=== PATIENT | female | born 1950 | race Two or more races ===

== ENCOUNTER 2020-08-23 12:52 | Emergency (ER) | payer MEDICARE, MEDICAID, SELFPAY ==
[2020-08-23 13:49] VITALS: BP 189/79; PULSE 67; RESP 16; TEMP 36.8; O2SAT 97; BMI 43.0
--- NOTE | 2020-08-23 13:58 | XR_ITS ---
EXAMINATION: XR CHEST CLINICAL INFORMATION: Chest tightness COMPARISON: Previous chest x-ray December 2017 TECHNIQUE: Frontal view of the chest was obtained. FINDINGS: The cardiac and mediastinal contours are normal. The lungs are clear. There is no pleural effusion or pneumothorax. There is curvature of the midthoracic spine to the right. XR/XR chest 1V IMPRESSION: No evidence for acute disease in the chest.
[2020-08-23 14:00] VITALS: RESP 18; O2SAT 98
--- NOTE | 2020-08-23 14:15 | ED.GENADULT ---
HPI - General Adult General Chief complaint: Upper Respiratory Symptoms Stated complaint: covid symptoms Time Seen by Provider: 08/23/20 13:58 Source: patient Mode of arrival: ambulatory Limitations: no limitations History of Present Illness HPI narrative: 69 y/o female presenting to the ER with chills, dry cough with associated chest tightness and body aches for the last 3 days. She states she was recently with her daughter who just found out she had COVID-19. Patient denies OSB or difficulty breathing. She has been eating and drinking normally. Has not taken her temp at home. Related Data Allergies Allergy/AdvReac Type Severity Reaction Status Date / Time morphine [MORPHINE] Allergy Severe CHEST Verified 08/23/20 13:51 PAIN, TROUBLE BREATHING, bruises Penicillins Allergy Intermediate RASH Verified 08/23/20 13:51 tramadol [TRAMADOL] Allergy Unknown CHEST PAIN Verified 08/23/20 13:51 Penicillin Allergy Unknown Hives Uncoded 08/23/20 13:51 From Percocet AdvReac Intermediate NAUSEA & Uncoded 08/23/20 13:51 VOMITING Percocet AdvReac Unknown vomiting Uncoded 08/23/20 13:51 Review of Systems Review of Systems: Constitutional: No Fever, + Chills ENT/Mouth: + sore throat, No Rhinorrhea, No Swallowing Difficulty Eyes: No Eye Pain, No Swelling, No Redness Cardiovascular: + Chest Pain ( tight when coughing only), No SOB, No Orthopnea, No Edema Respiratory: + Cough, No Sputum, No Wheezing, No dyspnea Gastrointestinal: No Nausea, No Vomiting, No Diarrhea, No abdominal Paiin Genitourinary: No Dysuria, No Urinary Frequency, No Hematuria Musculoskeletal: No joint pain, + Myalgias Skin: No Skin Lesions, No rash Neuro: +Weakness, No Numbness, No Dizziness, + Headache Heme/Lymph: No Lymphadenopathy PMFSH Past Medical History Medical History (Updated 08/23/20 @ 14:59 by RADHA Johnston) Hypertension Social History Social History Advance Directives: No Advance Directives Information Provided: No Physical Exam Vital Signs: Vital Signs: Last Vital Signs Temp 98.3 F 08/23/20 13:49 Pulse 67 08/23/20 13:49 Resp 18 08/23/20 14:00 BP 189/79 H 08/23/20 13:49 Pulse Ox 98 08/23/20 14:00 Body Mass Index 43.0 Appearance: Alert. Oriented X3. No acute distress. Eyes: Pupils equal, round and reactive to light. ENT: Pharynx normal. Neck: Normal inspection. Neck supple. CVS: Normal heart rate and rhythm. Pulses normal. Respiratory: No respiratory distress. Breath sounds normal. Skin: Skin warm and dry. Normal skin color. Extremities: No lower extremity edema. Neuro: Oriented X 3. Non-focal Course Course Course Narrative: 69 y/o female presenting with COVID-19 symptoms after known exposure. Non-toxic appearing without resp distress and no increased WOB. Lungs are clear. CXR and Resp panel pending. Reevaluation(s) Reevaluation #1: Went to go tell the patient about her negative CXR and it appears she has eloped from the ER. Will call with results. Discharge Plan Discharge Clinical Impression: Viral infection Patient Disposition: Elopement Interventions: ED Discharge Assessment Last Done: 08/23/20 14:45 Discharge Date/Time: 08/23/20 14:45
[2020-08-23 15:15] LABS: Influenza A PCR NEGATIVE (Negative); Influenza B PCR NEGATIVE (Negative); Resp Syncy Virus RNA Qual PCR NEGATIVE (Negative); SARS COV2 PCR INHOUSE NEGATIVE (Negative)
== END 2020-08-23 14:45 | disposition left against medical advice (07) ==
PROVIDERS: Physician Assistant; Emergency Provider Emergency Medicine; PCP Internal Medicine
DX: B34.9 Viral infection, unspecified (principal); Z20.828 Contact with and (suspected) exposure to other viral communicable diseases; I10 Essential (primary) hypertension
CPT/HCPCS: 0241U; 71045; 99283; 99284

== ENCOUNTER 2020-08-25 10:58 | Emergency (ER) | payer MEDICARE, MEDICAID, SELFPAY ==
[2020-08-25 11:11] VITALS: BP 173/65; PULSE 70; RESP 20; TEMP 37.2; O2SAT 97; BMI 43.0
--- NOTE | 2020-08-25 11:55 | ED_ITS ---
HPI - Asthma General Chief Complaint: Asthma Stated Complaint: covid symptoms Time Seen by Provider: 08/25/20 11:26 History of Present Illness HPI Narrative: Patient is a 69-year-old female presents today with coughing upper respiratory symptoms that is been ongoing for 3 days. Patient was tested for coronavirus 2 days ago. Presented today with having still upper respiratory symptoms. Positive fever 2 days ago that has subsided. No travel. No vomiting. No leg swelling. No chest pain. Patient is from home. Coughing nonproductive in nature. Positive generalized malaise positive diffuse body aches. No change in smell or taste. Related Data Allergies Allergy/AdvReac Type Severity Reaction Status Date / Time morphine [MORPHINE] Allergy Severe CHEST Verified 08/23/20 13:51 PAIN, TROUBLE BREATHING, bruises Penicillins Allergy Intermediate RASH Verified 08/23/20 13:51 tramadol [TRAMADOL] Allergy Unknown CHEST PAIN Verified 08/23/20 13:51 Penicillin Allergy Unknown Hives Uncoded 08/23/20 13:51 From Percocet AdvReac Intermediate NAUSEA & Uncoded 08/23/20 13:51 VOMITING Percocet AdvReac Unknown vomiting Uncoded 08/23/20 13:51 Review of Systems Review of Systems: Constitutional: No Weight loss, positive Fever, No Chills, No Night Sweats, No Fatigue, positive Malaise ENT/Mouth: No Hearing loss, No Ear Pain, No Nasal Congestion, No Sinus Pain, No Hoarseness, No sore throat, No Rhinorrhea, No Swallowing Difficulty Eyes: No Eye Pain, No Swelling, No Redness, No Foreign Body, No Discharge, No Vision Changes Cardiovascular: No Chest Pain, No SOB, No Dyspnea on Exertion, No Orthopnea, No Edema, No Palpitations Respiratory: Positive Cough, No Sputum, No Wheezing, No Smoke Exposure, No Dyspnea Gastrointestinal: No Nausea, No Vomiting, No Diarrhea, No Constipation, No abdominal Pain, No Hematochezia, No Melena Genitourinary: no irregular bleeding, No Dysuria, No Urinary Frequency, No Hematuria, No Urinary Incontinence, No Urgency, No Flank Pain, No Urinary Flow Changes, No Hesitancy Musculoskeletal: No joint pain, positive Myalgias, No Joint Swelling Skin: No Skin Lesions, No rash Neuro: No Weakness, No Numbness, No Paresthesias, No Loss of Consciousness, No Dizziness, No Headache Psych: No Anxiety/Panic, No Depression, No SI/HI/AH/VH, No Social Issues, Heme/Lymph: No Bruising, No Bleeding,No Lymphadenopathy Endocrine: No Polyuria, No Polydipsia, No Temperature Intolerance [facility] Past Medical History Attestation statement: The following information was validated with the patient. Medical History Hypertension Social History Social History Smoking Status: Never smoker Use of substances other than those prescribed or required for medical reasons: No Advance Directives: No Advance Directives Information Provided: Yes Physical Exam Vital Signs: Vital Signs: Last Vital Signs Temp 99.0 F 08/25/20 11:11 Pulse 70 08/25/20 11:11 Resp 20 08/25/20 11:11 BP 173/65 H 08/25/20 11:11 Pulse Ox 97 08/25/20 11:11 Body Mass Index 43.0 Appearance: Alert. Oriented X3. No acute distress. Eyes: Pupils equal, round and reactive to light. ENT: Pharynx normal. Neck: Normal inspection. Neck supple. No lymph nodes noted. No crepitus CVS: Normal heart rate and rhythm. Pulses normal. Normal S1 and S2 Respiratory: No respiratory distress. Breath sounds normal. No Wheezing. No rales Abdomen: Soft and nontender. No rigidity. No distention. good BS x4 Skin: Skin warm and dry. Normal skin color. Normal skin turgor. Extremities: No lower extremity edema. Neurovascular intact to all extremities. No Lacerations. No Rash Neuro: Oriented X 3. No motor deficit. No sensory deficit. Moving all extermities. No slurred speech MDM - Asthma MDM Narrative Medical decision making narrative: Patient's coronavirus test 2 days ago was negative. Cannot exclude the possibility of coronavirus. Patient's lung is 97% on room air. Well-appearing. No distress. Will discharge patient home. Please follow-up strict home quarantine. Please stay home until off fever has resolved for at least 24-48 hours. Discharge Plan Discharge Clinical Impression: COVID-19, Upper respiratory infection Patient Disposition: Home, Self-Care Instructions: COVID-19 (Coronavirus Disease 2019) (ED), Upper Respiratory Infection (ED) Additional Instructions: Your coronavirus test done 2 days ago was negative. There is still a risk for coronavirus. Please stay home into all symptom has resolved. No fever for at least 24-48 hours. Close follow-up with your doctor. Worsening condition return to the emergency department immediately. Referrals: Physician,Unknown [Primary Care Provider] - 2 days Print Language: Citizen Of [place]
[2020-08-25 12:10] VITALS: BP 173/65; PULSE 70; RESP 20; TEMP 37.2; O2SAT 97
== END 2020-08-25 12:20 | disposition home or self-care (01) ==
PROVIDERS: Emergency Provider Emergency Medicine Emergency Medical Services
DX: U07.1 COVID-19 (principal); R05 Cough
CPT/HCPCS: 99283; 99284; 99285

== ENCOUNTER 2020-08-31 14:10 | Emergency (ER) | payer MEDICARE, MEDICAID, SELFPAY ==
[2020-08-31 14:33] VITALS: BP 185/75; PULSE 68; RESP 16; TEMP 36.4; O2SAT 99; BMI 48.8
[2020-08-31 15:02] VITALS: BP 185/75; PULSE 68; PULSE 80; RESP 16; TEMP 36.4; O2SAT 99
--- NOTE | 2020-08-31 15:27 | ED.GENADULT ---
HPI - General Adult General Chief complaint: General Medical Stated complaint: covid symptoms Time Seen by Provider: 08/31/20 14:33 History of Present Illness HPI narrative: Patient is a 69-year-old female with a history of asthma. Presents today with coughing upper respiratory symptoms that is been ongoing for 3-4 days. She has never been admitted for asthma. Never been intubated. Patient complaining of increasing coughing upper respiratory symptom no fever no chills. Patient claims when she walks she gets more wheezy. Feels very tired. Patient is from home. No change in smell or taste. Patient had a coronavirus test done 3 days ago was negative. Continued to have symptoms hence presents to the emergency department. Patient also ran out of her albuterol at home. Related Data Previous Rx's Medication Instructions Recorded prednisone 40 mg PO DAILY 5 Days #10 tab 08/31/20 Allergies Allergy/AdvReac Type Severity Reaction Status Date / Time morphine [MORPHINE] Allergy Severe CHEST Verified 08/23/20 13:51 PAIN, TROUBLE BREATHING, bruises Penicillins Allergy Intermediate RASH Verified 08/23/20 13:51 tramadol [TRAMADOL] Allergy Unknown CHEST PAIN Verified 08/23/20 13:51 Penicillin Allergy Unknown Hives Uncoded 08/23/20 13:51 From Percocet AdvReac Intermediate NAUSEA & Uncoded 08/23/20 13:51 VOMITING Percocet AdvReac Unknown vomiting Uncoded 08/23/20 13:51 Review of Systems Review of Systems: Constitutional: No Weight loss, No Fever, No Chills, No Night Sweats, No Fatigue, No Malaise ENT/Mouth: No Hearing loss, No Ear Pain, No Nasal Congestion, No Sinus Pain, No Hoarseness, No sore throat, No Rhinorrhea, No Swallowing Difficulty Eyes: No Eye Pain, No Swelling, No Redness, No Foreign Body, No Discharge, No Vision Changes Cardiovascular: No Chest Pain, positive SOB, No Dyspnea on Exertion, No Orthopnea, No Edema, No Palpitations Respiratory: Positive Cough, No Sputum, No Wheezing, No Smoke Exposure, No Dyspnea Gastrointestinal: No Nausea, No Vomiting, No Diarrhea, No Constipation, No abdominal Pain, No Hematochezia, No Melena Genitourinary: no irregular bleeding, No Dysuria, No Urinary Frequency, No Hematuria, No Urinary Incontinence, No Urgency, No Flank Pain, No Urinary Flow Changes, No Hesitancy Musculoskeletal: No joint pain, No Myalgias, No Joint Swelling Skin: No Skin Lesions, No rash Neuro: No Weakness, No Numbness, No Paresthesias, No Loss of Consciousness, No Dizziness, No Headache Psych: No Anxiety/Panic, No Depression, No SI/HI/AH/VH, No Social Issues, Heme/Lymph: No Bruising, No Bleeding,No Lymphadenopathy Endocrine: No Polyuria, No Polydipsia, No Temperature Intolerance [facility] Past Medical History Attestation statement: The following information was validated with the patient. Medical History Asthma Hypertension Social History Social History Alcohol intake: current Alcohol intake frequency: holidays/special occasions only Smoking Status: Never smoker Use of substances other than those prescribed or required for medical reasons: No Advance Directives: No Advance Directives Information Provided: Yes Physical Exam Vital Signs: Vital Signs: Last Vital Signs Temp 97.6 F 08/31/20 15:02 Pulse 68 08/31/20 15:02 Resp 16 08/31/20 15:02 BP 185/75 H 08/31/20 15:02 Pulse Ox 99 08/31/20 15:02 Body Mass Index 48.8 Appearance: Alert. Oriented X3. No acute distress. Eyes: Pupils equal, round and reactive to light. ENT: Pharynx normal. Neck: Normal inspection. Neck supple. No lymph nodes noted. No crepitus CVS: Normal heart rate and rhythm. Pulses normal. Normal S1 and S2 Respiratory: No respiratory distress. Breath sounds normal. Positive Wheezing bilaterally. No rales Abdomen: Soft and nontender. No rigidity. No distention. good BS x4 Skin: Skin warm and dry. Normal skin color. Normal skin turgor. Extremities: No lower extremity edema. Neurovascular intact to all extremities. No Lacerations. No Rash Neuro: Oriented X 3. No motor deficit. No sensory deficit. Moving all extermities. No slurred speech Medical Decision Making MDM Narrative Medical decision making narrative: Patient well-appearing O2 sat 99% on room air no distress. Ambulated well in the emergency department. Will start patient on steroid. Will give patient a new albuterol inhaler. Patient to be discharged home. Close follow-up on an outpatient basis. Home quarantine until symptoms resolve no fever for 24-48 hours. Risk of Coronavirus still exists. Discharge Plan Discharge Clinical Impression: COVID-19, Asthma Patient Disposition: Home, Self-Care Instructions: Asthma (ED), COVID-19 (Coronavirus Disease 2019) (ED) Additional Instructions: Please follow strict home quarantine into all symptom has improved. No fever for at least 24-48 hours. Risk of Coronavirus still exists. Prescriptions: New prednisone 20 mg tablet 40 mg PO DAILY 5 Days Qty: 10 RF: 0 Referrals: [facility] [Physician] - 2 days Print Language: Citizen Of [place]
[2020-08-31] MEDS: predniSONE 20 MG TABLET 40 MG PO (15:51)
[2020-08-31] MEDS: Albuterol Sulfate 90 MCG 8 GM INHALER 2 PUFF INHALE (15:51)
== END 2020-08-31 15:55 | disposition home or self-care (01) ==
PROVIDERS: Emergency Provider Emergency Medicine Emergency Medical Services
DX: U07.1 COVID-19 (principal); J45.909 Unspecified asthma, uncomplicated
CPT/HCPCS: 99283; 99285

== ENCOUNTER 2021-01-30 13:00 | Emergency (ER) | payer MEDICARE, MEDICAID, SELFPAY ==
--- NOTE | 2021-01-30 | ECG_ITS ---
Test Reason : DIZZINESS Blood Pressure : / mmHG Vent. Rate : 072 BPM Atrial Rate : 072 BPM P-R Int : 144 ms QRS Dur : 084 ms QT Int : 404 ms P-R-T Axes : 019 -11 047 degrees QTc Int : 442 ms Normal sinus rhythm Inferior infarct , age undetermined Abnormal ECG When compared with ECG of 10-JAN-2018 18:34, T wave inversion no longer evident in Inferior leads Referred By: Generic ED Physician Electronically Signed By:Olivier Anderson
--- NOTE | ~2021-01-30 | CT_ITS ---
EXAMINATION: CT ANGIOGRAM HEAD CT ANGIOGRAM NECK CLINICAL INFORMATION: Right lower extremity weakness, numbness. Unsteady gait. COMPARISON: CT head from 06/03/2018. TECHNIQUE: Initial noncontrast metal furniture polisher imaging of the head and neck was performed. Noncontrast head CT was also performed. Test bolus sequences followed by intravenous administration 70 mL of Omnipaque 350. Helical imaging was performed in the axial plane from the aortic arch to the skull vertex. Delayed postcontrast imaging of the head was also performed. The data was processed at the angio technologist's workstation for generation of MIP sequences. Angled MIPs and volume rendered reformatted images were also generated at an offline 3D workstation. Stenoses are assessed in accordance with NASCET criteria unless otherwise indicated. This CT examination was performed using dose optimization techniques as appropriate, variously including the following: *Automated exposure control. *Adjustment of mA and/or kV according to patient size (this includes techniques or standardized protocols for targeted exams where dose is matched to indication/reason for exam; i.e. extremities or head). *Use of iterative reconstruction technique. DLP: 2133 mGy-cm FINDINGS: CT Head: There is no evidence of acute intracranial hemorrhage or edematous territorial infarction. There is no abnormal attenuation within the brain parenchyma. Gómez-white matter differentiation is preserved. No abnormal mass effect. The left lateral ventricle is mildly bigger than the right with the appearance of congenital variation. The septum pellucidum disposition mildly to the right of midline in this setting. Otherwise, the ventricles are normal in size and configuration. No evidence for obstructive hydrocephalus. No extra-axial fluid collections. No pathologic intra-axial enhancement or regional oligemia. No acute soft tissue or osseous abnormalities. Mild mucosal thickening of the paranasal sinuses. The mastoid air cells and middle ear cavities remain well aerated.. CT Neck: The thyroid gland and remaining cervical soft tissues are within normal limits. Straightening of the normal cervical lordosis. Minimal degenerative anterolisthesis of C4 on C5. Moderate degenerative disc disease at C5-C6. Mild degenerative disc disease at C3-C4, C4-C5, and C6-C7. Disc-osteophyte complex formation from C3-C7. Facet and uncovertebral joint arthropathy leads osseous encroachment on the neural foramina from C3-C6. The C2-C3 facets are fused. CT Upper Chest: The visualized lung apices and upper mediastinum are within normal limits. Neck CTA: Aortic Arch: Normal contour and caliber with mild calcific atherosclerotic disease. Classic 3 vessel branching pattern of the aortic arch. Great Vessel Origins: No significant stenosis of the branch origins. Right Common Carotid Artery: Normal opacification without focal stenosis or occlusion. Cervical Right Internal Carotid Artery: Normal opacification without focal stenosis or occlusion. Undulating appearance of the ICA gutierrez suggestive of underlying fibromuscular dysplasia. Left Common Carotid Artery: Normal opacification without focal stenosis or occlusion. Cervical Left Internal Carotid Artery: Mild lipid rich atherosclerotic disease of the carotid bulb and proximal internal carotid artery without flow-limiting stenosis. Undulating appearance of the ICA wall suggestive of underlying fibromuscular dysplasia. Cervical Right Vertebral Artery: Co-dominant. Normal opacification without focal stenosis or occlusion. Cervical Left Vertebral Artery: Co-dominant. Normal opacification without focal stenosis or occlusion. Brain CTA: Intracranial Internal Carotid Arteries: Mild calcific atherosclerotic disease of the intracranial internal carotid arteries without occlusion or flow-limiting stenosis. Normal contrast opacification of the petrous, cavernous, paraophthalmic, and supraclinoid segments of the internal carotid arteries without focal stenosis. Right Anterior Cerebral Artery: Normal A1 segment. Normal opacification of the distal segments of the COLT. Left Anterior Cerebral Artery: Normal A1 segment. Normal opacification of the distal segments of the COLT. Anterior Communicating Artery: Normal. Right Middle Cerebral Artery: Normal opacification of the M1 segment of the MCA without focal stenosis or occlusion. Normal arborization of the distal segments. Left Middle Cerebral Artery: Normal opacification of the M1 segment of the MCA without focal stenosis or occlusion. Normal arborization of the distal segments. Right Vertebral Artery: Normal opacification of the V4 segment. Normal opacification of the proximal segments of the posterior inferior cerebellar artery. Left Vertebral Artery: Normal opacification of the V4 segment. Normal opacification of the proximal segments of the posterior inferior cerebellar artery. Basilar Artery: Normal opacification without focal stenosis or occlusion. Normal appearance of the proximal superior cerebellar arteries. Right Posterior Cerebral Artery: Normal P1 segment. Normal opacification of the distal segments of the DIRECTOR OF INSTRUCTION. Left Posterior Cerebral Artery: Normal P1 segment. Normal opacification of the distal segments of the DIRECTOR OF INSTRUCTION. Normal opacification of the superior sagittal, straight, transverse, and sigmoid sinuses. CT/CT angio head neck IMPRESSION: 1. No evidence of acute intracranial hemorrhage or edematous territorial infarction. 2. CTA of the head and neck without proximal occlusion or flow-limiting stenosis. 3. Undulating appearance of the gutierrez of the cervical ICAs suggestive of underlying fibromuscular dysplasia. 4. 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
[2021-01-30 13:06] VITALS: BP 135/72; PULSE 72; RESP 18; TEMP 37.1; O2SAT 100; BMI 44.1
[2021-01-30 13:40] LABS: Basophils Absolute Auto 0.1 X10*3/uL (0.0-0.2); Basophils Percent Auto 0.8 % (0-2); Eosinophils Absolute Auto 0.5 X10*3/uL (0.0-0.4); Eosinophils Percent Auto 6.3 % (0-4); Hematocrit 41.7 % (37-47); Imm Gran Abs Auto 0.02 X10*3/uL (0.00-0.03); Imm Gran Pct Auto 0.3 % (0.0-0.4); Lymphocytes Absolute Auto 1.8 X10*3/uL (1.2-4.9); Lymphocytes Percent Auto 22.2 % (20-40); MANUAL DIFF FLAG NO; Mean Corpuscular HGB Conc 31.2 g/dl (31.0-35.0); Mean Corpuscular Hemoglobin 27.1 pg (27.0-33.0); Mean Corpuscular Volume 87.1 fL (80-98); Mean Platelet Volume 10.8 fL (9.4-12.3); Monocytes Absolute Auto 0.9 X10*3/uL (0.1-1.2); Monocytes Percent Auto 10.9 % (2-11); Neutrophils Absolute Auto 4.8 X10*3/uL (2.0-8.3); Neutrophils Percent Auto 59.5 % (45-73); Platelet Count 232 X10*3/uL (160-400); Red Blood Count 4.79 X10*6/uL (4.20-5.50); Red Cell Distribution Width 13.8 % (11.0-16.0)
[2021-01-30 14:17] LABS: Alanine Aminotransferase 27 U/L (0-31); Albumin Level 4.2 g/dL (3.5-5.0); Alkaline Phosphatase 76 U/L (39-117); Anion Gap 15 (12-20); Aspartate Amino Transferase 26 U/L (5-31); Bilirubin Total 0.4 mg/dL (0.0-1.0); Blood Urea Nitrogen 18 mg/dL (9-16); Calcium 9.5 mg/dL (8.4-10.2); Carbon Dioxide 25 mmol/L (22-29); Chloride 104 mmol/L (96-108); Creatinine Clr Calc Pharmacy 67.2; Estimated Glomerular Filt Rate > 60; Glucose Random 94 mg/dL (60-115); Sodium 140 mmol/L (135-145); Total Protein 7.8 g/dL (6.5-8.0)
[2021-01-30 14:23] LABS: Troponin-I High Sensitivity 3.7 ng/L (<3.5-17.0)
--- NOTE | 2021-01-30 16:31 | PC.NURSE ---
covered button maker to bedside. Pt states she has been feeling unbalanced since Friday but denies dizziness. She states at times she has pressure in her head and also occasional leg numbness from mid thighs to toes. She states this makes her feel like she is unable to walk. She reports she was at [facility] last week for evaluation of flank pain, was treated and released with no significant finding per pt. Pt denies diabetes. Pt on monitor and awaits ED provider.
--- NOTE | 2021-01-30 16:41 | ED_ITS ---
HPI - Dizziness General Chief Complaint: Dizziness <RADHA Johnston Last Filed: 01/30/21 21:40> Stated Complaint: dizziness <RADHA Johnston Last Filed: 01/30/21 21:40> Time Seen by Provider: 01/30/21 16:39 <RADHA Johnston Last Filed: 01/30/21 21:40> Source: patient <RADHA Johnston Last Filed: 01/30/21 21:40> Mode of arrival: ambulatory <RADHA Johnston Last Filed: 01/30/21 21:40> Limitations: language barrier <RADHA Johnston Last Filed: 01/30/21 21:40> History of Present Illness HPI Narrative: 70 y/o female with history of asthma, TIA, COVID-19 Aug 2020 who presents to the ER with reports of unsteady gait and dizzy episodes for the last 2-3 days. She states she feels off balanced when she tries to walk. She feels randomly dizzy at rest and when walking. Has not noticed any worsening of symptoms with position changes. She denies sensation of the room spinning. She feels like her legs are heavy and intermittently numb on the front. The right leg is worse than the left. She denies any focal weakness, difficulty speaking or facial droop. She denies chest pain, SOB, N/V/D or abdominal pain. <RADHA Johnston - Last Filed: 01/30/21 21:40> MD elicited complaint: dizziness and difficulty walking <RADHA Johnston Last Filed: 01/30/21 21:40> Onset (ago): day(s) (3) <RADHA Johnston Last Filed: 01/30/21 21:40> Timing: sudden onset, intermittent and episodic <RADHA Johnston Last Filed: 01/30/21 21:40> Severity: moderate <RADHA Johnston Last Filed: 01/30/21 21:40> Description: off-balance and difficulty walking <RADHA Johnston Last Filed: 01/30/21 21:40> History of similar symptoms: Yes (not as severe, several years ago) <RADHA Johnston Last Filed: 01/30/21 21:40> Exacerbating factors: nothing <RADHA Johnston Last Filed: 01/30/21 21:40> Relieving factors: nothing <RADHA Johnston Last Filed: 01/30/21 21:40> Associated symptoms: denies other symptoms <RADHA Johnston Last Filed: 01/30/21 21:40> Associated neuro symptoms: limb numbness and limb weakness <RADHA Johnston Last Filed: 01/30/21 21:40> Related Data Home Medications: Previous Rx's Medication Instructions Recorded prednisone 40 mg PO DAILY 5 Days #10 tab 08/31/20 <RADHA Johnston Last Filed: 01/30/21 21:40> Allergies/Adverse Reactions: Allergies Allergy/AdvReac Type Severity Reaction Status Date / Time morphine [MORPHINE] Allergy Severe CHEST Verified 01/30/21 13:06 PAIN, TROUBLE BREATHING, bruises Penicillins Allergy Intermediate RASH Verified 01/30/21 13:06 tramadol [TRAMADOL] Allergy Unknown CHEST PAIN Verified 01/30/21 13:06 Penicillin Allergy Unknown Hives Uncoded 08/23/20 13:51 From Percocet AdvReac Intermediate NAUSEA & Uncoded 08/23/20 13:51 VOMITING Percocet AdvReac Unknown vomiting Uncoded 08/23/20 13:51 <RADHA Johnston Last Filed: 01/30/21 21:40> Review of Systems Review of Systems: Constitutional: No Fever, No Chills ENT/Mouth: No sore throat, No Rhinorrhea, No Swallowing Difficulty Eyes: No Eye Pain, No Swelling, No Redness Cardiovascular: No Chest Pain, No SOB, No Orthopnea, No Edema Respiratory: No Cough, No Sputum, No Wheezing, No dyspnea Gastrointestinal: No Nausea, No Vomiting, No Diarrhea, No abdominal Pain Genitourinary: No Dysuria, No Urinary Frequency, No Hematuria Musculoskeletal: No joint pain, + Myalgias Skin: No Skin Lesions, No rash Neuro: No Weakness, + Numbness, + Dizziness, No Headache Psych: No Anxiety/Panic, No Depression Heme/Lymph: No Bruising, No Lymphadenopathy Endocrine: No Polyuria, No Polydipsia <RADHA Johnston - Last Filed: 01/30/21 21:40> [facility], [facility] Past Medical History Attestation statement: The following information was validated with the patient. <RADHA Johnston - Last Filed: 01/30/21 21:40> Medical History: Medical History Asthma Hypertension <RADHA Johnston - Last Filed: 01/30/21 21:40> Social History Social History: Social History Alcohol intake: never Patient Tobacco Use Status: Never used Tobacco Smoked in Last 30 Days: No Use of substances other than those prescribed or required for medical reasons: No Advance Directives: No Advance Directives Information Provided: Yes <RADHA Johnston - Last Filed: 01/30/21 21:40> Physical Exam Vital Signs: Vital Signs: Last Vital Signs Temp 97.9 F 01/31/21 02:28 Pulse 71 01/31/21 02:28 Resp 16 01/31/21 02:28 BP 144/76 H 01/31/21 02:28 Pulse Ox 98 01/31/21 02:28 Body Mass Index 44.1 Appearance: Alert. Oriented X3. No acute distress. Eyes: Pupils equal, round and reactive to light. ENT: Pharynx normal. Neck: Normal inspection. Neck supple. CVS: Normal heart rate and rhythm. Pulses normal. Respiratory: No respiratory distress. Breath sounds normal. Abdomen: Soft and nontender. +BS x4 Skin: Skin warm and dry. Normal skin color. Normal skin turgor. No rashes. Extremities: No lower extremity edema. Neuro: Oriented X 3, Right lower extremity weakness, unable to lift leg off of the bed. normal dorsiflexion and plantar flexion of the right foot. normal left leg strength. sensory deficits to anterior lower legs. normal UE strength and sensation, equal and bilateral hand grasp. No pronator drift. Speaks in complete sentences. <RADHA Johnston - Last Filed: 01/30/21 21:40> Vital Signs: Last Vital Signs Temp 97.9 F 01/31/21 02:28 Pulse 71 01/31/21 02:28 Resp 16 01/31/21 02:28 BP 144/76 H 01/31/21 02:28 Pulse Ox 98 01/31/21 02:28 Body Mass Index 44.1 <RADHA Zimmerman - Last Filed: 01/31/21 03:46> NIH Stroke Scale Level of Consciousness: Alert <RADHA Johnston - Last Filed: 01/30/21 21:40> Level of Consciousness Questions: Answers both questions correctly <RADHA Johnston - Last Filed: 01/30/21 21:40> Level of Consciousness Commands: Performs both tasks correctly <RADHA Johnston - Last Filed: 01/30/21 21:40> Best Gaze: Normal <RADHA Johnston - Last Filed: 01/30/21 21:40> Visual: No visual loss <RADHA Johnston - Last Filed: 01/30/21 21:40> Facial Palsy: Normal <RADHA Johnston - Last Filed: 01/30/21 21:40> Motor Arm (Right): No drift <RADHA Johnston - Last Filed: 01/30/21 21:40> Motor Arm (Left): No drift <RADHA Johnston - Last Filed: 01/30/21 21:40> Motor Leg (Right): Some effort against gravity <RADHA Johnston - Last Filed: 01/30/21 21:40> Motor Leg (Left): No drift <RADHA Johnston - Last Filed: 01/30/21 21:40> Limb Ataxia: Present in one limb <RADHA Johnston - Last Filed: 01/30/21 21:40> Sensory: Mild to moderate sensory loss <RADHA Johnston - Last Filed: 01/30/21 21:40> Best Language: No aphasia <RADHA Johnston - Last Filed: 01/30/21 21:40> Dysarthia: Normal <RADHA Johnston - Last Filed: 01/30/21 21:40> Extinction and Inattention: No abnormality <RADHA Johnston - Last Filed: 01/30/21 21:40> Score: 4 <RADHA Johnston - Last Filed: 01/30/21 21:40> Course Course Course Narrative: 70 y/o female with history of TIA about 5 years ago presenting with 48 hours of difficutly ambulating and LE heaviness and numbness. Her right leg is notably weak on exam. Lab workup is unremarkable. CTA head/neck ordered to look for LVO. She is out of TPA window. Anticipate admission for ongoing dizziness and weakness. <RADHA Johnston - Last Filed: 01/30/21 21:40> Patient Head & neck CTA came back negative. I re-evaluated patient and negative for any neuro deficit. Patient was able to walk on her own without any dizziness. Patient feels better. Patient is safe for discharge. <RADHA Zimmerman - Last Filed: 01/31/21 03:46> Reevaluation(s) Reevaluation #1: CTA still pending. Significant delay due to no IV access. Signed out to Kyrie ISABEL <RADHA Johnston - Last Filed: 01/30/21 21:40> MDM - Dizziness Lab Data Attestation: I reviewed the patient's lab results. <RADHA Johnston - Last Filed: 01/30/21 21:40> Result diagrams: : 01/30/21 13:33 01/30/21 13:33 <RADHA Johnston - Last Filed: 01/30/21 21:40> Labs: Lab Results 01/30/21 01/30/21 01/30/21 Range/Units 13:33 13:33 13:33 WBC 8.0 (4.8-10.8) X10*3/uL RBC 4.79 (4.20-5.50) X10*6/uL Hgb 13.0 (12.0-16.0) g/dl Hct 41.7 (37-47) % MCV 87.1 (80-98) fL MCH 27.1 (27.0-33.0) pg MCHC 31.2 (31.0-35.0) g/dl RDW 13.8 (11.0-16.0) % Plt Count 232 (160-400) X10*3/uL MPV 10.8 (9.4-12.3) fL Immature Gran % (Auto) 0.3 (0.0-0.4) % Neut % (Auto) 59.5 (45-73) % Lymph % (Auto) 22.2 (20-40) % Sioux % (Auto) 10.9 (2-11) % Eos % (Auto) 6.3 H (0-4) % Baso % (Auto) 0.8 (0-2) % Lymph # (Auto) 1.8 (1.2-4.9) X10*3/uL Sioux # (Auto) 0.9 (0.1-1.2) X10*3/uL Eos # (Auto) 0.5 H (0.0-0.4) X10*3/uL Baso # (Auto) 0.1 (0.0-0.2) X10*3/uL Abs Immat Gran (auto) 0.02 (0.00-0.03) X10*3/uL Absolute Neuts (auto) 4.8 (2.0-8.3) X10*3/uL Absolute Nucleated RBC 0.000 (0.0-0.012) X10*3/uL Nucleated RBC % (auto) 0.0 (0.0-0.2) /100WBC PT 12.0 (10.8-13.0) SEC INR 1.0 (0.9-1.1) Sodium 140 (135-145) mmol/L Potassium 4.0 (3.3-5.1) mmol/L Chloride 104 (96-108) mmol/L Carbon Dioxide 25 (22-29) mmol/L Anion Gap 15 (12-20) BUN 18 H (9-16) mg/dL Creatinine 0.84 (0.5-1.4) mg/dL Estim Creat Clear Calc 67.2 Estimated GFR > 60 Random Glucose 94 (60-115) mg/dL Calcium 9.5 (8.4-10.2) mg/dL Total Bilirubin 0.4 (0.0-1.0) mg/dL AST 26 (5-31) U/L ALT 27 (0-31) U/L Alkaline Phosphatase 76 (39-117) U/L Troponin I High Sens (<3.5-17.0) ng/L Total Protein 7.8 (6.5-8.0) g/dL Albumin 4.2 (3.5-5.0) g/dL Urine Color Urine Appearance Urine pH (5.0-8.0) Ur Specific Jackson (1.005-1.025) Urine Protein (NEG-TRACE) MG/DL Urine Glucose (UA) (NEG) MG/DL Urine Ketones (NEG) MG/DL Urine Blood (NEG) Urine Nitrite (NEG) Ur Leukocyte Esterase (NEG) Urine RBC (0) /HPF Urine WBC (0-4) /HPF Ur Squamous Epith Cells /LPF Urine Bacteria /LPF 01/30/21 01/30/21 Range/Units 13:33 20:33 WBC (4.8-10.8) X10*3/uL RBC (4.20-5.50) X10*6/uL Hgb (12.0-16.0) g/dl Hct (37-47) % MCV (80-98) fL MCH (27.0-33.0) pg MCHC (31.0-35.0) g/dl RDW (11.0-16.0) % Plt Count (160-400) X10*3/uL MPV (9.4-12.3) fL Immature Gran % (Auto) (0.0-0.4) % Neut % (Auto) (45-73) % Lymph % (Auto) (20-40) % Sioux % (Auto) (2-11) % Eos % (Auto) (0-4) % Baso % (Auto) (0-2) % Lymph # (Auto) (1.2-4.9) X10*3/uL Sioux # (Auto) (0.1-1.2) X10*3/uL Eos # (Auto) (0.0-0.4) X10*3/uL Baso # (Auto) (0.0-0.2) X10*3/uL Abs Immat Gran (auto) (0.00-0.03) X10*3/uL Absolute Neuts (auto) (2.0-8.3) X10*3/uL Absolute Nucleated RBC (0.0-0.012) X10*3/uL Nucleated RBC % (auto) (0.0-0.2) /100WBC PT (10.8-13.0) SEC INR (0.9-1.1) Sodium (135-145) mmol/L Potassium (3.3-5.1) mmol/L Chloride (96-108) mmol/L Carbon Dioxide (22-29) mmol/L Anion Gap (12-20) BUN (9-16) mg/dL Creatinine (0.5-1.4) mg/dL Estim Creat Clear Calc Estimated GFR Random Glucose (60-115) mg/dL Calcium (8.4-10.2) mg/dL Total Bilirubin (0.0-1.0) mg/dL AST (5-31) U/L ALT (0-31) U/L Alkaline Phosphatase (39-117) U/L Troponin I High Sens 3.7 (<3.5-17.0) ng/L Total Protein (6.5-8.0) g/dL Albumin (3.5-5.0) g/dL Urine Color YELLOW Urine Appearance CLEAR Urine pH 6.5 (5.0-8.0) Ur Specific Jackson <= 1.005 (1.005-1.025) Urine Protein NEG (NEG-TRACE) MG/DL Urine Glucose (UA) NEG (NEG) MG/DL Urine Ketones NEG (NEG) MG/DL Urine Blood NEG (NEG) Urine Nitrite NEG (NEG) Ur Leukocyte Esterase 1+ H (NEG) Urine RBC 0 (0) /HPF Urine WBC 0-2 (0-4) /HPF Ur Squamous Epith Cells 1+ /LPF Urine Bacteria TRACE /LPF <RADHA Johnston - Last Filed: 01/30/21 21:40> Lab Results 01/30/21 01/30/21 01/30/21 Range/Units 13:33 13:33 13:33 WBC 8.0 (4.8-10.8) X10*3/uL RBC 4.79 (4.20-5.50) X10*6/uL Hgb 13.0 (12.0-16.0) g/dl Hct 41.7 (37-47) % MCV 87.1 (80-98) fL MCH 27.1 (27.0-33.0) pg MCHC 31.2 (31.0-35.0) g/dl RDW 13.8 (11.0-16.0) % Plt Count 232 (160-400) X10*3/uL MPV 10.8 (9.4-12.3) fL Immature Gran % (Auto) 0.3 (0.0-0.4) % Neut % (Auto) 59.5 (45-73) % Lymph % (Auto) 22.2 (20-40) % Sioux % (Auto) 10.9 (2-11) % Eos % (Auto) 6.3 H (0-4) % Baso % (Auto) 0.8 (0-2) % Lymph # (Auto) 1.8 (1.2-4.9) X10*3/uL Sioux # (Auto) 0.9 (0.1-1.2) X10*3/uL Eos # (Auto) 0.5 H (0.0-0.4) X10*3/uL Baso # (Auto) 0.1 (0.0-0.2) X10*3/uL Abs Immat Gran (auto) 0.02 (0.00-0.03) X10*3/uL Absolute Neuts (auto) 4.8 (2.0-8.3) X10*3/uL Absolute Nucleated RBC 0.000 (0.0-0.012) X10*3/uL Nucleated RBC % (auto) 0.0 (0.0-0.2) /100WBC PT 12.0 (10.8-13.0) SEC INR 1.0 (0.9-1.1) Sodium 140 (135-145) mmol/L Potassium 4.0 (3.3-5.1) mmol/L Chloride 104 (96-108) mmol/L Carbon Dioxide 25 (22-29) mmol/L Anion Gap 15 (12-20) BUN 18 H (9-16) mg/dL Creatinine 0.84 (0.5-1.4) mg/dL Estim Creat Clear Calc 67.2 Estimated GFR > 60 Random Glucose 94 (60-115) mg/dL Calcium 9.5 (8.4-10.2) mg/dL Total Bilirubin 0.4 (0.0-1.0) mg/dL AST 26 (5-31) U/L ALT 27 (0-31) U/L Alkaline Phosphatase 76 (39-117) U/L Troponin I High Sens (<3.5-17.0) ng/L Total Protein 7.8 (6.5-8.0) g/dL Albumin 4.2 (3.5-5.0) g/dL Urine Color Urine Appearance Urine pH (5.0-8.0) Ur Specific Jackson (1.005-1.025) Urine Protein (NEG-TRACE) MG/DL Urine Glucose (UA) (NEG) MG/DL Urine Ketones (NEG) MG/DL Urine Blood (NEG) Urine Nitrite (NEG) Ur Leukocyte Esterase (NEG) Urine RBC (0) /HPF Urine WBC (0-4) /HPF Ur Squamous Epith Cells /LPF Urine Bacteria /LPF 01/30/21 01/30/21 Range/Units 13:33 20:33 WBC (4.8-10.8) X10*3/uL RBC (4.20-5.50) X10*6/uL Hgb (12.0-16.0) g/dl Hct (37-47) % MCV (80-98) fL MCH (27.0-33.0) pg MCHC (31.0-35.0) g/dl RDW (11.0-16.0) % Plt Count (160-400) X10*3/uL MPV (9.4-12.3) fL Immature Gran % (Auto) (0.0-0.4) % Neut % (Auto) (45-73) % Lymph % (Auto) (20-40) % Sioux % (Auto) (2-11) % Eos % (Auto) (0-4) % Baso % (Auto) (0-2) % Lymph # (Auto) (1.2-4.9) X10*3/uL [place] # (Auto) (0.1-1.2) X10*3/uL Eos # (Auto) (0.0-0.4) X10*3/uL Baso # (Auto) (0.0-0.2) X10*3/uL Abs Immat Gran (auto) (0.00-0.03) X10*3/uL Absolute Neuts (auto) (2.0-8.3) X10*3/uL Absolute Nucleated RBC (0.0-0.012) X10*3/uL Nucleated RBC % (auto) (0.0-0.2) /100WBC PT (10.8-13.0) SEC INR (0.9-1.1) Sodium (135-145) mmol/L Potassium (3.3-5.1) mmol/L Chloride (96-108) mmol/L Carbon Dioxide (22-29) mmol/L Anion Gap (12-20) BUN (9-16) mg/dL Creatinine (0.5-1.4) mg/dL Estim Creat Clear Calc Estimated GFR Random Glucose (60-115) mg/dL Calcium (8.4-10.2) mg/dL Total Bilirubin (0.0-1.0) mg/dL AST (5-31) U/L ALT (0-31) U/L Alkaline Phosphatase (39-117) U/L Troponin I High Sens 3.7 (<3.5-17.0) ng/L Total Protein (6.5-8.0) g/dL Albumin (3.5-5.0) g/dL Urine Color YELLOW Urine Appearance CLEAR Urine pH 6.5 (5.0-8.0) Ur Specific Jackson <= 1.005 (1.005-1.025) Urine Protein NEG (NEG-TRACE) MG/DL Urine Glucose (UA) NEG (NEG) MG/DL Urine Ketones NEG (NEG) MG/DL Urine Blood NEG (NEG) Urine Nitrite NEG (NEG) Ur Leukocyte Esterase 1+ H (NEG) Urine RBC 0 (0) /HPF Urine WBC 0-2 (0-4) /HPF Ur Squamous Epith Cells 1+ /LPF Urine Bacteria TRACE /LPF <RADHA Zimmerman - Last Filed: 01/31/21 03:46> ECG Data Attestation: I personally reviewed and interpreted this ECG as follows: <RADHA Johnston - Last Filed: 01/30/21 21:40> ECG interpretation date: 01/30/21 <RADHA Johnston - Last Filed: 01/30/21 21:40> ECG interpretation time: 18:38 <RADHA Johnston - Last Filed: 01/30/21 21:40> Interpretation: normal sinus rhythm, HR 72 bpm, normal OH interval, normal QTc, no ST segment elevations. <RADHA Johnston Last Filed: 01/30/21 21:40> Discharge Plan Discharge Clinical Impression: Dizziness <RADHA Johnston Last Filed: 01/30/21 21:40> Patient Disposition: Home, Self-Care <RADHA Johnston Last Filed: 01/30/21 21:40> Instructions: Dizziness (ED) <RADHA Johnston Last Filed: 01/30/21 21:40> Additional Instructions: Regrese al servicio de urgencias por dificultad para hablar, p?rdida de la visi?n, par?lisis de las extremidades, dec?bito facial, incapacidad para caminar, debilidad, empeoramiento de los mareos, dolor en el pecho, dificultad para respirar, desmayo, par?lisis de las extremidades o cualquier otro s?ntoma preocupante. <RADHA Johnston - Last Filed: 01/30/21 21:40> Prescriptions: No Action prednisone 20 mg tablet 40 mg PO DAILY 5 Days Qty: 10 RF: 0 <RADHA Johnston Last Filed: 01/30/21 21:40> Referrals: Carmelina Kennedy DO [Primary Care Provider] - 2 days (Dizziness. CT negative for bleed or stroke. Blood work normal. UA negative for UTI. Electrolytes normal. Troponin negative) <RADHA Johnston - Last Filed: 01/30/21 21:40> Interventions: ED Discharge Assessment Last Done: 01/31/21 02:26 <RADHA Johnston Last Filed: 01/30/21 21:40> Discharge Date/Time: 01/31/21 02:28 <RADHA Johnston Last Filed: 01/30/21 21:40> Print Language: Libyan <RADHA Johnston Last Filed: 01/30/21 21:40>
[2021-01-30] MEDS: iohexoL 350 MG/ML 100 ML INFUS..BTL IV (20:11)
[2021-01-30 20:30] VITALS: BP 174/77; PULSE 67; RESP 18; O2SAT 97
[2021-01-30 20:33] VITALS: BP 164/64; BP 170/78; PULSE 68; PULSE 75
[2021-01-30 20:36] VITALS: BP 152/82; PULSE 77
[2021-01-30 20:43] LABS: Glucose Urine UA NEG (NEG); Leukocyte Esterase Urine 1+ (NEG); Nitrite Urine NEG (NEG); PH 6.5 (5.0-8.0); Specific Gravity - Urine <= 1.005 (1.005-1.025); UACC Culture Trigger YES; Urine Blood NEG (NEG); Urine Ketones NEG (NEG); Urine Protein NEG (NEG-TRACE)
[2021-01-30 20:44] LABS: Appearance Urine CLEAR; Color Urine YELLOW
[2021-01-30 20:57] LABS: Bacteria Urine TRACE /LPF; RBC Urine 0 /HPF (0); Squamous Epithelial Cell Urine 1+ /LPF; WBC Urine 0-2 /HPF (0-4)
[2021-01-31 02:28] VITALS: BP 144/76; PULSE 71; RESP 16; TEMP 36.6; O2SAT 98
== END 2021-01-31 02:28 | disposition home or self-care (01) ==
PROVIDERS: Emergency Provider Emergency Medicine Emergency Medical Services; PCP Internal Medicine
DX: R42 Dizziness and giddiness (principal); R60.0 Localized edema; R29.704 NIHSS score 4; Z86.73 Personal history of transient ischemic attack (TIA), and cerebral infarction without residual deficits; Z86.16 Personal history of COVID-19; Z79.899 Other long term (current) drug therapy
CPT/HCPCS: 36415; 70496; 70498; 80053; 81001; 81003; 84484; 85025; 85610; 87086; 93005; 99285; Q9967

== ENCOUNTER 2021-10-31 11:55 | Emergency (ER) | payer MEDICARE, MEDICAID, SELFPAY ==
--- NOTE | ~2021-10-31 | XR_ITS ---
EXAMINATION: XR CHEST CLINICAL INFORMATION: Cough with sputum. COMPARISON: None TECHNIQUE: 2 views of the chest were obtained. FINDINGS: The lungs are well-expanded and clear of acute process. Heart size and pulmonary vascularity is normal. There is minimal bilateral apical pleural thickening. Heart size and pulmonary vascularity is normal. There is minimal dextroscoliosis dorsolumbar spine. XR/XR chest 2V IMPRESSION: No acute cardiopulmonary process seen.
[2021-10-31 13:15] VITALS: BP 176/62; PULSE 65; RESP 16; TEMP 37; O2SAT 99; BMI 43.2
[2021-10-31 13:37] LABS: Strep A Nucleic Acid Negative (Negative)
[2021-10-31 13:43] LABS: COVID-19 Test Negative (Negative)
[2021-10-31 15:16] LABS: IDNOW Serial# 08D9AD1C; Influenza A Negative (Negative); Influenza B2 Negative (Negative)
[2021-10-31] MEDS: guaiFENesin 100 MG/5 ML LIQUID 10 ML PO (15:40)
[2021-10-31] MEDS: predniSONE 20 MG TABLET 40 MG PO (15:40)
--- NOTE | 2021-10-31 15:43 | ED.URI ---
HPI - URI/Sore Throat General Chief Complaint: Upper Respiratory Symptoms Stated Complaint: fever/throat pain/cold Time Seen by Provider: 10/31/21 14:44 Source: patient Mode of arrival: ambulatory Limitations: language barrier (Urdu-speaking) History of Present Illness HPI Narrative: 71-year-old female with a past medical history of hypertension, asthma and COVID presenting to the ED with complaints of URI symptoms for the past few days worse today which include chills, body aches, generalized fatigue and malaise, nasal congestion/rhinorrhea, sore throat and productive cough with green-colored sputum with wheezing present. Reports that she is vaccinated to COVID. Ports that she is not vaccinated to the flu. She denies any recent travel or sick contacts that she is aware of. She reports that she has been using her albuterol inhaler at home and her daughters nebulizer machine because she does not have her own nebulizer machine. Otherwise she denies any measured fevers, dizziness, headaches, neck pain/stiffness, trouble swallowing or breathing, loss of taste or smell, ear pain, chest pain or shortness of breath, dyspnea on exertion, orthopnea, palpitations, nausea/vomiting/diarrhea constipation, lower extremity edema or calf tenderness or any rashes or any other symptoms complaints or concerns at this time. MD elicited complaint: cough, sore throat, rhinorrhea and nasal congestion Onset (ago): day(s) Consistency: constant and progressively worsening Severity: mild Description of mucous: clear, watery, yellow and green Able to tolerate fluids by mouth: Yes Exacerbating factors: swallowing Relieving factors: nothing Associated symptoms: chills, myalgias, rhinorrhea, nasal congestion, sore throat, cough and other (Wheezing) Treatments prior to arrival: other (See above) Related Data Previous Rx's Medication Instructions Recorded prednisone 20 mg tablet 40 mg PO DAILY 5 Days #10 tab 08/31/20 albuterol sulfate 0.63 mg/3 mL 0.63 mg (3 mL) INHALATION QID PRN 10/31/21 solution for nebulization #75 ml albuterol sulfate 90 mcg/actuation 1 inh INHALATION QID PRN #8.5 g 10/31/21 aerosol inhaler azithromycin 250 mg tablet See Rx Instructions .ROUTE 10/31/21 .COMPLEX #6 tab nebulizers (AeroEclipse II #1 ea 10/31/21 Nebulizer) prednisone 20 mg tablet 40 mg PO DAILY 5 Days #10 tab 10/31/21 Allergies Allergy/AdvReac Type Severity Reaction Status Date / Time morphine [MORPHINE] Allergy Severe CHEST Verified 01/30/21 13:06 PAIN, TROUBLE BREATHING, bruises Penicillins Allergy Intermediate RASH Verified 01/30/21 13:06 tramadol [TRAMADOL] Allergy Unknown CHEST PAIN Verified 01/30/21 13:06 Penicillin Allergy Unknown Hives Uncoded 08/23/20 13:51 From Percocet AdvReac Intermediate NAUSEA & Uncoded 08/23/20 13:51 VOMITING Percocet AdvReac Unknown vomiting Uncoded 08/23/20 13:51 Review of Systems Review of Systems: Constitutional : denies med noncompliance, no history of PE or DVT, denies recent travel, No Fever, + Chills ENT/Mouth : No Hoarseness, + sore throat, + Rhinorrhea, + Nasal congestion, No Sinus Pressure, No Ear Pain, No stridor, Eyes: No Redness, No Discharge, No Vision Changes Cardiovascular : No Chest Pain, No SOB, No Dyspnea on Exertion, No Edema, no pleurisy, Respiratory : + Cough, + wheezing, + Sputum, no stridor, no hemoptysis, Gastrointestinal : No Nausea, No Vomiting, No Diarrhea, No abdominal Pain Genitourinary : No Dysuria, No Hematuria Musculoskeletal : No joint pain/swelling, No Myalgias Extremities: no extremity swelling /pain Skin : No rash, no itching, no swelling Neuro : No Weakness, No Numbness, No Headache, No Dizziness, No Paresthesias Psych : No anxiety, depression Heme/Lymph: No Bruising, No Bleeding Endocrine : No Polyuria, No Polydipsia Yes all other systems are reviewed and are negative FOR[facility]LY [facility] Past Medical History Attestation statement: The following information was validated with the patient. Medical History Asthma Hypertension Social History Social History Alcohol intake: never Patient Tobacco Use Status: Never used Tobacco Advance Directives: No Advance Directives Information Provided: No Physical Exam Vital Signs: Vital Signs: Last Vital Signs Temp 98.6 F 10/31/21 13:15 Pulse 65 10/31/21 13:15 Resp 16 10/31/21 13:15 BP 176/62 H 10/31/21 13:15 Pulse Ox 99 10/31/21 13:15 BMI result Body Mass Index 43.2 vital signs have been reviewed as normal and appeared to be correct. Blood pressure normal. Heart rate normal. Respiration rate normal. Temperature normal. Oxygen saturation normal. Appearance: Alert. Oriented X3. No acute distress. Head: Normal external exam. Normocephalic. Atraumatic. Eyes: PERRLA. EOMI. Conjunctiva and sclera normal. Eyelids normal. ENT: EAC normal. TM's Normal. No exudate noted. Pharynx normal. Uvula midline. Moist mucous membranes. No lesions/ulcerations or masses noted on the tongue. Normal voice. No trismus noted. No drooling noted. No muffled voice noted. Neck: Normal inspection. Neck supple. FROM. No adenopathy. Thyroid Normal. No tracheal deviation noted. No crepitus is noted. No meningeal signs. No neck mass noted. No signs of trauma noted. CVS: Normal heart rate and rhythm. Heart sound normal. Pulses normal throughout. No murmurs/rales/gallops. Respiratory: No respiratory distress. Painless inspiration. Breath sounds normal. No wheezes/rales/rhonchi noted. Chest nontender. No crepitus is noted. No signs of trauma noted. No accessory muscle usage noted or decreased air movement noted. No signs of trauma. Abdomen: Soft and nontender. Bowel sounds normal in all 4 quadrants. No distention noted. No organomegaly noted. No visible injury noted. Back: Full range of motion noted. Nontender. No signs of trauma. Patient neuro intact bilaterally and distally on all 4 extremities. Patient's reflexes intact bilaterally and distally on all 4 extremities. No rashes/lesion/induration/fluctuance or signs of infection noted. Skin: Skin warm and dry. Normal skin color. Normal skin turgor. No rashes/lesions/lacerations noted. Extremities: No lower extremity edema. No calf tenderness is noted. Extremities exhibit normal range of motion and nontender. Neuro: Oriented X 3. No motor deficit. No sensory deficit. Reflexes normal. Normal steady gait. No focal neuro deficits noted. CN's II-XII intact bilaterally? Vascular: + radial pulses/+ 2 distal pedal pulses/+2 dorsalis pedis b/l. Normal cap refill. No cyanosis noted to upper extremity nails and lower extremity toes nails. Course Course Course Narrative: 71-year-old female with a past medical history of hypertension, asthma and COVID presenting to the ED with complaints of URI symptoms for the past few days worse today which include chills, body aches, generalized fatigue and malaise, nasal congestion/rhinorrhea, sore throat and productive cough with green-colored sputum with wheezing present. Reports that she is vaccinated to COVID. Ports that she is not vaccinated to the flu. She denies any recent travel or sick contacts that she is aware of. She reports that she has been using her albuterol inhaler at home and her daughters nebulizer machine because she does not have her own nebulizer machine. Otherwise she denies any measured fevers, dizziness, headaches, neck pain/stiffness, trouble swallowing or breathing, loss of taste or smell, ear pain, chest pain or shortness of breath, dyspnea on exertion, orthopnea, palpitations, nausea/vomiting/diarrhea constipation, lower extremity edema or calf tenderness or any rashes or any other symptoms complaints or concerns at this time. Patient negative for COVID/flu and strep. Chest x-ray negative. Therefore at this time will DC home with symptomatic treatment and steroids and instructions return if any new or worsening symptoms to follow up with primary care provider. Patient understands agrees with this plan. MDM - URI/Sore Throat Medical Records Attestation: I reviewed the patient's medical records. Lab Data Attestation: I reviewed the patient's lab results. Labs: Lab Results 10/31/21 10/31/21 10/31/21 Range/Units 13:20 13:20 14:50 COVID-19 (DAVID) Negative (Negative) COVID-19 Clin Com See Note Influenza Type A (SERGIO) Negative (Negative) Influenza Type B (SERGIO) Negative (Negative) Influenza A & B Note See Note S. pyogenes GrpA SERGIO Negative (Negative) Imaging Data Chest x-ray: Attestation: I personally reviewed and interpreted this imaging study as follows: Radiologist's impression: FINDINGS: The lungs are well-expanded and clear of acute process. Heart size and pulmonary vascularity is normal. There is minimal bilateral apical pleural thickening. Heart size and pulmonary vascularity is normal. There is minimal dextroscoliosis dorsolumbar spine. XR/XR chest 2V IMPRESSION: No acute cardiopulmonary process seen. Discharge Plan Discharge Clinical Impression: Asthma, Bronchitis Patient Disposition: Home, Self-Care Instructions: Asthma (DC), Acute Bronchitis (ED) Prescriptions: New (DME) AeroEclipse II Nebulizer Misc See Rx Instructions .ROUTE .MEDSUPPLY Qty: 1 0RF Rx Instructions: As directed albuterol sulfate 0.63 mg/3 mL solution for nebulization 0.63 mg inhalation QID PRN (Reason: shortness of breath or wheezing) Qty: 75 0RF albuterol sulfate 90 mcg/actuation HFA aerosol inhaler 1 inh inhalation QID PRN (Reason: shortness of breath or wheezing) Qty: 8.5 0RF azithromycin 250 mg tablet See Rx Instructions .ROUTE .COMPLEX Qty: 6 0RF Rx Instructions: take 500 mg today (day 1), then 250 mg for 4 days (days 2-5) prednisone 20 mg tablet 40 mg PO DAILY 5 Days Qty: 10 0RF No Action prednisone 20 mg tablet 40 mg PO DAILY 5 Days Qty: 10 0RF Referrals: Kalie Caballero MD [Primary Care Provider] - 2 days Print Language: Urdu
== END 2021-10-31 16:30 | disposition home or self-care (01) ==
PROVIDERS: Physician Assistant Medical; Emergency Provider Emergency Medicine; PCP Internal Medicine
DX: J40 Bronchitis, not specified as acute or chronic (principal); J45.909 Unspecified asthma, uncomplicated; Z20.822 Contact with and (suspected) exposure to COVID-19; J02.9 Acute pharyngitis, unspecified; M79.10 Myalgia, unspecified site; R68.83 Chills (without fever); I10 Essential (primary) hypertension
CPT/HCPCS: 71046; 87502; 87635; 87651; 99283

== ENCOUNTER 2021-12-24 04:38 | Emergency (ER) | payer MEDICARE, MEDICAID, SELFPAY ==
--- NOTE | 2021-12-24 | ECG_ITS ---
Test Reason : CP Blood Pressure : / mmHG Vent. Rate : 080 BPM Atrial Rate : 080 BPM P-R Int : 182 ms QRS Dur : 094 ms QT Int : 402 ms P-R-T Axes : 054 -12 035 degrees QTc Int : 463 ms Normal sinus rhythm Possible Inferior infarct (cited on or before 30-JAN-2021) Abnormal ECG When compared with ECG of 30-JAN-2021 13:13, No significant change was found Referred By: Generic ED Physician Electronically Signed By:TRUPTI VITAL
--- NOTE | ~2021-12-24 | CT_ITS ---
EXAMINATION: CTA CHEST. CT ABDOMEN PELVIS WITH CONTRAST. CLINICAL INFORMATION: Chest pain COMPARISON: None TECHNIQUE: 5 mm thin axial and reformatted 8 mm thick oblique coronal and 3 mm thick sagittal and coronal images of chest were obtained following rapid IV 85 mL of Omnipaque 350. Subsequently 5 mm thin axial and reformatted 3 mm thin sagittal and coronal images of abdomen and pelvis were obtained without contrast. DLP [id number] FINDINGS: Chest: There is good opacification of pulmonary artery and its branches without any intraluminal filling defect. The thoracic aorta is of normal caliber without aneurysm or dissection. The heart size is normal. No pericardial effusion seen. The thyroid lobes are symmetrical and normal. No abnormal mediastinal lymph nodes seen. The lungs are well-expanded with mild haziness in both lung bases likely compressive atelectasis. Rest lungs are clear. There is no pleural effusion or thickening. There is no abnormal axillary lymph nodes or mass. The chest wall is unremarkable. There is no osseous bony abnormality involving the thoracic cage. Abdomen and pelvis: The liver is normal size, shape and density. No focal lesion or intrahepatic ductal dilatation seen. Gallbladder is contracted and not visualized Visualized spleen, pancreas and bilateral adrenal glands unremarkable. Both kidneys are normal size, shape and position. There are multiple nonobstructive radiopaque renal calculi. There is an extrarenal right kidney pelvis and a prominent ureter secondary to tortuosity. There are several phleboliths along the course of the ureter but no radiopaque obstructive calculi. The left kidney pelvis appears normal. There is a 1.4 cm cyst lower pole left kidney. The abdominal aorta is of normal caliber. No abnormal size retroperitoneal lymph nodes or mass seen. There is scattered stool, diverticuli and gas seen throughout the colon without diverticulitis. The appendix and the small bowel loops are normal caliber. There is small hiatal hernia. The stomach is otherwise unremarkable. The abdominal wall appears unremarkable except for a small umbilical hernia containing fat. Imaging to the pelvis reveals unremarkable urinary bladder. Bone windows reveal no lytic or sclerotic process. CT/CT angio chest PE protocol IMPRESSION: No evidence of PE. No evidence of aortic dissection. Minimal dependent atelectasis in lung bases. Nonobstructive bilateral radiopaque renal calculi. Mild prominent right kidney pelvis and ureter but no obstructive radiopaque stones seen. 1.4 cm cyst left kidney. Scattered colonic diverticulosis without diverticulitis. Mild constipation. Small hiatal hernia.
[2021-12-24 04:40] VITALS: BP 151/57; PULSE 83; RESP 14; TEMP 36.5; O2SAT 96; BMI 43.4
[2021-12-24 04:48] VITALS: O2SAT 97
--- NOTE | 2021-12-24 04:51 | PC.NURSE ---
pt arrived alert and oriented from home. moaning with CP. pt stated that CP started about 3hr ago. pt stated that she took her BP meds because her BP was elevated per pt systolic 147. pt received a total of 324mg asp on route. per medic EKG was normal pt started on continuos cardiac monitoring. ekg completed by anesthesiology technologist
[2021-12-24 05:21] LABS: Basophils Percent Auto 0.4 % (0-2); Eosinophils Absolute Auto 0.4 X10*3/uL (0.0-0.4); Eosinophils Percent Auto 4.5 % (0-4); Hematocrit 41.3 % (37.0-47.0); Hemoglobin 12.9 g/dl (12.0-16.0); Imm Gran Abs Auto 0.02 X10*3/uL (0.00-0.03); Imm Gran Pct Auto 0.2 % (0.0-0.4); Lymphocytes Absolute Auto 1.9 X10*3/uL (1.2-4.9); Lymphocytes Percent Auto 21.2 % (20-40); MANUAL DIFF FLAG NO; Mean Corpuscular HGB Conc 31.2 g/dl (31.0-35.0); Mean Corpuscular Hemoglobin 26.5 pg (27.0-33.0); Mean Platelet Volume 10.8 fL (9.4-12.3); Monocytes Absolute Auto 0.7 X10*3/uL (0.1-1.2); Monocytes Percent Auto 7.4 % (2-11); Neutrophils Absolute Auto 5.9 x10*3/uL (2.0-8.3); Neutrophils Percent Auto 66.3 % (45-73); Platelet Count 267 X10*3/uL (160-400); Red Blood Count 4.86 X10*6/uL (4.20-5.50); White Blood Count 8.9 X10*3/uL (4.8-10.8)
[2021-12-24 05:40] LABS: Troponin-I High Sensitivity < 3.5 ng/L (<3.5-17.0)
--- NOTE | 2021-12-24 05:46 | ED_ITS ---
HPI - Chest Pain General Chief Complaint: Chest Pain <Sheeba Lerma MD - Last Filed: 12/24/21 06:27> Stated Complaint: chest pain <Sheeba Lerma MD - Last Filed: 12/24/21 06:27> Time Seen by Provider: 12/24/21 05:43 <Sheeba Lerma MD - Last Filed: 12/24/21 06:27> History of Present Illness HPI narrative: Patient is 71-year-old female with a history of previous ID, previous history of blood clots. Patient claims she is not on any blood thinners. Presents today with having chest pain that is mid chest. Woke her up. Patient claims she had the pain for last 2-3 hours. No fever no chills no diaphoresis. The pain is mid chest. Does not radiate. Associated with nausea patient claims this pain is extreme. No radiation to the arm. No history of dissection. Patient is from home. No travel history no leg swelling. Unsure why she had a blood clot last time patient denies any changes in medication. It previously had history of asthma and also COVID in the past she had all her vaccinations for COVID. Patient has history of hypertension positive ID approximately 9 years ago. No history of smoking no history of high cholesterol no diabetes no family history coronary artery disease. Patient denies any recent travel. No leg swelling. Not on hormone replacement. <Sheeba Lerma MD - Last Filed: 12/24/21 06:27> Related Data Home Medications: Previous Rx's Medication Instructions Recorded prednisone 20 mg tablet 40 mg PO DAILY 5 Days #10 tab 08/31/20 albuterol sulfate 0.63 mg/3 mL 0.63 mg (3 mL) INHALATION QID PRN 10/31/21 solution for nebulization #75 ml albuterol sulfate 90 mcg/actuation 1 inh INHALATION QID PRN #8.5 g 10/31/21 aerosol inhaler azithromycin 250 mg tablet See Rx Instructions .ROUTE 10/31/21 .COMPLEX #6 tab nebulizers (AeroEclipse II #1 ea 10/31/21 Nebulizer) prednisone 20 mg tablet 40 mg PO DAILY 5 Days #10 tab 10/31/21 ondansetron 4 mg disintegrating 4 mg PO Q8H PRN #20 tab 04/25/22 tablet <Sheeba Lerma MD - Last Filed: 12/24/21 06:27> Allergies/Adverse Reactions: Allergies Allergy/AdvReac Type Severity Reaction Status Date / Time morphine [MORPHINE] Allergy Severe CHEST Verified 12/24/21 04:51 PAIN, TROUBLE BREATHING, bruises Penicillins Allergy Intermediate RASH Verified 12/24/21 04:51 tramadol [TRAMADOL] Allergy Unknown CHEST PAIN Verified 12/24/21 04:51 Penicillin Allergy Unknown Hives Uncoded 12/24/21 04:51 From Percocet AdvReac Intermediate NAUSEA & Uncoded 12/24/21 04:51 VOMITING Percocet AdvReac Unknown vomiting Uncoded 12/24/21 04:51 <Sheeba Lerma MD - Last Filed: 12/24/21 06:27> Review of Systems Review of Systems: Positive chest pain Positive nausea Positive vomiting Positive generalized malaise <Sheeba Lerma MD - Last Filed: 12/24/21 06:27> Yes all other systems are reviewed and are negative <Sheeba Lerma MD - Last Filed: 12/24/21 06:27> [facility] Past Medical History Attestation statement: The following information was validated with the patient. <Sheeba Lerma MD - Last Filed: 12/24/21 06:27> Medical History: Medical History Asthma Hypertension <Sheeba Lerma MD - Last Filed: 12/24/21 06:27> Social History Social History: Social History Alcohol intake: never Patient Tobacco Use Status: Never used Tobacco Use of substances other than those prescribed or required for medical reasons: No Advance Directives: No <Sheeba Lerma MD - Last Filed: 12/24/21 06:27> Physical Exam Vital Signs: Vital Signs: Last Vital Signs Temp 97.5 F 12/24/21 07:07 Pulse 75 12/24/21 07:07 Resp 13 12/24/21 07:07 BP 162/62 H 12/24/21 07:07 Pulse Ox 95 12/24/21 07:07 BMI result Body Mass Index 43.4 Appearance: Alert. Oriented X3. No acute distress. Eyes: Pupils equal, round and reactive to light. ENT: Pharynx normal. Neck: Normal inspection. Neck supple. No lymph nodes noted. No crepitus CVS: Normal heart rate and rhythm. Pulses normal. Normal S1 and S2 Respiratory: No respiratory distress. Breath sounds normal. No Wheezing. No rales Abdomen: Soft and nontender. No rigidity. No distention. good BS x4 Skin: Skin warm and dry. Normal skin color. Normal skin turgor. Extremities: No lower extremity edema. Neurovascular intact to all extremities. No Lacerations. No Rash Neuro: Oriented X 3. No motor deficit. No sensory deficit. Moving all extermities. No slurred speech <Sheeba Lerma MD - Last Filed: 12/24/21 06:27> Vital Signs: Last Vital Signs Temp 97.5 F 12/24/21 07:07 Pulse 75 12/24/21 07:07 Resp 13 12/24/21 07:07 BP 162/62 H 12/24/21 07:07 Pulse Ox 95 12/24/21 07:07 BMI result Body Mass Index 43.4 <Liv Greer DO - Last Filed: 12/24/21 09:06> Course Course Course Narrative: sign out at 7am EKG unchanged, CT scans pending. repeat trop at [address] scans negative for acute pathology trop flat x 3 <Liv Greer DO - Last Filed: 12/24/21 09:06> MDM - Chest Pain MDM Narrative Medical decision making narrative: Fair appearing not acute distress patient's EKG is unchanged from previous showed a sinus pattern heart rate was 80 MN QRS QTC within normal limits there is no acute ST segment elevation there is Q-wave in the inferior leads which are old. Will check cardiac enzymes. Patient already took an aspirin prior to arrival. CTA of the chest ordered for possible PE as patient has previous hist ory of PE as not having chest pain. [place] that the DDimer might not be adequate to rule out the risk of PE. Troponin ordered. <Sheeba Lerma MD - Last Filed: 12/24/21 06:27> Lab Data Result diagrams: : 12/24/21 05:17 12/24/21 05:44 <Sheeba Lerma MD - Last Filed: 12/24/21 06:27> Labs: Lab Results 12/24/21 12/24/21 12/24/21 Range/Units 05:17 05:17 05:44 WBC 8.9 (4.8-10.8) X10*3/uL RBC 4.86 (4.20-5.50) X10*6/uL Hgb 12.9 (12.0-16.0) g/dl Hct 41.3 (37.0-47.0) % MCV 85.0 (80.0-98.0) fL MCH 26.5 L (27.0-33.0) pg MCHC 31.2 (31.0-35.0) g/dl RDW 14.0 (11.0-16.0) % Plt Count 267 (160-400) X10*3/uL MPV 10.8 (9.4-12.3) fL Immature Gran % (Auto) 0.2 (0.0-0.4) % Neut % (Auto) 66.3 (45-73) % Lymph % (Auto) 21.2 (20-40) % [place] % (Auto) 7.4 (2-11) % Eos % (Auto) 4.5 H (0-4) % Baso % (Auto) 0.4 (0-2) % Lymph # (Auto) 1.9 (1.2-4.9) X10*3/uL [place] # (Auto) 0.7 (0.1-1.2) X10*3/uL Eos # (Auto) 0.4 (0.0-0.4) X10*3/uL Baso # (Auto) 0.0 (0.0-0.2) X10*3/uL Abs Immat Gran (auto) 0.02 (0.00-0.03) X10*3/uL Absolute Neuts (auto) 5.9 (2.0-8.3) x10*3/uL Absolute Nucleated RBC 0.000 (0.0-0.012) X10*3/uL Nucleated RBC % (auto) 0.0 (0.0-0.2) /100WBC Sodium 138 (135-145) mmol/L Potassium 4.0 (3.3-5.1) mmol/L Chloride 104 (96-108) mmol/L Carbon Dioxide 22 (22-29) mmol/L Anion Gap 16 (12-20) BUN 24 H (9-16) mg/dL Creatinine 0.89 (0.5-1.4) mg/dL Estim Creat Clear Calc 61.9 Estimated GFR > 60 Random Glucose 152 H (60-115) mg/dL Calcium 9.8 (8.4-10.2) mg/dL Total Bilirubin 0.5 (0.0-1.0) mg/dL AST 32 H (5-31) U/L ALT 24 (0-31) U/L Alkaline Phosphatase 72 (39-117) U/L Troponin I High Sens < 3.5 (<3.5-17.0) ng/L Total Protein 8.4 H (6.5-8.0) g/dL Albumin 4.3 (3.5-5.0) g/dL Lipase 25 (8-78) U/L COVID-19 (DAVID) (Negative) COVID-19 Clin Com Influenza Type A (SERGIO) (Negative) Influenza Type B (SERGIO) (Negative) Influenza A & B Note 12/24/21 12/24/21 12/24/21 Range/Units 06:12 06:12 06:42 WBC (4.8-10.8) X10*3/uL RBC (4.20-5.50) X10*6/uL Hgb (12.0-16.0) g/dl Hct (37.0-47.0) % MCV (80.0-98.0) fL MCH (27.0-33.0) pg MCHC (31.0-35.0) g/dl RDW (11.0-16.0) % Plt Count (160-400) X10*3/uL MPV (9.4-12.3) fL Immature Gran % (Auto) (0.0-0.4) % Neut % (Auto) (45-73) % Lymph % (Auto) (20-40) % [place] % (Auto) (2-11) % Eos % (Auto) (0-4) % Baso % (Auto) (0-2) % Lymph # (Auto) (1.2-4.9) X10*3/uL [place] # (Auto) (0.1-1.2) X10*3/uL Eos # (Auto) (0.0-0.4) X10*3/uL Baso # (Auto) (0.0-0.2) X10*3/uL Abs Immat Gran (auto) (0.00-0.03) X10*3/uL Absolute Neuts (auto) (2.0-8.3) x10*3/uL Absolute Nucleated RBC (0.0-0.012) X10*3/uL Nucleated RBC % (auto) (0.0-0.2) /100WBC Sodium (135-145) mmol/L Potassium (3.3-5.1) mmol/L Chloride (96-108) mmol/L Carbon Dioxide (22-29) mmol/L Anion Gap (12-20) BUN (9-16) mg/dL Creatinine (0.5-1.4) mg/dL Estim Creat Clear Calc Estimated GFR Random Glucose (60-115) mg/dL Calcium (8.4-10.2) mg/dL Total Bilirubin (0.0-1.0) mg/dL AST (5-31) U/L ALT (0-31) U/L Alkaline Phosphatase (39-117) U/L Troponin I High Sens 3.9 (<3.5-17.0) ng/L Total Protein (6.5-8.0) g/dL Albumin (3.5-5.0) g/dL Lipase (8-78) U/L COVID-19 (DAVID) Negative (Negative) COVID-19 Clin Com See Note Influenza Type A (SERGIO) Negative (Negative) Influenza Type B (SERGIO) Negative (Negative) Influenza A & B Note See Note 12/24/21 Range/Units 08:28 WBC (4.8-10.8) X10*3/uL RBC (4.20-5.50) X10*6/uL Hgb (12.0-16.0) g/dl Hct (37.0-47.0) % MCV (80.0-98.0) fL MCH (27.0-33.0) pg MCHC (31.0-35.0) g/dl RDW (11.0-16.0) % Plt Count (160-400) X10*3/uL MPV (9.4-12.3) fL Immature Gran % (Auto) (0.0-0.4) % Neut % (Auto) (45-73) % Lymph % (Auto) (20-40) % [place] % (Auto) (2-11) % Eos % (Auto) (0-4) % Baso % (Auto) (0-2) % Lymph # (Auto) (1.2-4.9) X10*3/uL [place] # (Auto) (0.1-1.2) X10*3/uL Eos # (Auto) (0.0-0.4) X10*3/uL Baso # (Auto) (0.0-0.2) X10*3/uL Abs Immat Gran (auto) (0.00-0.03) X10*3/uL Absolute Neuts (auto) (2.0-8.3) x10*3/uL Absolute Nucleated RBC (0.0-0.012) X10*3/uL Nucleated RBC % (auto) (0.0-0.2) /100WBC Sodium (135-145) mmol/L Potassium (3.3-5.1) mmol/L Chloride (96-108) mmol/L Carbon Dioxide (22-29) mmol/L Anion Gap (12-20) BUN (9-16) mg/dL Creatinine (0.5-1.4) mg/dL Estim Creat Clear Calc Estimated GFR Random Glucose (60-115) mg/dL Calcium (8.4-10.2) mg/dL Total Bilirubin (0.0-1.0) mg/dL AST (5-31) U/L ALT (0-31) U/L Alkaline Phosphatase (39-117) U/L Troponin I High Sens 5.9 D (<3.5-17.0) ng/L Total Protein (6.5-8.0) g/dL Albumin (3.5-5.0) g/dL Lipase (8-78) U/L COVID-19 (DAVID) (Negative) COVID-19 Clin Com Influenza Type A (SERGIO) (Negative) Influenza Type B (SERGIO) (Negative) Influenza A & B Note <Sheeba Lerma MD - Last Filed: 12/24/21 06:27> Lab Results 12/24/21 12/24/21 12/24/21 Range/Units 05:17 05:17 05:44 WBC 8.9 (4.8-10.8) X10*3/uL RBC 4.86 (4.20-5.50) X10*6/uL Hgb 12.9 (12.0-16.0) g/dl Hct 41.3 (37.0-47.0) % MCV 85.0 (80.0-98.0) fL MCH 26.5 L (27.0-33.0) pg MCHC 31.2 (31.0-35.0) g/dl RDW 14.0 (11.0-16.0) % Plt Count 267 (160-400) X10*3/uL MPV 10.8 (9.4-12.3) fL Immature Gran % (Auto) 0.2 (0.0-0.4) % Neut % (Auto) 66.3 (45-73) % Lymph % (Auto) 21.2 (20-40) % [place] % (Auto) 7.4 (2-11) % Eos % (Auto) 4.5 H (0-4) % Baso % (Auto) 0.4 (0-2) % Lymph # (Auto) 1.9 (1.2-4.9) X10*3/uL [place] # (Auto) 0.7 (0.1-1.2) X10*3/uL Eos # (Auto) 0.4 (0.0-0.4) X10*3/uL Baso # (Auto) 0.0 (0.0-0.2) X10*3/uL Abs Immat Gran (auto) 0.02 (0.00-0.03) X10*3/uL Absolute Neuts (auto) 5.9 (2.0-8.3) x10*3/uL Absolute Nucleated RBC 0.000 (0.0-0.012) X10*3/uL Nucleated RBC % (auto) 0.0 (0.0-0.2) /100WBC Sodium 138 (135-145) mmol/L Potassium 4.0 (3.3-5.1) mmol/L Chloride 104 (96-108) mmol/L Carbon Dioxide 22 (22-29) mmol/L Anion Gap 16 (12-20) BUN 24 H (9-16) mg/dL Creatinine 0.89 (0.5-1.4) mg/dL Estim Creat Clear Calc 61.9 Estimated GFR > 60 Random Glucose 152 H (60-115) mg/dL Calcium 9.8 (8.4-10.2) mg/dL Total Bilirubin 0.5 (0.0-1.0) mg/dL AST 32 H (5-31) U/L ALT 24 (0-31) U/L Alkaline Phosphatase 72 (39-117) U/L Troponin I High Sens < 3.5 (<3.5-17.0) ng/L Total Protein 8.4 H (6.5-8.0) g/dL Albumin 4.3 (3.5-5.0) g/dL Lipase 25 (8-78) U/L COVID-19 (DAVID) (Negative) COVID-19 Clin Com Influenza Type A (SERGIO) (Negative) Influenza Type B (SERGIO) (Negative) Influenza A & B Note 12/24/21 12/24/21 12/24/21 Range/Units 06:12 06:12 06:42 WBC (4.8-10.8) X10*3/uL RBC (4.20-5.50) X10*6/uL Hgb (12.0-16.0) g/dl Hct (37.0-47.0) % MCV (80.0-98.0) fL MCH (27.0-33.0) pg MCHC (31.0-35.0) g/dl RDW (11.0-16.0) % Plt Count (160-400) X10*3/uL MPV (9.4-12.3) fL Immature Gran % (Auto) (0.0-0.4) % Neut % (Auto) (45-73) % Lymph % (Auto) (20-40) % [place] % (Auto) (2-11) % Eos % (Auto) (0-4) % Baso % (Auto) (0-2) % Lymph # (Auto) (1.2-4.9) X10*3/uL [place] # (Auto) (0.1-1.2) X10*3/uL Eos # (Auto) (0.0-0.4) X10*3/uL Baso # (Auto) (0.0-0.2) X10*3/uL Abs Immat Gran (auto) (0.00-0.03) X10*3/uL Absolute Neuts (auto) (2.0-8.3) x10*3/uL Absolute Nucleated RBC (0.0-0.012) X10*3/uL Nucleated RBC % (auto) (0.0-0.2) /100WBC Sodium (135-145) mmol/L Potassium (3.3-5.1) mmol/L Chloride (96-108) mmol/L Carbon Dioxide (22-29) mmol/L Anion Gap (12-20) BUN (9-16) mg/dL Creatinine (0.5-1.4) mg/dL Estim Creat Clear Calc Estimated GFR Random Glucose (60-115) mg/dL Calcium (8.4-10.2) mg/dL Total Bilirubin (0.0-1.0) mg/dL AST (5-31) U/L ALT (0-31) U/L Alkaline Phosphatase (39-117) U/L Troponin I High Sens 3.9 (<3.5-17.0) ng/L Total Protein (6.5-8.0) g/dL Albumin (3.5-5.0) g/dL Lipase (8-78) U/L COVID-19 (DAVID) Negative (Negative) COVID-19 Clin Com See Note Influenza Type A (SERGIO) Negative (Negative) Influenza Type B (SERGIO) Negative (Negative) Influenza A & B Note See Note 12/24/21 Range/Units 08:28 WBC (4.8-10.8) X10*3/uL RBC (4.20-5.50) X10*6/uL Hgb (12.0-16.0) g/dl Hct (37.0-47.0) % MCV (80.0-98.0) fL MCH (27.0-33.0) pg MCHC (31.0-35.0) g/dl RDW (11.0-16.0) % Plt Count (160-400) X10*3/uL MPV (9.4-12.3) fL Immature Gran % (Auto) (0.0-0.4) % Neut % (Auto) (45-73) % Lymph % (Auto) (20-40) % [place] % (Auto) (2-11) % Eos % (Auto) (0-4) % Baso % (Auto) (0-2) % Lymph # (Auto) (1.2-4.9) X10*3/uL [place] # (Auto) (0.1-1.2) X10*3/uL Eos # (Auto) (0.0-0.4) X10*3/uL Baso # (Auto) (0.0-0.2) X10*3/uL Abs Immat Gran (auto) (0.00-0.03) X10*3/uL Absolute Neuts (auto) (2.0-8.3) x10*3/uL Absolute Nucleated RBC (0.0-0.012) X10*3/uL Nucleated RBC % (auto) (0.0-0.2) /100WBC Sodium (135-145) mmol/L Potassium (3.3-5.1) mmol/L Chloride (96-108) mmol/L Carbon Dioxide (22-29) mmol/L Anion Gap (12-20) BUN (9-16) mg/dL Creatinine (0.5-1.4) mg/dL Estim Creat Clear Calc Estimated GFR Random Glucose (60-115) mg/dL Calcium (8.4-10.2) mg/dL Total Bilirubin (0.0-1.0) mg/dL AST (5-31) U/L ALT (0-31) U/L Alkaline Phosphatase (39-117) U/L Troponin I High Sens 5.9 D (<3.5-17.0) ng/L Total Protein (6.5-8.0) g/dL Albumin (3.5-5.0) g/dL Lipase (8-78) U/L COVID-19 (DAVID) (Negative) COVID-19 Clin Com Influenza Type A (SERGIO) (Negative) Influenza Type B (SERGIO) (Negative) Influenza A & B Note <Liv Greer, DO - Last Filed: 12/24/21 09:06> Discharge Plan Discharge Clinical Impression: Chest pain Qualifiers: Chest pain type: precordial pain Qualified Code(s): R07.2 - Precordial pain Abdominal pain Qualifiers: Abdominal location: epigastric Qualified Code(s): R10.13 - Epigastric pain <Sheeba Lerma MD - Last Filed: 12/24/21 06:27> Patient Disposition: Home, Self-Care <Sheeba Lerma MD - Last Filed: 12/24/21 06:27> Instructions: Chest Pain (ED), Abdominal Pain (ED) <Sheeba Lerma MD - Last Filed: 12/24/21 06:27> Additional Instructions: return to ED for any worsening symptoms or concerns <Sheeba Lerma MD - Last Filed: 12/24/21 06:27> Prescriptions: New ondansetron 4 mg tablet,disintegrating 4 mg PO Q8H PRN (Reason: nausea and vomiting) Qty: 20 0RF No Action prednisone 20 mg tablet 40 mg PO DAILY 5 Days Qty: 10 0RF (DME) AeroEclipse II Nebulizer Misc See Rx Instructions .ROUTE .MEDSUPPLY Qty: 1 0RF Rx Instructions: As directed albuterol sulfate 0.63 mg/3 mL solution for nebulization 0.63 mg inhalation QID PRN (Reason: shortness of breath or wheezing) Qty: 75 0RF albuterol sulfate 90 mcg/actuation HFA aerosol inhaler 1 inh inhalation QID PRN (Reason: shortness of breath or wheezing) Qty: 8.5 0RF azithromycin 250 mg tablet See Rx Instructions .ROUTE .COMPLEX Qty: 6 0RF Rx Instructions: take 500 mg today (day 1), then 250 mg for 4 days (days 2-5) prednisone 20 mg tablet 40 mg PO DAILY 5 Days Qty: 10 0RF <Sheeba Lerma MD - Last Filed: 12/24/21 06:27> Referrals: Kalie Caballero MD [Primary Care Provider] - 2 days <Sheeba Lerma MD - Last Filed: 12/24/21 06:27> Print Language: B[place]an <Sheeba Lerma MD - Last Filed: 12/24/21 06:27>
[2021-12-24 06:18] LABS: Alanine Aminotransferase 24 U/L (0-31); Albumin Level 4.3 g/dL (3.5-5.0); Alkaline Phosphatase 72 U/L (39-117); Anion Gap 16 (12-20); Aspartate Amino Transferase 32 U/L (5-31); Bilirubin Total 0.5 mg/dL (0.0-1.0); Blood Urea Nitrogen 24 mg/dL (9-16); Calcium 9.8 mg/dL (8.4-10.2); Carbon Dioxide 22 mmol/L (22-29); Chloride 104 mmol/L (96-108); Creatinine Clr Calc Pharmacy 61.9; Estimated Glomerular Filt Rate > 60; Glucose Random 152 mg/dL (60-115); Lipase 25 U/L (8-78); Sodium 138 mmol/L (135-145); Total Protein 8.4 g/dL (6.5-8.0)
[2021-12-24] MEDS: ondansetron HCL 4 MG/2 ML VIAL IVPUSH (06:24)
[2021-12-24 06:26] VITALS: BP 156/60; PULSE 88; RESP 14; O2SAT 100
[2021-12-24] MEDS: Magnesium Hydrox/Alum Hydrox 30 ML ORAL.SUSP PO (06:30)
[2021-12-24 06:31] LABS: COVID-19 Test Negative (Negative); IDNOW Serial# 16C4AD1C; Influenza A Negative (Negative); Influenza B2 Negative (Negative)
[2021-12-24] MEDS: Ketorolac Tromethamine 30 MG/ML VIAL IVPUSH (06:31)
[2021-12-24 07:07] VITALS: BP 162/62; PULSE 75; RESP 13; TEMP 36.4; O2SAT 95
[2021-12-24] MEDS: iohexoL 350 MG/ML 100 ML INFUS..BTL 85 ML IV (07:17)
[2021-12-24 07:18] LABS: Troponin-I High Sensitivity 3.9 ng/L (<3.5-17.0)
[2021-12-24 08:56] LABS: Troponin-I High Sensitivity 5.9 ng/L (<3.5-17.0)
== END 2021-12-24 09:32 | disposition home or self-care (01) ==
PROVIDERS: Emergency Medicine Emergency Medical Services; Emergency Provider Emergency Medicine; PCP Internal Medicine
DX: R07.2 Precordial pain (principal); R10.13 Epigastric pain; Z20.822 Contact with and (suspected) exposure to COVID-19; Z79.899 Other long term (current) drug therapy
CPT/HCPCS: 36415; 71275; 74177; 80053; 83690; 84484; 85025; 87502; 87635; 93005; 96374; 96375; 99284; 99285; J1885; J2405; Q9967

== ENCOUNTER 2022-01-08 22:22 | Emergency (ER) | payer MEDICARE, MEDICAID, SELFPAY ==
--- NOTE | 2022-01-08 | ECG_ITS ---
Test Reason : CP/PRESSURE Blood Pressure : / mmHG Vent. Rate : 063 BPM Atrial Rate : 063 BPM P-R Int : 160 ms QRS Dur : 078 ms QT Int : 426 ms P-R-T Axes : 004 -12 021 degrees QTc Int : 435 ms Normal sinus rhythm Cannot rule out Anterior infarct , age undetermined Abnormal ECG When compared with ECG of 24-DEC-2021 04:46, No significant change was found Referred By: Generic ED Physician Electronically Signed By:CARITO VICENTE MD
--- NOTE | ~2022-01-08 | XR_ITS ---
EXAMINATION: XR CHEST CLINICAL INFORMATION: Cough. Congestion. COMPARISON: 10/31/2021 TECHNIQUE: Frontal view of the chest was obtained. FINDINGS: The lungs are well expanded. There is no focal consolidation, edema, or effusion. No pneumothorax. The cardiomediastinal silhouette is within normal limits. No acute osseous abnormality. XR/XR chest 1V IMPRESSION: Clear lungs.
[2022-01-08 22:26] VITALS: BP 104/65; PULSE 64; RESP 18; TEMP 36.4; O2SAT 96; BMI 43.0
[2022-01-08 22:43] LABS: MANUAL DIFF FLAG NO
[2022-01-08 22:52] LABS: Basophils Percent Auto 0.5 % (0-2); Eosinophils Absolute Auto 0.5 X10*3/uL (0.0-0.4); Eosinophils Percent Auto 6.3 % (0-4); Hematocrit 36.4 % (37.0-47.0); Hemoglobin 11.5 g/dl (12.0-16.0); Imm Gran Abs Auto 0.01 X10*3/uL (0.00-0.03); Imm Gran Pct Auto 0.1 % (0.0-0.4); Lymphocytes Absolute Auto 1.9 X10*3/uL (1.2-4.9); Lymphocytes Percent Auto 22.2 % (20-40); Mean Corpuscular HGB Conc 31.6 g/dl (31.0-35.0); Mean Corpuscular Hemoglobin 26.7 pg (27.0-33.0); Mean Corpuscular Volume 84.7 fL (80.0-98.0); Mean Platelet Volume 10.5 fL (9.4-12.3); Monocytes Absolute Auto 0.9 X10*3/uL (0.1-1.2); Monocytes Percent Auto 10.5 % (2-11); Neutrophils Absolute Auto 5.1 x10*3/uL (2.0-8.3); Neutrophils Percent Auto 60.4 % (45-73); Platelet Count 270 X10*3/uL (160-400); Red Cell Distribution Width 14.1 % (11.0-16.0); White Blood Count 8.4 X10*3/uL (4.8-10.8)
[2022-01-08 23:08] LABS: Alanine Aminotransferase 20 U/L (0-31); Albumin Level 3.9 g/dL (3.5-5.0); Alkaline Phosphatase 66 U/L (39-117); Anion Gap 12 (12-20); Aspartate Amino Transferase 22 U/L (5-31); Bilirubin Total 0.2 mg/dL (0.0-1.0); Blood Urea Nitrogen 28 mg/dL (9-16); Calcium 9.5 mg/dL (8.4-10.2); Carbon Dioxide 26 mmol/L (22-29); Chloride 104 mmol/L (96-108); Creatinine Clr Calc Pharmacy 62.9; Estimated Glomerular Filt Rate > 60; Glucose Random 107 mg/dL (60-115); Potassium 4.3 mmol/L (3.3-5.1); Sodium 138 mmol/L (135-145); Total Protein 7.4 g/dL (6.5-8.0)
[2022-01-08 23:14] LABS: Troponin-I High Sensitivity 8.1 ng/L (<3.5-17.0)
[2022-01-08 23:15] LABS: IDNOW Serial# 55D5AD1C; Influenza A Negative (Negative); Influenza B2 Negative (Negative)
[2022-01-08 23:16] LABS: COVID-19 Test Negative (Negative)
--- NOTE | 2022-01-09 | ED.URI ---
HPI - URI/Sore Throat General Chief Complaint: Dyspnea Stated Complaint: congested,sob Time Seen by Provider: 01/08/22 23:59 Source: patient Mode of arrival: ambulatory Limitations: no limitations History of Present Illness HPI Narrative: Patient history of asthma uses inhaler at home comes here for cough nasal congestion since yesterday, had subjective low-grade fever feel chest tight specially when take a deep breath and cough also has hoarseness of voice. Patient's granddaughter also sick with same Related Data Previous Rx's Medication Instructions Recorded prednisone 20 mg tablet 40 mg PO DAILY 5 Days #10 tab 08/31/20 albuterol sulfate 0.63 mg/3 mL 0.63 mg (3 mL) INHALATION QID PRN 10/31/21 solution for nebulization #75 ml albuterol sulfate 90 mcg/actuation 1 inh INHALATION QID PRN #8.5 g 10/31/21 aerosol inhaler azithromycin 250 mg tablet See Rx Instructions .ROUTE 10/31/21 .COMPLEX #6 tab nebulizers (AeroEclipse II #1 ea 10/31/21 Nebulizer) prednisone 20 mg tablet 40 mg PO DAILY 5 Days #10 tab 10/31/21 ondansetron 4 mg disintegrating 4 mg PO Q8H PRN #20 tab 12/24/21 tablet albuterol sulfate 2.5 mg (3 mL) INHALATION Q4-6H PRN 01/09/22 #90 ml albuterol sulfate 90 mcg/actuation 2 puff INHALATION Q4-6H PRN #8.5 g 01/09/22 aerosol inhaler (ProAir HFA) cefpodoxime 200 mg tablet 200 mg PO BID #20 tab 01/09/22 codeine 10 mg-guaifenesin 100 mg/5 10 ml PO Q6H PRN #237 ml 01/09/22 mL oral liquid prednisone 20 mg tablet 40 mg PO DAILY #10 tab 01/09/22 Allergies Allergy/AdvReac Type Severity Reaction Status Date / Time morphine [MORPHINE] Allergy Severe CHEST Verified 12/24/21 04:51 PAIN, TROUBLE BREATHING, bruises Penicillins Allergy Intermediate RASH Verified 12/24/21 04:51 tramadol [TRAMADOL] Allergy Unknown CHEST PAIN Verified 12/24/21 04:51 Penicillin Allergy Unknown Hives Uncoded 12/24/21 04:51 From Percocet AdvReac Intermediate NAUSEA & Uncoded 12/24/21 04:51 VOMITING Percocet AdvReac Unknown vomiting Uncoded 12/24/21 04:51 Review of Systems Review of Systems: Yes all other systems are reviewed and are negative [facility] Past Medical History Medical History Asthma Hypertension Social History Social History Alcohol intake: never Patient Tobacco Use Status: Never used Tobacco Advance Directives: No Physical Exam Vital Signs: Vital Signs: Last Vital Signs Temp 98.0 F 01/09/22 00:16 Pulse 59 01/09/22 00:16 Resp 16 01/09/22 00:16 BP 140/58 H 01/09/22 00:16 Pulse Ox 97 01/09/22 00:16 BMI result Body Mass Index 43.0 Appearance: Alert. Oriented X3. No acute distress. ENT: Pharynx normal. Oral Mucosa moist Neck: Normal inspection. Neck supple. CVS: Normal heart rate and rhythm. Pulses normal. Respiratory: No respiratory distress. Equal air entry bilateral, prolonged expiration no wheezing or rhonchi no rales Abdomen: Soft and nontender. Bowel sounds are present, Skin: Skin warm and dry. Normal skin color. Normal skin turgor. Extremities: No lower extremity edema. No calf tenderness Neuro: Oriented X 3. MDM - URI/Sore Throat MDM Narrative Medical decision making narrative: Patient has acute bronchitis discharge patient on antibiotic prednisone cough syndrome chest x-ray negative COVID influenza also negative Lab Data Attestation: I reviewed the patient's lab results. Result diagrams: 01/08/22 22:36 01/08/22 22:36 Labs: Lab Results 01/08/22 01/08/22 01/08/22 Range/Units 22:36 22:36 22:36 WBC 8.4 (4.8-10.8) X10*3/uL RBC 4.30 (4.20-5.50) X10*6/uL Hgb 11.5 L (12.0-16.0) g/dl Hct 36.4 L (37.0-47.0) % MCV 84.7 (80.0-98.0) fL MCH 26.7 L (27.0-33.0) pg MCHC 31.6 (31.0-35.0) g/dl RDW 14.1 (11.0-16.0) % Plt Count 270 (160-400) X10*3/uL MPV 10.5 (9.4-12.3) fL Immature Gran % (Auto) 0.1 (0.0-0.4) % Neut % (Auto) 60.4 (45-73) % Lymph % (Auto) 22.2 (20-40) % [place] % (Auto) 10.5 (2-11) % Eos % (Auto) 6.3 H (0-4) % Baso % (Auto) 0.5 (0-2) % Lymph # (Auto) 1.9 (1.2-4.9) X10*3/uL [place]ether # (Auto) 0.9 (0.1-1.2) X10*3/uL Eos # (Auto) 0.5 H (0.0-0.4) X10*3/uL Baso # (Auto) 0.0 (0.0-0.2) X10*3/uL Abs Immat Gran (auto) 0.01 (0.00-0.03) X10*3/uL Absolute Neuts (auto) 5.1 (2.0-8.3) x10*3/uL Absolute Nucleated RBC 0.000 (0.0-0.012) X10*3/uL Nucleated RBC % (auto) 0.0 (0.0-0.2) /100WBC Sodium 138 (135-145) mmol/L Potassium 4.3 (3.3-5.1) mmol/L Chloride 104 (96-108) mmol/L Carbon Dioxide 26 (22-29) mmol/L Anion Gap 12 (12-20) BUN 28 H (9-16) mg/dL Creatinine 0.87 (0.5-1.4) mg/dL Estim Creat Clear Calc 62.9 Estimated GFR > 60 Random Glucose 107 (60-115) mg/dL Calcium 9.5 (8.4-10.2) mg/dL Total Bilirubin 0.2 (0.0-1.0) mg/dL AST 22 (5-31) U/L ALT 20 (0-31) U/L Alkaline Phosphatase 66 (39-117) U/L Troponin I High Sens 8.1 (<3.5-17.0) ng/L Total Protein 7.4 (6.5-8.0) g/dL Albumin 3.9 (3.5-5.0) g/dL COVID-19 (DAVID) (Negative) COVID-19 Clin Com Influenza Type A (SERGIO) (Negative) Influenza Type B (SERGIO) (Negative) Influenza A & B Note 01/08/22 01/08/22 Range/Units 22:36 22:36 WBC (4.8-10.8) X10*3/uL RBC (4.20-5.50) X10*6/uL Hgb (12.0-16.0) g/dl Hct (37.0-47.0) % MCV (80.0-98.0) fL MCH (27.0-33.0) pg MCHC (31.0-35.0) g/dl RDW (11.0-16.0) % Plt Count (160-400) X10*3/uL MPV (9.4-12.3) fL Immature Gran % (Auto) (0.0-0.4) % Neut % (Auto) (45-73) % Lymph % (Auto) (20-40) % [place] % (Auto) (2-11) % Eos % (Auto) (0-4) % Baso % (Auto) (0-2) % Lymph # (Auto) (1.2-4.9) X10*3/uL [place] # (Auto) (0.1-1.2) X10*3/uL Eos # (Auto) (0.0-0.4) X10*3/uL Baso # (Auto) (0.0-0.2) X10*3/uL Abs Immat Gran (auto) (0.00-0.03) X10*3/uL Absolute Neuts (auto) (2.0-8.3) x10*3/uL Absolute Nucleated RBC (0.0-0.012) X10*3/uL Nucleated RBC % (auto) (0.0-0.2) /100WBC Sodium (135-145) mmol/L Potassium (3.3-5.1) mmol/L Chloride (96-108) mmol/L Carbon Dioxide (22-29) mmol/L Anion Gap (12-20) BUN (9-16) mg/dL Creatinine (0.5-1.4) mg/dL Estim Creat Clear Calc Estimated GFR Random Glucose (60-115) mg/dL Calcium (8.4-10.2) mg/dL Total Bilirubin (0.0-1.0) mg/dL AST (5-31) U/L ALT (0-31) U/L Alkaline Phosphatase (39-117) U/L Troponin I High Sens (<3.5-17.0) ng/L Total Protein (6.5-8.0) g/dL Albumin (3.5-5.0) g/dL COVID-19 (DAVID) Negative (Negative) COVID-19 Clin Com See Note Influenza Type A (SERGIO) Negative (Negative) Influenza Type B (SERGIO) Negative (Negative) Influenza A & B Note See Note Discharge Plan Discharge Clinical Impression: Acute bronchitis Patient Disposition: Home, Self-Care Instructions: Acute Bronchitis (ED) Additional Instructions: Take medicine as prescribed Cough syrup as Advil Follow with PCP if not better Prescriptions: New codeine-guaifenesin 10-100 mg/5 mL liquid 10 ml PO Q6H PRN (Reason: cough) Qty: 237 0RF albuterol sulfate [ProAir HFA] 90 mcg/actuation HFA aerosol inhaler 2 puff inhalation Q4-6H PRN (Reason: shortness of breath or wheezing) Qty: 8.5 0RF albuterol sulfate 2.5 mg /3 mL (0.083 %) solution for nebulization 2.5 mg inhalation Q4-6H PRN (Reason: shortness of breath or wheezing) Qty: 90 0RF cefpodoxime 200 mg tablet 200 mg PO BID Qty: 20 0RF Rx Instructions: must administer with a meal/food prednisone 20 mg tablet 40 mg PO DAILY Qty: 10 0RF No Action prednisone 20 mg tablet 40 mg PO DAILY 5 Days Qty: 10 0RF (DME) AeroEclipse II Nebulizer [facility] See Rx Instructions .ROUTE .MEDSUPPLY Qty: 1 0RF Rx Instructions: As directed albuterol sulfate 0.63 mg/3 mL solution for nebulization 0.63 mg inhalation QID PRN (Reason: shortness of breath or wheezing) Qty: 75 0RF albuterol sulfate 90 mcg/actuation HFA aerosol inhaler 1 inh inhalation QID PRN (Reason: shortness of breath or wheezing) Qty: 8.5 0RF azithromycin 250 mg tablet See Rx Instructions .ROUTE .COMPLEX Qty: 6 0RF Rx Instructions: take 500 mg today (day 1), then 250 mg for 4 days (days 2-5) prednisone 20 mg tablet 40 mg PO DAILY 5 Days Qty: 10 0RF ondansetron 4 mg tablet,disintegrating 4 mg PO Q8H PRN (Reason: nausea and vomiting) Qty: 20 0RF Interventions: ED Discharge Assessment Last Done: 01/09/22 00:45 Discharge Date/Time: 01/09/22 00:46
[2022-01-09 00:16] VITALS: BP 140/58; PULSE 59; RESP 16; TEMP 36.7; O2SAT 97
[2022-01-09] MEDS: guaiFEN/Codeine SF 200/20/10ML 10 ML LIQUID 5 ML PO (00:30)
[2022-01-09] MEDS: dexAMETHasone 2 MG TABLET 10 MG PO (00:30)
[2022-01-09] MEDS: Albuterol Sulfate 90 MCG 8 GM INHALER 2 PUFF INHALE (00:30)
== END 2022-01-09 00:46 | disposition home or self-care (01) ==
PROVIDERS: Emergency Provider Internal Medicine; PCP Internal Medicine
DX: J20.9 Acute bronchitis, unspecified (principal); R06.02 Shortness of breath; R07.89 Other chest pain; Z79.899 Other long term (current) drug therapy; Z20.822 Contact with and (suspected) exposure to COVID-19
CPT/HCPCS: 71045; 80053; 84484; 85025; 87502; 87635; 93005; 99283; 99284; J8540

== ENCOUNTER → 2022-03-26 12:22 | Outpatient (BNVA) | payer MEDICARE, MEDICAID, SELFPAY | PROVIDERS: PCP Internal Medicine; Referring Provider Internal Medicine; Visit Provider Nurse Practitioner | DX: Z01.818 Encounter for other preprocedural examination (principal); D12.6 Benign neoplasm of colon, unspecified; E66.01 Morbid (severe) obesity due to excess calories; G47.33 Obstructive sleep apnea (adult) (pediatric); Z68.41 Body mass index [BMI] 40.0-44.9, adult | CPT/HCPCS: 99202 ==

== ENCOUNTER 2022-04-29 10:29 | Day surgery (SDC) | payer MEDICARE, MEDICAID, SELFPAY ==
[2022-04-24 14:15] VITALS: BMI 43.0
[2022-04-29] MEDS: Lactated Ringers 1,000 ML 50 ML IVCONT (10:47)
[2022-04-29 11:02] VITALS: BP 151/69; PULSE 66; RESP 18; TEMP 36.5; O2SAT 97
--- NOTE | 2022-04-29 11:20 | MHC.SHP ---
Pre-Procedural Eval Section A Date of Service: 04/29/22 Section B Chief Complaint: benign neoplasm of colon Details of Present Illness: hx of colon polyps Relevant Family History (Specify if Yes): No Relevant Social History: None Present Medications: see Short Stay Collaborative assessment Medical History: Significant History (Asthma History of pulmonary embolism Obstructive sleep apnea Morbid obesity Hypertension High cholesterol Varicose veins Nephrolithiasis Osteoarthritis of the shoulder Depression/anxiety) History of Previous Operations: Relevant previous surgery/procedure and date(s) (Colonoscopy - 2010=TA Breast biopsy Hysterectomy) Allergies: Allergies Allergy/AdvReac Type Severity Reaction Status Date / Time morphine [MORPHINE] Allergy Severe CHEST Verified 04/29/22 10:39 PAIN, TROUBLE BREATHING, bruises Penicillins Allergy Intermediate RASH Verified 04/29/22 10:39 tramadol [TRAMADOL] Allergy Unknown CHEST PAIN Verified 04/29/22 10:39 Percocet AdvReac Intermediate vomiting Uncoded 04/29/22 10:39 Review of Systems Sugical H&P ROS: Negative: Constitution, Cardiovascular, Respiratory, Neurological, Psychiatric, Hem-Onc, Allergic/Immunologic, Gastrointestinal, Genitourinary, Musculoskeletal, Integumentary, Endocrine and Eyes/Ears/Nose/Throat Exam Surgical H&P Exam: Normal: HEENT, Normal: Heart, Normal: Lungs, Normal: Extremities, Normal: Abdomen, Normal: Skin and Normal: Neurological Plan Diagnosis/Plan: Unchanged I have reviewed the history and physical and performed a pertinent physical examination on my patient. No changes have occurred unless specified.
--- NOTE | 2022-04-29 11:29 | P.CONAN_ITS ---
[facility] Active Problems Active Problems: All Active Problems (Updated 03/26/22 @ 14:40 by LUCRECIA Patrick) Tubular adenoma of colon (Acute) Preop examination (Acute) Osteoarthritis of shoulder (Acute) Varicose veins of both lower extremities (Acute) Depression with anxiety (Acute) Morbid obesity (Acute) DMITRI (obstructive sleep apnea) (Acute) Hypertension (Acute) Asthma (Acute) COVID-19 (Acute) Dizziness (Acute) Past Medical History Medical History Asthma High cholesterol History of pulmonary embolism Hypertension Nephrolithiasis Family History Family history of problems with anesthesia: No Surgical History Surgical History H/O breast biopsy H/O colonoscopy History of hysterectomy Social History Social History Alcohol intake: never Patient Tobacco Use Status: Never used Tobacco Are you DNR?: No Advance Directives: No Advance Directives Information Provided: Yes Nutrition Risks: No Nutritional Risk Meds Allergies Allergy/AdvReac Type Severity Reaction Status Date / Time morphine [MORPHINE] Allergy Severe CHEST Verified 04/29/22 10:39 PAIN, TROUBLE BREATHING, bruises Penicillins Allergy Intermediate RASH Verified 04/29/22 10:39 tramadol [TRAMADOL] Allergy Unknown CHEST PAIN Verified 04/29/22 10:39 Percocet AdvReac Intermediate vomiting Uncoded 04/29/22 10:39 Active Medications: Current Medications Lactated Ringer's (Lr) 1,000 mls @ 50 mls/hr IVCONT .Q20H ERIN Last Admin: 04/29/22 10:47 Dose: 50 mls/hr Home Medications Medication Instructions Recorded Confirmed Last Taken Type fluticasone propionate 110 1 puff PO BID 03/26/22 Unknown History mcg/actuation HFA aerosol inhaler (Flovent HFA) hydrochlorothiazide 25 mg tablet 25 mg PO DAILY 03/26/22 Unknown History lisinopril 2.5 mg tablet 2.5 mg PO DAILY 03/26/22 04/29/22 History montelukast 10 mg tablet 10 mg PO DAILY 03/26/22 Unknown History quetiapine 25 mg tablet 25 mg PO BEDTIME 03/26/22 Unknown History Exam Exam Date and Time: April 29, 2022 1129 Height,Weight and Vital Signs: Height 5 ft Weight 99.79 kg Last Vital Signs Temp 97.7 F 04/29/22 11:02 Pulse 66 04/29/22 11:02 Resp 18 04/29/22 11:02 BP 151/69 H 04/29/22 11:02 Pulse Ox 97 04/29/22 11:02 O2 Del Method 04/29/22 11:02 Airway Mallampati Class: II TM Dist: >3cm Neck ROM: Full Assessment and Plan Assessment Anesthesia Assessment: Anesthesia Plan Discussed and Chart Reviewed Final Anesthetic Review Family History of Problems with Anesthesia: No NPO: No ASA Class: III Final Preanesthetic Review: No Changes in Pt Med Stat, Meds/Allgs Chart Reviewed, Consent Obtained/Reviewed and Anes Risks/Benef Reviewed Patient Risk: Intermediate Procedure Risk: Low Anesthetic Plan Anesthetic Plan: MAC: Disposition: Standard PACU
--- NOTE | 2022-04-29 12:28 | W.PM.OPN ---
Operative Note Operative Note Date of Service: 04/29/22 Narrative: Operative Information Procedure Description: Colonoscopy Indication: colon screening, hx of polyps Anesthesia: MAC COLONOSCOPY Instrument: Olympus variable stiffness pediatric scope 190L Colonoscopy Monitoring: Vital signs and clinical assessment, continuous EKG monitoring, Pulse oximetry, Carbon Dioxide monitoring and blood pressure monitoring were done throughout the procedure. Colon withdrawal time was 6 minutes. Procedure: The patient was placed in the left lateral decubitis position and pre-procedure medications were administered. After a digital rectal examination of the ano-rectum, the video colonoscope was inserted into the rectum and advanced through the colon to the cecum/TI. The colonoscope was slowly withdrawn in a retrograde panoramic fashion and the colon mucosa was carefully examined including a retroflexed view of the rectum. Findings and interventions are described below. Procedure Difficulty: easy Findings: Terminal Ileum-normal Cecum:normal Ascending Colon: scattered diverticula, 12 mm sessile polyp removed with cold snare and x 1 clip applied for hemostasis Transverse Colon -normal Descending Colon:normal Sigmoid Colon: severe diverticulosis Rectum: Retroflexion with small internal hemorrhoids, grade I Anorectum - normal Colon preparation: [place] Bowel Preparation Scale Right colon; 2 Transverse colon: 3 Left colon; 3 (0 = Unprepared colon segment with mucosa not seen due to solid stool that cannot be cleared. 1 = Portion of mucosa of the colon segment seen, but other areas of the colon segment not well seen due to staining, residual stool and/or opaque liquid. 2 = Minor amount of residual staining, small fragments of stool and/or opaque liquid, but mucosa of colon segment seen well. 3 = Entire mucosa of colon segment seen well with no residual staining, small fragments of stool or opaque liquid) Impression and Post Procedure Diagnosis: polyps internal hemorrhoids diverticular disease Plan: High fiber diet leaflet Avoid straining at stool, epsom salts and sitz bath, anusol supps or cream Repeat Colonoscopy in 4-5 years or earlier if clinically indicated Above findings were reviewed with the patient and relevant handouts were provided if indicated.
[2022-04-29 12:41] VITALS: BP 105/56; PULSE 62; RESP 16; TEMP 36.4; O2SAT 95
[2022-04-29 12:56] VITALS: BP 127/59; PULSE 52; RESP 16; TEMP 36.6; O2SAT 95
== END 2022-04-29 14:31 | disposition home or self-care (01) ==
PROVIDERS: PCP Internal Medicine; Visit Provider Internal Medicine Gastroenterology
PROC: 0DJD8ZZ Inspection of Lower Intestinal Tract, Via Natural or Artificial Opening Endoscopic (ICD-10-PCS; CPT 45378; principal; 2022-04-29 12:30)
DX: Z12.11 Encounter for screening for malignant neoplasm of colon (principal); Z86.010 Personal history of colon polyps; D12.2 Benign neoplasm of ascending colon; K57.30 Diverticulosis of large intestine without perforation or abscess without bleeding; K64.0 First degree hemorrhoids; J45.909 Unspecified asthma, uncomplicated; I10 Essential (primary) hypertension; E78.00 Pure hypercholesterolemia, unspecified; N20.0 Calculus of kidney; G47.33 Obstructive sleep apnea (adult) (pediatric); F41.8 Other specified anxiety disorders; E66.01 Morbid (severe) obesity due to excess calories; Z86.711 Personal history of pulmonary embolism; Z79.899 Other long term (current) drug therapy; Z88.0 Allergy status to penicillin; Z88.8 Allergy status to other drugs, medicaments and biological substances; Z68.41 Body mass index [BMI] 40.0-44.9, adult
CPT/HCPCS: 45385; 88305

== ENCOUNTER → 2022-05-14 15:17 | Outpatient (BNVA) | payer MEDICARE, MEDICAID, SELFPAY | PROVIDERS: PCP Internal Medicine; Visit Provider Nurse Practitioner | DX: K59.04 Chronic idiopathic constipation (principal); Z86.010 Personal history of colon polyps | CPT/HCPCS: 99212 ==

== ENCOUNTER 2022-09-11 09:55 | Emergency (ER) | payer MEDICARE, MEDICAID, SELFPAY ==
--- NOTE | ~2022-09-11 | US_ITS ---
EXAMINATION: US VENOUS ULTRASOUND WITH DOPPLER LOWER EXTREMITY, LEFT CLINICAL INFORMATION: Left lower extremity pain COMPARISON: None TECHNIQUE: Ultrasound of the deep veins is performed from the hip to the calf with compression sonography and color and pulse Doppler assessment. Spectral analysis with color-flow imaging is performed. FINDINGS: There is normal venous compression and respiratory variation and augmented flow. The visualized common femoral vein, superficial femoral vein, profunda femoral vein, popliteal vein, and the trifurcation region shows no evidence of deep venous thrombosis. There is no significant popliteal fossa cyst. Contralateral right femoral vein appears normal. If the patient's symptoms persist, followup ultrasound in 5 days 7 days might be of value to exclude proximal propagation from a non-visualized calf vein. US/US venous duplex LE LT IMPRESSION: No DVT demonstrated in the left lower extremity.
[2022-09-11 10:06] VITALS: BP 107/71; PULSE 66; RESP 18; TEMP 36.9; O2SAT 97; BMI 39.0
--- NOTE | 2022-09-11 10:25 | ED_ITS ---
HPI - General Adult General Chief complaint: General Medical Stated complaint: L leg pain x2 days, veins swollen Time Seen by Provider: 09/11/22 10:25 Source: patient and pointer helper Mode of arrival: ambulatory Limitations: language barrier History of Present Illness HPI narrative: Patient is a 71 year old assigned female at with a history of varicose veins presenting to the emergency department today with left lower leg pain. Patient states that over the last few days her varicose veins in her left lower leg are bothering her more than usual. Patient denies any dizziness, lightheadedness, abdominal pain, nausea, vomiting, fever, chills, blurry vision, double vision, loss of vision, chest pain, difficulty breathing, shortness of breath, back pain, night sweats, pain with urination, increased urinary f requency, increased urinary urgency, blood in her urine or stool, syncope or a near syncopal episode, recent trauma or falls, bowel incontinence, bladder incontinence, bowel retention, bladder retention, or any other complaints at this time. Onset (ago): day(s) Location: left and lower extremity Radiation: non-radiation Severity: mild Severity scale (1-10): 2 Quality: dull Pain Consistency: constant Relieving factors: none Exacerbating factors: none Associated symptoms: denies other symptoms Treatments prior to arrival: none Related Data Home Medications Medication Instructions Recorded Confirmed fluticasone propionate 110 1 puff PO BID 03/26/22 mcg/actuation HFA aerosol inhaler (Flovent HFA) hydrochlorothiazide 25 mg tablet 25 mg PO DAILY 03/26/22 lisinopril 2.5 mg tablet 2.5 mg PO DAILY 03/26/22 montelukast 10 mg tablet 10 mg PO DAILY 03/26/22 quetiapine 25 mg tablet 25 mg PO BEDTIME 03/26/22 atorvastatin 20 mg tablet 20 mg PO DAILY 05/14/22 betamethasone valerate 0.1 % appl topical Q OTHER DAY 05/14/22 topical cream Previous Rx's Medication Instructions Recorded albuterol sulfate 90 mcg/actuation 1 inh inhalation QID PRN shortness 10/31/21 aerosol inhaler of breath or wheezing #8.5 grams nebulizers (AeroEclipse II #1 ea 10/31/21 Nebulizer) albuterol sulfate 2.5 mg/3 mL 2.5 mg (3 mL) inhalation Q4-6H PRN 01/09/22 (0.083 %) solution for nebulization shortness of breath or wheezing #90 mL albuterol sulfate 90 mcg/actuation 2 puff inhalation Q4-6H PRN 01/09/22 aerosol inhaler (ProAir HFA) shortness of breath or wheezing #8.5 grams linaclotide 72 mcg capsule 72 mcg PO QAM #30 caps 05/14/22 (Linzess) Allergies Allergy/AdvReac Type Severity Reaction Status Date / Time morphine [MORPHINE] Allergy Severe CHEST Verified 09/11/22 10:13 PAIN, TROUBLE BREATHING, bruises Penicillins Allergy Intermediate RASH Verified 09/11/22 10:13 tramadol [TRAMADOL] Allergy Unknown CHEST PAIN Verified 09/11/22 10:13 Percocet AdvReac Intermediate vomiting Uncoded 04/29/22 10:39 Review of Systems Constitutional: Constitutional: Reports no additional constitutional complaints, Denies chills, Denies fever(s) and Denies night sweats Eyes: Eyes: Reports no additional eye complaints, Denies blurry vision, Denies change in vision, Denies diplopia, Denies eye discharge, Denies loss of vision and Denies eye pain ENT: Denies dizziness Cardiovascular: Cardiovascular: Reports no additional cardiovascular complaints, Denies chest pain, Denies lightheadedness, Denies Loss of Consciousness and Denies dyspnea Respiratory: Respiratory: Reports no additional respiratory complaints and Denies dyspnea Gastrointestinal: Gastrointestinal: Reports no additional gastrointestinal complaints, Denies abdominal pain, Denies melena, Denies hematochezia, Denies change in bowel habits and Denies change in stool character Genitourinary: Genitourinary: Denies hematuria, Denies urinary frequency, Denies dysuria, Denies urinary incontinence, Denies urinary hesitancy and Denies urinary urgency Musculoskeletal: Musculoskeletal: Reports no additional musculoskeletal complaints, Denies numbness and Denies tingling Comments: left lower leg pain Neurologic: Denies dizziness, Denies loss of vision, Denies numbness and Denies tingling Psychiatric: Psychiatric: Reports no additional psychiatric complaints Endocrine: Endocrine: Reports no additional endocrine complaints Hematologic/Lymphatic: Hematologic/Lymphatic: Reports no additional hematologic/lymphatic complaints Allergic/Immunologic: Allergic/Immunologic: Reports no additional allergic/immunologic complaints PMFSH Past Medical History Attestation statement: The following information was validated with the patient. Source: old records reviewed and nursing notes reviewed Medical History Asthma High cholesterol History of pulmonary embolism Hypertension Nephrolithiasis Surgical History H/O breast biopsy H/O colonoscopy History of hysterectomy Social History Social History Alcohol intake: never Patient Tobacco Use Status: Never used Tobacco Smoked in Last 30 Days: No Use of substances other than those prescribed or required for medical reasons: No Advance Directives: No Physical Exam ED Vital Signs: Vital Signs - 24 hr 09/11/22 10:06 09/11/22 11:47 Temperature 98.5 F 98.1 F Pulse Rate 66 62 Respiratory Rate 18 12 Blood Pressure 107/71 147/68 H Pulse Oximetry 97 98 Oxygen Delivery Method Room Air Room Air BMI result Body Mass Index 39.0 Const General: cooperative, no acute distress, alert and awake Nutritional Appearance: well nourished Orientation/consciousness: patient oriented x3 Limitations: no limitations HENSD Head: Yes normal to inspection and Yes atraumatic Ears: hearing grossly normal bilaterally and external ears normal General nose exam: Normal external nose present, no nasal discharge noted and no epistaxis Face and sinus: Yes normal facial exam, No abrasion and No laceration Mouth: Normal oral and palatal mucosa present, no drooling and no muffled voice Eyes General: appearance normal, both eyes and all related structures Periorbital: periorbital findings normal Eyelids: Yes eyelids normal Conjunctivae: conjunctivae normal Pupils: Equal, round and reactive pupils present EOM: EOMs intact bilaterally Neck Neck: Yes normal visual inspection, Yes full ROM and Yes no lymphadenopathy Chest Chest palpation & inspection: normal inspection of the chest Resp Effort & Inspection: normal respiratory effort and able to speak in complete sentences Auscultation: clear to auscultation bilaterally Cardio Rate: regular rate Rhythm: regular rhythm GI Inspection: Yes normal to inspection Palpation (GI): Soft to palpation, not firm, nontender and no guarding Neuro General: patient oriented x3 and moves all extremities Cranial nerves: Yes Equal, round and reactive pupils present Cognition (Neuro): normal cognition Motor exam (neuro): 5/5 motor strength present throughout Sensory Exam: Normal double simultaneous stimulation for sensation Coordination: [id number] test normal Extrem Other: varicose veins present to the bilateral lower extremities General: Yes full ROM and Yes capillary refill normal Psych Appearance: grossly normal Mental Status: mental status grossly normal Affect: normal affect Attitude: cooperative Thought process: Normal thought process present Thought content: Normal thought content present Insight: Good insight present (Psych) Medical Decision Making Medical Decision Making [facility] Narrative: Patient is a 71 year old assigned female at with a history of varicose veins presenting to the emergency department today with left lower leg pain. Patient's physical exam showed bilateral lower leg varicose veins. Patient's blood work was unremarkable. Patient's left lower leg US showed no acute process. I explained my physical exam findings as well as all test results to the patient. I answered all questions asked by the patient. I stressed the importance of the patient taking her medication as prescribed. I stressed the importance of the patient following up with her primary care provider. I stressed the importance of the patient returning to the emergency department immediately if her symptoms were to worsen or if she were to develop any dizziness, shortness of breath, difficulty breathing, chest pain, blurry vision, loss of vision, nausea, vomiting, abdominal pain, fever, chills, back pain, or any other complaints. Patient verbalized agreement and understanding with this treatment plan and discharge. Differential Diagnosis Differential Diagnoses: The differential diagnosis associated with the presentation includes varicose veins, left lower leg pain Lab Data [facility] Lab Attestation statement: I reviewed the patient's lab results. 09/11/22 11:21 09/11/22 11:21 Labs: Lab Results 09/11/22 09/11/22 09/11/22 Range/Units 11:21 11:21 11:21 WBC 8.2 (4.8-10.8) X10*3/uL RBC 4.62 (4.20-5.50) X10*6/uL Hgb 12.3 (12.0-16.0) g/dl Hct 39.7 (37.0-47.0) % MCV 85.9 (80.0-98.0) fL MCH 26.6 L (27.0-33.0) pg MCHC 31.0 (31.0-35.0) g/dl RDW 15.3 (11.0-16.0) % Plt Count 312 (160-400) X10*3/uL MPV 10.3 (9.4-12.3) fL Immature Gran % (Auto) 0.4 (0.0-0.4) % Neut % (Auto) 72.5 (45-73) % Lymph % (Auto) 15.0 L (20-40) % Wood % (Auto) 9.8 (2-11) % Eos % (Auto) 1.8 (0-4) % Baso % (Auto) 0.5 (0-2) % Lymph # (Auto) 1.2 (1.2-4.9) X10*3/uL Wood # (Auto) 0.8 (0.1-1.2) X10*3/uL Eos # (Auto) 0.2 (0.0-0.4) X10*3/uL Baso # (Auto) 0.0 (0.0-0.2) X10*3/uL Abs Immat Gran (auto) 0.03 (0.00-0.03) X10*3/uL Absolute Neuts (auto) 6.0 (2.0-8.3) x10*3/uL Absolute Nucleated RBC 0.000 (0.0-0.012) X10*3/uL Nucleated RBC % (auto) 0.0 (0.0-0.2) /100WBC PT 11.6 (10.0-13.1) SEC INR 1.0 (0.9-1.1) APTT 30.0 (26.0-36.4) SEC Sodium 139 (135-145) mmol/L Potassium 4.6 (3.3-5.1) mmol/L Chloride 102 (96-108) mmol/L Carbon Dioxide 28 (22-29) mmol/L Anion Gap 14 (12-20) BUN 16 (9-16) mg/dL Creatinine 0.81 (0.5-1.4) mg/dL Estim Creat Clear Calc 63.9 Estimated GFR > 60 Random Glucose 95 (60-115) mg/dL Calcium 9.7 (8.4-10.2) mg/dL Magnesium 2.2 (1.6-2.6) mg/dL Total Bilirubin 0.5 (0.0-1.0) mg/dL AST 16 (5-31) U/L ALT 12 (0-31) U/L Alkaline Phosphatase 82 (39-117) U/L Total Protein 7.8 (6.5-8.0) g/dL Albumin 3.9 (3.5-5.0) g/dL Radiology Impression Discussion of test interpretation with radiology: I have reviewed the radiologist's reading. Radiologist Impression: My interpretation is in agreement with the radiologist's impression of this imaging study. EXAMINATION:? US VENOUS ULTRASOUND WITH DOPPLER LOWER EXTREMITY, LEFT CLINICAL INFORMATION:? Left lower extremity pain COMPARISON:? None TECHNIQUE: Ultrasound of the deep veins is performed from the hip to the calf with compression sonography and color and pulse Doppler assessment. Spectral analysis with color-flow imaging is performed. FINDINGS: There is normal venous compression and respiratory variation and augmented flow. The visualized common femoral vein, superficial femoral vein, profunda femoral vein, popliteal vein, and the trifurcation region shows no evidence of deep venous thrombosis. ? There is no significant popliteal fossa cyst. Contralateral right femoral vein appears normal. If the patient's symptoms persist, followup ultrasound in 5 days 7 days might be of value to exclude proximal propagation from a non-visualized calf vein. US/US venous duplex LE LT IMPRESSION: No DVT demonstrated in the left lower extremity. Dictated By: Michael Neumann MD Signed By: Electronically signed by Michael Neumann MD 09/11/22 [id number] Discharge Plan Discharge Clinical Impression: Acute leg pain Patient Disposition: Home, Self-Care Instructions: Leg Pain (ED) Additional Instructions: Follow up with your primary care provider. Return to the emergency department immediately if your symptoms worsen or if you develop any dizziness, shortness of breath, difficulty breathing, chest pain, blurry vision, loss of vision, nausea, vomiting, abdominal pain, fever, chills, back pain, or any other complaints. Taylor un seguimiento con watkins proveedor de atenci?n primaria. Regrese a la tammi de emergencias de inmediato si marian s?ntomas empeoran o si presenta mareos, dificultad para respirar, dolor de pecho, visi?n borrosa, p?rdida de la visi?n, n?useas, v?mitos, dolor abdominal, fiebre, escalofr?os, dolor de espalda o cualquier otras quejas. Prescriptions: No Action (DME) AeroEclipse II Nebulizer Misc See Rx Instructions .ROUTE .MEDSUPPLY Qty: 1 0RF Rx Instructions: As directed albuterol sulfate 90 mcg/actuation HFA aerosol inhaler 1 inh inhalation QID PRN (Reason: shortness of breath or wheezing) Qty: 8.5 0RF albuterol sulfate [ProAir HFA] 90 mcg/actuation HFA aerosol inhaler 2 puff inhalation Q4-6H PRN (Reason: shortness of breath or wheezing) Qty: 8.5 0RF albuterol sulfate 2.5 mg /3 mL (0.083 %) solution for nebulization 2.5 mg inhalation Q4-6H PRN (Reason: shortness of breath or wheezing) Qty: 90 0RF fluticasone propionate [Flovent HFA] 110 mcg/actuation HFA aerosol inhaler 1 puff PO BID lisinopril 2.5 mg tablet 2.5 mg PO DAILY montelukast 10 mg tablet 10 mg PO DAILY quetiapine 25 mg tablet 25 mg PO BEDTIME hydrochlorothiazide 25 mg tablet 25 mg PO DAILY atorvastatin 20 mg tablet 20 mg PO DAILY betamethasone valerate 0.1 % cream topical Q OTHER DAY Linzess 72 mcg capsule 72 mcg PO QAM Qty: 30 3RF Referrals: Kalie Caballero MD [Primary Care Provider] - Interventions: ED Discharge Assessment Last Done: 09/11/22 12:58 Discharge Date/Time: 09/11/22 13:00 Print Language: Panamanian
[2022-09-11 11:29] LABS: MANUAL DIFF FLAG NO
[2022-09-11 11:35] LABS: Prothrombin Time 11.6 SEC (10.0-13.1)
[2022-09-11 11:36] LABS: Basophils Percent Auto 0.5 % (0-2); Eosinophils Absolute Auto 0.2 X10*3/uL (0.0-0.4); Eosinophils Percent Auto 1.8 % (0-4); Hematocrit 39.7 % (37.0-47.0); Hemoglobin 12.3 g/dl (12.0-16.0); Imm Gran Abs Auto 0.03 X10*3/uL (0.00-0.03); Imm Gran Pct Auto 0.4 % (0.0-0.4); Lymphocytes Absolute Auto 1.2 X10*3/uL (1.2-4.9); Mean Corpuscular Hemoglobin 26.6 pg (27.0-33.0); Mean Corpuscular Volume 85.9 fL (80.0-98.0); Mean Platelet Volume 10.3 fL (9.4-12.3); Monocytes Absolute Auto 0.8 X10*3/uL (0.1-1.2); Monocytes Percent Auto 9.8 % (2-11); Neutrophils Percent Auto 72.5 % (45-73); Platelet Count 312 X10*3/uL (160-400); Red Blood Count 4.62 X10*6/uL (4.20-5.50); Red Cell Distribution Width 15.3 % (11.0-16.0); White Blood Count 8.2 X10*3/uL (4.8-10.8)
[2022-09-11 11:44] LABS: Alanine Aminotransferase 12 U/L (0-31); Albumin Level 3.9 g/dL (3.5-5.0); Alkaline Phosphatase 82 U/L (39-117); Anion Gap 14 (12-20); Aspartate Amino Transferase 16 U/L (5-31); Bilirubin Total 0.5 mg/dL (0.0-1.0); Blood Urea Nitrogen 16 mg/dL (9-16); Calcium 9.7 mg/dL (8.4-10.2); Carbon Dioxide 28 mmol/L (22-29); Chloride 102 mmol/L (96-108); Creatinine Clr Calc Pharmacy 63.9; Estimated Glomerular Filt Rate > 60; Glucose Random 95 mg/dL (60-115); Magnesium 2.2 mg/dL (1.6-2.6); Potassium 4.6 mmol/L (3.3-5.1); Sodium 139 mmol/L (135-145); Total Protein 7.8 g/dL (6.5-8.0)
[2022-09-11 11:47] VITALS: BP 147/68; PULSE 62; RESP 12; TEMP 36.7; O2SAT 98
== END 2022-09-11 13:00 | disposition home or self-care (01) ==
PROVIDERS: Physician Assistant Medical; Emergency Provider Student in an Organized Health Care Education/Training Program; PCP Internal Medicine
DX: M79.605 Pain in left leg (principal); R60.0 Localized edema; Z79.899 Other long term (current) drug therapy
CPT/HCPCS: 36415; 80053; 83735; 85025; 85610; 85730; 93971; 99284

== ENCOUNTER → 2022-10-04 13:18 | Outpatient (BNVA) | payer MEDICARE, MEDICAID, SELFPAY | PROVIDERS: PCP Internal Medicine; Visit Provider Nurse Practitioner | DX: K59.04 Chronic idiopathic constipation (principal); Z79.899 Other long term (current) drug therapy; Z86.010 Personal history of colon polyps | CPT/HCPCS: 99212 ==

== ENCOUNTER 2022-12-26 08:40 | Emergency (ER) | payer MEDICARE, MEDICAID, SELFPAY ==
--- NOTE | ~2022-12-26 | XR_ITS ---
EXAMINATION: XR CHEST CLINICAL INFORMATION: Shortness of breath COMPARISON: January 08, 2022 TECHNIQUE: AP portable view of the chest was obtained. FINDINGS: There is no evidence of significant acute parenchymal disease. There is mild atelectasis seen involving the medial aspect of the left lower lobe. No pneumothorax or effusion. Heart normal size. No evidence of pulmonary edema. XR/XR chest 1V IMPRESSION: No significant acute parenchymal disease.
[2022-12-26 08:56] VITALS: BP 147/92; PULSE 75; RESP 16; TEMP 37.2; O2SAT 97; BMI 35.2
--- NOTE | 2022-12-26 09:05 | ED.URI ---
HPI - URI/Sore Throat General Chief Complaint: Ear Problems Stated Complaint: sore throat/ ear pain Time Seen by Provider: 12/26/22 09:04 Source: patient and old records reviewed Mode of arrival: ambulatory History of Present Illness HPI Narrative: 72-year-old female with a past medical history of asthma, HLD, PE no longer on anticoagulation, HTN, presenting to ED with daughter complaining productive cough, SOB, sore throat, and right ear pain x 3 days. Reports subjective fever yesterday. Reports pain with swallowing. Denies difficulty/inability to swallow, chest pain, abdominal pain, recent travel, sick contacts, pedal edema MD elicited complaint: fever, cough, sore throat and rhinorrhea Related Data Home Medications Medication Instructions Recorded Confirmed fluticasone propionate 110 1 puff PO BID 03/26/22 mcg/actuation HFA aerosol inhaler (Flovent HFA) hydrochlorothiazide 25 mg tablet 25 mg PO DAILY 03/26/22 lisinopril 2.5 mg tablet 2.5 mg PO DAILY 03/26/22 montelukast 10 mg tablet 10 mg PO DAILY 03/26/22 quetiapine 25 mg tablet 25 mg PO BEDTIME 03/26/22 atorvastatin 20 mg tablet 20 mg PO DAILY 05/14/22 betamethasone valerate 0.1 % appl topical Q OTHER DAY 05/14/22 topical cream Previous Rx's Medication Instructions Recorded nebulizers (AeroEclipse II #1 ea 10/31/21 Nebulizer) albuterol sulfate 2.5 mg/3 mL 2.5 mg (3 mL) inhalation Q4-6H PRN 01/09/22 (0.083 %) solution for nebulization shortness of breath or wheezing #90 mL albuterol sulfate 90 mcg/actuation 2 puff inhalation Q4-6H PRN 01/09/22 aerosol inhaler (ProAir HFA) shortness of breath or wheezing #8.5 grams linaclotide 72 mcg capsule 72 mcg PO QAM #30 caps 10/04/22 (Linzess) Allergies Allergy/AdvReac Type Severity Reaction Status Date / Time morphine [MORPHINE] Allergy Severe CHEST Verified 10/04/22 13:30 PAIN, TROUBLE BREATHING, bruises Penicillins Allergy Intermediate RASH Verified 10/04/22 13:30 tramadol [TRAMADOL] Allergy Unknown CHEST PAIN Verified 10/04/22 13:30 Percocet AdvReac Intermediate vomiting Uncoded 04/29/22 10:39 Review of Systems Review of Systems: Constitutional: +subj Fever, No Chills ENT/Mouth: No Ear Pain, + Nasal Congestion, No Sinus Pain, No Hoarseness, + sore throat, No Rhinorrhea, No Swallowing Difficulty Cardiovascular: No Chest Pain, + SOB Respiratory: + Cough, No Sputum, No Wheezing Gastrointestinal: No Nausea, No Vomiting, No Diarrhea, No Constipation, No Abdominal pain Genitourinary: No Dysuria, No Urinary Frequency Musculoskeletal: No joint pain, No Myalgias, No Joint Swelling Skin: No Skin Lesions, No rash Neuro: No Weakness, No Numbness, No Paresthesias Yes all other systems are reviewed and are negative Constitutional: Constitutional: Reports as per [facility] Past Medical History Attestation statement: The following information was validated with the patient. Medical History Asthma High cholesterol History of pulmonary embolism Hypertension Nephrolithiasis Surgical History H/O breast biopsy H/O colonoscopy History of hysterectomy Social History Social History Alcohol intake: never Patient Tobacco Use Status: Never used Tobacco Advance Directives: No Physical Exam Vital Signs: Vital Signs: Last Vital Signs Temp 98.9 F 12/26/22 08:56 Pulse 75 12/26/22 08:56 Resp 16 12/26/22 08:56 BP 147/92 H 12/26/22 08:56 Pulse Ox 97 12/26/22 08:56 O2 Del Method Room Air 12/26/22 08:56 BMI result Body Mass Index 35.2 Const: General: cooperative, healthy appearing and no acute distress Orientation/consciousness: patient oriented x3 Limitations: no limitations HEENT: Head: Yes normal to inspection and Yes atraumatic Ears: hearing grossly normal bilaterally, external ears normal and TM abnormal dull bilateral; not with effusion and not erythematous General nose exam: Normal external nose present Face and sinus: Yes normal facial exam Throat: Yes uvula midline, No peritonsillar mass, Yes posterior oropharynx abnormal (+ erythematous with petechiae) and No uvula laterally displaced Eyes: General: appearance normal, both eyes and all related structures EOM: EOMs intact bilaterally Neck: Other: + submandibular lymphadenopathy bilaterally Neck: Yes normal visual inspection and Yes no meningeal signs Resp: Effort & Inspection: normal respiratory effort and no respiratory distress Auscultation: clear to auscultation bilaterally, no crackles, no rales, no rhonchi and no wheezes Cardio: Rate: regular rate Heart sounds: S1 normal heart sound present and S2 normal heart sound present Skin: Rashes: no rashes Wounds: no wounds Neuro: General: patient oriented x3, tone normal and no meningeal signs Gait exam (Neuro): Normal gait present Extrem: General: Yes normal to inspection Course Course Course Narrative: XR chest 1V IMPRESSION: No significant acute parenchymal disease. -rapid strep, COVID and influenza negative Results discussed with patient including worrisome signs and symptoms and strict return precautions, and when to return to the emergency department. They verbalized understanding and feel safe for discharge at this time. Medical Decision Making Medical Decision Making MDM Narrative: 72-year-old female with a past medical history of asthma, HLD, PE no longer on anticoagulation, HTN, presenting to ED with daughter complaining productive cough, SOB, sore throat, and right ear pain x 3 days. On exam vital signs stable, NAD, nontoxic appearing, lungs CTA, bilateral TMs cloudy without erythema, posterior oropharynx with erythema/red petechiae, uvula midline, no evidence of [employer]. Talking in complete sentences, no respiratory distress. Concern for strep pharyngitis vs viral syndrome. Rule out pneumonia. Lower suspicion for ACS/PE or CHF or asthma exacerbation Plan: COVID/flu, rapid strep, CXR Please refer to course for remaining clinical decision making, interpretation of labs/imaging results, and discussions with consultants and/or family members. Differential Diagnosis Differential Diagnoses: The differential diagnosis associated with the presentation includes As above Admission/Observation Consideration of admission/observation: Escalation of care including admission/observation considered Lab Data MDM Lab Attestation statement: I reviewed the patient's lab results. Labs: Lab Results 12/26/22 12/26/22 12/26/22 Range/Units 09:25 09:25 09:25 COVID-19 (DAVID) Negative (Negative) COVID-19 Clin Com See Note Influenza Type A (SERGIO) Negative (Negative) Influenza Type B (SERGIO) Negative (Negative) Influenza A & B Note See Note S. pyogenes GrpA SERGIO Negative (Negative) Radiology Impression Discussion of test interpretation with radiology: I have reviewed the radiologist's reading. External Record Review External record reviewed: Inpatient record, Office record, Outpatient record, Prior outpatient labs, Prior outpatient radiology, Primary care record and Outside ED record Discharge Plan Discharge Clinical Impression: Acute pharyngitis Prescriptions: No Action (DME) AeroEclipse II Nebulizer Misc See Rx Instructions .ROUTE .MEDSUPPLY Qty: 1 0RF Rx Instructions: As directed albuterol sulfate [ProAir HFA] 90 mcg/actuation HFA aerosol inhaler 2 puff inhalation Q4-6H PRN (Reason: shortness of breath or wheezing) Qty: 8.5 0RF albuterol sulfate 2.5 mg /3 mL (0.083 %) solution for nebulization 2.5 mg inhalation Q4-6H PRN (Reason: shortness of breath or wheezing) Qty: 90 0RF fluticasone propionate [Flovent HFA] 110 mcg/actuation HFA aerosol inhaler 1 puff PO BID lisinopril 2.5 mg tablet 2.5 mg PO DAILY montelukast 10 mg tablet 10 mg PO DAILY quetiapine 25 mg tablet 25 mg PO BEDTIME hydrochlorothiazide 25 mg tablet 25 mg PO DAILY atorvastatin 20 mg tablet 20 mg PO DAILY betamethasone valerate 0.1 % cream topical Q OTHER DAY Linzess 72 mcg capsule 72 mcg PO QAM Qty: 30 6RF
[2022-12-26 09:45] LABS: IDNOW Serial# 08D9AD1C; Strep A Nucleic Acid Negative (Negative)
[2022-12-26 09:49] LABS: COVID-19 Test Negative (Negative); IDNOW Serial# BCCEAD1C
[2022-12-26 10:01] LABS: IDNOW Serial# 08D9AD1C; Influenza A Negative (Negative); Influenza B2 Negative (Negative)
== END 2022-12-26 11:11 | disposition home or self-care (01) ==
PROVIDERS: Physician Assistant; Emergency Provider Emergency Medicine; PCP Internal Medicine
DX: J02.9 Acute pharyngitis, unspecified (principal); Z20.822 Contact with and (suspected) exposure to COVID-19; I10 Essential (primary) hypertension; E78.5 Hyperlipidemia, unspecified; Z79.02 Long term (current) use of antithrombotics/antiplatelets; Z79.899 Other long term (current) drug therapy
CPT/HCPCS: 71045; 87502; 87635; 87651; 99282; 99283

== ENCOUNTER 2023-04-17 07:52 | Outpatient (AMB) | payer MEDICARE, MEDICAID, SELFPAY ==
[2023-04-17 07:54] VITALS: BP 136/92; PULSE 64; O2SAT 95; BMI 35.6
--- NOTE | 2023-04-17 07:54 | MHC.OFFVIS ---
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 Daughter states she had dizziness and she saw another neurologist a couple years ago and they suggested physical therapy but it didn't help. she also has poor balance and has had a couple falls. 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 Accompanied by: Daughter Allergies morphine [MORPHINE] Allergy (Severe, Verified 04/17/23 08:08) CHEST PAIN, TROUBLE BREATHING, bruises Penicillins Allergy (Intermediate, Verified 04/17/23 08:08) RASH codeine Allergy (Unknown, Verified 04/17/23 08:08) Unknown tramadol [TRAMADOL] Allergy (Unknown, Verified 04/17/23 08:08) CHEST PAIN Percocet Adverse Reaction (Intermediate, Uncoded 04/17/23 08:08) vomiting Medication List - Last Reconciled 04/17/23 by MORIAH Branch albuterol sulfate 2.5 mg (3 mL) inhalation Q4-6H PRN albuterol sulfate 90 mcg/actuation (ProAir HFA) 2 puffs inhalation Q4-6H PRN albuterol sulfate 90 mcg/actuation 2 puffs inhalation Q4-6H PRN atorvastatin 40 mg PO DAILY betamethasone valerate 0.1% appl topical Q OTHER DAY fluticasone propionate 110 mcg/actuation (Flovent HFA) 1 puff PO BID hydrochlorothiazide 25 mg PO DAILY linaclotide (Linzess) 72 mcg PO QAM lisinopril 2.5 mg PO DAILY nebulizers (AeroEclipse II Nebulizer) As directed quetiapine 25 mg PO BEDTIME HPI HPI Comments History of Present Illness Details 72-yr-old female presents for neurological evaluation of dizziness and balance issues. Pt is accompanied by her dtrJannet. Pt was previously by us at [facility]- for balance issues and ? movement d/o. PT ordered at that time was not helful. Pt has had dizziness and off-balance x's the last 3-4 years, which has worsened in the last 6 months or so. 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 however did show an ulcer on the arch of the aorta without dissection or aneurysm . She describes the dizziness as feeling like she is in the air and shifting side to side (like not right in space). This is worse when she is standing and walking, but can occur when sitting as well. She has more trouble when walking in a store. She can also have room spinning dizziness, but this is worse when laying down. She endorses brief orthostatic lightheadedness. She has had a few falls. She uses a cane- she sometimes feels that she needs a walker. Often needs to furniture walk or grab onto something when walking. She reports that she has headaches/migraines since she had a concussion w/ LOC as a child. The migraine is bilateral temporal pressure a/w photo/phonophobia. This occurs about 2 x's per week. She has a h/o DMITRI- not currently using CPAP. She has seen cardiology- they did not feel the dizziness was cardiogenic. Patient endorses: blurry vision, dry eye, eye pain, neck tightness w/o shooting pain, pins and needles in her feet especially when first getting up in the am, tremor, some memory issues and confusion. And patient denies: diplopia, LE numbness Previous work-up: 01/30/2021, at [facility] [place], CT/CT angio head neck IMPRESSION: 1. No evidence of acute intracranial hemorrhage or edematous territorial infarction. 2. CTA of the head and neck without proximal occlusion or flow-limiting stenosis. 3. Undulating appearance of the gutierrez of the cervical ICAs suggestive of underlying fibromuscular dysplasia. 4. 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 [facility] Medical History (Updated 04/17/23 @ 12:46 by MORIAH Branch) Anemia Asthma High cholesterol History of pulmonary embolism Hypertension Nephrolithiasis Surgical History H/O breast biopsy H/O colonoscopy History of hysterectomy Family History (Updated 04/17/23 @ 08:15 by Manisha Butler CMA) Mother Varicose vein of leg Depression Hypertension Asthma Heart disease Father Cerebrovascular accident (CVA) Kidney stones Sister Varicose vein of leg Depression Brother Depression Varicose vein of leg Daughter Varicose vein of leg Maternal Grandfather Colon cancer Social History (Updated 04/17/23 @ 08:15 by Manisha Butler [facility]) Alcohol intake: never Patient Tobacco Use Status: Never used Tobacco Review of Systems Const All systems reviewed & are unremarkable except as noted in HPI and below Physical Exam Vital Signs: Last Vital Signs Pulse 64 04/17/23 07:54 BP 136/92 H 04/17/23 07:54 Pulse Ox 95 04/17/23 07:54 Oxygen Delivery Method Room Air 04/17/23 07:54 BMI result Body Mass Index 35.6 Const General: cooperative and no acute distress Orientation/consciousness: patient oriented x3 HEENT Head: Yes normocephalic Resp Effort & Inspection: normal respiratory effort and able to speak in complete sentences Back/Spine/Pelvis Other: Bilateral posterior cervical tightness. Cervical ROM: limited Left Spurling: elicited non-radiating base of neck discomfort. Right Spurling: elicited non-radiating base of neck discomfort. Neuro Other: No tremor noted today General: patient oriented x3, CN's II-XI intact bilaterally and deep tendon reflexes 2+ bilaterally Gait exam (Neuro): Assistive device used (cane) Motor exam (neuro): 5/5 motor strength present throughout Psych Appearance: well kempt Mental Status: mental status grossly normal Speech and movement: Normal speech and movement present Affect: normal affect Attitude: cooperative Thought process: Normal thought process present Thought content: Normal thought content present Assessment & Plan Assessment & Plan (1) Dizziness: Code(s): R42 - Dizziness and giddiness (2) Paresthesias: Code(s): R20.2 - Paresthesia of skin (3) Migraine without aura: Code(s): G43.009 - Migraine without aura, not intractable, without status migrainosus (4) Gait difficulty: Code(s): R26.9 - Unspecified abnormalities of gait and mobility Plan Will request notes and reports from [facility] and cardiology- [facility] cardiology [facility] campus. Will check labs to recheck ESR and for common etiologies dizziness, paresthesias, cognitive issues. Pt advised to have PT vestibular eval & tx. Future considerations- trial of migraine tx- may help dizziness as well, orthostatic BPs/tilt-table test f/u in 3 months or sooner prn. Orders: Orders Vitamin B12 and Folate Today D64.9 - Anemia, unspecified, I10 - Essential (primary) hypertension, R20.2 - Paresthesia of skin, R42 - Dizziness and giddiness Comprehensive Met. Panel Today D64.9 - Anemia, unspecified, I10 - Essential (primary) hypertension, R20.2 - Paresthesia of skin, R42 - Dizziness and giddiness CRP High Sensitivity Today D64.9 - Anemia, unspecified, I10 - Essential (primary) hypertension, R20.2 - Paresthesia of skin, R42 - Dizziness and giddiness Homocysteine Today D64.9 - Anemia, unspecified, I10 - Essential (primary) hypertension, R20.2 - Paresthesia of skin, R42 - Dizziness and giddiness Methylmalonic Acid Today D64.9 - Anemia, unspecified, I10 - Essential (primary) hypertension, R20.2 - Paresthesia of skin, R42 - Dizziness and giddiness Complete Blood Count Auto Diff Today D64.9 - Anemia, unspecified, I10 - Essential (primary) hypertension, R20.2 - Paresthesia of skin, R42 - Dizziness and giddiness Erythrocyte Sedimentation Rate Today D64.9 - Anemia, unspecified, I10 - Essential (primary) hypertension, R20.2 - Paresthesia of skin, R42 - Dizziness and giddiness PT Evaluation and Treatment Today R42 - Dizziness and giddiness Coding Level of Care Code Est Pt Level 4 (69808) Diagnoses Dizziness R42 Paresthesias R20.2 Migraine without aura G43.009 Gait difficulty R26.9
== END 2023-04-17 09:11 | disposition home or self-care (01) ==
PROVIDERS: Visit Provider Nurse Practitioner Family
DX: R42 Dizziness and giddiness (principal); R20.2 Paresthesia of skin; G43.009 Migraine without aura, not intractable, without status migrainosus; R26.9 Unspecified abnormalities of gait and mobility
CPT/HCPCS: 99214

== ENCOUNTER → 2023-04-17 07:52 | Outpatient (BNVA) | payer MEDICARE, MEDICAID, SELFPAY | PROVIDERS: Visit Provider Nurse Practitioner Family | DX: R42 Dizziness and giddiness (principal); R20.2 Paresthesia of skin; R26.9 Unspecified abnormalities of gait and mobility; G43.009 Migraine without aura, not intractable, without status migrainosus | CPT/HCPCS: 99212 ==

== ENCOUNTER 2023-05-10 09:13 | Emergency (ER) | payer OTHER, SELFPAY ==
--- NOTE | ~2023-05-10 | XR_ITS ---
EXAMINATION: XR CHEST CLINICAL INFORMATION: Reason for Exam cough COMPARISON: Chest radiograph 12/26/2022 TECHNIQUE: 2 views of the chest FINDINGS: Lines and tubes: None. Patchy left basilar opacity. No pleural effusion. No pneumothorax. Normal cardiomediastinal silhouette. XR/XR chest 2V IMPRESSION: Patchy left basilar opacity which may reflect infection or aspiration and in the appropriate clinical setting otherwise atelectasis could also appear similar. Recommend follow-up radiographs to ensure resolution.
--- NOTE | 2023-05-10 09:15 | ECG_ITS ---
Test Reason : CP Blood Pressure : / mmHG Vent. Rate : 078 BPM Atrial Rate : 078 BPM P-R Int : 158 ms QRS Dur : 090 ms QT Int : 392 ms P-R-T Axes : 047 -10 023 degrees QTc Int : 446 ms Normal sinus rhythm Normal ECG When compared with ECG of 08-JAN-2022 22:23, No significant change was found Referred By: Generic ED Physician Electronically Signed By:GENEVA MARMOLEJO
[2023-05-10 09:21] VITALS: BP 140/51; PULSE 79; RESP 19; TEMP 38; O2SAT 96; BMI 34.8
[2023-05-10 11:13] LABS: IDNOW Serial# 08D9AD1C; Influenza A Negative (Negative); Influenza B2 Negative (Negative)
[2023-05-10 11:15] LABS: COVID-19 Test Negative (Negative); IDNOW Serial# BCCEAD1C
[2023-05-10 12:35] LABS: MANUAL DIFF FLAG NO
[2023-05-10 12:37] LABS: Basophils Absolute Auto 0.1 X10*3/uL (0.0-0.2); Basophils Percent Auto 0.5 % (0-2); Eosinophils Absolute Auto 0.5 X10*3/uL (0.0-0.4); Eosinophils Percent Auto 4.8 % (0-4); Hematocrit 38.3 % (37.0-47.0); Hemoglobin 11.7 g/dl (12.0-16.0); Imm Gran Abs Auto 0.03 X10*3/uL (0.00-0.03); Imm Gran Pct Auto 0.3 % (0.0-0.4); Lymphocytes Absolute Auto 1.5 X10*3/uL (1.2-4.9); Lymphocytes Percent Auto 15.7 % (20-40); Mean Corpuscular HGB Conc 30.5 g/dl (31.0-35.0); Mean Corpuscular Hemoglobin 25.6 pg (27.0-33.0); Mean Corpuscular Volume 83.8 fL (80.0-98.0); Mean Platelet Volume 9.7 fL (9.4-12.3); Monocytes Absolute Auto 0.8 X10*3/uL (0.1-1.2); Neutrophils Absolute Auto 6.7 x10*3/uL (2.0-8.3); Neutrophils Percent Auto 70.7 % (45-73); Platelet Count 364 X10*3/uL (160-400); Red Blood Count 4.57 X10*6/uL (4.20-5.50); Red Cell Distribution Width 14.4 % (11.0-16.0); White Blood Count 9.5 X10*3/uL (4.8-10.8)
--- NOTE | 2023-05-10 12:45 | ED_ITS ---
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 No shortness of breath. No recent travel, sick contact. Patient reports she has slight edema bilateral lower extremities with no pain. She denies that this is a new thing. Related Data Home Medications Medication Instructions Recorded Confirmed fluticasone propionate 110 1 puff PO BID 03/26/22 04/17/23 mcg/actuation HFA aerosol inhaler (Flovent HFA) hydrochlorothiazide 25 mg tablet 25 mg PO DAILY 03/26/22 04/17/23 lisinopril 2.5 mg tablet 2.5 mg PO DAILY 03/26/22 04/17/23 quetiapine 25 mg tablet 25 mg PO BEDTIME 03/26/22 04/17/23 betamethasone valerate 0.1 % appl topical Q OTHER DAY 05/14/22 04/17/23 topical cream atorvastatin 40 mg tablet 40 mg PO DAILY 04/17/23 04/17/23 Previous Rx's Medication Instructions Recorded nebulizers (AeroEclipse II #1 ea 10/31/21 Nebulizer) albuterol sulfate 2.5 mg/3 mL 2.5 mg (3 mL) inhalation Q4-6H PRN 01/09/22 (0.083 %) solution for nebulization shortness of breath or wheezing #90 mL albuterol sulfate 90 mcg/actuation 2 puff inhalation Q4-6H PRN 01/09/22 aerosol inhaler (ProAir HFA) shortness of breath or wheezing #8.5 grams linaclotide 72 mcg capsule 72 mcg PO QAM #30 caps 10/04/22 (Linzess) albuterol sulfate 90 mcg/actuation 2 puff inhalation Q4-6H PRN 12/26/22 aerosol inhaler shortness of breath or wheezing #6.7 grams albuterol sulfate 90 mcg/actuation 2 puff inhalation Q6H PRN 05/10/23 aerosol inhaler shortness of breath or wheezing #8.5 grams azithromycin 250 mg tablet See Rx Instructions PO .COMPLEX #6 05/10/23 tabs benzonatate 200 mg capsule 200 mg PO TID PRN cough #30 caps 05/10/23 cefpodoxime 200 mg tablet 200 mg PO BID #14 tabs 05/10/23 Allergies Allergy/AdvReac Type Severity Reaction Status Date / Time morphine [MORPHINE] Allergy Severe CHEST Verified 05/10/23 09:20 PAIN, TROUBLE BREATHING, bruises Penicillins Allergy Intermediate RASH Verified 05/10/23 09:20 codeine Allergy Unknown Unknown Verified 05/10/23 09:20 tramadol [TRAMADOL] Allergy Unknown CHEST PAIN Verified 05/10/23 09:20 Percocet AdvReac Intermediate vomiting Uncoded 05/10/23 09:20 Review of Systems 2 Review of Systems: Yes all other systems are reviewed and are negative Constitutional: Constitutional: Reports no additional constitutional complaints, Reports body ache(s), Denies chills, Reports fever(s), Denies headache(s) and Denies weakness Eyes: Eyes: Reports no additional eye complaints and Denies change in vision ENT: Reports system reviewed and no additional complaints, except as documented, Denies dizziness, Denies headache(s), Denies nasal congestion, Denies nasal discharge and Denies neck pain Cardiovascular: Cardiovascular: Reports no additional cardiovascular complaints, Reports chest pain, Denies leg edema and Denies dyspnea Respiratory: Respiratory: Reports no additional respiratory complaints, Reports cough and Denies dyspnea Gastrointestinal: Gastrointestinal: Reports no additional gastrointestinal complaints, Denies abdominal pain, Denies diarrhea, Denies nausea and Denies vomiting Genitourinary: Genitourinary: Reports no additional female genitourinary complaints and Denies urinary incontinence Musculoskeletal: Musculoskeletal: Reports no additional musculoskeletal complaints, Denies back pain, Denies arthralgias, Denies joint swelling, Denies neck pain, Denies numbness and Denies tingling Integumentary/Breasts: Skin/Breast: Reports system reviewed and no additional complaints, except as docu and Denies rash Neurologic: Reports system reviewed and no additional complaints, except as documented, Denies Abnormal speech present, Denies dizziness, Denies headache(s), Denies numbness, Denies tingling and Denies weakness PMFSH Past Medical History Attestation statement: The following information was validated with the patient. Source: old records reviewed and nursing notes reviewed Medical History Anemia History of pulmonary embolism Nephrolithiasis High cholesterol Asthma Hypertension Surgical History H/O breast biopsy History of hysterectomy H/O colonoscopy Family History Family History Mother Varicose vein of leg Depression Hypertension Asthma Heart disease Father Cerebrovascular accident (CVA) Kidney stones Sister Varicose vein of leg Depression Brother Depression Varicose vein of leg Daughter Varicose vein of leg Maternal Grandfather Colon cancer Social History Social History Alcohol intake: never Patient Tobacco Use Status: Never used Tobacco Advance Directives: No Advance Directives Information Provided: Yes Physical Exam 2 Vital Signs: Vital Signs: Last Vital Signs Temp 100.4 F 05/10/23 09:21 Pulse 79 05/10/23 09:21 Resp 19 05/10/23 09:21 BP 140/51 H 05/10/23 09:21 Pulse Ox 96 05/10/23 09:21 O2 Del Method Room Air 05/10/23 09:21 BMI result Body Mass Index 34.8 Const: General: cooperative, healthy appearing, comfortable and no acute distress Orientation/consciousness: patient oriented x3 Limitations: no limitations HEENT: Head: Yes normal to inspection Ears: hearing grossly normal bilaterally and TM's normal bilaterally General nose exam: Normal external nose present Face and sinus: Yes normal facial exam Mouth: Normal oral and palatal mucosa present Throat: Yes posterior oropharynx normal, Yes tonsils normal and Yes uvula midline Eyes: General: appearance normal, both eyes and all related structures P upils: Equal, round and reactive pupils present Neck: Neck: Yes normal visual inspection, Yes full ROM and Yes no lymphadenopathy Chest: Chest palpation & inspection: normal inspection of the chest Resp: Effort & Inspection: normal respiratory effort Auscultation: clear to auscultation bilaterally Cardio: Rate: regular rate Rhythm: regular rhythm Peripheral pulses: P eripheral pulses 2+ throughout GI: Inspection: Yes normal to inspection Palpation (GI): Soft to palpation and nontender Auscultation: normal bowel sounds Back/Spine/Pelvis: Thoracic/Lumbar Spine: thoracic and lumbar spine normal to inspection Skin: General skin exam: no rashes or lesions noted Neuro: General: patient oriented x3, no focal motor deficits and normal sensation to monofilament Cranial nerves: Yes Equal, round and reactive pupils present Cognition (Neuro): normal cognition Speech: No Abnormal speech present Gait exam (Neuro): Normal gait present Motor exam (neuro): 5/5 motor strength present throughout Extrem: Other: I do not appreciate any lower extremity swelling General: Yes normal to inspection and Yes no calf tenderness Course Course Course Narrative: chest x-ray is consistent with left lower lobe pneumonia. Patient will be treated with course of antibiotics. Reviewed worrisome signs and symptoms of when to return to the emergency room. Comfortable plan for discharge home. Medical Decision Making Medical Decision Making [facility] Narrative: 72-year-old female with a past medical history of asthma, HLD, PE no longer on anticoagulation, HTN here with complaints of cough, chest congestion, body aches, Subjective fevers, chest discomfort with coughing for the last 5 days. No shortness of breath. No recent travel, sick contact. Patient reports she has slight edema bilateral lower extremities with no pain. She denies that this is a new thing. vitals are stable. Lungs are clear. I do not appreciate any leg swelling on exam or calf pain. Patient will have labs, chest x-ray, EKG, viral testing Differential Diagnosis Differential Diagnoses: The differential diagnosis associated with the presentation includes viral syndrome, pneumonia, chest wall strain influenza ACS-low concern with atypical pain, negative troponin/ekg low concern for PE- NO HYPOXIA, NO TACHYPNEA, NO CLINICAL FINDINGS CONCERNING FOR DVT Admission/Observation Consideration of admission/observation: Escalation of care including admission/observation considered curb 65 is 1 for age patient is not hypoxic and had ambulatory oxygen saturation greater than 96%. Lab Data [facility] Lab Attestation statement: I reviewed the patient's lab results. Reviewed labs which are unremarkable 05/10/23 12:31 05/10/23 12:31 Labs: Lab Results 05/10/23 05/10/23 Range/Units 10:26 12:31 WBC 9.5 (4.8-10.8) X10*3/uL RBC 4.57 (4.20-5.50) X10*6/uL Hgb 11.7 L (12.0-16.0) g/dl Hct 38.3 (37.0-47.0) % MCV 83.8 (80.0-98.0) fL MCH 25.6 L (27.0-33.0) pg MCHC 30.5 L (31.0-35.0) g/dl RDW 14.4 (11.0-16.0) % Plt Count 364 (160-400) X10*3/uL MPV 9.7 (9.4-12.3) fL Immature Gran % (Auto) 0.3 (0.0-0.4) % Neut % (Auto) 70.7 (45-73) % Lymph % (Auto) 15.7 L (20-40) % Davidson % (Auto) 8.0 (2-11) % Eos % (Auto) 4.8 H (0-4) % Baso % (Auto) 0.5 (0-2) % Lymph # (Auto) 1.5 (1.2-4.9) X10*3/uL Davidson # (Auto) 0.8 (0.1-1.2) X10*3/uL Eos # (Auto) 0.5 H (0.0-0.4) X10*3/uL Baso # (Auto) 0.1 (0.0-0.2) X10*3/uL Abs Immat Gran (auto) 0.03 (0.00-0.03) X10*3/uL Absolute Neuts (auto) 6.7 (2.0-8.3) x10*3/uL Absolute Nucleated RBC 0.000 (0.0-0.012) X10*3/uL Nucleated RBC % (auto) 0.0 (0.0-0.2) /100WBC Sodium 139 (135-145) mmol/L Potassium 3.7 (3.3-5.1) mmol/L Chloride 101 (96-108) mmol/L Carbon Dioxide 26 (22-29) mmol/L Anion Gap 16 (12-20) BUN 19 H (9-16) mg/dL Creatinine 0.86 (0.5-1.4) mg/dL Estim Creat Clear Calc 57.9 Estimated GFR > 60 Random Glucose 95 (60-115) mg/dL Calcium 10.5 H D (8.4-10.2) mg/dL Total Bilirubin 0.5 (0.0-1.0) mg/dL Direct Bilirubin 0.2 (0.0-0.5) mg/dL AST 18 (5-31) U/L ALT 14 (0-31) U/L Alkaline Phosphatase 81 (39-117) U/L Troponin I High Sens < 2.7 (<3.5-17.0) ng/L B-Natriuretic Peptide 31 (<100) pg/mL Total Protein 8.7 H (6.5-8.0) g/dL Albumin 4.1 (3.5-5.0) g/dL COVID-19 (DAVID) Negative (Negative) COVID-19 Clin Com See Note Influenza Type A (SERGIO) Negative (Negative) Influenza Type B (SERGIO) Negative (Negative) Influenza A & B Note See Note Independent Interpretation I performed an independent interpretation of an: EKG and Plain X-Ray Interpretation: I independently reviewed the EKG which shows normal sinus rhythm with a rate of 78, normal CO, normal QRS, normal QT I independently reviewed the x-ray and agree with rad report Radiology Impression Discussion of test interpretation with radiology: I have reviewed the radiologist's reading. Radiologist Impression: [place] [id number] XRay Report Signed Patient: Laura Mullen MR#: [id number] : 1950 Acct:[id number] Age/Sex: 72 / F ADM Date: 05/10/23 Loc: .ED Attending Dr: Ordering Physician: Deborah Goldberg NP Date of Service: 05/10/23 Procedure(s): XR chest 2V Accession Number(s): [id number] cc: Physician,Unknown ; Deborah Goldberg NP~ EXAMINATION: XR CHEST CLINICAL INFORMATION: Reason for Exam cough COMPARISON: Chest radiograph 12/26/2022 TECHNIQUE: 2 views of the chest FINDINGS: Lines and tubes: None. Patchy left basilar opacity. No pleural effusion. No pneumothorax. Normal cardiomediastinal silhouette. XR/XR chest 2V IMPRESSION: Patchy left basilar opacity which may reflect infection or aspiration and in the appropriate clinical setting otherwise atelectasis could also appear similar. Recommend follow-up radiographs to ensure resolution Discharge Plan Discharge Clinical Impression: CAP (community acquired pneumonia) Patient Disposition: Home, Self-Care Instructions: Community Acquired Pneumonia (ED) Additional Instructions: YOUR TESTING FOR COVID IS NEGATIVE. YOU DO HAVE PNEUMONIA. TAKE YOUR ANTIBIOTICS PRESCRIBED. USE THE INHALER NEEDED. RETURN FOR WORSENING SYMPTOMS DALY PRUEBA DE COVID ES NEGATIVA. USTED TIENE NEUMON?A. TOME FARHANA ANTIBI?TICOS SEG?N SE LE RECETARON. UTILICE EL INHALADOR SEG?N ES NECESARIO. REGRESAR SI LOS S?NTOMAS EMPEORAN Prescriptions: New cefpodoxime 200 mg tablet 200 mg PO BID Qty: 14 0RF Rx Instructions: must administer with a meal/food azithromycin 250 mg tablet See Rx Instructions .ROUTE .COMPLEX Qty: 6 0RF Rx Instructions: For 250 mg dose pack: take 500 mg today (day 1), then 250 mg for 4 days (days 2-5) albuterol sulfate 90 mcg/actuation HFA aerosol inhaler 2 puff inhalation Q6H PRN (Reason: shortness of breath or wheezing) Qty: 8.5 0RF benzonatate 200 mg capsule 200 mg PO TID PRN (Reason: cough) Qty: 30 0RF No Action (DME) AeroEclipse II Nebulizer Misc See Rx Instructions .ROUTE .MEDSUPPLY Qty: 1 0RF Rx Instructions: As directed albuterol sulfate [ProAir HFA] 90 mcg/actuation HFA aerosol inhaler 2 puff inhalation Q4-6H PRN (Reason: shortness of breath or wheezing) Qty: 8.5 0RF albuterol sulfate 2.5 mg /3 mL (0.083 %) solution for nebulization 2.5 mg inhalation Q4-6H PRN (Reason: shortness of breath or wheezing) Qty: 90 0RF albuterol sulfate 90 mcg/actuation HFA aerosol inhaler 2 puff inhalation Q4-6H PRN (Reason: shortness of breath or wheezing) Qty: 6.7 0RF fluticasone propionate [Flovent HFA] 110 mcg/actuation HFA aerosol inhaler 1 puff PO BID lisinopril 2.5 mg tablet 2.5 mg PO DAILY quetiapine 25 mg tablet 25 mg PO BEDTIME hydrochlorothiazide 25 mg tablet 25 mg PO DAILY betamethasone valerate 0.1 % cream topical Q OTHER DAY Linzess 72 mcg capsule 72 mcg PO QAM Qty: 30 6RF atorvastatin 40 mg tablet 40 mg PO DAILY Referrals: Physician,Unknown J [Primary Care Provider] - Print Language: Guyanese
[2023-05-10 12:52] LABS: Alanine Aminotransferase 14 U/L (0-31); Albumin Level 4.1 g/dL (3.5-5.0); Alkaline Phosphatase 81 U/L (39-117); Anion Gap 16 (12-20); Aspartate Amino Transferase 18 U/L (5-31); Bilirubin Direct 0.2 mg/dL (0.0-0.5); Bilirubin Total 0.5 mg/dL (0.0-1.0); Blood Urea Nitrogen 19 mg/dL (9-16); Calcium 10.5 mg/dL (8.4-10.2); Carbon Dioxide 26 mmol/L (22-29); Chloride 101 mmol/L (96-108); Creatinine Clr Calc Pharmacy 57.9; Estimated Glomerular Filt Rate > 60; Glucose Random 95 mg/dL (60-115); Potassium 3.7 mmol/L (3.3-5.1); Sodium 139 mmol/L (135-145); Total Protein 8.7 g/dL (6.5-8.0)
[2023-05-10 12:58] LABS: B Type Natriuretic Peptide 31 pg/mL (<100)
[2023-05-10 13:00] LABS: Troponin-I High Sensitivity < 2.7 ng/L (<3.5-17.0)
--- NOTE | 2023-05-10 14:01 | PC.NURSE ---
labs drawn with exception of Blue tube. pt is a difficult stick. this nurse attempted venipuncture x3, commercial tire service technician attempted x1 without success.
--- NOTE | 2023-05-10 14:10 | PC.NURSE ---
pt ambulated through ED, SpO2 ranging from 94%-96% on RA. HR 78-84 bpm
== END 2023-05-10 15:07 | disposition home or self-care (01) ==
PROVIDERS: Nurse Practitioner Family; Emergency Provider Emergency Medicine
DX: J18.9 Pneumonia, unspecified organism (principal); R60.0 Localized edema; Z20.822 Contact with and (suspected) exposure to COVID-19; I10 Essential (primary) hypertension; E78.5 Hyperlipidemia, unspecified; Z86.711 Personal history of pulmonary embolism; Z79.899 Other long term (current) drug therapy
CPT/HCPCS: 36415; 71046; 80048; 80076; 83880; 84484; 85025; 87502; 87635; 93005; 99283

== ENCOUNTER 2023-07-30 10:24 | Outpatient (AMB) | payer MEDICARE, MEDICAID, SELFPAY ==
[2023-07-30 10:27] VITALS: BP 138/70; PULSE 68; O2SAT 98; BMI 36.6
--- NOTE | 2023-07-30 10:27 | A.OFFVIS_ITS ---
Intake Vital Signs 07/30/23 10:27 Height 5 ft Weight 187 lb 8 oz BMI 36.6 BP 138/70 Blood Pressure Location Rt brachial Position Sitting Pulse 68 Pulse Source Pulse Oximeter Pulse Oximetry (%) 98 Oxygen Delivery Method Room Air Intake Visit Reasons: 3m f/up Dizziness - Confirmed Intake Note: Pt presents to the office today for a 3 month follow up for dizziness. Allergies morphine [MORPHINE] Allergy (Severe, Verified 07/30/23 10:32) CHEST PAIN, TROUBLE BREATHING, bruises Penicillins Allergy (Intermediate, Verified 07/30/23 10:32) RASH codeine Allergy (Unknown, Verified 07/30/23 10:32) Unknown tramadol [TRAMADOL] Allergy (Unknown, Verified 07/30/23 10:32) CHEST PAIN Percocet Adverse Reaction (Intermediate, Uncoded 07/30/23 10:32) vomiting Medication List - Last Reconciled 07/30/23 by MORAIH Branch albuterol sulfate 2.5 mg (3 mL) inhalation Q4-6H PRN albuterol sulfate 90 mcg/actuation (ProAir HFA) 2 puffs inhalation Q4-6H PRN albuterol sulfate 90 mcg/actuation 2 puffs inhalation Q4-6H PRN albuterol sulfate 90 mcg/actuation 2 puffs inhalation Q6H PRN atorvastatin 40 mg PO DAILY betamethasone valerate 0.1% appl topical Q OTHER DAY fluticasone propionate 110 mcg/actuation (Flovent HFA) 1 puff PO BID hydrochlorothiazide 25 mg PO DAILY linaclotide (Linzess) 72 mcg PO QAM lisinopril 2.5 mg PO DAILY nebulizers (AeroEclipse II Nebulizer) As directed pantoprazole 40 mg PO DAILY quetiapine 25 mg PO BEDTIME HPI HPI Comments History of Present Illness Details 72-yr-old female presents for f/u visit, accompanied by her dtr Lab work revealed 05/24 Labs- CBC- WNL, CMP- WNL, ESR 124 H , homocysteine 16.2 H, CRP 72.69 H, B-12 555 NL, Folate- 14.7 F/u labs- 07/24: ESR 78 H, CRP 5.3 H, ALIZA neg, RF 11- NL She has not had any recent headaches. She also reports the dizziness is much better with doing balancing exercises. She denies any vision changes or diplopia Denies jaw pain or difficulty chewing. She does have left shoulder pain- has had recent left shoulder cortisone inject ion. She is f/b cardiology. 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 Plan to monitor serially. She can have significant lower abdominal pain prior to needing to have a BM- this pain resolves. She endorses constipation. Denies straining or rectal bleeding. She uses coconut oil prn constipation which helps. [facility] Medical History Anemia History of pulmonary embolism Nephrolithiasis High cholesterol Asthma Hypertension Surgical History H/O breast biopsy History of hysterectomy H/O colonoscopy Family History Mother Varicose vein of leg Depression Hypertension Asthma Heart disease Father Cerebrovascular accident (CVA) Kidney stones Sister Varicose vein of leg Depression Brother Depression Varicose vein of leg Daughter Varicose vein of leg Maternal Grandfather Colon cancer Social History Household Members: Family Household Members Other:: sister Housing: House Alcohol intake: never Patient Tobacco Use Status: Never used Tobacco Review of Systems Const All systems reviewed & are unremarkable except as noted in HPI and below Physical Exam Vital Signs: Last Vital Signs Pulse 68 07/30/23 10:27 BP 138/70 07/30/23 10:27 Pulse Ox 98 07/30/23 10:27 Oxygen Delivery Method Room Air 07/30/23 10:27 BMI result Body Mass Index 36.6 Const General: cooperative and no acute distress Orientation/consciousness: patient oriented x3 HEENT Head: Yes normocephalic Resp Effort & Inspection: normal respiratory effort and able to speak in complete sentences Cardio Other: No carotid bruits Rate: regular rate Rhythm: regular rhythm Heart sounds: S1 normal heart sound present and S2 normal heart sound present Neuro General: patient oriented x3, gait normal and CN's II-XI intact bilaterally Cognition (Neuro): normal cognition Motor exam (neuro): 5/5 motor strength present throughout Psych Appearance: grossly normal Mental Status: mental status grossly normal Speech and movement: Normal speech and movement present Affect: normal affect Attitude: cooperative Thought process: Normal thought process present Thought content: Normal thought content present Insight: Good insight present (Psych) Judgement: Good judgement present (Psych) Assessment & Plan Assessment & Plan (1) Migraine without aura: Code(s): G43.009 - Migraine without aura, not intractable, without status migrainosus (2) Elevated erythrocyte sedimentation rate: Code(s): R70.0 - Elevated erythrocyte sedimentation rate (3) HLD (hyperlipidemia): Code(s): E78.5 - Hyperlipidemia, unspecified (4) Benign paroxysmal vertigo, unspecified ear: Code(s): H81.10 - Benign paroxysmal vertigo, unspecified ear Plan Will check f/u labs- ? if ESR and CRP have decreased d/t recent cortisone inj Will reach out to cardiology r/t elevated CRP/ESR- ? if this elevation is Cardiogenic. Consider temporal artery bx- to assess for systemic vasculitis. f/u upon review of above and in 3 months in clinic or sooner prn Orders: Orders Vitamin B12 and Folate 07/30/23 E78.5 - Hyperlipidemia, unspecified, I10 - Essential (primary) hypertension, R70.0 - Elevated erythrocyte sedimentation rate Hemoglobin A1c 07/30/23 E78.5 - Hyperlipidemia, unspecified, R20.2 - Paresthesia of skin, R70.0 - Elevated erythrocyte sedimentation rate CRP High Sensitivity Today E78.5 - Hyperlipidemia, unspecified, I10 - Essential (primary) hypertension, R70.0 - Elevated erythrocyte sedimentation rate Erythrocyte Sedimentation Rate Today E78.5 - Hyperlipidemia, unspecified, I10 - Essential (primary) hypertension, R70.0 - Elevated erythrocyte sedimentation rate Comprehensive Met. Panel 07/30/23 E78.5 - Hyperlipidemia, unspecified, I10 - Essential (primary) hypertension, R70.0 - Elevated erythrocyte sedimentation rate Complete Blood Count Auto Diff 07/30/23 E78.5 - Hyperlipidemia, unspecified, I10 - Essential (primary) hypertension, R70.0 - Elevated erythrocyte sedimentation rate Lipid Panel with Reflex 07/30/23 E78.5 - Hyperlipidemia, unspecified, I10 - Essential (primary) hypertension, R70.0 - Elevated erythrocyte sedimentation rate TSH reflex Free T4 07/30/23 E78.5 - Hyperlipidemia, unspecified, R20.2 - Paresthesia of skin, R70.0 - Elevated erythrocyte sedimentation rate Coding Level of Care Code Est Pt Level 4 (13830) Diagnoses Migraine without aura G43.009 Elevated erythrocyte sedimentation rate R70.0 HLD (hyperlipidemia) E78.5 Benign paroxysmal vertigo, unspecified ear H81.10
== END 2023-07-30 11:31 | disposition home or self-care (01) ==
PROVIDERS: PCP Internal Medicine; Visit Provider Nurse Practitioner Family
DX: G43.009 Migraine without aura, not intractable, without status migrainosus (principal); R70.0 Elevated erythrocyte sedimentation rate; E78.5 Hyperlipidemia, unspecified; H81.10 Benign paroxysmal vertigo, unspecified ear
CPT/HCPCS: 99214

== ENCOUNTER → 2023-07-30 10:24 | Outpatient (BNVA) | payer OTHER, SELFPAY | PROVIDERS: PCP Internal Medicine; Visit Provider Nurse Practitioner Family | DX: G43.009 Migraine without aura, not intractable, without status migrainosus (principal); R70.0 Elevated erythrocyte sedimentation rate; E78.5 Hyperlipidemia, unspecified; H81.10 Benign paroxysmal vertigo, unspecified ear | CPT/HCPCS: 99212 ==

== ENCOUNTER 2023-09-25 13:44 | Outpatient (AMB) | payer OTHER, SELFPAY ==
--- NOTE | 2023-09-25 13:45 | MHC.OFFVIS ---
Intake Vital Signs 09/25/23 13:58 Height 5 ft Weight 188 lb BMI 36.7 BP 146/65 H Blood Pressure Location Rt brachial Position Sitting Pulse 74 Intake Visit Reasons: temporal artery biopsy,? vasculitis process Intake Note: This patient was referred by MORIAH Branch, for an assessment for temporal artery biopsy, question vasculitis process. Pt c/o; reports no headaches, reports no dizziness. Content Curator Required: Yes Content Curator Language: Vp [employer] Name: Tres Information Interpreted: non-clinical & clinical Accompanied by: Daughter Allergies morphine [MORPHINE] Allergy (Severe, Verified 09/25/23 14:00) CHEST PAIN, TROUBLE BREATHING, bruises Penicillins Allergy (Intermediate, Verified 09/25/23 14:00) RASH codeine Allergy (Unknown, Verified 09/25/23 14:00) Unknown tramadol [TRAMADOL] Allergy (Unknown, Verified 09/25/23 14:00) CHEST PAIN Percocet Adverse Reaction (Intermediate, Uncoded 09/25/23 14:00) vomiting Medication List - Last Reconciled 09/25/23 by Stas Long MD albuterol sulfate 2.5 mg (3 mL) inhalation Q4-6H PRN albuterol sulfate 90 mcg/actuation (ProAir HFA) 2 puffs inhalation Q4-6H PRN albuterol sulfate 90 mcg/actuation 2 puffs inhalation Q4-6H PRN albuterol sulfate 90 mcg/actuation 2 puffs inhalation Q6H PRN atorvastatin 40 mg PO DAILY betamethasone valerate 0.1% appl topical Q OTHER DAY fluticasone propionate 110 mcg/actuation (Flovent HFA) 1 puff PO BID hydrochlorothiazide 25 mg PO DAILY linaclotide (Linzess) 72 mcg PO QAM lisinopril 2.5 mg PO DAILY nebulizers (AeroEclipse II Nebulizer) As directed pantoprazole 40 mg PO DAILY quetiapine 25 mg PO BEDTIME HPI temporal artery biopsy,? vasculitis process HPI Details 72-year-old female referred for temporal artery biopsy. She says that she had headaches about 4 months ago and at that time she was referred for temporal artery biopsy but however she had canceled her visit because she was sick. She she says that she no longer has headaches. She feels well overall. [facility] Medical History (Updated 09/25/23 @ 14:07 by Stas Long MD) Headache Anemia History of pulmonary embolism Nephrolithiasis High cholesterol Asthma Hypertension Surgical History H/O breast biopsy History of hysterectomy H/O colonoscopy Family History Mother Varicose vein of leg Depression Hypertension Asthma Heart disease Father Cerebrovascular accident (CVA) Kidney stones Sister Varicose vein of leg Depression Brother Depression Varicose vein of leg Daughter Varicose vein of leg Maternal Grandfather Colon cancer Social History Household Members: Family Household Members Other:: sister Housing: House Alcohol intake: never Patient Tobacco Use Status: Never used Tobacco Review of Systems Const Denies chills and Denies fever(s) Card Denies chest pain, Denies dyspnea and Denies dyspnea on exertion Resp Denies cough, Denies dyspnea and Denies dyspnea on exertion GI Denies hematochezia and Denies change in bowel habits Denies hematuria Musc Denies back pain and Denies limited range of motion Neuro Details: Difficulty with balance Denies focal weakness and Denies convulsions Psych Denies depression and Denies mood swings Physical Exam Vital Signs: Last Vital Signs Pulse 74 09/25/23 13:58 BP 146/65 H 09/25/23 13:58 BMI result Body Mass Index 36.7 Const Other: Walks with a cane General: comfortable and no acute distress Resp Effort & Inspection: normal respiratory effort Cardio Rate: regular rate GI Palpation (GI): Soft to palpation Assessment & Plan Assessment & Plan (1) Headache: Code(s): R51.9 - Headache, unspecified Plan: She used to have headaches but this has resolved. I explained to her the technique of temporal artery biopsy for diagnostic purposes for her headaches. She does state that this has resolved. She does not want to proceed with biopsy for now the absence of her symptoms I told her therefore that she should follow-up with her neurologist. She can come back if she decides to proceed with the biopsy. Coding Level of Care Code New Pt Level 3 (09575) Diagnoses Headache R51.9
[2023-09-25 13:58] VITALS: BP 146/65; PULSE 74; BMI 36.7
== END 2023-09-25 14:05 | disposition home or self-care (01) ==
PROVIDERS: PCP Internal Medicine; Referring Provider Nurse Practitioner Family; Visit Provider Surgery
DX: R51.9 Headache, unspecified (principal)
CPT/HCPCS: 99203

== ENCOUNTER → 2023-09-25 13:44 | Outpatient (BNVA) | payer OTHER, SELFPAY | PROVIDERS: PCP Internal Medicine; Referring Provider Nurse Practitioner Family; Visit Provider Surgery | DX: R51.9 Headache, unspecified (principal) | CPT/HCPCS: 99202 ==

== ENCOUNTER 2023-10-22 14:52 | Outpatient (AMB) | payer OTHER, SELFPAY ==
--- NOTE | 2023-10-22 15:03 | MHC.OFFVIS ---
Intake Vital Signs 10/22/23 15:09 10/22/23 16:06 10/22/23 16:07 Height 5 ft Weight 191 lb 12.835 oz BMI 37.5 BP 118/64 162/76 H 166/68 H Blood Pressure Location Rt brachial Lt brachial Rt brachial Position Sitting Sitting Sitting Pulse 65 Pulse Source Pulse Oximeter Pulse Oximetry (%) 98 Oxygen Delivery Method Room Air Intake Visit Reasons: elevated ESR, CRP Intake Note: New patient presents today for consult, internally referred by neuro Pt has elevated inflammation markers and artherosclerosis C/o pain in knees, shoulders and back. Farm Operator Required: Yes Farm Operator Name: Bryce [id number] Accompanied by: Daughter Allergies morphine [MORPHINE] Allergy (Severe, Verified 10/22/23 15:13) CHEST PAIN, TROUBLE BREATHING, bruises Penicillins Allergy (Intermediate, Verified 10/22/23 15:13) RASH codeine Allergy (Unknown, Verified 10/22/23 15:13) Unknown tramadol [TRAMADOL] Allergy (Unknown, Verified 10/22/23 15:13) CHEST PAIN Percocet Adverse Reaction (Intermediate, Uncoded 10/22/23 15:13) vomiting Medication List - Last Reconciled 10/22/23 by Raheem Man MD albuterol sulfate 2.5 mg (3 mL) inhalation Q4-6H PRN albuterol sulfate 90 mcg/actuation (ProAir HFA) 2 puffs inhalation Q4-6H PRN albuterol sulfate 90 mcg/actuation 2 puffs inhalation Q4-6H PRN albuterol sulfate 90 mcg/actuation 2 puffs inhalation Q6H PRN atorvastatin 40 mg PO DAILY betamethasone valerate 0.1% appl topical Q OTHER DAY fluticasone propionate 110 mcg/actuation (Flovent HFA) 1 puff PO BID hydrochlorothiazide 25 mg PO DAILY linaclotide (Linzess) 72 mcg PO QAM lisinopril 2.5 mg PO DAILY nebulizers (AeroEclipse II Nebulizer) As directed pantoprazole 40 mg PO DAILY quetiapine 25 mg PO BEDTIME HPI HPI Comments History of Present Illness Details This is a 73-year-old female who is referred by Neurology for evaluation of elevated inflammatory markers. Patient and her daughter are both poor historians. Back in November of 2022 patient presented to the ER with abdominal pain. 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 Inflammatory markers were significantly elevated. She was then referred to neurologist. Of note patient has a history of PE back in 2011 and was on anticoagulation for 6 years which was discontinued due to splenic hemorrhage. Patient's daughter also mentions he has history of hypercoagulable state, history of PE and taking warfarin regularly. Patient's brother has history of thick blood She also mentions that she has history of headaches, intermittent blurry vision, she could not specify the nature of the headaches and whether 1 or 2 eyes are involved. She denies any jaw or tongue claudication. Patient received steroid injections for her knees and shoulders by Dr. Cormier, most recent injection was 10/01/2023. She states that whenever she received those injections she feels much better overall. She states that she lost about 25 lb over the last year due to decreased appetite. She denies any fevers. She states that she has had a rash on her cheeks for about a year and she was told this was allergies and she uses a steroid cream. She can not tell whether the rash is photosensitive. Patient has history of 4 pregnancies, 3 children and 1 . She denies history suggestive of Raynaud's. She denies any swollen joints. Patient was referred for temporal artery biopsy by neurologist. She was evaluated by surgeon and patient did not want to proceed with biopsy as she was feeling well at the time [facility] Medical History Headache Anemia History of pulmonary embolism Nephrolithiasis High cholesterol Asthma Hypertension Surgical History H/O breast biopsy History of hysterectomy H/O colonoscopy Family History Mother Varicose vein of leg Depression Hypertension Asthma Heart disease Father Cerebrovascular accident (CVA) Kidney stones Sister Varicose vein of leg Depression Brother Depression Varicose vein of leg Daughter Varicose vein of leg Maternal Grandfather Colon cancer Social History Household Members: Family Household Members Other:: sister Housing: House Alcohol intake: never Patient Tobacco Use Status: Never used Tobacco Female Reproductive History Menstrual Total pregnancies: 4 Ab induced: 1 Review of Systems Const Reports fatigue, Denies fever(s), Reports headache(s), Reports weakness and Reports weight loss Eyes Reports blurry vision ENT Reports dizziness and Reports headache(s) Card Reports chest pain and Reports dyspnea Resp Reports dyspnea GI Reports dyspepsia and Reports heartburn Reports nocturia Musc Reports back pain, Reports arthralgias, Reports joint swelling, Reports muscle weakness and Reports stiffness Skin/Breast Denies photosensitivity and Reports rash Neuro Reports dizziness, Reports headache(s) and Reports weakness Psych Reports anxiety and Reports depression Endo Reports fatigue Physical Exam Vital Signs: Last Vital Signs Pulse 65 10/22/23 15:09 BP 118/64 10/22/23 15:09 Pulse Ox 98 10/22/23 15:09 Oxygen Delivery Method Room Air 10/22/23 15:09 BMI result Body Mass Index 37.5 Const General: cooperative, healthy appearing and comfortable Nutritional Appearance: obese morbidly obese Orientation/consciousness: patient oriented x3 Limitations: no limitations HEENT Other: Bilateral tender temporal areas Bilateral palpable and equal superficial temporal artery pulsation No jaw pain with opening and closing Head: Yes normocephalic and Yes atraumatic Mouth: moist mucous membranes Resp Effort & Inspection: normal respiratory effort and able to speak in complete sentences Auscultation: clear to auscultation bilaterally Cardio Rate: regular rate Rhythm: regular rhythm Skin Other: Varicose veins both legs Erythematous patch on both cheeks, more prominent on the left General skin exam: no rashes or lesions noted Neuro General: patient oriented x3 Extrem Other: Mild osteoarthritic changes of both hands with no active synovitis Results Reviewed Results Reviewed: Labs 04/2023? CBC unremarkable? CMP unremarkable hsCRP (72.69) (0-3) ESR 124 Methylmalonic acid normal Homocystine 16.2 (0-15) Labs 07/2023? ESR 78 hsCRP 5.3 RF negative ALIZA negative ORDER #:? CT/CT angio head neck 01/2021 IMPRESSION: 1. No evidence of acute intracranial hemorrhage or edematous territorial infarction. 2. CTA of the head and neck without proximal occlusion or flow-limiting stenosis. 3. Undulating appearance of the gutierrez of the cervical ICAs suggestive of underlying fibromuscular dysplasia. 4. 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 Assessment & Plan Assessment & Plan (1) Elevated C-reactive protein (CRP): Code(s): R79.82 - Elevated C-reactive protein (CRP) Plan: This is a 73-year-old female who is referred by Neurology for evaluation of significantly elevated inflammatory markers in the setting of multiple complaints including abdominal pain, chest pain, headaches, blurry vision. Unfortunately patient is not a good historian. Patient's symptoms generally improve with intra-articular steroid injection with improvement of inflammatory markers. She has history of PE and was on Coumadin for 6 years and it was stopped due to splenic hemorrhage. Her daughter and brother also have history of blood clots and taking blood thinners. She was found to have a penetrating aortic arch atheromatous ulcer on chest imaging. She was referred to surgery for temporal artery biopsy but she was feeling well at the time and surgery was deferred. Will order comprehensive serology to screen for underlying autoimmune rheumatic disease. The main concern here is large vessel vasculitis. A PET scan will be considered but I would wait at least 3 months after steroid injection I asked patient daughter to reach out to her technical healthcare consultant Dr. Otto, and ask whether she has a known genetic hypercoagulable state Plan I spent 66_ minutes reviewing patient's chart, reviewing her chart at [place], evaluating patient, ordering diagnostic workup, counseling patient & daughter and documenting in the chart Orders: Orders Anti Extractable Nuclear Ag Today M32.9 - Systemic lupus erythematosus, unspecified Complement C3 Today M32.9 - Systemic lupus erythematosus, unspecified Erythrocyte Sedimentation Rate Today M32.9 - Systemic lupus erythematosus, unspecified Protein Creatinine Ratio, Ur Today M32.9 - Systemic lupus erythematosus, unspecified Comprehensive Met. Panel Today M32.9 - Systemic lupus erythematosus, unspecified Hepatitis A,B,C Profile Today Z11.59 - Encounter for screening for other viral diseases T Spot TB Today Z11.7 - Encounter for testing for latent tuberculosis infection Cyclic Citrullinated Peptide Today M25.50 - Pain in unspecified joint Anti DNA DS Antibody Today M32.9 - Systemic lupus erythematosus, unspecified ALIZA Reflex Titer and Pattern Today M32.9 - Systemic lupus erythematosus, unspecified Complement C4 Today M32.9 - Systemic lupus erythematosus, unspecified C Reactive Protein Today M32.9 - Systemic lupus erythematosus, unspecified DNA Double Stranded-Crithidia Today M32.9 - Systemic lupus erythematosus, unspecified Sjogren's Antibodies Today M32.9 - Systemic lupus erythematosus, unspecified UA w Microscopic Today M32.9 - Systemic lupus erythematosus, unspecified Complete Blood Count Auto Diff Today M32.9 - Systemic lupus erythematosus, unspecified Immunofixation Pnl, Serum Today M32.9 - Systemic lupus erythematosus, unspecified Protein Electrophoresis, Serum Today M32.9 - Systemic lupus erythematosus, unspecified ANCA Vasculitides Today I77.6 - Arteritis, unspecified Beta-2 Glycoprotein Antibody Today Z86.711 - Personal history of pulmonary embolism Cardiolipin Antibodies Today Z86.711 - Personal history of pulmonary embolism Lupus Anticoagulant Panel Today Z86.711 - Personal history of pulmonary embolism Angiotensin Converting Enzyme Today D86.9 - Sarcoidosis, unspecified Lysozyme, Serum Today D86.9 - Sarcoidosis, unspecified Immunoglobulin G Subclasses Today D89.84 - IgG4-related disease, I77.6 - Arteritis, unspecified Coding Level of Care Code New Pt Level 5 (01357) Diagnoses Elevated C-reactive protein (CRP) R79.82
[2023-10-22 15:09] VITALS: BP 118/64; PULSE 65; O2SAT 98; BMI 37.5
[2023-10-22 16:06] VITALS: BP 162/76
[2023-10-22 16:07] VITALS: BP 166/68
== END 2023-10-22 15:57 | disposition home or self-care (01) ==
PROVIDERS: PCP Internal Medicine; Visit Provider Student in an Organized Health Care Education/Training Program
DX: R79.82 Elevated C-reactive protein (CRP) (principal)
CPT/HCPCS: 99205

== ENCOUNTER → 2023-10-22 14:52 | Outpatient (BNVA) | payer OTHER, SELFPAY | PROVIDERS: PCP Internal Medicine; Visit Provider Student in an Organized Health Care Education/Training Program | DX: R79.82 Elevated C-reactive protein (CRP) (principal) | CPT/HCPCS: 99202 ==

== ENCOUNTER 2023-11-12 10:53 | Outpatient (AMB) | payer OTHER, SELFPAY ==
--- NOTE | 2023-11-12 11:05 | A.OFFVIS_ITS ---
Intake Vital Signs 11/12/23 11:06 Height 5 ft Weight 192 lb BMI 37.5 BP 130/72 Blood Pressure Location Rt brachial Position Left Lateral Pulse 66 Pulse Source Pulse Oximeter Pulse Oximetry (%) 98 Oxygen Delivery Method Room Air Intake Visit Reasons: 3 mo f/u - Dizziness-Conf Intake Note: Patient 3 month follow up. Im doing much better Allergies morphine [MORPHINE] Allergy (Severe, Verified 12/04/23 12:44) CHEST PAIN, TROUBLE BREATHING, bruises Penicillins Allergy (Intermediate, Verified 12/04/23 12:44) RASH codeine Allergy (Unknown, Verified 12/04/23 12:44) Unknown tramadol [TRAMADOL] Allergy (Unknown, Verified 12/04/23 12:44) CHEST PAIN Percocet Adverse Reaction (Intermediate, Uncoded 12/04/23 12:44) vomiting Medication List - Last Reconciled 11/12/23 by MORIAH Branch albuterol sulfate 2.5 mg (3 mL) inhalation Q4-6H PRN albuterol sulfate 90 mcg/actuation (ProAir HFA) 2 puffs inhalation Q4-6H PRN albuterol sulfate 90 mcg/actuation 2 puffs inhalation Q4-6H PRN albuterol sulfate 90 mcg/actuation 2 puffs inhalation Q6H PRN atorvastatin 40 mg PO DAILY betamethasone valerate 0.1% appl topical Q OTHER DAY fluticasone propionate 110 mcg/actuation (Flovent HFA) 1 puff PO BID hydrochlorothiazide 25 mg PO DAILY linaclotide (Linzess) 72 mcg PO QAM lisinopril 2.5 mg PO DAILY nebulizers (AeroEclipse II Nebulizer) As directed pantoprazole 40 mg PO DAILY quetiapine 25 mg PO BEDTIME HPI HPI Comments History of Present Illness Details 73-yr-old female presents for f/u visit. Normal strength patient is accompanied by her daughter. Pt denies any significant interval medical changes. Pt reports she is doing much better. She has not had any recent headaches. She also reports the dizziness is much better with doing balancing exercises. She denies any vision changes or diplopia Denies jaw pain or difficulty chewing. She does continue to have joint pain. Upon review of labs, ESR remained elevated at 78 H. 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 We also referred the patient for rheumatology consult, which she has since had, however she did not have the recommended follow-up blood work yet. Daughter who is with patient today, was unaware that trackmobile operator had asked for patient to discuss family history more thoroughly. Pt reports her father at 73 yo and her paternal uncle does in his 60s- from stroke (unknown etiology) [facility] Medical History Headache Anemia History of pulmonary embolism Nephrolithiasis High cholesterol Asthma Hypertension Surgical History H/O breast biopsy History of hysterectomy H/O colonoscopy Family History Mother Varicose vein of leg Depression Hypertension Asthma Heart disease Father Cerebrovascular accident (CVA) Kidney stones Sister Varicose vein of leg Depression Brother Depression Varicose vein of leg Daughter Varicose vein of leg Maternal Grandfather Colon cancer Social History Household Members: Family Household Members Other:: sister Housing: House Alcohol intake: never Patient Tobacco Use Status: Never used Tobacco Physical Exam Vital Signs: Last Vital Signs Pulse 66 11/12/23 11:06 BP 130/72 11/12/23 11:06 Pulse Ox 98 11/12/23 11:06 Oxygen Delivery Method Room Air 11/12/23 11:06 BMI result Body Mass Index 37.5 Const General: cooperative and no acute distress Orientation/consciousness: patient oriented x3 Resp Effort & Inspection: normal respiratory effort and able to speak in complete sentences Neuro General: patient oriented x3 Cranial nerves: Yes CN's II-XII intact bilaterally Cognition (Neuro): normal cognition Psych Appearance: grossly normal Mental Status: mental status grossly normal Speech and movement: Normal speech and movement present Affect: normal affect Attitude: cooperative Assessment & Plan Assessment & Plan (1) Migraine without aura: Code(s): G43.009 - Migraine without aura, not intractable, without status migrainosus (2) Headache: Code(s): R51.9 - Headache, unspecified (3) Gait difficulty: Code(s): R26.9 - Unspecified abnormalities of gait and mobility Plan Monitor headaches, dizziness, and gait clinically for now- pt reports she is doing better. F/u w/ rheumatology as scheduled. Advised to complete blood work as ordered. f/u in 4-6 months or sooner prn. Coding Level of Care Code Est Pt Level 3 (43612) Diagnoses Migraine without aura G43.009 Headache R51.9 Gait difficulty R26.9
[2023-11-12 11:06] VITALS: BP 130/72; PULSE 66; O2SAT 98; BMI 37.5
== END 2023-11-12 11:35 | disposition home or self-care (01) ==
PROVIDERS: PCP Internal Medicine; Visit Provider Nurse Practitioner Family
DX: G43.009 Migraine without aura, not intractable, without status migrainosus (principal); R51.9 Headache, unspecified; R26.9 Unspecified abnormalities of gait and mobility
CPT/HCPCS: 99213

== ENCOUNTER → 2023-11-12 10:53 | Outpatient (BNVA) | payer OTHER, SELFPAY | PROVIDERS: PCP Internal Medicine; Visit Provider Nurse Practitioner Family | DX: R42 Dizziness and giddiness (principal); R41.0 Disorientation, unspecified; G43.009 Migraine without aura, not intractable, without status migrainosus; R26.9 Unspecified abnormalities of gait and mobility; Z79.899 Other long term (current) drug therapy | CPT/HCPCS: 99212 ==

== ENCOUNTER 2023-11-12 13:45 | Outpatient (REF) | payer OTHER, SELFPAY | END 2023-11-12 13:46 | disposition home or self-care (01) | LOC: HO.HKASLDS 13:45 | PROVIDERS: Visit Provider Student in an Organized Health Care Education/Training Program | DX: Z13.89 Encounter for screening for other disorder (principal) ==

== ENCOUNTER 2023-11-13 14:19 | Outpatient (REF) | payer OTHER, SELFPAY ==
[2023-11-13 14:52] LABS: MANUAL DIFF FLAG NO
[2023-11-13 15:07] LABS: Basophils Percent Auto 0.3 % (0-2); Eosinophils Absolute Auto 0.2 X10*3/uL (0.0-0.4); Hematocrit 37.7 % (37.0-47.0); Hemoglobin 11.7 g/dl (12.0-16.0); Imm Gran Abs Auto 0.04 X10*3/uL (0.00-0.03); Imm Gran Pct Auto 0.5 % (0.0-0.4); Lymphocytes Absolute Auto 1.5 X10*3/uL (1.2-4.9); Lymphocytes Percent Auto 17.5 % (20-40); Mean Corpuscular Volume 83.8 fL (80.0-98.0); Mean Platelet Volume 10.3 fL (9.4-12.3); Monocytes Absolute Auto 0.8 X10*3/uL (0.1-1.2); Monocytes Percent Auto 8.6 % (2-11); Neutrophils Absolute Auto 6.3 x10*3/uL (2.0-8.3); Neutrophils Percent Auto 71.1 % (45-73); Platelet Count 321 X10*3/uL (160-400); Red Cell Distribution Width 14.5 % (11.0-16.0); White Blood Count 8.8 X10*3/uL (4.8-10.8)
[2023-11-13 15:39] LABS: Appearance Urine Clear; Color Urine Yellow; Glucose Urine UA Negative (Negative); Leukocyte Esterase Urine Small (1+) (Negative); Nitrite Urine Negative (Negative); UMIC TRIGGER UA YES; Urine Blood Negative (Negative); Urine Ketones Trace mg/dL (Negative); Urine Protein Negative (Neg-Trace)
[2023-11-13 15:52] LABS: Bacteria Urine None Seen (None Seen); Hyaline Casts Urine 0-2 /LPF (0-2); RBC Urine 0-2 /HPF (0-2); WBC Urine 0-5 /HPF (0-5)
[2023-11-13 15:52] LABS: Erythrocyte Sedimentation Rate 64 MM/HR (0-20)
[2023-11-13 16:08] LABS: Creatinine Urine 138.73 mg/dL; Protein/Creatinine Ratio, Ur 0.06 (<0.2); Total Protein Urine Random 8 mg/dL (<12)
[2023-11-14 04:21] LABS: HBc Num1 0.13 S/CO (0.00-0.79); HBsAGNum1 0.46 S/CO (0.00-0.99); Hepatitis B Core Antibody Nonreactive (Nonreactive); Hepatitis B Surface Antigen Negative (Negative); ~HepC Num1 0.18 S/CO (0.00-0.79); ~Hepatitis A Antibody IgM Reactive (Nonreactive); ~Hepatitis B Surface Antibody NONREACTIVE (Nonreactive); ~Hepatitis C Antibody Nonreactive (Nonreactive)
[2023-11-14 14:08] LABS: Anti DNA DS Antibody <1 IU/mL; Antibody to SS-A Antigen <1.0 NEG AI (<1.0 NEG); Antibody to SS-B Antigen <1.0 NEG AI (<1.0 NEG); Myeloperoxidase Antibody <1.0 AI; Proteinase 3 PR3 Antibodies <1.0 AI; SM/Ribonucleoprotein Ab <1.0 NEG AI (<1.0 NEG); Smith Protein <1.0 NEG AI (<1.0 NEG)
[2023-11-14 20:34] LABS: Cardiolipin IgG Ab <2.0 GPL-U/mL; Cardiolipin IgM Ab 3.6 MPL-U/mL
[2023-11-15 21:49] LABS: TS Negative Control Passed; TS Panel A 0; TS Panel B 0; TS Positive Control Passed; TSpotTB Negative (Negative)
[2023-11-17 14:38] LABS: Immunoglobulin G Subclass 1 914 mg/dL (382-929); Immunoglobulin G Subclass 2 466 mg/dL (241-700); Immunoglobulin G Subclass 3 70 mg/dL (22-178); Immunoglobulin G Subclass 4 77.2 mg/dL (4-86); Immunoglobulin G Total 1484 mg/dL (600-1540)
[2023-11-17 15:39] LABS: Cyclic Citrullinated Peptide 36 UNITS
[2023-11-17 22:03] LABS: Complement C3 182 mg/dL (83-193)
[2023-11-18 13:47] LABS: Anti Nuclear Antibody Screen NEGATIVE (NEGATIVE)
[2023-11-18 15:24] LABS: Lysozyme, Serum 10.4 mcg/mL (5.0-11.0)
[2023-11-19 12:38] LABS: IgA 240 mg/dL (70-320); IgG 1556 mg/dL (600-1540); IgM 131 mg/dL (50-300)
[2023-11-19 19:48] LABS: Prot Elec - Albumin 3.8 g/dL (3.8-4.8); Prot Elec - Alpha1 0.3 g/dL (0.2-0.3); Prot Elec - Alpha2 1.1 g/dL (0.5-0.9); Prot Elec - Beta 1 0.5 g/dL (0.4-0.6); Prot Elec - Beta 2 0.4 g/dL (0.2-0.5); Prot Elec - Gamma 1.4 g/dL (0.8-1.7); Prot Elec - Total Protein 7.5 g/dL (6.1-8.1)
[2023-11-20 12:43] LABS: Angiotensin Converting Enzyme 38.7 U/L (9-67)
[2023-11-21 04:58] LABS: DNAds, Crithidia Antibody Negative (Negative)
[2023-11-23 05:48] LABS: Beta-2 Glycoprotein IgA <2.0 U/mL (<20.0); Beta-2 Glycoprotein IgG <2.0 U/mL (<20.0); Beta-2 Glycoprotein IgM 6.6 U/mL (<20.0)
== END 2023-11-13 14:20 | disposition home or self-care (01) ==
LOC: HO.LAB 14:19
PROVIDERS: Absent Provider Student in an Organized Health Care Education/Training Program; PCP Internal Medicine; Visit Provider Nurse Practitioner Family
DX: M32.9 Systemic lupus erythematosus, unspecified (principal); I77.6 Arteritis, unspecified; D86.9 Sarcoidosis, unspecified; D89.84 IgG4-related disease; M25.50 Pain in unspecified joint; Z86.711 Personal history of pulmonary embolism; Z11.59 Encounter for screening for other viral diseases; Z11.7 Encounter for testing for latent tuberculosis infection
CPT/HCPCS: 36415; 81001; 82164; 82570; 82784; 84156; 84165; 85025; 85549; 85597; 85598; 85613; 85652; 85730; 86021; 86038; 86146; 86147; 86160; 86200; 86225; 86235; 86255; 86334; 86481; 86704; 86706; 86709; 86803; 87340

== ENCOUNTER 2023-11-15 09:12 | Outpatient (REF) | payer OTHER, SELFPAY ==
[2023-11-15 10:57] LABS: Alanine Aminotransferase 15 U/L (0-31); Albumin Level 4.1 g/dL (3.5-5.0); Alkaline Phosphatase 75 U/L (39-117); Anion Gap 13 (12-20); Aspartate Amino Transferase 18 U/L (5-31); Bilirubin Total 0.4 mg/dL (0.0-1.0); Blood Urea Nitrogen 20 mg/dL (9-16); Calcium 9.9 mg/dL (8.4-10.2); Carbon Dioxide 27 mmol/L (22-29); Chloride 106 mmol/L (96-108); Estimated Glomerular Filt Rate 54; Glucose Random 87 mg/dL (60-115); Potassium 4.2 mmol/L (3.3-5.1); Sodium 142 mmol/L (135-145); Total Protein 8.3 g/dL (6.5-8.0)
[2023-11-20 12:19] LABS: PTT (LAC) Screen 30 sec (<=40)
== END 2023-11-15 09:13 | disposition home or self-care (01) ==
LOC: HO.LAB 09:12
PROVIDERS: PCP Internal Medicine; Visit Provider Student in an Organized Health Care Education/Training Program
DX: M32.9 Systemic lupus erythematosus, unspecified (principal); Z86.711 Personal history of pulmonary embolism
CPT/HCPCS: 36415; 80053; 85597; 85598; 85613; 85730; 86140

== ENCOUNTER → 2023-11-20 12:23 | Outpatient (BNVA) | payer OTHER, SELFPAY | PROVIDERS: PCP Internal Medicine; Visit Provider Student in an Organized Health Care Education/Training Program ==

== ENCOUNTER 2023-12-04 12:32 | Outpatient (AMB) | payer OTHER, SELFPAY ==
--- NOTE | 2023-12-04 12:31 | MHC.OFFVIS ---
Intake Vital Signs 12/04/23 12:35 Height 5 ft Weight 193 lb 9.054 oz BMI 37.8 BP 126/68 Blood Pressure Location Rt brachial Position Sitting Pulse 71 Pulse Source Pulse Oximeter Pulse Oximetry (%) 96 Oxygen Delivery Method Room Air Intake Visit Reasons: Vasculitis/CM Intake Note: Patient last seen 10/22/23 presents today for follow up and test results. C/o pain chest muscles, shoulders, low back that radiates up. Office Professional Required: Yes Office Professional Name: Daughter- form signed Information Interpreted: non-clinical & clinical Accompanied by: Daughter Allergies morphine [MORPHINE] Allergy (Severe, Verified 12/04/23 12:44) CHEST PAIN, TROUBLE BREATHING, bruises Penicillins Allergy (Intermediate, Verified 12/04/23 12:44) RASH codeine Allergy (Unknown, Verified 12/04/23 12:44) Unknown tramadol [TRAMADOL] Allergy (Unknown, Verified 12/04/23 12:44) CHEST PAIN Percocet Adverse Reaction (Intermediate, Uncoded 12/04/23 12:44) vomiting Medication List - Last Reconciled 12/04/23 by Raheem Man MD albuterol sulfate 2.5 mg (3 mL) inhalation Q4-6H PRN albuterol sulfate 90 mcg/actuation (ProAir HFA) 2 puffs inhalation Q4-6H PRN albuterol sulfate 90 mcg/actuation 2 puffs inhalation Q4-6H PRN albuterol sulfate 90 mcg/actuation 2 puffs inhalation Q6H PRN atorvastatin 40 mg PO DAILY betamethasone valerate 0.1% appl topical Q OTHER DAY fluticasone propionate 110 mcg/actuation (Flovent HFA) 1 puff PO BID hydrochlorothiazide 25 mg PO DAILY linaclotide (Linzess) 72 mcg PO QAM lisinopril 2.5 mg PO DAILY nebulizers (AeroEclipse II Nebulizer) As directed pantoprazole 40 mg PO DAILY quetiapine 25 mg PO BEDTIME HPI HPI Comments History of Present Illness Details Patient returns for follow-up after completion of her diagnostic workup. She continues to feel about the same. Continues to have pain in her hands, elbows, shoulders, knees. Today she is complaining of reproducible chest pain as well as lower back pain radiating upwards. Initial history : This is a 73-year-old female who is referred by Neurology for evaluation of elevated inflammatory markers. Patient and her daughter are both poor historians. Back in November of 2022 patient presented to the ER with abdominal pain. 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 Inflammatory markers were significantly elevated. She was then referred to neurologist. Of note patient has a history of PE back in 2011 and was on anticoagulation for 6 years which was discontinued due to splenic hemorrhage. Patient's daughter also mentions he has history of hypercoagulable state, history of PE and taking warfarin regularly. Patient's brother has history of thick blood She also mentions that she has history of headaches, intermittent blurry vision, she could not specify the nature of the headaches and whether 1 or 2 eyes are involved. She denies any jaw or tongue claudication. Patient received steroid injections for her knees and shoulders by Dr. Cormier, most recent injection was 10/01/2023. She states that whenever she received those injections she feels much better overall. She states that she lost about 25 lb over the last year due to decreased appetite. She denies any fevers. She states that she has had a rash on her cheeks for about a year and she was told this was allergies and she uses a steroid cream. She can not tell whether the rash is photosensitive. Patient has history of 4 pregnancies, 3 children and 1 . She denies history suggestive of Raynaud's. She denies any swollen joints. Patient was referred for temporal artery biopsy by neurologist. She was evaluated by surgeon and patient did not want to proceed with biopsy as she was feeling well at the time [facility] Medical History Headache Anemia History of pulmonary embolism Nephrolithiasis High cholesterol Asthma Hypertension Surgical History H/O breast biopsy History of hysterectomy H/O colonoscopy Family History Mother Varicose vein of leg Depression Hypertension Asthma Heart disease Father Cerebrovascular accident (CVA) Kidney stones Sister Varicose vein of leg Depression Brother Depression Varicose vein of leg Daughter Varicose vein of leg Maternal Grandfather Colon cancer Social History Household Members: Family Household Members Other:: sister Housing: House Alcohol intake: never Patient Tobacco Use Status: Never used Tobacco Review of Systems Const Reports fatigue, Denies fever(s), Reports headache(s), Reports weakness and Reports weight loss Eyes Reports blurry vision ENT Reports dizziness and Reports headache(s) Card Reports chest pain and Reports dyspnea Resp Reports dyspnea GI Reports dyspepsia and Reports heartburn Reports nocturia Musc Reports back pain, Reports arthralgias, Reports joint swelling, Reports muscle weakness and Reports stiffness Skin/Breast Denies photosensitivity and Reports rash Neuro Reports dizziness, Reports headache(s) and Reports weakness Psych Reports anxiety and Reports depression Endo Reports fatigue Physical Exam Vital Signs: Last Vital Signs Pulse 71 12/04/23 12:35 BP 126/68 12/04/23 12:35 Pulse Ox 96 12/04/23 12:35 Oxygen Delivery Method Room Air 12/04/23 12:35 BMI result Body Mass Index 37.8 Const General: cooperative, healthy appearing and comfortable Nutritional Appearance: obese morbidly obese Orientation/consciousness: patient oriented x3 Limitations: no limitations HEENT Other: Non tender superficial temporal arteries bilaterally today Bilateral palpable and equal superficial temporal artery pulsation No jaw pain with opening and closing Head: Yes normocephalic and Yes atraumatic Mouth: moist mucous membranes Resp Effort & Inspection: normal respiratory effort and able to speak in complete sentences Auscultation: clear to auscultation bilaterally Cardio Rate: regular rate Rhythm: regular rhythm Skin Other: Varicose veins both legs Erythematous patch on both cheeks, more prominent on the left General skin exam: no rashes or lesions noted Neuro General: patient oriented x3 Extrem Other: Bilateral wrist tenderness and pain with flexion and extension Right hand diffuse 2nd through 5th MCP tenderness Fourth MCP swelling Second through 5th PIP tenderness. No DIP tenderness Left 3rd MCP swelling, 2nd through 5th MCP tenderness 2nd through 5th PIP tenderness No DIP tenderness Bilateral elbow pain with flexion and extension Bilateral shoulder pain with full abduction Bilateral lower thoracic paraspinal muscle tenderness Few fibromyalgia tender points Mild left knee warmth and pain with flexion and extension Bilateral 2nd through 5th MTP tenderness Results Reviewed Results Reviewed: Labs 04/2023? CBC unremarkable? CMP unremarkable hsCRP (72.69) (0-3) ESR 124 Methylmalonic acid normal Homocystine 16.2 (0-15) Labs 07/2023? ESR 78 hsCRP 5.3 RF negative ALIZA negative ORDER #:? CT/CT angio head neck 01/2021 IMPRESSION: 1. No evidence of acute intracranial hemorrhage or edematous territorial infarction. 2. CTA of the head and neck without proximal occlusion or flow-limiting stenosis. 3. Undulating appearance of the gutierrez of the cervical ICAs suggestive of underlying fibromuscular dysplasia. 4. 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 CTA chest 11/2022? Impression 1. No CT evidence of pulmonary embolism 2. 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 No evidence of dissection or aneurysm.?? Assessment & Plan Assessment & Plan (1) Elevated C-reactive protein (CRP): Code(s): R79.82 - Elevated C-reactive protein (CRP) Plan: This is a 73-year-old female who is referred by Neurology for evaluation of significantly elevated inflammatory markers in the setting of multiple complaints including abdominal pain, chest pain, headaches, blurry vision. CT scans showing multiple vascular abnormalities including a penetrating atheromatous ulcer in the arch of aorta as well ambulating appearance of the internal carotid arteries. Patient's symptoms generally improve with intra-articular steroid injection with improvement of inflammatory markers. She was referred for a temporal artery biopsy, however by the time patient was evaluated by surgeon she had received an intra-articular steroid injection with improvement of her symptoms and procedure was deferred. Currently patient does not have any cranial symptoms Given significantly elevated inflammatory markers, ongoing chest pain, abdominal pain, intermittent headaches, multiple vascular abnormalities on imaging, symptoms improving with intra-articular steroids. will order a can to evaluate for large vessel vasculitis. Advised patient not to get any steroid injections before the PET scan is completed She has history of PE and was on Coumadin for 6 years and it was stopped due to splenic hemorrhage. Her daughter and brother also have history of blood clots and taking blood thinners. Advised patient's daughter to discuss with family members and let me know if they have a specific diagnosis Follow-up in 6 weeks Plan I spent 26 minutes reviewing patient's chart, reviewing her chart at [facility], evaluating patient, ordering diagnostic workup, counseling patient & daughter and documenting in the chart Orders: Orders PET CT fusion skull to thigh Today I77.6 - Arteritis, unspecified Coding Level of Care Code Est Pt Level 4 (38206) Diagnoses Elevated C-reactive protein (CRP) R79.82
[2023-12-04 12:35] VITALS: BP 126/68; PULSE 71; O2SAT 96; BMI 37.8
== END 2023-12-04 13:36 | disposition home or self-care (01) ==
PROVIDERS: PCP Internal Medicine; Visit Provider Student in an Organized Health Care Education/Training Program
DX: R79.82 Elevated C-reactive protein (CRP) (principal)
CPT/HCPCS: 99214

== ENCOUNTER → 2023-12-04 12:32 | Outpatient (BNVA) | payer OTHER, SELFPAY | PROVIDERS: PCP Internal Medicine; Visit Provider Student in an Organized Health Care Education/Training Program | DX: R79.82 Elevated C-reactive protein (CRP) (principal) | CPT/HCPCS: 99212 ==

== ENCOUNTER 2023-12-11 14:49 | Emergency (ER) | payer OTHER, SELFPAY ==
--- NOTE | ~2023-12-11 | CT_ITS ---
EXAMINATION: CT ANGIOGRAM OF THE CHEST WITH AND WITHOUT CONTRAST (CT PULMONARY ANGIOGRAM FOR PE) CLINICAL INFORMATION: Reason for Exam chest pain, SOB, hx PE COMPARISON: CT angiogram chest 12/24/2021 TECHNIQUE: Prior to contrast administration, noncontrast localization images were obtained. Subsequently, multidetector volumetric imaging was performed from the thoracic inlet to below the diaphragms following the administration of 65 mL Omnipaque 350 intravenous contrast. No contrast reaction reported Sagittal, coronal, and MIP oblique sagittal reformatted images were obtained on the CT workstation, uploaded to PACS, and reviewed. This CT examination was performed using dose optimization techniques as appropriate, variously including the following: *Automated exposure control *Adjustment of mA and/or kV according to patient size (this includes techniques or standardized protocols for targeted exams where dose is matched to indication/reason for exam; i.e. extremities or head) *Use of iterative reconstruction technique Total exam dose-length product 171 mGy-cm FINDINGS: QUALITY OF STUDY/CONTRAST BOLUS: Satisfactory. There is marked motion artifact limiting the diagnostic quality. PULMONARY ARTERIES: No large central or large segmental pulmonary emboli. THORACIC AORTA: No aneurysm. LUNG: Nonspecific groundglass changes and some atelectasis is present at the lung bases. A calcified right lower lobe granuloma is seen. No suspicious lung masses to suggest malignancy. No consolidations. PLEURA: No pleural effusion or pneumothorax. MEDIASTINUM: There is moderate cardiac enlargement.. No pericardial effusion. No hilar or mediastinal lymphadenopathy. There is flattening of the intraventricular septum suggesting mild right heart strain. CORONARY ARTERY CALCIFICATION: None visualized on this study. CHEST WALL/AXILLA: No axillary or internal mammary lymphadenopathy. OSSEOUS STRUCTURES: No acute or suspicious osseous abnormality. UPPER ABDOMEN: Multiple small calculi are seen in the partially visualized left kidney. Bilateral nephrolithiasis has been seen in the past. No reflux of contrast into the hepatic veins to suggest elevated right heart pressures. CT/CT angio chest PE protocol IMPRESSION: 1. No evidence of pulmonary emboli. 2. Moderate cardiomegaly with flattening of the intraventricular septum suggesting mild right heart strain. 3. Incidentally noted left-sided nephrolithiasis. VTE: negative.
--- NOTE | ~2023-12-11 | XR_ITS ---
EXAMINATION: XR CHEST CLINICAL INFORMATION: Shortness of breath and chest pain. COMPARISON: Chest radiograph 05/10/2023. TECHNIQUE: 2 views of the chest were obtained. FINDINGS: Normal appearance of the cardiomediastinal silhouette. Increased interstitial markings without dense consolidation or pleural effusion. No pneumothorax. No acute osseous findings. XR/XR chest 2V IMPRESSION: Increased interstitial markings are indeterminate and could be associated with asthma, bronchitis, reactive airways disease or atypical infections.
--- NOTE | 2023-12-11 14:51 | ECG_ITS ---
Test Reason : chest pain Blood Pressure : / mmHG Vent. Rate : 062 BPM Atrial Rate : 062 BPM P-R Int : 162 ms QRS Dur : 080 ms QT Int : 438 ms P-R-T Axes : 033 -11 005 degrees QTc Int : 444 ms Normal sinus rhythm Normal ECG When compared with ECG of 10-MAY-2023 09:17, No significant change was found Referred By: Lita Duran Electronically Signed By:Olivier Anderson
[2023-12-11 15:30] VITALS: BP 138/48; PULSE 65; RESP 18; TEMP 36.6; O2SAT 99; BMI 37.9
--- NOTE | 2023-12-11 15:32 | ED_ITS ---
HPI - Chest Pain General Chief Complaint: Chest Pain Stated Complaint: Chest pain Time Seen by Provider: 12/11/23 17:14 Source: patient Mode of arrival: ambulatory Limitations: no limitations History of Present Illness HPI narrative: Patient with arthritis complaining of pain in the right side of the chest for last 2 weeks was seen here before for similar pain pain is more on the right costochondral junction which increases on movement of the right arm palpation no shortness of breath no left-sided chest patient feels pain is getting worse for last few hours no fever no chills no cough Related Data Home Medications ?Medication ?Instructions ?Recorded ?Confirmed fluticasone propionate 110 1 puff PO BID 03/26/22 11/12/23 mcg/actuation HFA aerosol inhaler (Flovent HFA) hydrochlorothiazide 25 mg tablet 25 mg PO DAILY 03/26/22 11/12/23 lisinopril 2.5 mg tablet 2.5 mg PO DAILY 03/26/22 11/12/23 quetiapine 25 mg tablet 25 mg PO BEDTIME 03/26/22 11/12/23 betamethasone valerate 0.1 % appl topical Q OTHER DAY 05/14/22 11/12/23 topical cream atorvastatin 40 mg tablet 40 mg PO DAILY 04/17/23 11/12/23 pantoprazole 40 mg tablet,delayed 40 mg PO DAILY 07/30/23 11/12/23 release Previous Rx's ?Medication ?Instructions ?Recorded nebulizers (AeroEclipse II #1 ea 10/31/21 Nebulizer) albuterol sulfate 2.5 mg/3 mL 2.5 mg (3 mL) inhalation Q4-6H PRN 01/09/22 (0.083 %) solution for nebulization shortness of breath or wheezing #90 mL albuterol sulfate 90 mcg/actuation 2 puff inhalation Q4-6H PRN 01/09/22 aerosol inhaler (ProAir HFA) shortness of breath or wheezing #8.5 grams albuterol sulfate 90 mcg/actuation 2 puff inhalation Q4-6H PRN 12/26/22 aerosol inhaler shortness of breath or wheezing #6.7 grams albuterol sulfate 90 mcg/actuation 2 puff inhalation Q6H PRN 05/10/23 aerosol inhaler shortness of breath or wheezing #8.5 grams linaclotide 72 mcg capsule 72 mcg PO QAM #30 caps 05/21/23 (Linzess) ibuprofen 600 mg tablet 600 mg PO Q6H PRN fever or pain 12/11/23 #30 tabs Allergies Allergy/AdvReac Type Severity Reaction Status Date / Time morphine [MORPHINE] Allergy Severe CHEST Verified 12/11/23 15:31 PAIN, TROUBLE BREATHING, bruises Penicillins Allergy Intermediate RASH Verified 12/11/23 15:31 codeine Allergy Unknown Unknown Verified 12/11/23 15:31 tramadol [TRAMADOL] Allergy Unknown CHEST PAIN Verified 12/11/23 15:31 Percocet AdvReac Intermediate vomiting Uncoded 12/11/23 15:31 Review of Systems 2 Review of Systems: Yes all other systems are reviewed and are negative PMFSH Past Medical History Medical History Headache Anemia History of pulmonary embolism Nephrolithiasis High cholesterol Asthma Hypertension Surgical History H/O breast biopsy History of hysterectomy H/O colonoscopy Family History Family History Mother Varicose vein of leg Depression Hypertension Asthma Heart disease Father Cerebrovascular accident (CVA) Kidney stones Sister Varicose vein of leg Depression Brother Depression Varicose vein of leg Daughter Varicose vein of leg Maternal Grandfather Colon cancer Social History Social History Household Members: Family Household Members Other:: sister Housing: House Alcohol intake: never Patient Tobacco Use Status: Never used Tobacco Smoked in Last 30 Days: No Use of substances other than those prescribed or required for medical reasons: No Advance Directives: No Advance Directives Information Provided: Yes Physical Exam 2 Vital Signs: Vital Signs: Last Vital Signs Temp 97.9 F 12/11/23 19:28 Pulse 54 12/11/23 19:28 Resp 18 12/11/23 19:28 BP 131/47 L 12/11/23 19:28 Pulse Ox 97 12/11/23 19:28 O2 Del Method Room Air 12/11/23 19:28 BMI result Body Mass Index 37.9 Appearance: Alert. Oriented X3. No acute distress. Eyes: PERRLA, No Nystagmus ENT: Pharynx normal. Oral Mucosa moist Neck: Normal inspection. Neck supple. CVS: Normal heart rate and rhythm. Pulses normal. Tender to touch right costochondral area Respiratory: No respiratory distress. Equal air entry bilateral, no wheezing/rales/rhonchi Abdomen: Soft and nontender. Bowel sounds are present, no mass palpable, no CVA tenderness Skin: Skin warm and dry. Normal skin color. Normal skin turgor. Extremities: No lower extremity edema. No calf tenderness Neuro: Oriented X 3. No motor deficit. No sensory deficit.No cerebellar signs , cranial nerves II-XII intact Course Course Course Narrative: This is a Rapid Medical Examination (RME) in triage, full HPI, ROS, assessment and plan per primary provider in the Main ED. 73 yo Beninese speaking female history of HTN, asthma, PE 2012 no longer on anticoagulation due to splenic hemorrhage who presenting to the ER for evaluation of central chest pain that radiates to her back. She also reports SOB and nausea. Pain today went to 10/10 and last 30 mins today so she came to the ER for further evaluation. Pain 5/10 in triage. Plan: EKG, labs, CTA chest Medications Administered Discontinued Medications Generic Name Dose Route Start Last Admin Trade Name Freq PRN Reason Stop Dose Admin Ibuprofen 600 mg 12/11/23 17:30 12/11/23 18:13 Ibuprofen 600 Mg Tablet PO 12/11/23 17:31 600 mg ONCE ONE Administration Iohexol 65 ml 12/11/23 18:11 12/11/23 18:11 Iohexol 350 Mg/Ml 100 Ml Infus..Btl IV 12/11/23 18:12 65 ml ONCE ONE Administration Medical Decision Making Medical Decision Making [facility] Narrative: Patient has atypical chest pain with history of arthritis clinically patient does have costal chondritis 2 sets of cardiac enzymes negative patient advised to follow with PCP will give a prescription of ibuprofen Differential Diagnosis Differential Diagnoses: The differential diagnosis associated with the presentation includes Costochondritis/chest pain/ACS/PE Lab Data [facility] Lab Attestation statement: I reviewed the patient's lab results. 12/11/23 15:54 12/11/23 15:54 Labs: Lab Results 12/11/23 12/11/23 Range/Units 15:54 17:41 WBC 8.0 (4.8-10.8) X10*3/uL RBC 4.35 (4.20-5.50) X10*6/uL Hgb 11.3 L (12.0-16.0) g/dl Hct 36.6 L (37.0-47.0) % MCV 84.1 (80.0-98.0) fL MCH 26.0 L (27.0-33.0) pg MCHC 30.9 L (31.0-35.0) g/dl RDW 14.6 (11.0-16.0) % Plt Count 260 (160-400) X10*3/uL MPV 10.8 (9.4-12.3) fL Immature Gran % (Auto) 0.4 (0.0-0.4) % Neut % (Auto) 65.9 (45-73) % Lymph % (Auto) 20.3 (20-40) % Wallace % (Auto) 9.6 (2-11) % Eos % (Auto) 3.2 (0-4) % Baso % (Auto) 0.6 (0-2) % Lymph # (Auto) 1.6 (1.2-4.9) X10*3/uL Wallace # (Auto) 0.8 (0.1-1.2) X10*3/uL Eos # (Auto) 0.3 (0.0-0.4) X10*3/uL Baso # (Auto) 0.1 (0.0-0.2) X10*3/uL Abs Immat Gran (auto) 0.03 (0.00-0.03) X10*3/uL Absolute Neuts (auto) 5.3 (2.0-8.3) x10*3/uL Absolute Nucleated RBC 0.000 (0.0-0.012) X10*3/uL Nucleated RBC % (auto) 0.0 (0.0-0.2) /100WBC PT 11.4 (11.1-13.3) SEC INR 0.9 (0.9-1.1) APTT 23.8 L (26.0-36.8) SEC Sodium 139 (135-145) mmol/L Potassium 4.3 (3.3-5.1) mmol/L Chloride 105 (96-108) mmol/L Carbon Dioxide 25 (22-29) mmol/L Anion Gap 13 (12-20) BUN 19 H (9-16) mg/dL Creatinine 1.21 (0.5-1.4) mg/dL Estim Creat Clear Calc 40.8 Estimated GFR 44 Random Glucose 94 (60-115) mg/dL Calcium 9.7 (8.4-10.2) mg/dL Magnesium 2.3 (1.6-2.6) mg/dL Total Bilirubin 0.3 (0.0-1.0) mg/dL Direct Bilirubin 0.1 (0.0-0.5) mg/dL AST 22 (5-31) U/L ALT 16 (0-31) U/L Alkaline Phosphatase 76 (39-117) U/L Troponin I High Sens 2.8 3.6 (<3.5-17.0) ng/L Total Protein 8.2 H (6.5-8.0) g/dL Albumin 3.9 (3.5-5.0) g/dL Independent Interpretation I performed an independent interpretation of an: EKG, Plain X-Ray and CT Scan Interpretation: Normal sinus rhythm heart rate 62 beats per minute normal intervals normal axis no acute ST T wave changes no acute ischemia Radiology Impression Discussion of test interpretation with radiology: I have reviewed the radiologist's reading. Discharge Plan Discharge Clinical Impression: Acute costochondritis, Atypical chest pain Patient Disposition: Home, Self-Care Instructions: Costochondritis (ED), Chest Wall Pain (ED) Additional Instructions: Ibuprofen for pain as prescribed Your pain in the chest is from the inflammation of the cartilage of the rib Follow with PCP Prescriptions: New ibuprofen 600 mg tablet 600 mg PO Q6H PRN (Reason: fever or pain) Qty: 30 0RF No Action Linzess 72 mcg capsule 72 mcg PO QAM Qty: 30 6RF (DME) AeroEclipse II Nebulizer Misc See Rx Instructions .ROUTE .MEDSUPPLY Qty: 1 0RF Rx Instructions: As directed albuterol sulfate [ProAir HFA] 90 mcg/actuation HFA aerosol inhaler 2 puff inhalation Q4-6H PRN (Reason: shortness of breath or wheezing) Qty: 8.5 0RF albuterol sulfate 2.5 mg /3 mL (0.083 %) solution for nebulization 2.5 mg inhalation Q4-6H PRN (Reason: shortness of breath or wheezing) Qty: 90 0RF albuterol sulfate 90 mcg/actuation HFA aerosol inhaler 2 puff inhalation Q4-6H PRN (Reason: shortness of breath or wheezing) Qty: 6.7 0RF albuterol sulfate 90 mcg/actuation HFA aerosol inhaler 2 puff inhalation Q6H PRN (Reason: shortness of breath or wheezing) Qty: 8.5 0RF fluticasone propionate [Flovent HFA] 110 mcg/actuation HFA aerosol inhaler 1 puff PO BID lisinopril 2.5 mg tablet 2.5 mg PO DAILY quetiapine 25 mg tablet 25 mg PO BEDTIME hydrochlorothiazide 25 mg tablet 25 mg PO DAILY betamethasone valerate 0.1 % cream topical Q OTHER DAY pantoprazole 40 mg tablet,delayed release (DR/EC) 40 mg PO DAILY atorvastatin 40 mg tablet 40 mg PO DAILY Print Language: Beninese
[2023-12-11 16:03] LABS: MANUAL DIFF FLAG NO
[2023-12-11 16:06] LABS: Basophils Absolute Auto 0.1 X10*3/uL (0.0-0.2); Basophils Percent Auto 0.6 % (0-2); Eosinophils Absolute Auto 0.3 X10*3/uL (0.0-0.4); Eosinophils Percent Auto 3.2 % (0-4); Hematocrit 36.6 % (37.0-47.0); Hemoglobin 11.3 g/dl (12.0-16.0); Imm Gran Abs Auto 0.03 X10*3/uL (0.00-0.03); Imm Gran Pct Auto 0.4 % (0.0-0.4); Lymphocytes Absolute Auto 1.6 X10*3/uL (1.2-4.9); Lymphocytes Percent Auto 20.3 % (20-40); Mean Corpuscular HGB Conc 30.9 g/dl (31.0-35.0); Mean Corpuscular Volume 84.1 fL (80.0-98.0); Mean Platelet Volume 10.8 fL (9.4-12.3); Monocytes Absolute Auto 0.8 X10*3/uL (0.1-1.2); Monocytes Percent Auto 9.6 % (2-11); Neutrophils Absolute Auto 5.3 x10*3/uL (2.0-8.3); Neutrophils Percent Auto 65.9 % (45-73); Platelet Count 260 X10*3/uL (160-400); Red Blood Count 4.35 X10*6/uL (4.20-5.50); Red Cell Distribution Width 14.6 % (11.0-16.0)
[2023-12-11 16:10] LABS: INTERNATIONAL NORM RATIO 0.9 (0.9-1.1); Prothrombin Time 11.4 SEC (11.1-13.3)
[2023-12-11 16:15] LABS: Partial Thromboplastin Time 23.8 SEC (26.0-36.8)
[2023-12-11 16:21] LABS: Alanine Aminotransferase 16 U/L (0-31); Albumin Level 3.9 g/dL (3.5-5.0); Alkaline Phosphatase 76 U/L (39-117); Anion Gap 13 (12-20); Aspartate Amino Transferase 22 U/L (5-31); Bilirubin Direct 0.1 mg/dL (0.0-0.5); Bilirubin Total 0.3 mg/dL (0.0-1.0); Blood Urea Nitrogen 19 mg/dL (9-16); Calcium 9.7 mg/dL (8.4-10.2); Carbon Dioxide 25 mmol/L (22-29); Chloride 105 mmol/L (96-108); Creatinine Clr Calc Pharmacy 40.8; Estimated Glomerular Filt Rate 44; Glucose Random 94 mg/dL (60-115); Magnesium 2.3 mg/dL (1.6-2.6); Potassium 4.3 mmol/L (3.3-5.1); Sodium 139 mmol/L (135-145); Total Protein 8.2 g/dL (6.5-8.0)
[2023-12-11 16:27] LABS: Troponin-I High Sensitivity 2.8 ng/L (<3.5-17.0)
[2023-12-11 17:20] VITALS: BP 167/58; PULSE 66; RESP 18; TEMP 36.6; O2SAT 100
--- OUTSIDE RECORDS SUMMARY | 2023-12-11 17:29 | XMS_ITS | Continuity of Care Document ---
Author Organization [facility] V[facility]ctor jensen Address [address] [place] [address]- Care Team Providers Care Pierogi Maker Name Role Phone Glory Vargas MD, Chandrika Ramirez Primary Care Physicia n Encounter [facility] [place] Date(s): 02/06/23 - 03/08/23 [facility] [address] [place] [id number]- Attending Physician: AdmJillian barbour Admitting Physician: AdmtrJillian Referring Physician: Admtr, Jillian Allergies, Adverse Reactions, Alerts Substance Reaction Severity Status morphine Active penicillins get black and blue hives Persistent Moderate Active Percocet 7.5/325 diarrhea vomiting nausea Persistent Moderate Active Medications Citracal Maximum + D oral tablet 1 tablet, By Mouth, 2 times a day, 0 Refills, Maintenance Start Date: 05/16/11 Status: Ordered warfarin 5 mg oral tablet 1 tablet = 5 mg, By Mouth, Daily, 0 Refills, Maintenance Start Date: 11/27/10 Status: Ordered Problem List Condition Confirmation Course Effective Dates Status H ealth Status Informant Hyperparathyroidism Confirmed Active Hyperparathyroidism Confirmed Active Nephrolithiasis Confirmed Active Patient Care team information Care Team Personnel Name: Glory Vargas MD, Chandrika Ramirez Position: Reference Physician Member Role: PCP Address: Address: [address] [place] [address] [place] [address]- Care Team Related Persons Name: LIZADANN Address: home [address] [place] [id number] Name: JOHANNE HONEYCUTT Name: ZAHRA LUCAS
--- OUTSIDE RECORDS SUMMARY | 2023-12-11 17:29 | XMS_ITS | Continuity of Care Document ---
Author Organization [facility] V[facility] jensen Address [address] [place] [id number]- Care Team Providers Care Touch Up Painter Name Role Phone Glory Vargas MD, Chandrika Ramirez Primary Care Physicia n Encounter [facility] [place] Date(s): 02/06/23 - 02/13/23 [facility] [address] [place] [id number] Attending Physician: Yordan MOHAMUD, [facility] Referring Physician: Vazquez Jimenez MD Allergies, Adverse Reactions, Alerts Substance Reaction Severity [...] Active Hyperparathyroidism Confirmed Active Nephrolithiasis Confirmed Active Vital Signs Most recent to oldest [Reference Range]: 1 Height 157.48 cm (02/06/23 10:36 AM) Oxygen Saturation [94-100 %] 100 % (02/06/23 10:36 AM) Pulse Rate [55-90 bpm] 61 bpm (02/06/23 10:36 AM) Blood Pressure [90-138/55-84 mm Hg] 148/ 66mm Hg *H* (02/06/23 10:36 AM) Respiratory Rate [16-30 br/min] 18 br/mi n (02/06/23 10:36 AM) Temperature [96.8-100.4 DegF] 98.0 DegF (02/06/23 10:36 AM) Mode of Delivery (Oxygen) Room air (02/06/23 10:36 AM) Blood pressure sites Arm, left (02/06/23 10:36 AM) Temperature Route Oral (02/06/23 10:36 AM) Cardiac surgery Outpatient Note * Yordan MOHAMUD, Mason: PERFORM Event Display: Cardiac Surgery Note Office Authored Date: Patient: ??DE JESUS, NAY ? Age:??72 Years?Sex:??Female?:??1950?? 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 ?? Review of Systems Constitutional:??No weight loss, fever, chills, weakness or fatigue. Allergy/Immune: Denies any??Eczema or hives Eyes:??No visual loss, blurred vision, double vision or yellow sclera ENT:??No hearing loss, sneezing, congestion, runny nose or sore throat. Respiratory:??No shortness of breath, cough or sputum production. Cardiovascular:??No chest pain, chest pressure or chest discomfort. No palpitations or pedal edema. Gastrointestinal:??No anorexia, nausea, vomiting or diarrhea. No abdominal pain or blood in stool. Genitourinary:??No burning micturition. No urinary frequency or incontinence. Neurologic:??No headache, dizziness, syncope, unilateral weakness, ataxia, numbness or tingling in the extremities. No change in bowel or bladder control. Musculoskeletal:??No muscle pain, back pain, joint pain or stiffness. Hematologic/Lymphatics:??No bleeding or bruising. No painful lymph nodes. Skin:??No rash or itching. Endocrine:??No reports of sweating. No cold or heat intolerance. No polyuria or polydipsia. Psychiatric:??No depression or anxiety. Physical Exam Vitals & Measurements T:??98.0?F?? HR:??61??(Peripheral)?? RR:??18?? BP:??148/66?? SpO2:??100%?? CONST:??Appears stated age, no acute distress, alert and oriented X 3, frail female. EYES:??Anicteric, nl conjunctivae, EOM intact ENT:??Nl oropharynx NECK:??No evidence of JVD or HJR. Carotid impulses and upstroke normal bilaterally, no carotid bruits?? CV:??Regular rhythm, no murmur; No aortic pulsation or aortic bruits. RESP:??Normal respiratory effort,??clear to auscultation, fine crackles at the bases, otherwise clear. GI:??Soft, non-tender and non-distended,bowels sounds normoactive, no abdominal bruits EXT: _ lower extremity edema, no cyanosis SKIN:??No rash, skin warm and dry.?? NEURO:?Alert and oriented x 3, CN 2-12 grossly intact?? Assessment/Plan The patient is a pleasant??72-year-old??female??who was found to have an asymptomatic aortic arch penetrating ulcer. 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 ??I advised the patient of the natural history of aortic??arch penetrating ulcers. ??I indicated to her??that??she should seek prompt medical attention should??she have any symptoms of back pain or chest pain as this may be indicative of instability in her??aorticpathology. We will see the patient in follow-up in??one??year???s time with a repeat contrast CT scan??of the chest.??She should continue BP control with Dr. Jimenez and resist excessive lifting or exertion that may acutely increase her BP. She and her daughter had all questions answered via yoker.? We appreciate the privilege??of participating??in this??patient's care, and??thank you for this referral. ? Mason Farr MD [facility]?? [address], [address] [place] [address] Office: [phone] Problem List/Past Medical History Ongoing Hyperparathyroidism Hyperparathyroidism Nephrolithiasis Procedure/Surgical History ???Parathyroidectomy or exploration of parathyroid(s); Medications Inpatient No active inpatient medications Home Citracal Maximum + D oral tablet, 1 tablet, By Mouth, 2 times a day warfarin 5 mg oral tablet, 5 mg= 1 tablet, By Mouth, Daily Allergies Percocet 7.5/325??(diarrhea, vomiting, nausea) penicillins??(get black and blue, hives) morphine Note * Fabi Solis: PERFORM, SIGN, VERIFY Event Display: Patient Education/Instruction Authored Date: [id number] [facility] Clinical Summary Name NAY DE JESUS Age 72 Years 1950 PCP Glory Vargas MD, Chandrika Ramirez PCP Visit Date 02/06/2023 09:58:00 Additional Instructions: Scheduled Appointments?? Future Appointments ?No Future Appointments Scheduled Follow-Up Instructions ?? Diagnosis Medications: Please continue your medications until treatment is completed or stopped by your provider. Discuss any questions related to medications with your provider. Medications to Continue with No Changes These medications were not printed or sent to your pharmacy Calcium And Vitamin D Combination (Citracal Maximum + D oral tablet) 1 tab(s) Oral twice a day. Next Dose: Warfarin (warfarin 5 mg oral tablet) 1 tab(s) Oral Daily. Next Dose: Allergy Info:?? Percocet 7.5/325; penicillins; morphine Medications Given This Visit Future Orders ?No future orders Vital Signs Height 157.48 cm Weight BMI Blood Pressure 148 mm Hg/66 mm Hg Temperature 98.0 DegF Pulse Rate 61 bpm Respiratory Rate 18 br/min 02 Sat Mode of Delivery 100 %/Room air You can now view a summary of your hospital visit from the comfort of your home through a free online portal called [employer]. [employer] is a website that allows you to securely view your medical information including discharge summary, medications and follow-up visits. ??You can alsosend a secure electronic message to your doctor???s office to request appointments, renew medications or just ask a question. You can enroll at [email or web address] or register during your next office visit. Disclaimer:?? The information provided is of a general nature and is intended to be used in conjunction with the recommendations and advice of your health care practitioner. ??Every effort has been made to ensure that the information provided is accurate and complete at the time it is provided to you however, as your needs change, or, as new ??information becomes available, different or additional instructions may be required. If you have questions, please consult with your primary care provider or pharmacist, as appropriate. ??This information is not intended to serve as substitution for assessment and evaluation by a qualified health care provider. If you do not have a primary care provider, you may find a [facility] provider by calling [facility] [employer] [facility] at [phone]. For information about the plan of care including goals and instructions for your diagnosis, please see the patient education orders section of this document. Patient Education Materials?? The content of this educational material or handout may have been modified, supplemented, or adapted from its original content and format to support your individualized medical care. Patient Care team information Care Team Personnel Name: Glory Vargas MD, Chandrika Ramirez Position: Reference Physician Member Role: PCP Address: Address: [address] [place] [address] [place] [address]- Care Team Related Persons Name: DANN DE JESUS Address: [address] [address] Name: JOHANNE HONEYCUTT Name: ZAHRA LUCAS
--- NOTE | 2023-12-11 17:57 | PC.NURSE ---
Pt brought to [facility] 3 for treatment assumed care of pt at this time. A&Ox3 skin pwd respirations even unlabored. Reports mi sternal chest pain radiating into right back intermittent x 2 weeks, worse at night. Reports associated dizziness and nausea. Pain resolved at this time time. Denies any other symptoms. residential monitor applied, NSR on monitor. IV access obtained repeat troponin drawn and sent for processing. Awaiting CTA, aware of plan of care.
[2023-12-11] MEDS: iohexoL 350 MG/ML 100 ML INFUS..BTL 65 ML IV (18:11)
[2023-12-11] MEDS: Ibuprofen 600 MG TABLET PO (18:13)
[2023-12-11 18:21] LABS: Troponin-I High Sensitivity 3.6 ng/L (<3.5-17.0)
[2023-12-11 19:28] VITALS: BP 131/47; PULSE 54; RESP 18; TEMP 36.6; O2SAT 97
[2023-12-11 20:31] VITALS: BP 131/47; PULSE 57; RESP 18; TEMP 36.6; O2SAT 99
== END 2023-12-11 20:32 | disposition home or self-care (01) ==
PROVIDERS: Physician Assistant; Emergency Provider Internal Medicine; PCP Internal Medicine
DX: R07.89 Other chest pain (principal); M94.0 Chondrocostal junction syndrome [Tietze]; Z79.899 Other long term (current) drug therapy
CPT/HCPCS: 36415; 71046; 71275; 80048; 80076; 83735; 84484; 85025; 85610; 85730; 93005; 99284; 99285; Q9967

== ENCOUNTER → 2023-12-11 14:51 | Outpatient (BNV) | payer OTHER, SELFPAY | PROVIDERS: Emergency Provider Internal Medicine; PCP Internal Medicine; Visit Provider Internal Medicine Cardiovascular Disease | DX: R07.9 Chest pain, unspecified (principal) | CPT/HCPCS: 93010 ==

== ENCOUNTER 2024-02-19 11:40 | Outpatient (AMB) | payer OTHER, SELFPAY ==
[2024-02-19 11:42] VITALS: BP 136/64; PULSE 80; O2SAT 98; BMI 38.3
--- NOTE | 2024-02-19 11:42 | MHC.OFFVIS ---
Vital Signs 02/19/24 11:42 Height 5 ft Weight 195 lb 15.855 oz BMI 38.3 BP 136/64 Blood Pressure Location Rt brachial Position Sitting Pulse 80 Pulse Source Pulse Oximeter Pulse Oximetry (%) 98 Oxygen Delivery Method Room Air Intake Visit Reasons: Vasculitis/cm Allergies morphine [MORPHINE] Allergy (Severe, Verified 02/19/24 11:46) CHEST PAIN, TROUBLE BREATHING, bruises Penicillins Allergy (Intermediate, Verified 02/19/24 11:46) RASH codeine Allergy (Unknown, Verified 02/19/24 11:46) Unknown tramadol [TRAMADOL] Allergy (Unknown, Verified 02/19/24 11:46) CHEST PAIN Percocet Adverse Reaction (Intermediate, Uncoded 02/19/24 11:46) vomiting Medication List - Last Reconciled 02/19/24 by Raheem Man MD albuterol sulfate 2.5 mg (3 mL) inhalation Q4-6H PRN albuterol sulfate 90 mcg/actuation (ProAir HFA) 2 puffs inhalation Q4-6H PRN albuterol sulfate 90 mcg/actuation 2 puffs inhalation Q4-6H PRN albuterol sulfate 90 mcg/actuation 2 puffs inhalation Q6H PRN atorvastatin 40 mg PO DAILY betamethasone valerate 0.1% appl topical Q OTHER DAY fluticasone propionate 110 mcg/actuation (Flovent HFA) 1 puff PO BID hydrochlorothiazide 25 mg PO DAILY ibuprofen 600 mg PO Q6H PRN linaclotide (Linzess) 72 mcg PO QAM lisinopril 2.5 mg PO DAILY nebulizers (AeroEclipse II Nebulizer) As directed pantoprazole 40 mg PO DAILY quetiapine 25 mg PO BEDTIME HPI Comments Details: Patient returns for follow-up after completion of her diagnostic workup. She finally completed her PET scan. She had not been getting any steroid injections for 3 months. Then received a steroid injection in the left shoulder a few days ago by Dr. Cormier which significant helped both her shoulders and her other joints. Initial history : This is a 73-year-old female who is referred by Neurology for evaluation of elevated inflammatory markers. Patient and her daughter are both poor historians. Back in November of 2022 patient presented to the ER with abdominal pain. 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 Inflammatory markers were significantly elevated. She was then referred to neurologist. Of note patient has a history of PE back in 2011 and was on anticoagulation for 6 years which was discontinued due to splenic hemorrhage. Patient's daughter also mentions he has history of hypercoagulable state, history of PE and taking warfarin regularly. Patient's brother has history of thick blood She also mentions that she has history of headaches, intermittent blurry vision, she could not specify the nature of the headaches and whether 1 or 2 eyes are involved. She denies any jaw or tongue claudication. Patient received steroid injections for her knees and shoulders by Dr. Cormier, most recent injection was 10/01/2023. She states that whenever she received those injections she feels much better overall. She states that she lost about 25 lb over the last year due to decreased appetite. She denies any fevers. She states that she has had a rash on her cheeks for about a year and she was told this was allergies and she uses a steroid cream. She can not tell whether the rash is photosensitive. Patient has history of 4 pregnancies, 3 children and 1 . She denies history suggestive of Raynaud's. She denies any swollen joints. Patient was referred for temporal artery biopsy by neurologist. She was evaluated by surgeon and patient did not want to proceed with biopsy as she was feeling well at the time [facility] Medical History (Updated 02/19/24 @ 12:17 by Raheem Man MD) Headache Anemia History of pulmonary embolism Nephrolithiasis High cholesterol Asthma Hypertension Surgical History H/O breast biopsy History of hysterectomy H/O colonoscopy Family History Mother Varicose vein of leg Depression Hypertension Asthma Heart disease Father Cerebrovascular accident (CVA) Kidney stones Sister Varicose vein of leg Depression Brother Depression Varicose vein of leg Daughter Varicose vein of leg Maternal Grandfather Colon cancer Social History Household Members: Family Household Members Other:: sister Housing: House Alcohol intake: never Patient Tobacco Use Status: Never used Tobacco Female Reproductive History Menstrual Total pregnancies: 4 Ab induced: 1 Review of Systems Const Reports fatigue, Denies fever(s), Reports headache(s), Reports weakness and Reports weight loss Eyes Reports blurry vision ENT Reports dizziness and Reports headache(s) Card Reports chest pain and Reports dyspnea Resp Reports dyspnea GI Reports dyspepsia and Reports heartburn Reports nocturia Musc Reports back pain, Reports arthralgias, Reports joint swelling, Reports muscle weakness and Reports stiffness Skin/Breast Denies photosensitivity and Reports rash Neuro Reports dizziness, Reports headache(s) and Reports weakness Psych Reports anxiety and Reports depression Endo Reports fatigue Physical Exam Vital Signs: BMI result Body Mass Index 38.3 Const General: cooperative, healthy appearing and comfortable Nutritional Appearance: obese morbidly obese Orientation/consciousness: patient oriented x3 Limitations: no limitations HEENT Other: Non tender superficial temporal arteries bilaterally today Bilateral palpable and equal superficial temporal artery pulsation No jaw pain with opening and closing Head: Yes normocephalic and Yes atraumatic Mouth: moist mucous membranes Resp Effort & Inspection: normal respiratory effort and able to speak in complete sentences Auscultation: clear to auscultation bilaterally Cardio Rate: regular rate Rhythm: regular rhythm Skin Other: Varicose veins both legs Erythematous patch on both cheeks, more prominent on the left General skin exam: no rashes or lesions noted Neuro General: patient oriented x3 Extrem Other: Significantly limited range of motion left shoulder Bilateral wrist tenderness and pain with flexion and extension Right hand diffuse 2nd through 5th MCP tenderness Fourth MCP swelling Second through 5th PIP tenderness. No DIP tenderness Left 3rd MCP swelling, 2nd through 5th MCP tenderness 2nd through 5th PIP tenderness No DIP tenderness Bilateral elbow pain with flexion and extension Bilateral shoulder pain with full abduction Bilateral lower thoracic paraspinal muscle tenderness Few fibromyalgia tender points Mild left knee warmth and pain with flexion and extension Bilateral 2nd through 5th MTP tenderness Results Reviewed Results Reviewed: Labs 04/2023? CBC unremarkable? CMP unremarkable hsCRP (72.69) (0-3) ESR 124 Methylmalonic acid normal Homocystine 16.2 (0-15) Labs 07/2023? ESR 78 hsCRP 5.3 RF negative ALIZA negative ORDER #:? CT/CT angio head neck 01/2021 IMPRESSION: 1. No evidence of acute intracranial hemorrhage or edematous territorial infarction. 2. CTA of the head and neck without proximal occlusion or flow-limiting stenosis. 3. Undulating appearance of the gutierrez of the cervical ICAs suggestive of underlying fibromuscular dysplasia. 4. 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 CTA chest 11/2022? Impression 1. No CT evidence of pulmonary embolism 2. 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 No evidence of dissection or aneurysm.?? PET scan 02/03/2024 Impression:? 1. 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 2. Nonspecific FDG activity in the shoulders and knees, greatest in the left knee.? Differential considerations include myalgia rheumatica and/or degenerative changes.? Correlation with laboratory values is recommended 3. Focal FDG activity in the inferior right hepatic lobe either representing an underlying liver lesion or volume averaging with underlying bowel.? Attention to this area can be made with follow-up imaging or alternatively this? can be assessed with contrast enhanced MRI of the abdomen Assessment & Plan Assessment & Plan (1) GCA (giant cell arteritis): Code(s): M31.6 - Other giant cell arteritis Category: Medical Plan: This is a 73-year-old female who is referred by Neurology for evaluation of significantly elevated inflammatory markers in the setting of multiple complaints including abdominal pain, chest pain, headaches, blurry vision.? CT scans showing multiple vascular abnormalities including a penetrating atheromatous ulcer in the arch of aorta as well undulating appearance of the internal carotid arteries. Patient's symptoms generally improve with intra-articular steroid injection with improvement of inflammatory markers, and improvement of multiple other joints.? She was referred for a temporal artery biopsy, however by the time patient was evaluated by surgeon she had received an intra-articular steroid injection with improvement of her symptoms and procedure was deferred.? Currently patient does not have any cranial symptoms Given significantly elevated inflammatory markers, ongoing chest pain, abdominal pain, intermittent headaches, multiple vascular abnormalities on imaging, symptoms improving with intra-articular steroids.? I had a suspicion of giant cell arteritis. 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 Steroids are usually to go to treatment for giant cell arteritis however given patient's age & multiple comorbidities including hypertension, dyslipidemia, obesity, atherosclerosis, risk of osteoporosis, steroids would be contraindicated especially given the fact that large doses are needed for long periods of time. Discussed risks and benefits of Actemra. There is no known history of diverticulitis. Patient agreed to proceed. Will start prior authorization for Actemra ?She has history of PE and was on Coumadin for 6 years and it was stopped due to splenic hemorrhage.? Her daughter and brother also have history of blood clots and taking blood thinners.? Advised patient's daughter to discuss with family members and let me know if they have a specific diagnosis Labs before next visit in 3 months (2) Positive anti-CCP test: Code(s): R76.8 - Other specified abnormal immunological findings in serum Category: Medical Plan: Borderline positive anti CCP antibody, patient has some features of inflammatory arthritis as well as fibromyalgia. Actemra would also be effective for rheumatoid arthritis (3) Abnormal liver diagnostic imaging: Code(s): R93.2 - Abnormal findings on diagnostic imaging of liver and biliary tract Category: Medical Plan: PET scan with some abnormality in the inferior right hepatic lobe of the liver versus bowel loop, MRI with contrast was suggested by radiologist. Will discuss further next visit Plan I spent 45 minutes reviewing patient's chart, evaluating patient, ordering diagnostic workup, counseling patient and documenting in the chart Orders: Orders C Reactive Protein 3 Months M31.6 - Other giant cell arteritis Complete Blood Count Auto Diff 3 Months M31.6 - Other giant cell arteritis Comprehensive Met. Panel 3 Months M31.6 - Other giant cell arteritis Erythrocyte Sedimentation Rate 3 Months M31.6 - Other giant cell arteritis Coding Level of Care Code Est Pt Level 5 (97418) Diagnoses GCA (giant cell arteritis) M31.6 Positive anti-CCP test R76.8 Abnormal liver diagnostic imaging R93.2
== END 2024-02-19 12:05 | disposition home or self-care (01) ==
PROVIDERS: PCP Internal Medicine; Visit Provider Student in an Organized Health Care Education/Training Program
DX: M31.6 Other giant cell arteritis (principal); R76.8 Other specified abnormal immunological findings in serum; R93.2 Abnormal findings on diagnostic imaging of liver and biliary tract
CPT/HCPCS: 99215

== ENCOUNTER → 2024-02-19 11:40 | Outpatient (BNVA) | payer OTHER, SELFPAY | PROVIDERS: PCP Internal Medicine; Visit Provider Student in an Organized Health Care Education/Training Program | DX: M31.6 Other giant cell arteritis (principal); R76.8 Other specified abnormal immunological findings in serum; R93.2 Abnormal findings on diagnostic imaging of liver and biliary tract | CPT/HCPCS: 99212 ==

== ENCOUNTER → 2024-03-15 09:56 | Outpatient (BNVA) | payer OTHER, SELFPAY | PROVIDERS: PCP Internal Medicine; Visit Provider Student in an Organized Health Care Education/Training Program ==

== ENCOUNTER 2024-03-17 14:32 | Outpatient (AMB) | payer OTHER, SELFPAY ==
--- NOTE | 2024-03-17 14:34 | MHC.OFFVIS ---
Vital Signs 03/17/24 14:35 Height 5 ft Weight 203 lb BMI 39.6 Pulse 70 Pulse Source Pulse Oximeter Pulse Oximetry (%) 96 Oxygen Delivery Method Room Air Intake Visit Reasons: 4 mo f/u-CONF Intake Note: Patient presents for 4 month follow up. Getting just very little balance issues as for her head she gets pressure but doesn't last long. Collet Gluer Required: Yes Collet Gluer Services: Collet Gluer Offered & Declined Collet Gluer Name: Katie Henry Allergies morphine [MORPHINE] Allergy (Severe, Verified 03/17/24 14:38) CHEST PAIN, TROUBLE BREATHING, bruises Penicillins Allergy (Intermediate, Verified 03/17/24 14:38) RASH codeine Allergy (Unknown, Verified 03/17/24 14:38) Unknown tramadol [TRAMADOL] Allergy (Unknown, Verified 03/17/24 14:38) CHEST PAIN Percocet Adverse Reaction (Intermediate, Uncoded 03/17/24 14:38) vomiting HPI Comments Details: 73--yr-old female presents for f/u visit. Pt accompanied by her dtr, who assists w/ Malay interpretation. Pt denies any significant interval medical changes. Since the last visit, pt did undergo PET scan of the large vessels was consistent with large vessel vasculitis. Pt notes that before the PET scan, when she was off all corticosteroids, she had increased pain, joint pain, and overall did not feel well.. She was able to restart her knee (per rheumatology note- shoulder inj) injections shortly after the PET scan- and since she has been feeling better. She has since had rheumatology f/u, and was advised to start immunosuppressive tx for giant cell arteritis and likely RA, opting for Toclizumab over steroids d/t risk/benefit profile. Pt states she started Tocllizumab 2 days ago. Pt reports she had mild cold like symptoms x's 2 days after taking the 1st dose. Also mild headache x's a few hours- which responded to Tylenol. Overall dizziness is better. No usual headaches. Gait is stable w/ cane. [facility] Medical History (Updated 02/19/24 @ 12:17 by Raheem Man MD) Headache Anemia History of pulmonary embolism Nephrolithiasis High cholesterol Asthma Hypertension Surgical History H/O breast biopsy History of hysterectomy H/O colonoscopy Family History Mother Varicose vein of leg Depression Hypertension Asthma Heart disease Father Cerebrovascular accident (CVA) Kidney stones Sister Varicose vein of leg Depression Brother Depression Varicose vein of leg Daughter Varicose vein of leg Maternal Grandfather Colon cancer Social History Household Members: Family Household Members Other:: sister Housing: House Alcohol intake: never Patient Tobacco Use Status: Never used Tobacco Review of Systems Const All systems reviewed & are unremarkable except as noted in HPI and below Physical Exam Vital Signs: Last Vital Signs Pulse 70 03/17/24 14:35 Pulse Ox 96 03/17/24 14:35 Oxygen Delivery Method Room Air 03/17/24 14:35 BMI result Body Mass Index 39.6 Const General: cooperative and no acute distress Orientation/consciousness: patient oriented x3 HEENT Head: Yes normocephalic Resp Effort & Inspection: normal respiratory effort and able to speak in complete sentences Neuro General: patient oriented x3, gait normal and CN's II-XI intact bilaterally Cognition (Neuro): normal cognition Motor exam (neuro): 5/5 motor strength present throughout Psych Appearance: grossly normal Mental Status: mental status grossly normal Speech and movement: Normal speech and movement present Affect: normal affect Attitude: cooperative Thought process: Normal thought process present Thought content: Normal thought content present Insight: Good insight present (Psych) Judgement: Good judgement present (Psych) Assessment & Plan Assessment & Plan (1) Headache: Code(s): R51.9 - Headache, unspecified Category: Medical (2) Gait difficulty: Code(s): R26.9 - Unspecified abnormalities of gait and mobility Category: Medical (3) Dizziness: Code(s): R42 - Dizziness and giddiness Category: Medical (4) GCA (giant cell arteritis): Code(s): M31.6 - Other giant cell arteritis Category: Medical Plan Monitor headaches, dizziness, and gait clinically for now- pt reports she is doing better. May use Tylenol prn headache. Pt advised to let us know if she continue sto have headaches following her Tocilizumab injections. In the meantime, may use Tylenol and rest prn. F/u w/ rheumatology as scheduled. ? f/u in 4-6 months or sooner prn. Coding Level of Care Code Est Pt Level 4 (58763) Diagnoses Headache R51.9 Gait difficulty R26.9 Dizziness R42 GCA (giant cell arteritis) M31.6
[2024-03-17 14:35] VITALS: PULSE 70; O2SAT 96; BMI 39.6
== END 2024-03-17 15:11 | disposition home or self-care (01) ==
PROVIDERS: PCP Internal Medicine; Visit Provider Nurse Practitioner Family
DX: R51.9 Headache, unspecified (principal); R26.9 Unspecified abnormalities of gait and mobility; R42 Dizziness and giddiness; M31.6 Other giant cell arteritis
CPT/HCPCS: 99214

== ENCOUNTER → 2024-03-17 14:32 | Outpatient (BNVA) | payer OTHER, SELFPAY | PROVIDERS: PCP Internal Medicine; Visit Provider Nurse Practitioner Family | DX: R51.9 Headache, unspecified (principal); R26.9 Unspecified abnormalities of gait and mobility; R42 Dizziness and giddiness; M31.6 Other giant cell arteritis | CPT/HCPCS: 99212 ==

== ENCOUNTER 2024-05-14 11:06 | Outpatient (REF) | payer OTHER, SELFPAY ==
[2024-05-14 11:26] LABS: MANUAL DIFF FLAG NO
[2024-05-14 11:43] LABS: Basophils Percent Auto 0.5 % (0-2); Eosinophils Absolute Auto 0.5 X10*3/uL (0.0-0.4); Eosinophils Percent Auto 5.5 % (0-4); Hematocrit 38.3 % (37.0-47.0); Hemoglobin 11.9 g/dl (12.0-16.0); Imm Gran Abs Auto 0.03 X10*3/uL (0.00-0.03); Imm Gran Pct Auto 0.3 % (0.0-0.4); Lymphocytes Absolute Auto 1.4 X10*3/uL (1.2-4.9); Lymphocytes Percent Auto 16.6 % (20-40); Mean Corpuscular HGB Conc 31.1 g/dl (31.0-35.0); Mean Corpuscular Hemoglobin 26.6 pg (27.0-33.0); Mean Corpuscular Volume 85.5 fL (80.0-98.0); Mean Platelet Volume 10.3 fL (9.4-12.3); Monocytes Absolute Auto 0.8 X10*3/uL (0.1-1.2); Monocytes Percent Auto 9.7 % (2-11); Neutrophils Absolute Auto 5.8 x10*3/uL (2.0-8.3); Neutrophils Percent Auto 67.4 % (45-73); Platelet Count 262 X10*3/uL (160-400); Red Blood Count 4.48 X10*6/uL (4.20-5.50); Red Cell Distribution Width 14.9 % (11.0-16.0); White Blood Count 8.6 X10*3/uL (4.8-10.8)
[2024-05-14 11:50] LABS: Estimated Average Glucose 117 mg/dL; Hemoglobin A1c % 5.7 % (<6.0)
[2024-05-14 12:23] LABS: Erythrocyte Sedimentation Rate 74 MM/HR (0-20)
[2024-05-14 12:31] LABS: Alanine Aminotransferase 17 U/L (0-31); Albumin Level 4.2 g/dL (3.5-5.0); Alkaline Phosphatase 79 U/L (39-117); Anion Gap 14 (12-20); Aspartate Amino Transferase 20 U/L (5-31); Bilirubin Total 0.3 mg/dL (0.0-1.0); Blood Urea Nitrogen 21 mg/dL (9-16); Calcium 10.2 mg/dL (8.4-10.2); Carbon Dioxide 26 mmol/L (22-29); Chloride 107 mmol/L (96-108); Cholesterol 236 mg/dL (<200); Estimated Glomerular Filt Rate > 60; Glucose Random 104 mg/dL (60-115); HDL Cholesterol 67 mg/dL (>40); LDL Cholesterol Calculated 147 mg/dL (<100); Sodium 143 mmol/L (135-145); Total Protein 8.2 g/dL (6.5-8.0); Triglycerides 114 mg/dL (<150)
[2024-05-14 12:50] LABS: Reflex LDLD? No
[2024-05-14 12:53] LABS: TSH reflex Free T4 2.07 uIU/mL (0.32-4.0)
[2024-05-14 12:54] LABS: Folate 14.5 ng/mL (> or = 4.0); Vitamin B12 454 pg/mL (200-900)
[2024-05-17 10:37] LABS: CRP High Sensitivity >20.0 mg/L
== END 2024-05-14 11:07 | disposition home or self-care (01) ==
LOC: HO.LAB 11:06
PROVIDERS: Nurse Practitioner Family; PCP Internal Medicine; Visit Provider Student in an Organized Health Care Education/Training Program
DX: I10 Essential (primary) hypertension (principal); E78.5 Hyperlipidemia, unspecified; R20.2 Paresthesia of skin; R70.0 Elevated erythrocyte sedimentation rate; Z13.1 Encounter for screening for diabetes mellitus
CPT/HCPCS: 36415; 80053; 80061; 82607; 82746; 83036; 84443; 85025; 85652; 86141

== ENCOUNTER 2024-05-25 10:42 | Outpatient (AMB) | payer OTHER, SELFPAY ==
--- NOTE | 2024-05-25 10:51 | A.OFFVIS_ITS ---
Vital Signs 05/25/24 10:57 Height 5 ft Weight 210 lb 1.608 oz BMI 41.0 BP 124/70 Blood Pressure Location Rt brachial Position Sitting Pulse 69 Pulse Source Pulse Oximeter Pulse Oximetry (%) 97 Oxygen Delivery Method Room Air Intake Visit Reasons: GCA Intake Note: Patient presents for GCA. Eastern Philosophy Professor Required: Yes Eastern Philosophy Professor Language: [employer] Worker Services: Eastern Philosophy Professor Offered & Declined Eastern Philosophy Professor Name: Thais Muñoz Information Interpreted: non-clinical & clinical Hospital Carrier: Hospital Carrier Present (Daughter) Accompanied by: Daughter Allergies morphine [MORPHINE] Allergy (Severe, Verified 05/25/24 10:57) CHEST PAIN, TROUBLE BREATHING, bruises Penicillins Allergy (Intermediate, Verified 05/25/24 10:57) RASH codeine Allergy (Unknown, Verified 05/25/24 10:57) Unknown tramadol [TRAMADOL] Allergy (Unknown, Verified 05/25/24 10:57) CHEST PAIN Percocet Adverse Reaction (Intermediate, Uncoded 03/17/24 14:38) vomiting Medication List - Last Reconciled 05/25/24 by Raheem Man MD Actemra ACTPen (tocilizumab) 162 mg (0.9 mL) subcut Q2W NS albuterol sulfate 2.5 mg (3 mL) inhalation Q4-6H PRN albuterol sulfate 90 mcg/actuation (ProAir HFA) 2 puffs inhalation Q4-6H PRN albuterol sulfate 90 mcg/actuation 2 puffs inhalation Q4-6H PRN albuterol sulfate 90 mcg/actuation 2 puffs inhalation Q6H PRN atorvastatin 40 mg PO DAILY betamethasone valerate 0.1% appl topical Q OTHER DAY fluticasone propionate 110 mcg/actuation (Flovent HFA) 1 puff PO BID hydrochlorothiazide 25 mg PO DAILY ibuprofen 600 mg PO Q6H PRN linaclotide (Linzess) 72 mcg PO QAM lisinopril 2.5 mg PO DAILY nebulizers (AeroEclipse II Nebulizer) As directed pantoprazole 40 mg PO DAILY quetiapine 25 mg PO BEDTIME HPI Comments Details: This is a 73-year-old female with GCA who presents for follow-up. Actemra was started after last visit 3 months ago. Patient received a couple of injections, then there was a mistake in delivery. Patient could not get her medication for about a month and a half. She finally received her shipment about a week ago and she did the injection. The patient states that she is feeling much better overall. Improved overall joint pain and stiffness. She denies any headaches. Has not had any intra-articular cortisone injections in about 6 months now. Initial history : This is a 73-year-old female who is referred by Neurology for evaluation of elevated inflammatory markers. Patient and her daughter are both poor historians. Back in November of 2022 patient presented to the ER with abdominal pain. 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 Inflammatory markers were significantly elevated. She was then referred to ne urologist. Of note patient has a history of PE back in 2011 and was on anticoagulation for 6 years which was discontinued due to splenic hemorrhage. Patient's daughter also mentions he has history of hypercoagulable state, history of PE and taking warfarin regularly. Patient's brother has history of thick blood She also mentions that she has history of headaches, intermittent blurry vision, she could not specify the nature of the headaches and whether 1 or 2 eyes are involved. She denies any jaw or tongue claudication. Patient received steroid injections for her knees and shoulders by Dr. Cormier, most recent injection was 10/01/2023. She states that whenever she received those injections she feels much better overall. She states that she lost about 25 lb over the last year due to decreased appetite. She denies any fevers. She states that she has had a rash on her cheeks for about a year and she was told this was allergies and she uses a steroid cream. She can not tell whether the rash is photosensitive. Patient has history of 4 pregnancies, 3 children and 1 . She denies history suggestive of Raynaud's. She denies any swollen joints. Patient was referred for temporal artery biopsy by neurologist. She was evaluated by surgeon and patient did not want to proceed with biopsy as she was feeling well at the time [facility] Medical History (Updated 05/25/24 @ 11:30 by Raheem Man MD) Headache Anemia History of pulmonary embolism Nephrolithiasis High cholesterol Asthma Hypertension Surgical History H/O breast biopsy History of hysterectomy H/O colonoscopy Family History (Updated 05/25/24 @ 11:21 by Raheem Man MD) Mother Varicose vein of leg Depression Hypertension Asthma Heart disease Father Cerebrovascular accident (CVA) Kidney stones Sister Varicose vein of leg Depression Brother Depression Varicose vein of leg Daughter Varicose vein of leg Lupus anticoagulant disorder Maternal Grandfather Colon cancer Social History Household Members: Family Household Members Other:: sister Housing: House Alcohol intake: never Patient Tobacco Use Status: Never used Tobacco Female Reproductive History Menstrual Total pregnancies: 4 Ab induced: 1 Review of Systems Const Denies fever(s), Denies headache(s) and Denies weight loss ENT Denies headache(s) Resp Reports no additional complaints Musc Denies myalgias, Denies arthralgias and Denies joint swelling Neuro Denies headache(s) Physical Exam Vital Signs: Last Vital Signs Pulse 69 05/25/24 10:57 BP 124/70 05/25/24 10:57 Pulse Ox 97 05/25/24 10:57 Oxygen Delivery Method Room Air 05/25/24 10:57 BMI result Body Mass Index 41.0 Const General: cooperative, healthy appearing and comfortable Nutritional Appearance: obese morbidly obese Orientation/consciousness: patient oriented x3 Limitations: no limitations HEENT Other: Non tender superficial temporal arteries bilaterally today Bilateral palpable and equal superficial temporal artery pulsation No jaw pain with opening and closing Head: Yes normocephalic and Yes atraumatic Mouth: moist mucous membranes Resp Effort & Inspection: normal respiratory effort and able to speak in complete sentences Auscultation: clear to auscultation bilaterally Cardio Rate: regular rate Rhythm: regular rhythm Skin Other: Varicose veins both legs Erythematous patch on both cheeks, more prominent on the left General skin exam: no rashes or lesions noted Neuro General: patient oriented x3 Extrem Other: Mildly limited range of motion left shoulder No active synovitis Results Reviewed Results Reviewed: Labs 04/2023? CBC unremarkable? CMP unremarkable hsCRP (72.69) (0-3) ESR 124 Methylmalonic acid normal Homocystine 16.2 (0-15) Labs 07/2023? ESR 78 hsCRP 5.3 RF negative ALIZA negative ORDER #:? CT/CT angio head neck 01/2021 IMPRESSION: 1. No evidence of acute intracranial hemorrhage or edematous territorial infarction. 2. CTA of the head and neck without proximal occlusion or flow-limiting stenosis. 3. Undulating appearance of the gutierrez of the cervical ICAs suggestive of underlying fibromuscular dysplasia. 4. 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 CTA chest 11/2022? Impression 1. No CT evidence of pulmonary embolism 2. 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 No evidence of dissection or aneurysm.?? PET scan 02/03/2024 Impression:? 1. 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 2. Nonspecific FDG activity in the shoulders and knees, greatest in the left knee.? Differential considerations include myalgia rheumatica and/or degenera tive changes.? Correlation with laboratory values is recommended 3. Focal FDG activity in the inferior right hepatic lobe either representing an underlying liver lesion or volume averaging with underlying bowel.? Attention to this area can be made with follow-up imaging or alternatively this? can be assessed with contrast enhanced MRI of the abdomen Assessment & Plan Assessment & Plan (1) GCA (giant cell arteritis): Comment: dx 01/2024 (positive PET scan) Actemra 01/2024 effective Code(s): M31.6 - Other giant cell arteritis Category: Medical Plan: This is a 73-year-old female with GCA who presents for follow-up. Actemra was started about 3 months ago. Patient is doing much better overall with improved headaches, joint pains, fatigue. Patient did not receive a few injections due to a delivery problem. Her inflammation markers are likely elevated due to inconsistent use of Actemra. Continue with Actemra 162 mg subcutaneously every other week Labs before next visit in 4 months (2) Positive anti-CCP test: Code(s): R76.8 - Other specified abnormal immunological findings in serum Category: Medical Plan: Borderline positive anti CCP antibody, patient has some features of inflammatory arthritis as well as fibromyalgia. There is no active synovitis on exam now after Actemra was started (3) Abnormal liver diagnostic imaging: Code(s): R93.2 - Abnormal findings on diagnostic imaging of liver and biliary tract Category: Medical Plan: PET scan with some abnormality in the inferior right hepatic lobe of the liver versus bowel loop, MRI with contrast was suggested by radiologist. MRI abdomen with contrast ordered Plan I spent 25 minutes reviewing patient's chart, evaluating patient, ordering diagnostic workup, counseling patient and documenting in the chart Orders: Orders MR abdomen wo/w con Today R93.2 - Abnormal findings on diagnostic imaging of l iver and biliary tract Complete Blood Count Auto Diff 4 Months M31.6 - Other giant cell arteritis C Reactive Protein 4 Months M31.6 - Other giant cell arteritis Erythrocyte Sedimentation Rate 4 Months M31.6 - Other giant cell arteritis Comprehensive Met. Panel 4 Months M31.6 - Other giant cell arteritis Coding Level of Care Code Est Pt Level 4 (22869) Diagnoses GCA (giant cell arteritis) M31.6 Positive anti-CCP test R76.8 Abnormal liver diagnostic imaging R93.2
[2024-05-25 10:57] VITALS: BP 124/70; PULSE 69; O2SAT 97; BMI 41.0
== END 2024-05-25 11:18 | disposition home or self-care (01) ==
PROVIDERS: PCP Internal Medicine; Visit Provider Student in an Organized Health Care Education/Training Program
DX: M31.6 Other giant cell arteritis (principal); R76.8 Other specified abnormal immunological findings in serum; R93.2 Abnormal findings on diagnostic imaging of liver and biliary tract
CPT/HCPCS: 99214

== ENCOUNTER → 2024-05-25 10:42 | Outpatient (BNVA) | payer OTHER, SELFPAY | PROVIDERS: PCP Internal Medicine; Visit Provider Student in an Organized Health Care Education/Training Program | DX: M31.6 Other giant cell arteritis (principal); R76.8 Other specified abnormal immunological findings in serum; R93.2 Abnormal findings on diagnostic imaging of liver and biliary tract | CPT/HCPCS: 99212 ==

== ENCOUNTER 2024-06-19 16:48 | Emergency (ER) | payer OTHER, SELFPAY ==
--- NOTE | ~2024-06-19 | XR_ITS ---
EXAMINATION: XR CHEST CLINICAL INFORMATION: Cough, shortness of breath COMPARISON: Chest x-ray on 12/11/2023 TECHNIQUE: 2 views of the chest were obtained. FINDINGS: No significant abnormality is noted involving the heart, lungs, mediastinum, bony thorax or soft tissues. XR/XR chest 2V IMPRESSION: Unremarkable examination. Electronically signed by: Darling Sol MD 06/19/2024 05:19 PM EDT
[2024-06-19 16:58] VITALS: BP 167/59; PULSE 76; RESP 20; TEMP 36.8; O2SAT 97; BMI 41.4
--- NOTE | 2024-06-19 16:59 | ED_ITS ---
HPI - URI/Sore Throat General Chief Complaint: Upper Respiratory Symptoms Stated Complaint: dry cough/sore throat/asmatic Time Seen by Provider: 06/19/24 21:10 Related Data Home Medications ?Medication ?Instructions ?Recorded ?Confirmed fluticasone propionate 110 1 puff PO BID 03/26/22 05/25/24 mcg/actuation HFA aerosol inhaler (Flovent HFA) hydrochlorothiazide 25 mg tablet 25 mg PO DAILY 03/26/22 05/25/24 lisinopril 2.5 mg tablet 2.5 mg PO DAILY 03/26/22 05/25/24 quetiapine 25 mg tablet 25 mg PO BEDTIME 03/26/22 05/25/24 betamethasone valerate 0.1 % appl topical Q OTHER DAY 05/14/22 05/25/24 topical cream atorvastatin 40 mg tablet 40 mg PO DAILY 04/17/23 05/25/24 pantoprazole 40 mg tablet,delayed 40 mg PO DAILY 07/30/23 05/25/24 release Previous Rx's ?Medication ?Instructions ?Recorded nebulizers (AeroEclipse II #1 ea 10/31/21 Nebulizer) albuterol sulfate 2.5 mg/3 mL 2.5 mg (3 mL) inhalation Q4-6H PRN 01/09/22 (0.083 %) solution for nebulization shortness of breath or wheezing #90 mL albuterol sulfate 90 mcg/actuation 2 puff inhalation Q4-6H PRN 01/09/22 aerosol inhaler (ProAir HFA) shortness of breath or wheezing #8.5 grams albuterol sulfate 90 mcg/actuation 2 puff inhalation Q4-6H PRN 12/26/22 aerosol inhaler shortness of breath or wheezing #6.7 grams albuterol sulfate 90 mcg/actuation 2 puff inhalation Q6H PRN 05/10/23 aerosol inhaler shortness of breath or wheezing #8.5 grams linaclotide 72 mcg capsule 72 mcg PO QAM #30 caps 05/21/23 (Linzess) ibuprofen 600 mg tablet 600 mg PO Q6H PRN fever or pain 12/11/23 #30 tabs Actemra ACTPen 162 mg/0.9 mL 162 mg (0.9 mL) subcut Q2W #1.8 mL 05/07/24 subcutaneous pen injector (tocilizumab) benzonatate 200 mg capsule 200 mg PO TID PRN cough #20 caps 06/19/24 cefuroxime axetil 500 mg tablet 500 mg PO BID 7 days #14 tabs 06/19/24 Allergies Allergy/AdvReac Type Severity Reaction Status Date / Time morphine [MORPHINE] Allergy Severe CHEST Verified 06/19/24 17:05 PAIN, TROUBLE BREATHING, bruises Penicillins Allergy Intermediate RASH Verified 06/19/24 17:05 codeine Allergy Unknown Unknown Verified 06/19/24 17:05 tramadol [TRAMADOL] Allergy Unknown CHEST PAIN Verified 06/19/24 17:05 Percocet AdvReac Intermediate vomiting Uncoded 03/17/24 14:38 [facility] Past Medical History Medical History (Updated 06/20/24 @ 00:01 by Vamshi Mckeon) Headache Anemia History of pulmonary embolism Nephrolithiasis High cholesterol Asthma Hypertension Surgical History H/O breast biopsy History of hysterectomy H/O colonoscopy Family History Family History (Updated 05/25/24 @ 11:21 by Raheem Man MD) Mother Varicose vein of leg Depression Hypertension Asthma Heart disease Father Cerebrovascular accident (CVA) Kidney stones Sister Varicose vein of leg Depression Brother Depression Varicose vein of leg Daughter Varicose vein of leg Lupus anticoagulant disorder Maternal Grandfather Colon cancer Social History Social History Household Members: Family Household Members Other:: sister Housing: House Alcohol intake: never Patient Tobacco Use Status: Never used Tobacco Physical Exam Vital Signs: Vital Signs: Last Vital Signs Temp 97.8 F 06/19/24 22:35 Pulse 68 06/19/24 22:35 Resp 18 06/19/24 22:35 BP 183/65 H 06/19/24 22:35 Pulse Ox 98 06/19/24 22:35 O2 Del Method Room Air 06/19/24 22:35 BMI result Body Mass Index 41.4 Course Course Course Narrative: This is a Rapid Medical Exam performed in triage by Kayley Mejia PA-C. Full HPI, ROS and PE to be performed by primary ED provider. 73-year-old female with a past medical history of anemia, PE, nephrolithiasis, HLD, asthma, HTN presenting to the ED c/o dry cough x 4 days w/ fever, ESTRADA, rhinorrhea. denies CP PE: sating 97% on RA, talking in complete sentences Plan: CXR, viral testing Medications Administered Discontinued Medications Generic Name Dose Route Start Last Admin Trade Name Freq PRN Reason Stop Dose Admin Benzonatate 200 mg 06/19/24 22:04 06/19/24 22:33 Benzonatate 100 Mg Capsule PO 06/19/24 22:05 200 mg ONCE ONE Administration Cefuroxime Axetil 500 mg 06/19/24 22:04 06/19/24 22:33 Cefuroxime Axetil 500 Mg Tablet PO 06/19/24 22:05 500 mg ONCE ONE Administration Albuterol Sulfate 5 mg/ 0 mg 06/19/24 17:15 06/19/24 17:19 Albuterol/Ipratropium 3 ml INHALE 06/19/24 17:16 1 each ONCE ONE Administration Medical Decision Making Lab Data Labs: Lab Results 06/19/24 Range/Units 17:29 Influenza Type A (PCR) NEGATIVE (Negative) Influenza Type B (PCR) NEGATIVE (Negative) RSV RNA Qual (PCR) NEGATIVE (Negative) SARS-CoV-2 RNA (RT-PCR) NEGATIVE (Negative) Discharge Plan Discharge Clinical Impression: Acute bronchitis Patient Disposition: Home, Self-Care Instructions: Acute Bronchitis (ED) Additional Instructions: Continue to use your inhaler nebulizing treatment Antibiotic and cough drops as prescribed Follow with your PCP Prescriptions: New benzonatate 200 mg capsule 200 mg PO TID PRN (Reason: cough) Qty: 20 0RF cefuroxime axetil 500 mg tablet 500 mg PO BID 7 Days Qty: 14 0RF No Action Linzess 72 mcg capsule 72 mcg PO QAM Qty: 30 6RF Actemra ACTPen 162 mg/0.9 mL pen injector 162 mg subcut Q2W Qty: 1.8 2RF (DME) AeroEclipse II Nebulizer Misc See Rx Instructions .ROUTE .MEDSUPPLY Qty: 1 0RF Rx Instructions: As directed albuterol sulfate [ProAir HFA] 90 mcg/actuation HFA aerosol inhaler 2 puff inhalation Q4-6H PRN (Reason: shortness of breath or wheezing) Qty: 8.5 0RF albuterol sulfate 2.5 mg /3 mL (0.083 %) solution for nebulization 2.5 mg inhalation Q4-6H PRN (Reason: shortness of breath or wheezing) Qty: 90 0RF albuterol sulfate 90 mcg/actuation HFA aerosol inhaler 2 puff inhalation Q4-6H PRN (Reason: shortness of breath or wheezing) Qty: 6.7 0RF ibuprofen 600 mg tablet 600 mg PO Q6H PRN (Reason: fever or pain) Qty: 30 0RF albuterol sulfate 90 mcg/actuation HFA aerosol inhaler 2 puff inhalation Q6H PRN (Reason: shortness of breath or wheezing) Qty: 8.5 0RF fluticasone propionate [Flovent HFA] 110 mcg/actuation HFA aerosol inhaler 1 puff PO BID lisinopril 2.5 mg tablet 2.5 mg PO DAILY quetiapine 25 mg tablet 25 mg PO BEDTIME hydrochlorothiazide 25 mg tablet 25 mg PO DAILY betamethasone valerate 0.1 % cream topical Q OTHER DAY pantoprazole 40 mg tablet,delayed release (DR/EC) 40 mg PO DAILY atorvastatin 40 mg tablet 40 mg PO DAILY Interventions: ED Discharge Assessment Last Done: 06/19/24 22:35 Discharge Date/Time: 06/19/24 22:36 Print Language: Eritrean
[2024-06-19 17:19] VITALS: PULSE 72; RESP 18; O2SAT 96
[2024-06-19] MEDS: Albuterol Sulfate 5 MG, Albuterol/Iprat 2.5/0.5MG 3 ML 3 ML INHALE (17:19)
[2024-06-19 18:17] LABS: Influenza A PCR NEGATIVE (Negative); Influenza B PCR NEGATIVE (Negative); Resp Syncy Virus RNA Qual PCR NEGATIVE (Negative); SARS COV2 PCR INHOUSE NEGATIVE (Negative)
[2024-06-19 22:23] VITALS: BP 183/65; PULSE 68; RESP 18; TEMP 36.6; O2SAT 98
[2024-06-19] MEDS: cefuroxime axetiL 500 MG TABLET PO (22:33)
[2024-06-19] MEDS: Benzonatate 100 MG CAPSULE 200 MG PO (22:33)
[2024-06-19 22:35] VITALS: BP 183/65; PULSE 68; RESP 18; TEMP 36.6; O2SAT 98
--- NOTE | 2024-06-19 22:36 | PC.NURSE ---
pt medicated per CHARLES d/c instructions reviewed via software engineer.
== END 2024-06-19 22:36 | disposition home or self-care (01) ==
PROVIDERS: Physician Assistant; Emergency Provider Internal Medicine; PCP Internal Medicine
DX: J20.9 Acute bronchitis, unspecified (principal); J02.9 Acute pharyngitis, unspecified; Z03.818 Encounter for observation for suspected exposure to other biological agents ruled out; J45.909 Unspecified asthma, uncomplicated; Z79.899 Other long term (current) drug therapy
CPT/HCPCS: 0241U; 71046; 94640; 99284

== ENCOUNTER 2024-06-26 15:12 | Outpatient (REF) | payer OTHER, SELFPAY | END 2024-06-26 15:13 | disposition home or self-care (01) | LOC: HO.MRI 15:12 | PROVIDERS: PCP Internal Medicine; Visit Provider Student in an Organized Health Care Education/Training Program | DX: Z13.89 Encounter for screening for other disorder (principal) ==

== ENCOUNTER 2024-08-13 14:03 | Emergency (ER) | payer OTHER, SELFPAY ==
[2024-08-13] VITALS (8 sets, daily range): BP systolic 149–201; BP diastolic 71–86; PULSE 69–86; RESP 16–20; TEMP 36.7–37.3; O2SAT 95–100; BMI 38.3
--- NOTE | ~2024-08-13 | XR_ITS ---
EXAMINATION: XR CHEST CLINICAL INFORMATION: cough shortness of breath COMPARISON: None available. TECHNIQUE: 2 views of the chest were obtained. FINDINGS: The cardiac, hilar, and mediastinal contours are normal. Lungs demonstrate no discrete consolidation. There appears to be mild thickening of the bronchi, particularly notable in the left lower lobe distribution. There are no effusions. There is no pneumothorax. Findings There is no focal osseous or soft tissue abnormality. XR/XR chest 2V IMPRESSION: Mild thickening of the bronchi particularly notable left lower lobe, consistent with bronchitis versus bronchopneumonia. Electronically signed by: Adama Fernandez MD 08/13/2024 03:36 PM [facility] [place], [place]
--- NOTE | 2024-08-13 14:13 | ECG_ITS ---
Test Reason : chest pain Blood Pressure : / mmHG Vent. Rate : 072 BPM Atrial Rate : 072 BPM P-R Int : 144 ms QRS Dur : 082 ms QT Int : 422 ms P-R-T Axes : 018 065 036 degrees QTc Int : 462 ms Normal sinus rhythm Cannot rule out Anterior infarct , age undetermined Abnormal ECG When compared with ECG of 11-DEC-2023 14:53, Questionable change in QRS axis Nonspecific T wave abnormality has replaced inverted T waves in Inferior leads Referred By: Riccardo Corral Electronically Signed By:CARITO VICENTE MD
--- NOTE | 2024-08-13 14:46 | ED_ITS ---
HPI - General Adult General Chief complaint: Upper Respiratory Symptoms Stated complaint: CP, asthma Time Seen by Provider: 08/13/24 16:04 Source: patient Mode of arrival: ambulatory Limitations: no limitations History of Present Illness ED Provider: Dr. Megan Mathews HPI narrative: The patient comes to the emergency room complaining of congestion, cough, headache, generalized malaise, wheezing for approximately 3 days. Patient states that she has been using her nebulizer at home . Patient states that it does help her with the wheezing but she is still coughing quite a bit and is co ncerned that she is spiking fevers. Patient denies any chest pain. Related Data Home Medications ?Medication ?Instructions ?Recorded ?Confirmed fluticasone propionate 110 1 puff PO BID 03/26/22 05/25/24 mcg/actuation HFA aerosol inhaler (Flovent HFA) hydrochlorothiazide 25 mg tablet 25 mg PO DAILY 03/26/22 05/25/24 lisinopril 2.5 mg tablet 2.5 mg PO DAILY 03/26/22 05/25/24 quetiapine 25 mg tablet 25 mg PO BEDTIME 03/26/22 05/25/24 betamethasone valerate 0.1 % appl topical Q OTHER DAY 05/14/22 05/25/24 topical cream atorvastatin 40 mg tablet 40 mg PO DAILY 04/17/23 05/25/24 pantoprazole 40 mg tablet,delayed 40 mg PO DAILY 07/30/23 05/25/24 release Previous Rx's ?Medication ?Instructions ?Recorded nebulizers (AeroEclipse II #1 ea 10/31/21 Nebulizer) albuterol sulfate 2.5 mg/3 mL 2.5 mg (3 mL) inhalation Q4-6H PRN 01/09/22 (0.083 %) solution for nebulization shortness of breath or wheezing #90 mL albuterol sulfate 90 mcg/actuation 2 puff inhalation Q4-6H PRN 01/09/22 aerosol inhaler (ProAir HFA) shortness of breath or wheezing #8.5 grams albuterol sulfate 90 mcg/actuation 2 puff inhalation Q4-6H PRN 12/26/22 aerosol inhaler shortness of breath or wheezing #6.7 grams albuterol sulfate 90 mcg/actuation 2 puff inhalation Q6H PRN 05/10/23 aerosol inhaler shortness of breath or wheezing #8.5 grams linaclotide 72 mcg capsule 72 mcg PO QAM #30 caps 05/21/23 (Linzess) ibuprofen 600 mg tablet 600 mg PO Q6H PRN fever or pain 12/11/23 #30 tabs benzonatate 200 mg capsule 200 mg PO TID PRN cough #20 caps 06/19/24 cefuroxime axetil 500 mg tablet 500 mg PO BID 7 days #14 tabs 06/19/24 Actemra ACTPen 162 mg/0.9 mL 162 mg (0.9 mL) subcut Q2W #1.8 mL 08/06/24 subcutaneous pen injector (tocilizumab) albuterol sulfate 90 mcg/actuation 2 puff inhalation Q4-6H PRN 08/13/24 aerosol inhaler shortness of breath or wheezing #8.5 grams azithromycin 250 mg tablet 250 mg PO DAILY 4 days #4 tabs 08/13/24 cefuroxime axetil 500 mg tablet 500 mg PO BID #9 tabs 08/13/24 prednisone 50 mg tablet 50 mg PO DAILY #4 tabs 08/13/24 lisinopril 40 mg tablet 40 mg PO DAILY #90 tabs 08/14/24 Allergies Allergy/AdvReac Type Severity Reaction Status Date / Time morphine [MORPHINE] Allergy Severe CHEST Verified 08/13/24 14:48 PAIN, TROUBLE BREATHING, bruises Penicillins Allergy Intermediate RASH Verified 08/13/24 14:48 codeine Allergy Unknown Unknown Verified 08/13/24 14:48 tramadol [TRAMADOL] AdvReac Unknown Headache Verified 08/13/24 14:48 Percocet AdvReac Intermediate vomiting Uncoded 08/13/24 14:48 Review of Systems Review of Systems: Constitutional : No Weight loss, No Fever, No Chills, No Night Sweats, No Fatigue, No Malaise ENT/Mouth : No Hearing loss, No Ear Pain, No Nasal Congestion, No Sinus Pain, No Hoarseness, No sore throat, No Rhinorrhea, No Swallowing Difficulty Eyes: No Eye Pain, No Swelling, No Redness, No Foreign Body, No Discharge, No Vision Changes Cardiovascular : No Chest Pain, denies orthopnea, no palpitations Respiratory : Complaining of productive cough, wheezing, no significant shortness of breath Gastrointestinal : No Nausea, No Vomiting, No Diarrhea, No Constipation, No abdominal Pain, No Hematochezia, No Melena Genitourinary : no irregular bleeding, No Dysuria, No Urinary Frequency, No Hematuria, No Urinary Incontinence, No Urgency, No Flank Pain, No Urinary Flow Changes, No Hesitancy Musculoskeletal : No joint pain, No Myalgias, No Joint Swelling Skin : No Skin Lesions, No rash Neuro : No Weakness, No Numbness, No Paresthesias, No Loss of Consciousness, No Dizziness, No Headache Psych : No Anxiety/Panic, No Depression, No SI/HI/AH/VH, No Social Issues, Heme/Lymph: No Bruising, No Bleeding,No Lymphadenopathy Endocrine : No Polyuria, No Polydipsia, No Temperature Intolerance FOR[facility], [facility] Past Medical History Medical History Headache Anemia History of pulmonary embolism Nephrolithiasis High cholesterol Asthma Hypertension Surgical History H/O breast biopsy History of hysterectomy H/O colonoscopy Family History Family History (Updated 05/25/24 @ 11:21 by Raheem Man MD) Mother Varicose vein of leg Depression Hypertension Asthma Heart disease Father Cerebrovascular accident (CVA) Kidney stones Sister Varicose vein of leg Depression Brother Depression Varicose vein of leg Daughter Varicose vein of leg Lupus anticoagulant disorder Maternal Grandfather Colon cancer Social History Social History Household Members: Family Household Members Other:: sister Housing: House Alcohol intake: never Patient Tobacco Use Status: Never used Tobacco Advance Directives: No Advance Directives Information Provided: No Physical Exam ED Vital Signs: Vital Signs - 24 hr 08/13/24 14:47 08/13/24 16:33 08/13/24 18:33 Temperature 98.1 F Pulse Rate 80 69 Respiratory Rate 18 16 Blood Pressure 201/78 H 192/84 H 195/73 H Pulse Oximetry 100 96 Oxygen Delivery Method Room Air Room Air 08/13/24 20:18 08/13/24 20:51 08/13/24 21:32 Temperature 98.6 F 99.2 F Pulse Rate 80 72 Respiratory Rate 19 20 Blood Pressure 198/80 H 198/80 H 186/86 H Pulse Oximetry 95 96 Oxygen Delivery Method Room Air Room Air 08/13/24 22:13 08/13/24 22:38 Temperature 98.5 F Pulse Rate 72 86 Respiratory Rate 20 Blood Pressure 186/86 H 149/71 H Pulse Oximetry 96 Oxygen Delivery Method Room Air BMI result Body Mass Index 38.3 Const Other: Appearance: Alert. Oriented X3. No acute distress. Eyes: Pupils equal, round and reactive to light. ENT: Pharynx normal. Neck: Normal inspection. Neck supple. No lymph nodes noted. No crepitus CVS: Normal heart rate and rhythm. Pulses normal. Normal S1 and S2 Respiratory: No respiratory distress. Breath sounds normal. No Wheezing. No rales Abdomen: Soft and nontender. No rigidity. No distention. Skin: Skin warm and dry. Normal skin color. Normal skin turgor. Extremities: No lower extremity edema. No Lacerations. No Rash Neuro: Oriented X 3. No motor deficit. No sensory deficit. Moving all extremities. No slurred speech. CN 2 through 12 grossly intact Psych: calm, cooperative, normal affect Course Course Course Narrative: RME, this is a rapid medical exam performed by Mark Corral please refer to primary provider for complete H&P- 73-year-old female with past medical history significant for hyperlipidemia, asthma, giant cell arteritis, depression, obesity, hypertension presents for evaluation of cough, body aches, fever. She is well-appearing. Plan for chest x-ray and viral swab. EKG was performed on presentation Medications Administered Discontinued Medications Generic Name Dose Route Start Last Admin Trade Name Freq PRN Reason Stop Dose Admin Amlodipine Besylate 10 mg 08/13/24 20:39 08/13/24 20:51 Amlodipine Besylate 10 Mg Tablet PO 08/13/24 20:40 10 mg ONCE ONE Administration Protocol Azithromycin 500 mg 08/13/24 16:17 08/13/24 16:31 Azithromycin 500 Mg Tablet PO 08/13/24 16:18 500 mg ONCE ONE Administration Cefuroxime Axetil 500 mg 08/13/24 16:17 08/13/24 16:31 Cefuroxime Axetil 500 Mg Tablet PO 08/13/24 16:18 500 mg ONCE ONE Administration Labetalol HCl 100 mg 08/13/24 22:08 08/13/24 22:13 Labetalol Hcl 100 Mg Tablet PO 08/13/24 22:09 100 mg ONCE ONE Administration Protocol Lisinopril 40 mg 08/13/24 17:47 08/13/24 18:33 Lisinopril 40 Mg Tablet PO 08/13/24 17:48 40 mg ONCE ONE Administration Protocol Prednisone 40 mg 08/13/24 16:18 08/13/24 16:31 Prednisone 20 Mg Tablet PO 08/13/24 16:19 40 mg ONCE ONE Administration Medical Decision Making Medical Decision Making [facility] Narrative: Chest x-ray: Possible left lower lobe pneumonia. Patient was given cefuroxime p.o., azithromycin and prednisone. At this time, patient is not wheezing -patient's blood pressure was in the 190s, given lisinopril 40 mg without any significant relief. Then patient was given 10 mg of amlodipine, patient was still in the 190s. -subsequently, patient was given labetalol 100 mg p.o. Blood pressure improved to 149/71. I discussed with the patient that she needs to start taking a higher dose of lisinopril and add a 2nd blood pressure medication, patient agrees with plan Differential Diagnosis Differential Diagnoses: The differential diagnosis associated with the presentation includes (Viral syndrome, pneumonia, asthma exacerbation) Admission/Observation Consideration of admission/observation: Escalation of care including admission/observation considered (Given patient's consistent high blood pressure, observation/admission was considered) Lab Data [facility] Lab Attestation statement: I reviewed the patient's lab results. Labs: Lab Results 08/13/24 08/13/24 Range/Units 15:57 22:20 Troponin I High Sens 5.1 (<3.5-17.0) ng/L Influenza Type A (PCR) NEGATIVE (Negative) Influenza Type B (PCR) NEGATIVE (Negative) RSV RNA Qual (PCR) POSITIVE A (Negative) SARS-CoV-2 RNA (RT-PCR) NEGATIVE (Negative) Independent Interpretation I performed an independent interpretation of an: Plain X-Ray Radiology Impression Discussion of test interpretation with radiology: I have reviewed the radiologist's reading. Radiologist Impression: FINDINGS: The cardiac, hilar, and mediastinal contours are normal. Lungs demonstrate no discrete consolidation. There appears to be mild thickening of the bronchi, particularly notable in the left lower lobe distribution. There are no effusions. There is no pneumothorax. Findings There is no focal osseous or soft tissue abnormality. XR/XR chest 2V IMPRESSION: Mild thickening of the bronchi particularly notable left lower lobe, consistent with bronchitis versus bronchopneumonia. Critical Care Time Critical Care Time Critical Care Time: Yes Total Critical Care Time: 75 Attestation: I have personally provided critical care time. Time includes review of lab data, radiology results, discussion with consultants, and monitoring for potential decompensation. Intervention performed as documented. Discharge Plan Discharge Clinical Impression: Bronchopneumonia, Hypertension Patient Disposition: Home, Self-Care Instructions: Hypertension (ED), Pneumonia (ED) Additional Instructions: Please follow-up with your primary care physician tomorrow. Continue taking your blood pressure medications as prescribed by the exception of lisinopril, now you have a higher dose of 40 mg per day. If you have any worsening or new symptoms, please return to the emergency room or call 911 Prescriptions: New cefuroxime axetil 500 mg tablet 500 mg PO BID Qty: 9 0RF azithromycin 250 mg tablet 250 mg PO DAILY 4 Days Qty: 4 0RF Rx Instructions: start on day 2 of therapy prednisone 50 mg tablet 50 mg PO DAILY Qty: 4 0RF albuterol sulfate 90 mcg/actuation HFA aerosol inhaler 2 puff inhalation Q4-6H PRN (Reason: shortness of breath or wheezing) Qty: 8.5 0RF lisinopril 40 mg tablet 40 mg PO DAILY Qty: 90 0RF No Action Linzess 72 mcg capsule 72 mcg PO QAM Qty: 30 6RF Actemra ACTPen 162 mg/0.9 mL pen injector 162 mg subcut Q2W Qty: 1.8 2RF (DME) AeroEclipse II Nebulizer Misc See Rx Instructions .ROUTE .MEDSUPPLY Qty: 1 0RF Rx Instructions: As directed albuterol sulfate [ProAir HFA] 90 mcg/actuation HFA aerosol inhaler 2 puff inhalation Q4-6H PRN (Reason: shortness of breath or wheezing) Qty: 8.5 0RF albuterol sulfate 2.5 mg /3 mL (0.083 %) solution for nebulization 2.5 mg inhalation Q4-6H PRN (Reason: shortness of breath or wheezing) Qty: 90 0RF albuterol sulfate 90 mcg/actuation HFA aerosol inhaler 2 puff inhalation Q4-6H PRN (Reason: shortness of breath or wheezing) Qty: 6.7 0RF ibuprofen 600 mg tablet 600 mg PO Q6H PRN (Reason: fever or pain) Qty: 30 0RF benzonatate 200 mg capsule 200 mg PO TID PRN (Reason: cough) Qty: 20 0RF cefuroxime axetil 500 mg tablet 500 mg PO BID 7 Days Qty: 14 0RF albuterol sulfate 90 mcg/actuation HFA aerosol inhaler 2 puff inhalation Q6H PRN (Reason: shortness of breath or wheezing) Qty: 8.5 0RF fluticasone propionate [Flovent HFA] 110 mcg/actuation HFA aerosol inhaler 1 puff PO BID lisinopril 2.5 mg tablet 2.5 mg PO DAILY quetiapine 25 mg tablet 25 mg PO BEDTIME hydrochlorothiazide 25 mg tablet 25 mg PO DAILY betamethasone valerate 0.1 % cream topical Q OTHER DAY pantoprazole 40 mg tablet,delayed release (DR/EC) 40 mg PO DAILY atorvastatin 40 mg tablet 40 mg PO DAILY Print Language: Afghan
[2024-08-13] MEDS: predniSONE 20 MG TABLET 40 MG PO (16:31)
[2024-08-13] MEDS: Azithromycin 500 MG TABLET PO (16:31)
[2024-08-13] MEDS: cefuroxime axetiL 500 MG TABLET PO (16:31)
[2024-08-13 16:39] LABS: Influenza A PCR NEGATIVE (Negative); Influenza B PCR NEGATIVE (Negative); Resp Syncy Virus RNA Qual PCR POSITIVE (Negative); SARS COV2 PCR INHOUSE NEGATIVE (Negative)
[2024-08-13] MEDS: lisinopriL 40 MG TABLET PO (18:33)
[2024-08-13] MEDS: amLODIPine Besylate 10 MG TABLET PO (20:51)
[2024-08-13] MEDS: Labetalol HCL 100 MG TABLET PO (22:13)
[2024-08-13 22:45] LABS: Troponin-I High Sensitivity 5.1 ng/L (<3.5-17.0)
[2024-08-14 00:29] VITALS: BP 142/68; PULSE 79; RESP 18; TEMP 36.2; O2SAT 95
[2024-08-14 00:52] VITALS: BP 142/68; PULSE 79; RESP 18; TEMP 36.2; O2SAT 95
== END 2024-08-14 00:53 | disposition home or self-care (01) ==
PROVIDERS: Physician Assistant; Emergency Provider Emergency Medicine; PCP Internal Medicine
DX: J18.0 Bronchopneumonia, unspecified organism (principal); I10 Essential (primary) hypertension; R05.9 Cough, unspecified; R51.9 Headache, unspecified; R53.81 Other malaise; J45.909 Unspecified asthma, uncomplicated; Z79.899 Other long term (current) drug therapy; Z03.818 Encounter for observation for suspected exposure to other biological agents ruled out
CPT/HCPCS: 0241U; 36415; 71046; 84484; 93005; 99283; 99284

== ENCOUNTER → 2024-08-13 14:13 | Outpatient (BNV) | payer OTHER, SELFPAY | PROVIDERS: Emergency Provider Emergency Medicine; PCP Internal Medicine; Visit Provider Internal Medicine Cardiovascular Disease | DX: R07.9 Chest pain, unspecified (principal) | CPT/HCPCS: 93010 ==

== ENCOUNTER → 2024-08-13 14:47 | Outpatient (BNV) | payer OTHER, SELFPAY | PROVIDERS: PCP Internal Medicine; Visit Provider Radiology Diagnostic Radiology | DX: R06.02 Shortness of breath (principal) | CPT/HCPCS: 71046 ==

== ENCOUNTER 2024-08-14 14:11 | Emergency (ER) | payer OTHER, SELFPAY ==
--- NOTE | ~2024-08-14 | XR_ITS ---
EXAMINATION: XR CHEST CLINICAL INFORMATION: sob, dx with pne yesterday COMPARISON: Chest x-ray on 08/13/2024 TECHNIQUE: 2 views of the chest were obtained. FINDINGS: The cardiac silhouette is normal. There is mild diffuse bronchial wall thickening. There are no areas of consolidation. There are no pleural effusions or pneumothoraces. The bones and soft tissues are unremarkable for the patient's age. XR/XR chest 2V IMPRESSION: Bronchial wall thickening may be infectious and/or inflammatory in etiology. Electronically signed by: Darling Sol MD 08/14/2024 05:08 PM [facility]
[2024-08-14 15:01] VITALS: BP 193/68; PULSE 79; RESP 20; TEMP 37; O2SAT 97; BMI 28.3
--- NOTE | 2024-08-14 15:01 | ED_ITS ---
HPI - General Adult General Chief complaint: General Medical Stated complaint: multiple symptoms Time Seen by Provider: 08/14/24 17:18 Source: patient Limitations: language barrier History of Present Illness ED Provider: Jenny shin PA-C HPI narrative: 73-year-old female with a history of hypertension, hyperlipidemia, migraine, depression/anxiety, sleep apnea and asthma, presents with multiple complaints. Patient was seen here yesterday diagnosed with bronchopneumonia, she was sent with treatment for concurrent asthma exacerbation along with the antibiotics. Patient also was sent with an additional prescription for lisinopril, her blood pressure has been poorly controlled. 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 She has not taken her medication yet today. Patient is also here because she ?I do not feel well yet?. No change in symptoms. Related Data Home Medications ?Medication ?Instructions ?Recorded ?Confirmed fluticasone propionate 110 1 puff PO BID 03/26/22 05/25/24 mcg/actuation HFA aerosol inhaler (Flovent HFA) hydrochlorothiazide 25 mg tablet 25 mg PO DAILY 03/26/22 05/25/24 lisinopril 2.5 mg tablet 2.5 mg PO DAILY 03/26/22 05/25/24 quetiapine 25 mg tablet 25 mg PO BEDTIME 03/26/22 05/25/24 betamethasone valerate 0.1 % appl topical Q OTHER DAY 05/14/22 05/25/24 topical cream atorvastatin 40 mg tablet 40 mg PO DAILY 04/17/23 05/25/24 pantoprazole 40 mg tablet,delayed 40 mg PO DAILY 07/30/23 05/25/24 release Previous Rx's ?Medication ?Instructions ?Recorded nebulizers (AeroEclipse II #1 ea 10/31/21 Nebulizer) albuterol sulfate 2.5 mg/3 mL 2.5 mg (3 mL) inhalation Q4-6H PRN 01/09/22 (0.083 %) solution for nebulization shortness of breath or wheezing #90 mL albuterol sulfate 90 mcg/actuation 2 puff inhalation Q4-6H PRN 01/09/22 aerosol inhaler (ProAir HFA) shortness of breath or wheezing #8.5 grams albuterol sulfate 90 mcg/actuation 2 puff inhalation Q4-6H PRN 12/26/22 aerosol inhaler shortness of breath or wheezing #6.7 grams albuterol sulfate 90 mcg/actuation 2 puff inhalation Q6H PRN 05/10/23 aerosol inhaler shortness of breath or wheezing #8.5 grams linaclotide 72 mcg capsule 72 mcg PO QAM #30 caps 05/21/23 (Linzess) ibuprofen 600 mg tablet 600 mg PO Q6H PRN fever or pain 12/11/23 #30 tabs benzonatate 200 mg capsule 200 mg PO TID PRN cough #20 caps 06/19/24 cefuroxime axetil 500 mg tablet 500 mg PO BID 7 days #14 tabs 06/19/24 Actemra ACTPen 162 mg/0.9 mL 162 mg (0.9 mL) subcut Q2W #1.8 mL 08/06/24 subcutaneous pen injector (tocilizumab) albuterol sulfate 90 mcg/actuation 2 puff inhalation Q4-6H PRN 08/13/24 aerosol inhaler shortness of breath or wheezing #8.5 grams azithromycin 250 mg tablet 250 mg PO DAILY 4 days #4 tabs 08/13/24 cefuroxime axetil 500 mg tablet 500 mg PO BID #9 tabs 08/13/24 prednisone 50 mg tablet 50 mg PO DAILY #4 tabs 08/13/24 lisinopril 40 mg tablet 40 mg PO DAILY #90 tabs 08/14/24 ondansetron HCl 4 mg tablet 4 mg PO Q8H PRN nausea and 08/14/24 vomiting #10 tabs Allergies Allergy/AdvReac Type Severity Reaction Status Date / Time morphine [MORPHINE] Allergy Severe CHEST Verified 08/14/24 15:05 PAIN, TROUBLE BREATHING, bruises Penicillins Allergy Intermediate RASH Verified 08/14/24 15:05 codeine Allergy Unknown Unknown Verified 08/14/24 15:05 tramadol [TRAMADOL] AdvReac Unknown Headache Verified 08/14/24 15:05 Percocet AdvReac Intermediate vomiting Uncoded 08/14/24 15:05 Review of Systems 2 Review of Systems: Yes all other systems are reviewed and are negative Constitutional: Constitutional: Denies fatigue, Denies fever(s), Reports lethargy and Reports malaise Cardiovascular: Cardiovascular: Reports chest pain and Reports dyspnea Respiratory: Respiratory: Reports cough, Reports dyspnea and Reports wheezing Gastrointestinal: Gastrointestinal: Denies abdominal pain, Reports nausea and Denies vomiting Endocrine: Endocrine: Denies fatigue Allergic/Immunologic: Allergic/Immunologic: Reports wheezing PMFSH Past Medical History Attestation statement: The following information was validated with the patient. Medical History Headache Anemia History of pulmonary embolism Nephrolithiasis High cholesterol Asthma Hypertension Surgical History H/O breast biopsy History of hysterectomy H/O colonoscopy Family History Family History (Updated 05/25/24 @ 11:21 by Raheem Man MD) Mother Varicose vein of leg Depression Hypertension Asthma Heart disease Father Cerebrovascular accident (CVA) Kidney stones Sister Varicose vein of leg Depression Brother Depression Varicose vein of leg Daughter Varicose vein of leg Lupus anticoagulant disorder Maternal Grandfather Colon cancer Social History Social History Household Members: Family Household Members Other:: sister Housing: House Alcohol intake: never Patient Tobacco Use Status: Never used Tobacco Advance Directives: No Advance Directives Information Provided: No Physical Exam ED Vital Signs: Vital Signs - 24 hr 08/14/24 15:01 08/14/24 17:15 Temperature 98.6 F 97.7 F Pulse Rate 79 82 Respiratory Rate 20 16 Blood Pressure 193/68 H 191/68 H Pulse Oximetry 97 100 Oxygen Delivery Method Room Air Room Air BMI result Body Mass Index 28.3 Const Other: Alert, well-appearing Orientation/consciousness: patient oriented x3 Resp Other: Nonlabored respiration Cardio Other: Normal peripheral perfusion Skin Other: Warm dry no rash Neuro General: patient oriented x3, gait normal, no focal motor deficits and CN's II- XI intact bilaterally Psych Other: Calm cooperative Course Course Course Narrative: This is an RME: Additional HPI, ROS, PE not included below will be deferred to primary provider. RME assessment and note performed by: Tiffanie Gusman PA-C This is a 17-mcgp-gbh-female, hyperlipidemia, asthma, giant cell arteritis, depression, obesity, hypertension, who presents to the ER with complaints of chest pain, abdominal pain, and nausea. Pt was seen last night and was diagnosed with pneumonia, rsv and bronchitis. She was dc on prednisone, cefuroxime and azithromycin. She accidentally took a double dose of cefuroxime this AM and developed the abdominal pain and nausea started after. Reports that symptoms worsened today. Inspiratory and expiratory wheezes noted throughout Plan: Labs, EKG, CXR, further ER eval needed. Medical Decision Making Medical Decision Making [facility] Narrative: 73-year-old female with a history of hypertension, hyperlipidemia, migraine, depression/anxiety, sleep apnea and asthma, presents with multiple complaints. Patient was seen here yesterday diagnosed with bronchopneumonia, she was sent with treatment for concurrent asthma exacerbation along with the antibiotics. Patient also was sent with an additional prescription for lisinopril, her blood pressure has been poorly controlled. 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 She has not taken her medication yet today. Patient is also here because she ?I do not feel well yet?. No change in symptoms. Problem: Age, hypertension, asthma History: Per patient I have considered the following differential diagnoses: Worsening asthma, worsening pneumonia, hypertensive urgency, hypertensive emergency, ACS Plan: I explained to the patient that it would take a few days for her to begin feeling well. In regard to her blood pressure medication, I will give her the dose she should have taken today, she states it we will be ready at the pharmacy tomorrow. Screening labs including a chest x-ray cardiac enzyme and EKG were obtained yet again, no change from yesterday. This is not ACS, the patient has been complaining of chest discomfort with her coughing and asthma exacerbation. Patient verbalizes understanding and understands she needs to follow up with the primary care provider and she needs to take the prescribed medications that she was given. Patient states she mistakenly took 2 antibiotics at the same time, she then became nauseous. I have instructed her to read the directions and take her medication as directed, I will send her with Rosio to have at home. Furthermore the chest x-ray is somewhat improved from yesterday. I have independently reviewed the following tests: Labs: No leukocytosis, not anemic, no electrolyte abnormality, troponin unchanged from yesterday, EKG: Normal sinus rhythm, rate of 72, no ischemic changes no ectopy Chest x-ray: XR/XR chest 2V IMPRESSION: Bronchial wall thickening may be infectious and/or inflammatory in etiology. Lab Data 08/14/24 15:36 08/14/24 15:36 Labs: Lab Results 08/14/24 Range/Units 15:36 WBC 4.7 L (4.8-10.8) X10*3/uL RBC 4.79 (4.20-5.50) X10*6/uL Hgb 12.6 (12.0-16.0) g/dl Hct 40.2 (37.0-47.0) % MCV 83.9 (80.0-98.0) fL MCH 26.3 L (27.0-33.0) pg MCHC 31.3 (31.0-35.0) g/dl RDW 15.1 (11.0-16.0) % Plt Count 244 (160-400) X10*3/uL MPV 10.3 (9.4-12.3) fL Immature Gran % (Auto) 0.6 H (0.0-0.4) % Neut % (Auto) 87.8 H (45-73) % Lymph % (Auto) 8.9 L (20-40) % Fannin % (Auto) 2.5 (2-11) % Eos % (Auto) 0.0 (0-4) % Baso % (Auto) 0.2 (0-2) % Lymph # (Auto) 0.4 L (1.2-4.9) X10*3/uL Fannin # (Auto) 0.1 (0.1-1.2) X10*3/uL Eos # (Auto) 0.0 (0.0-0.4) X10*3/uL Baso # (Auto) 0.0 (0.0-0.2) X10*3/uL Abs Immat Gran (auto) 0.03 (0.00-0.03) X10*3/uL Absolute Neuts (auto) 4.2 (2.0-8.3) x10*3/uL Absolute Nucleated RBC 0.000 (0.0-0.012) X10*3/uL Nucleated RBC % (auto) 0.0 (0.0-0.2) /100WBC Sodium 139 (135-145) mmol/L Potassium 3.9 (3.3-5.1) mmol/L Chloride 103 (96-108) mmol/L Carbon Dioxide 26 (22-29) mmol/L Anion Gap 14 (12-20) BUN 24 H (9-16) mg/dL Creatinine 1.27 (0.5-1.4) mg/dL Estim Creat Clear Calc 44.9 Estimated GFR 41 Random Glucose 192 H (60-115) mg/dL Calcium 9.5 D (8.4-10.2) mg/dL Magnesium 1.8 (1.6-2.6) mg/dL Total Bilirubin 0.5 (0.0-1.0) mg/dL AST 33 H (5-31) U/L ALT 24 (0-31) U/L Alkaline Phosphatase 80 (39-117) U/L Troponin I High Sens 5.5 (<3.5-17.0) ng/L B-Natriuretic Peptide 93 (<100) pg/mL Total Protein 8.5 H (6.5-8.0) g/dL Albumin 4.2 (3.5-5.0) g/dL Lipase 16 (8-78) U/L Discharge Plan Discharge Clinical Impression: Bronchopneumonia Patient Disposition: Home, Self-Care Instructions: Pneumonia (ED) Additional Instructions: There were no change in your lab studies today, your chest x-ray is improved from yesterday. It is expected that you will not instantaneously feel better immediately. It will take a few days for you to feel better. Take your prescribed medications as directed, read the instructions. I have sent you with a prescription for Zofran, this is used for nausea. You need to follow up with your primary care provider next week for a recheck. Prescriptions: New ondansetron HCl 4 mg tablet 4 mg PO Q8H PRN (Reason: nausea and vomiting) Qty: 10 0RF No Action Linzess 72 mcg capsule 72 mcg PO QAM Qty: 30 6RF Actemra ACTPen 162 mg/0.9 mL pen injector 162 mg subcut Q2W Qty: 1.8 2RF (DME) AeroEclipse II Nebulizer Misc See Rx Instructions .ROUTE .MEDSUPPLY Qty: 1 0RF Rx Instructions: As directed albuterol sulfate [ProAir HFA] 90 mcg/actuation HFA aerosol inhaler 2 puff inhalation Q4-6H PRN (Reason: shortness of breath or wheezing) Qty: 8.5 0RF albuterol sulfate 2.5 mg /3 mL (0.083 %) solution for nebulization 2.5 mg inhalation Q4-6H PRN (Reason: shortness of breath or wheezing) Qty: 90 0RF albuterol sulfate 90 mcg/actuation HFA aerosol inhaler 2 puff inhalation Q4-6H PRN (Reason: shortness of breath or wheezing) Qty: 6.7 0RF ibuprofen 600 mg tablet 600 mg PO Q6H PRN (Reason: fever or pain) Qty: 30 0RF benzonatate 200 mg capsule 200 mg PO TID PRN (Reason: cough) Qty: 20 0RF cefuroxime axetil 500 mg tablet 500 mg PO BID 7 Days Qty: 14 0RF cefuroxime axetil 500 mg tablet 500 mg PO BID Qty: 9 0RF azithromycin 250 mg tablet 250 mg PO DAILY 4 Days Qty: 4 0RF Rx Instructions: start on day 2 of therapy prednisone 50 mg tablet 50 mg PO DAILY Qty: 4 0RF albuterol sulfate 90 mcg/actuation HFA aerosol inhaler 2 puff inhalation Q4-6H PRN (Reason: shortness of breath or wheezing) Qty: 8.5 0RF lisinopril 40 mg tablet 40 mg PO DAILY Qty: 90 0RF albuterol sulfate 90 mcg/actuation HFA aerosol inhaler 2 puff inhalation Q6H PRN (Reason: shortness of breath or wheezing) Qty: 8.5 0RF fluticasone propionate [Flovent HFA] 110 mcg/actuation HFA aerosol inhaler 1 puff PO BID lisinopril 2.5 mg tablet 2.5 mg PO DAILY quetiapine 25 mg tablet 25 mg PO BEDTIME hydrochlorothiazide 25 mg tablet 25 mg PO DAILY betamethasone valerate 0.1 % cream topical Q OTHER DAY pantoprazole 40 mg tablet,delayed release (DR/EC) 40 mg PO DAILY atorvastatin 40 mg tablet 40 mg PO DAILY Print Language: Chinese
[2024-08-14 15:43] LABS: MANUAL DIFF FLAG NO
[2024-08-14 15:46] LABS: Basophils Percent Auto 0.2 % (0-2); Hematocrit 40.2 % (37.0-47.0); Hemoglobin 12.6 g/dl (12.0-16.0); Imm Gran Abs Auto 0.03 X10*3/uL (0.00-0.03); Imm Gran Pct Auto 0.6 % (0.0-0.4); Lymphocytes Absolute Auto 0.4 X10*3/uL (1.2-4.9); Lymphocytes Percent Auto 8.9 % (20-40); Mean Corpuscular HGB Conc 31.3 g/dl (31.0-35.0); Mean Corpuscular Hemoglobin 26.3 pg (27.0-33.0); Mean Corpuscular Volume 83.9 fL (80.0-98.0); Mean Platelet Volume 10.3 fL (9.4-12.3); Monocytes Absolute Auto 0.1 X10*3/uL (0.1-1.2); Monocytes Percent Auto 2.5 % (2-11); Neutrophils Absolute Auto 4.2 x10*3/uL (2.0-8.3); Neutrophils Percent Auto 87.8 % (45-73); Platelet Count 244 X10*3/uL (160-400); Red Blood Count 4.79 X10*6/uL (4.20-5.50); Red Cell Distribution Width 15.1 % (11.0-16.0); White Blood Count 4.7 X10*3/uL (4.8-10.8)
[2024-08-14 16:00] LABS: Alanine Aminotransferase 24 U/L (0-31); Albumin Level 4.2 g/dL (3.5-5.0); Alkaline Phosphatase 80 U/L (39-117); Anion Gap 14 (12-20); Aspartate Amino Transferase 33 U/L (5-31); Bilirubin Total 0.5 mg/dL (0.0-1.0); Blood Urea Nitrogen 24 mg/dL (9-16); Calcium 9.5 mg/dL (8.4-10.2); Carbon Dioxide 26 mmol/L (22-29); Chloride 103 mmol/L (96-108); Creatinine Clr Calc Pharmacy 44.9; Estimated Glomerular Filt Rate 41; Glucose Random 192 mg/dL (60-115); Lipase 16 U/L (8-78); Magnesium 1.8 mg/dL (1.6-2.6); Potassium 3.9 mmol/L (3.3-5.1); Sodium 139 mmol/L (135-145); Total Protein 8.5 g/dL (6.5-8.0)
[2024-08-14 16:05] LABS: B Type Natriuretic Peptide 93 pg/mL (<100)
[2024-08-14 16:07] LABS: Troponin-I High Sensitivity 5.5 ng/L (<3.5-17.0)
[2024-08-14 17:15] VITALS: BP 191/68; PULSE 82; RESP 16; TEMP 36.5; O2SAT 100
[2024-08-14 18:46] VITALS: BP 178/65; PULSE 82; RESP 16; TEMP 36.7; O2SAT 98
[2024-08-14 18:48] VITALS: BP 178/65
[2024-08-14] MEDS: Ondansetron ODT 4 MG TAB.RAPDIS TRANSLINGU (18:48)
[2024-08-14] MEDS: lisinopriL 40 MG TABLET PO (18:48)
[2024-08-14 19:03] VITALS: BP 178/65; PULSE 84; RESP 18; TEMP 37; O2SAT 98
== END 2024-08-14 19:04 | disposition home or self-care (01) ==
PROVIDERS: Physician Assistant Medical; Emergency Provider Emergency Medicine; PCP Internal Medicine
DX: J18.0 Bronchopneumonia, unspecified organism (principal); R06.02 Shortness of breath; R05.9 Cough, unspecified; I10 Essential (primary) hypertension; E78.5 Hyperlipidemia, unspecified; J45.909 Unspecified asthma, uncomplicated; Z86.711 Personal history of pulmonary embolism
CPT/HCPCS: 36415; 71046; 80053; 83690; 83735; 83880; 84484; 85025; 99283; 99284

== ENCOUNTER → 2024-09-04 13:37 | Outpatient (BNV) | payer OTHER, SELFPAY | PROVIDERS: PCP Internal Medicine; Visit Provider Radiology Diagnostic Radiology | DX: R93.2 Abnormal findings on diagnostic imaging of liver and biliary tract (principal) | CPT/HCPCS: 74183 ==

== ENCOUNTER 2024-09-04 13:38 | Outpatient (REF) | payer OTHER, SELFPAY ==
--- NOTE | ~2024-09-04 | MR_ITS ---
EXAMINATION: MRI Abdomen without and with contrast HISTORY: R93.2 - Abnormal findings on diagnostic imaging of liver and biliary tract COMPARISON: Correlation is made with a CT of the abdomen dated 12/24/2021. TECHNIQUE: Axial T1-weighted gradient echo, axial diffusion weighted, axial HASTE, and axial HASTE T2 with fat saturation images were obtained through the abdomen. Subsequently, fat suppressed axial and coronal T1-weighted images were obtained after the intravenous administration of 10 mL Gadavist. FINDINGS: Examination is mildly limited by patient motion. There is no intra or extrahepatic biliary ductal dilatation. No enhancing liver mass is identified. The hepatic and portal veins are patent. The patient is status post cholecystectomy. The spleen, pancreas, adrenals, and right kidney are unremarkable. There is a 1.5 cm cyst at the lower pole of the left kidney. No retroperitoneal lymphadenopathy or ascites is identified in the upper abdomen. MR/MR abdomen wo/w con IMPRESSION: Mildly motion limited examination. Status post cholecystectomy. No liver mass is identified. Electronically signed by: Ed Lovell MD 09/06/2024 09:04 AM [facility] [place]
[2024-09-04] MEDS: gadobutroL 10 ML VIAL IVPUSH (14:20)
== END 2024-09-04 13:39 | disposition home or self-care (01) ==
LOC: HO.MRI 13:38
PROVIDERS: PCP Internal Medicine; Visit Provider Student in an Organized Health Care Education/Training Program
DX: R93.2 Abnormal findings on diagnostic imaging of liver and biliary tract (principal)
CPT/HCPCS: 74183; A9585

== ENCOUNTER 2024-10-14 07:43 | Outpatient (AMB) | payer OTHER, SELFPAY ==
--- NOTE | 2024-10-14 07:44 | A.OFFVIS_ITS ---
Vital Signs 10/14/24 07:51 Height 5 ft Weight 212 lb 4.882 oz BMI 41.5 BP 150/64 H Blood Pressure Location Rt brachial Position Sitting Pulse 63 Pulse Source Pulse Oximeter Pulse Oximetry (%) 98 Oxygen Delivery Method Room Air Intake Visit Reasons: GCA Intake Note: * Patient presents for GCA. Examination Grader Required: Yes Examination Grader Language: Spool Cleaner Services: Examination Grader Offered & Declined Examination Grader Name: Thais Muñoz Information Interpreted: non-clinical & clinical Accompanied by: Daughter Allergies morphine [MORPHINE] Allergy (Severe, Verified 10/14/24 07:50) CHEST PAIN, TROUBLE BREATHING, bruises Penicillins Allergy (Intermediate, Verified 10/14/24 07:50) RASH codeine Allergy (Unknown, Verified 10/14/24 07:50) Unknown tramadol [TRAMADOL] Adverse Reaction (Unknown, Verified 10/14/24 07:50) Headache Percocet Adverse Reaction (Intermediate, Uncoded 08/14/24 15:05) vomiting Medication List - Last Reconciled 10/14/24 by Paola Morgan MD Actemra ACTPen (tocilizumab) 162 mg (0.9 mL) subcut Q2W NS albuterol sulfate 2.5 mg (3 mL) inhalation Q4-6H PRN albuterol sulfate 90 mcg/actuation (ProAir HFA) 2 puffs inhalation Q4-6H PRN albuterol sulfate 90 mcg/actuation 2 puffs inhalation Q4-6H PRN albuterol sulfate 90 mcg/actuation 2 puffs inhalation Q4-6H PRN albuterol sulfate 90 mcg/actuation 2 puffs inhalation Q6H PRN atorvastatin 40 mg PO DAILY azithromycin 250 mg PO DAILY 4 days benzonatate 200 mg PO TID PRN betamethasone valerate 0.1% appl topical Q OTHER DAY cefuroxime axetil 500 mg PO BID 7 days cefuroxime axetil 500 mg PO BID fluticasone propionate 110 mcg/actuation (Flovent HFA) 1 puff PO BID hydrochlorothiazide 25 mg PO DAILY ibuprofen 600 mg PO Q6H PRN linaclotide (Linzess) 72 mcg PO QAM lisinopril 40 mg PO DAILY lisinopril 2.5 mg PO DAILY nebulizers (AeroEclipse II Nebulizer) As directed ondansetron HCl 4 mg PO Q8H PRN pantoprazole 40 mg PO DAILY quetiapine 25 mg PO BEDTIME HPI Comments Details: Patient is a 74-year-old female with hyperlipidemia, hypertension, migraines, polyarticular osteoarthritis and GCA here today for follow up Interval History: Rheumatologic History: Initial history : This is a 73-year-old female who is referred by Neurology for evaluation of elevated inflammatory markers. Patient and her daughter are both poor historians. Back in November of 2022 patient presented to the ER with abdominal pain. 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 Inflammatory markers were significantly elevated. She was then referred to neurologist. Of note patient has a history of PE back in 2011 and was on anticoagulation for 6 years which was discontinued due to splenic hemorrhage. Patient's daughter also mentions he has history of hypercoagulable state, history of PE and taking warfarin regularly. Patient's brother has history of thick blood She also mentions that she has history of headaches, intermittent blurry vision, she could not specify the nature of the headaches and whether 1 or 2 eyes are involved. She denies any jaw or tongue claudication. Patient received steroid injections for her knees and shoulders by Dr. Cormier, most recent injection was 10/01/2023. She states that whenever she received those injections she feels much better overall. She states that she lost about 25 lb over the last year due to decreased appetite. She denies any fevers. She states that she has had a rash on her cheeks for about a year and she was told this was allergies and she uses a steroid cream. She can not tell whether the rash is photosensitive. Patient has history of 4 pregnancies, 3 children and 1 . She denies history suggestive of Raynaud's. She denies any swollen joints. Patient was referred for temporal artery biopsy by neurologist. 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 She was started on steroids and Actemra Current Rheumatology Medication(s): [facility] Medical History Headache Anemia History of pulmonary embolism Nephrolithiasis High cholesterol Asthma Hypertension Surgical History H/O breast biopsy History of hysterectomy H/O colonoscopy Family History (Updated 05/25/24 @ 11:21 by Raheem Man MD) Mother Varicose vein of leg Depression Hypertension Asthma Heart disease Father Cerebrovascular accident (CVA) Kidney stones Sister Varicose vein of leg Depression Brother Depression Varicose vein of leg Daughter Varicose vein of leg Lupus anticoagulant disorder Maternal Grandfather Colon cancer Social History Household Members: Family Household Members Other:: sister Housing: House Alcohol intake: never Patient Tobacco Use Status: Never used Tobacco Review of Systems Const Details: Review of Systems Constitutional: Denies fever, chills, weight loss ENT: Denies vision changes, eye pain or eye redness, dental caries, dry mouth GI: Denies nausea, vomiting, diarrhea, abdominal pain, change in BM Pulm: Denies SOB, PALENCIA, hemoptysis, wheezing Cards: Denies chest pain, palpitations Skin: Denies Raynaud's, rash, nail changes, photosensitivity, BURNER SHAFT: Denies headaches, weakness, paresthesias, recurrent falls MSK: as per HPI All other systems reviewed and are unremarkable except noted above Physical Exam Vital signs reviewed Physical Examination CONSTITUITIONAL Patient alert and cooperative. Well appearing and in no apparent painful distress HEENT Conjunctiva and sclera clear. ?Pupils equal round and reactive to light. ?No lymphadenopathy. normal TA pulses bilaterally? CHEST/RESPIRATORY SYSTEM Normal respiratory effort and able to speak in complete sentences. ?Clear to auscultation bilaterally. ?No crackles, rales, rhonchi, wheezes heard. CARDIAC SYSTEM Regular rate and rhythm. ?S1 and S2 heard no murmurs. 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 No deformities noted. ?No synovitis noted to the MCPs, PIPs or DIPs. ?No tenderness to palpation of these joints. Herbedens nodes Wrists: ?Full range of motion at the wrists without pain. ?No tenderness to palpation or synovitis noted to the wrists. Elbows: Full range of motion without pain. No tenderness, weakness, swelling, in creased warmth or erythema. Shoulders: Full range of motion without pain. No tenderness, weakness, swelling, increased warmth or erythema. Hips: Full range of motion without pain. Hip bursa: No tenderness to palpation Knees: ?Full range of motion. ?No tenderness, swelling, increased warmth or erythema.?No effusion or crepitations Ankles: Full range of motion. ?No tenderness, swelling, increased warmth or erythema.? Feet: ?Negative squeeze test. ?No tenderness to palpation or swelling of the MTPs. Tender points:?No tenderness to palpation of the bilateral trapezius, supraspinatus, greater trochanters, anterior costochondral junctions, bilateral gluteal areas, bilateral suboccipital muscle insertions SKIN Skin intact without rashes. Results Reviewed Results Reviewed: Laboratory Tests 11/13/23 11/15/23 08/14/24 14:50 09:29 15:36 WBC 4.7 L RBC 4.79 Hgb 12.6 Hct 40.2 Plt Count 244 Sodium 139 Potassium 3.9 Chloride 103 Carbon Dioxide 26 BUN 24 H Creatinine 1.27 Calcium 9.5 D Magnesium 1.8 Total Bilirubin 0.5 AST 33 H ALT 24 Alkaline Phosphatase 80 C-Reactive Protein 1.70 H Total Protein 8.5 H Albumin 4.2 Cycl Citrul Peptide IgG [address] Whole Body 02/04/24 Impression: 1. 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 Nonspecific FDG activity in the shoulders and knees, greatest in the left k nee. Differentials include myalgia rheumatica and/or degenerative changes. Correlation with laboratory values is recommended. 3. Focal FDG activity in the inferior right hepatic lobe either represents an underlying liver lesion or volume averaging with underlying wall. Attention to this area can be made on follow up imaging or alternative this can be assessed with contrast-enhanced MRI of the abdomen MRI w/wo contrast Abdomen 09/04/24 FINDINGS: Examination is mildly limited by patient motion. There is no intra or extrahepatic biliary ductal dilatation. No enhancing liver mass is identified. The hepatic and portal veins are patent. The patient is status post cholecystectomy. The spleen, pancreas, adrenals, and right kidney are unremarkable. There is a 1.5 cm cyst at the lower pole of the left kidney. No retroperitoneal lymphadenopathy or ascites is identified in the upper abdomen. IMPRESSION: Mildly motion limited examination. Status post cholecystectomy. No liver mass is identified. 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 Doing well on Actemra Plan - Actemra 162mg SC every 2 weeks - Labs today: CBC, CMP, ESR, CRP, Lipid panel, heptitis panel, T spot - RTC 4 months - Labs before visit: CBC, CMP, ESR, CRP, lipid panel (2) Encounter for monitoring tocilizumab therapy: Code(s): Z51.81 - Encounter for therapeutic drug level monitoring; Z79.620 - intermediate project manager (current) use of immunosuppressive biologic Category: Medical Plan: #Long-term Use of Tocilizumab Discussed the risks and benefits of tocilizumab with the management of this patient's rheumatic condition. ? Benefits include decreased pain, improved mortality, improved quality of life Risks include LFT abnormalities, elevated triglycerides, GI perforations Contraindicated in a patient with history of diverticulitis Monitoring: ?CBC, CMP, triglycerides Plan I spent 30 minutes reviewing the record and labs, taking a history, examining the patient, discussing the treatment plan and documenting in the medical record Orders: Orders Comprehensive Met. Panel 4 Months M31.6 - Other giant cell arteritis, Z51.81 - Encounter for therapeutic drug level monitoring, Z79.620 - alf (current) use of immunosuppressive biologic C Reactive Protein 4 Months M31.6 - Other giant cell arteritis, Z51.81 - Encounter for therapeutic drug level monitoring, Z79.620 - intermediate project manager (current) use of immunosuppressive biologic Hepatitis A,B,C Profile Today M31.6 - Other giant cell arteritis, Z51.81 - Encounter for therapeutic drug level monitoring, Z79.620 - intermediate project manager (current) use of immunosuppressive biologic T Spot TB Today M31.6 - Other giant cell arteritis, Z51.81 - Encounter for therapeutic drug level monitoring, Z79.620 - alf (current) use of immunosuppressive biologic Complete Blood Count Auto Diff 4 Months M31.6 - Other giant cell arteritis, Z51.81 - Encounter for therapeutic drug level monitoring, Z79.620 - intermediate project manager (current) use of immunosuppressive biologic Erythrocyte Sedimentation Rate 4 Months M31.6 - Other giant cell arteritis, Z51.81 - Encounter for therapeutic drug level monitoring, Z79.620 - intermediate project manager (current) use of immunosuppressive biologic Lipid Panel 4 Months M31.6 - Other giant cell arteritis, Z51.81 - Encounter for therapeutic drug level monitoring, Z79.620 - alf (current) use of immunosuppressive biologic Complete Blood Count Auto Diff Today M31.6 - Other giant cell arteritis, Z51.81 - Encounter for therapeutic drug level monitoring, Z79.620 - alf (current) use of immunosuppressive biologic Comprehensive Met. Panel Today M31.6 - Other giant cell arteritis, Z51.81 - Encounter for therapeutic drug level monitoring, Z79.620 - intermediate project manager (current) use of immunosuppressive biologic C Reactive Protein Today M31.6 - Other giant cell arteritis, Z51.81 - Encounter for therapeutic drug level monitoring, Z79.620 - alf (current) use of immunosuppressive biologic Erythrocyte Sedimentation Rate Today M31.6 - Other giant cell arteritis, Z51.81 - Encounter for therapeutic drug level monitoring, Z79.620 - alf (current) use of immunosuppressive biologic Lipid Panel Today M31.6 - Other giant cell arteritis, Z51.81 - Encounter for therapeutic drug level monitoring, Z79.620 - intermediate project manager (current) use of immunosuppressive biologic Medications: Discontinued prednisone Discontinued Reason: Patient Completed Course 50 mg PO DAILY 4 tabs 0RF Coding Level of Care Code Est Pt Level 4 (50719) Complex EM visit Add On G2211 Diagnoses GCA (giant cell arteritis) M31.6 Encounter for monitoring tocilizumab therapy Z51.81; Z79.620
--- OUTSIDE RECORDS SUMMARY | 2024-10-14 07:45 | XMS_ITS | Clinical Summary ---
Author Organization [facility] [address] [place] [address] [place] [phone] Phone Care Team Providers Care Human Resources Benefits Manager Name Role Phone Chandrika Cronin MD Primary Care Prov ider Allergies Active Allergy Reactions Criticality Noted Date Comments Codeine Nausea And Vomiting Medium 12/18/2017 Morphine Sulfate Shortness of breath,Nausea And Vomiting,Wheezing High 07/12/2012 Chest pain Oxycodone-Acetaminophen Nausea And Vomiting Medium Penicillins Hives High 04/22/2012 bruising Medications albuterol HFA (PROAIR HFA ; PROVENTIL HFA ; VENTOLIN HFA) 90 mcg/actuation inhaler Inhale 2 puffs by mouth. into the lungs every 6 hours as needed for Cough or Shortness of Breath for up to 30 days. 2 Active atorvastatin (LIPITOR) 40 mg tablet Take 1 tablet (40 mg total) by mouth. 3 Active betamethasone valerate (VALISONE) 0.1 % cream Apply locally BID as needed 4 Active dicyclomine (BENTYL) 10 mg capsule Take 1 capsule (10 mg total) by mouth. 3 Active fluticasone HFA (FLOVENT HFA) 110 mcg/actuation inhaler Inhale 1 puff. 3 Active loperamide (IMODIUM) 2 mg capsule Take 1 capsule (2 mg total) by mouth. 3 Active pantoprazole (PROTONIX) 40 mg EC tablet Take 1 tablet (40 mg total) by mouth 1 (one) time each day. 3 Active QUEtiapine (SEROquel) 25 mg tablet Take 0.5 tablets (12.5 mg total) by mouth 1 (one) time each day. 0 Active atorvastatin (LIPITOR) 40 mg tablet TAKE 1 TABLET BY MOUTH EVERY DAY 4 Active fluticasone-salm eterol (ADVAIR DISKUS) 250-50 mcg/dose diskus inhaler Inhale 1 Puff into the lungs 2 times daily for 90 days. 4 Active tocilizumab (Actemra ACTPen) subcutaneous injection 4 Active ibuprofen (ADVIL,MOTRIN) 600 mg tablet TAKE 1 TABLET BY MOUTH EVERY 6 HOURS NEEDED FOR FEVER OR PAIN 4 Active desonide (DESOWEN) 0.05 % cream Apply every day on lesions 4 025 Active lisinopril (PRINIVIL,ZESTRI L) 40 mg tablet Take 1 tablet (40 mg total) by mouth 1 (one) time each day. 4 Active hydroCHLOROthiaz seth (HYDRODIURIL) 25 mg tablet Take 1 tablet (25 mg total) by mouth 1 (one) time each day. 90 tablet 4 Active albuterol 2.5 mg /3 mL (0.083 %) nebulizer solution Take 3 mL (2.5 mg total) by nebulization every 6 (six) hours if needed for wheezing or shortness of breath. by nebulization every 6 hours as needed for Wheezing, Shortness of Breath or Cough. 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 I conferred with [facility] cardiac surgery Dr. Farr and concluded that we will monitor this finding with a watchful waiting approach. I will request an appointment with Dr. Farr to review these recommendations and establish the patient with their practice who will monitor this condition. As she does not have any other ongoing cardiovascular concerns, I did not schedule routine clinical follow-up in our office. 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 History of 2019 novel coronavirus disease (COVID -19) 01/22/2021 Asymptomatic varicose veins of both lower extrem ities 06/16/2018 DMITRI (obstructive sleep apnea) 06/16/2018 Overview (06/08/2024): moderate overall AHI 15; severe in REM AHI 42 in 2014 Morbid obesity with BMI of 40.0-44.9, adult 06/01 Allergic rhinitis 04/23/2018 Essential hypertension 04/23/2018 Dyslipidemia 04/03/2018 Lichen simplex 06/06/2014 Anxiety 10/01/2013 Depression 07/05/2013 Overview (11/07/2023): F/u BHN at [place] Asthma 09/09/2012 Nephrolithiasis 06/12/2012 Encounters Date Type Department Care Team Description 08/23/2024 9:30 AM EST Office Visit Adult Medicine [address] [phone] Mary Gomez PA Pneumonia of left lower lobe due to infectious organism (Primary Dx); RSV (respiratory syncytial virus infection); Moderate persistent asthma, unspecified whether complicated; Essential hypertension; Rosacea from Last 3 Months Immunizations Name Administration Dates Next Due Influenza trivalent, 0.5mL ( Fluzone High-dose) 65yo and older 08/19/2022,06/16/2018 Influenza trivalent, with pr eservative (Fluzone; Afluria) 6mo and older 06/16/2017,05/28/2016 Pneumococcal conjugate 13 va lent (Prevnar 13, PCV13) 2mo and older 11/27/2018 Pneumococcal polysaccharide 23 valent (Pneumovax 23) 2yo and older 10/20/2020,05/24/2016 Tdap Tetanus diptheria acell ular pertussis (Boostrix; Adacel) 7yo and older 07/05/2013 Surgical History Surgery Date Site/Laterality Comments HYSTERECTOMY PROCEDURE: HISTORICAL HYSTERECTOMY OTHER SURGICAL HISTORY PROCEDURE: ---- OTHER ----; COMMENT: urologolical endoscopic procedure OTHER SURGICAL HISTORY 2010 Right PROCEDURE: HISTORY OTHER; COMMENT: breast biopsy-negative COLONOSCOPY PROCEDURE: HISTORICAL COLONOSCOPY COLONOSCOPY PROCEDURE: HISTORICAL COLONOSCOPY; COMMENT: Performed 4 years ago at [facility] with polyps removed BREAST BIOPSY Right PROCEDURE: BX BREAST; PERC NEEDLE CORE W/IMAG GUID Medical History Medical History Date Comments Nephrolithiasis 06/12/2012 DX:Nephrolithias is Asthma 09/09/2012 DX:Asthma Anxiety 10/01/2013 DX:Anxiety Depression 07/05/2013 DX:Depression Dyslipidemia 04/03/2018 DX:Dyslipidemia History of pulmonary embolism 04/22/2012 DX :History of pulmonary embolism; COMMENT: 2015 No precipitating event Lichen simplex 06/06/2014 DX:Lichen simple x Varicose vein 07/28/2012 DX:Varicose vein Allergic rhinitis 04/23/2018 DX:Allergic rh initis Hypertension 04/23/2018 DX:Hypertension DMITRI (obstructive sleep apnea) 06/16/2018 DX :DMITRI (obstructive sleep apnea) Morbid obesity with BMI of 4 0.0-44.9, adult ([facility]) 06/16/2018 DX:Morbid obesity with BMI o f 40.0-44.9, adult ([facility]) Asymptomatic varicose veins of both lower extremities 06/16/2018 DX:Asymptomatic varicose vei ns of both lower extremities Abdominal pain DX:Abdominal abraham n Abnormal CT of the abdomen DX:Ab normal CT of the abdomen OA (osteoarthritis) of hip 07/09/2021 DX:OA (osteoarthritis) of hip Prediabetes 04/17/2022 DX:Prediabetes Fecal incontinence DX:Fecal inco ntinence Fecal urgency DX:Fecal urgency Dysphagia DX:Dysphagia Irritable bowel syndrome DX:Irri table bowel syndrome Family History Medical History Relation Name Comments Colon cancer Maternal Grandfather Pneumonia Mother passed awayt [facility] cov[facility] Breast cancer Other Cousin Relation Name Status Comments Brother Alive varicose veins, depression Daughter Alive varicose veins Father stroke Maternal Grandfather Mother varicose veins, depression Other Cousin Sister Alive varicose veins, depression Social History Tobacco Use Types Packs/Day Years Used Date Smoking Tobacco: Never Smokeless Tobacco: Never Tobacco Cessation:Counseling Given: Not Answered Alcohol Use Standard Drinks/Week Comments No 0 (1 standard drink = 0.6 oz pur e alcohol) Comments No Sex and Gender Information Value Date Recorded Sex Assigned at Not on file Legal Sex Female 8:16 PM EST Gender Identity Not on file Sexual Orientation Not on file Obstetrics History Last Filed Vital Signs Vital Sign Reading Time Taken Comments Blood Pressure 100/55 08/23/2024 9:45 AM EST Pulse 76 08/23/2024 9:45 AM EST Temperature 35.9 ??C (96.6 ??F) 08/23/2024 9:45 AM ES T Respiratory Rate 16 08/23/2024 9:45 AM EST Oxygen Saturation 96% 08/23/2024 9:45 AM EST Inhaled Oxygen Concentration - - Weight 95.3 kg (210 lb) 08/23/2024 9:45 AM EST Height 152.4 cm (5') 08/23/2024 9:45 AM EST Body Mass Index 41.01 08/23/2024 9:45 AM EST Plan of Treatment Upcoming Encounters Date Type Department Care Team (Late st Contact Info) Description 10/26/2024 11:10 AM EST Appointment Radiology Department - [address] [phone] 10/28/2024 8:45 AM EST Office Visit Adult Medicine East - [address] [phone] Chandrika Cronin MD [address] [place] [address] 11/09/2024 9:15 AM EDT Appointment Bone Density - [address] [phone] 11/24/2024 2:00 PM EDT Office Visit Pulmonolgy - [place] [address] [facility] [address] [place] [address] Jessika Stearns MD [address] [facility] [address] [place] [address] Health Maintenance Due Date Last Done Comments Zoster Vaccines (1 of 2) 2000 RSV Immunization Patients 60+ Years Old (1 - Risk 60-74 years 1-dose series) 2010 Social Influencers of Health Screening 08/10/2022 DTaP,Tdap,and Td Vaccines (2 - Td or Tdap) 07/05/2023 07/05/2013 Influenza Vaccine (#1) 2024 , 06/16/2018, 06/16/2017, Additional history exists Breast Cancer Screening 05/08/2024 05/08/20 22, 02/20/2021, 01/07/2019 Hypertension/CHF/CAD Annual BMP Blood Test 10/03/2024 10/03/2023 Depression Screening 03/16/2025 03/16/2024, 03/13/20 23 Falls Risk Assessment 03/16/2025 03/16/2024, 023 Medicare Annual Wellness Visit 03/16/2025 03/16/2024 Colorectal Cancer Screening: Colonoscopy 04/29/2027 04/29/2022, 04/29/2022 Cholesterol Screening (Lipid Panel) 10/03/2028 10/03/2023, 01/15/2021 Osteoporosis Screening (Bone Density Screening) 01/07/2029 01/07/2019 Hepatitis C Screening Completed 07/05/2013, 013 Pneumococcal Vaccine: 50+ Years Completed 10/20/2020, 11/27/2018, 05/24/2016 COVID-19 Vaccine Discontinued 05/25/2021, 04/23/2021 HIB Vaccines Aged Out No longer eligi ble based on patient's age to complete this topic HPV Vaccines Aged Out No longer eligi ble based on patient's age to complete this topic Hepatitis A Vaccines Aged Out No long er eligible based on patient's age to complete this topic Hepatitis B Vaccines Aged Out No long er eligible based on patient's age to complete this topic IPV Vaccines Aged Out No longer eligi ble based on patient's age to complete this topic MMR Vaccines Aged Out No longer eligi ble based on patient's age to complete this topic Meningococcal ACWY Vaccine Aged Out N o longer eligible based on patient's age to complete this topic RSV Immunization Patients Under 20 months Aged Out No longer eligible based on patient's age to complete this topic Varicella Vaccines Aged Out No longer eligible based on patient's age to complete this topic Procedures Procedure Name Priority Date/Time Associated Diagnosis Comments DEPRESSION SCREENING Routine 03/16/2024 FALLS RISK ASSESSMENT Routine 03/16/2024 ANNUAL BMP BLOOD TEST Routine 10/03/2023 LIPID PANEL Routine 10/03/2023 SCREENING MAMMOGRAPHY BI 2-VIEW BREAST INC CAD Routine 05/08/2022 5:25 PM EDT Encounter for gynecological examination (general) (routine) without abnormal findings Encounter for other screening for malignant neoplasm of breast COLONOSCOPY Routine 04/29/2022 DXA BONE DENSITY STUDY 1+ SITS AXIAL SKEL Routine 01/07/2019 1:31 PM EDT Asymptomatic menopausal state HEPATITIS C SCREENING Routine 07/05/2013 from Last 3 Months or Most Recently Relevant to Health Maintenance Results * Falls Risk Assessment (03/16/2024) Pathologist [facility] [place] Risk Assessment Abstracted Historical Provider HEALTH MAINTENANCE Final Result * Depression Screening (03/16/2024) Pathologist [facility] Depression Screening Abstracted Historical Provider HEALTH MAINTENANCE Final Result * Annual BMP Blood Test (10/03/2023) Pathologist [facility] Annual BMP Blood Test Abstracted Historical Provider HEALTH MAINTENANCE Final Result * (ABNORMAL) Lipid panel (10/03/2023) LDL/HDL Ratio 3 0 - 4 Triglycerides 92 0 - 150 mg/dL Cholesterol 206(A) 0 - 200 mg/dL HDL 69 >=40 mg/dL LDL Cholesterol 119(A) 0 - 100 mg/dL Blood Venous blood specimen / Unknown Historical Provider LAB BLOOD ORDERABLES Vivi l Result * SCREENING MAMMOGRAPHY BI 2-VIEW BREAST INC CAD (05/08/2022 5:25 PM EDT) Anatomical Region Laterality Modality Radiographic Erica ging 04/18/2022 3:37 PM EDT Narrative 05/09/2022 9:17 AM EDT This is a summary report. The complete report is available in the patient's medical record. If you cannot access the medical record, please contact the sending organization for a detailed fax or copy. Full field digital screening mammography, using both 2D mammography and tomosynthesis, reviewed with CAD and compared to previous. ??The breasts are composed of fatty and fibroglandular tissue. ??No suspicious mass, architectural distortion or suspicious calcifications are identified. IMPRESSION: : No mammographic evidence of malignancy. BIRADS 1-Negative; N. 5 year breast cancer risk assessment 2.3 % Lifetime breast cancer risk assessment 6.2 % Breast cancer risk category Low (<15%) Procedure Note Lewis Becerra MD - 08/20/2022 This is a summary report. The complete report is available in thepatient's medical record. If you cannot access the medical record, pleasecontact the sending organization for a detailed fax or copy. Full field digital screening mammography, using both 2D mammography andtomosynthesis, reviewed with CAD and compared to previous. The breastsare composed of fatty and fibroglandular tissue. No suspicious mass,architectural distortion or suspicious calcifications are identified. IMPRESSION: : No mammographic evidence of malignancy. BIRADS 1-Negative; N. 5 year breast cancer risk assessment 2.3 % Lifetime breast cancer risk assessment 6.2 % Breast cancer risk category Low (<15%) Danielle Greco CNM IMG XR PROCEDURES Final Resul t * Colonoscopy (04/29/2022) Colonoscopy No interpretation , Abstracted Anatomical Region Laterality Modality Other Historical Provider MD HEALTH MAINTENANCE Final Result * DXA BONE DENSITY STUDY 1+ SITS AXIAL SKEL (01/07/2019 1:31 PM EDT) Anatomical Region Laterality Modality Bone Densitometr y 04/03/2018 2:37 PM EDT Narrative 01/07/2019 2:51 PM EDT BONE DENSITY ? Lumbar Spine T-score is -1.0 ?? (SD relative to 20-29 y/o adult) Z-score is +1.0 ??(SD relative to age matched peers) This is normal by criteria defined by the WHO. Left Hip T-score is +0.2 Z-score is +1.8 This is normal by criteria defined by the WHO. Impression: Based on the World Health Organization criteria, Laura Lewis should be classified as having normal bone density. The [facility] Department of Internal Medicine recommends using National Osteoporosis Foundation (NOF) guidelines in treatment decisions related to osteoporosis. NOF guidelines suggest considering treatment for postmenopausal women and men aged 50 or older presenting with the following: History of hip or vertebral fracture. T-score less than or equal to -2.5 (DXA) at the femoral neck, total hip, or spine, after appropriate evaluation to exclude secondary causes. Low bone mass (T-score between -1.0 and -2.5 at the femoral neck or spine) AND a 10-year probability of a hip fracture greater than or equal to 3% OR a 10-year probability of a major osteoporosis-related fracture greater than or equal to 20% based on the [place]-adapted WHO algorithm Please note that all treatment decisions require clinical judgment and consideration of individual patient factors, including patient preferences, co-morbidities, previous drug use, risk factors not captured in the FRAX model (e.g., frailty, falls, vitamin D deficiency, increased bone turnover, interval significant decline in bone density) and possible under- or over-estimation of fracture risk by FRAX. Procedure Note Lewis Becerra MD - 08/20/2022 BONE DENSITY Lumbar Spine T-score is -1.0 (SD relative to 20-29 y/o adult) Z-score is +1.0 (SD relative to age matched peers) This is normal by criteria defined by the WHO. Left Hip T-score is +0.2 Z-score is +1.8 This is normal by criteria defined by the WHO. Impression: Based on the World Health Organization criteria, Laura Lewis shouldbe classified as having normal bone density. The [facility] Department of Internal Medicine recommendsusing National Osteoporosis Foundation (NOF) guidelines in treatmentdecisions related to osteoporosis. NOF guidelines suggest consideringtreatment for postmenopausal women and men aged 50 or older presentingwith the following: History of hip or vertebral fracture. T-score less than or equal to -2.5 (DXA) at the femoral neck, total hip,or spine, after appropriate evaluation to exclude secondary causes. Low bone mass (T-score between -1.0 and -2.5 at the femoral neck or spine)AND a 10-year probability of a hip fracture greater than or equal to 3% ORa 10-year probability of a major osteoporosis-related fracture greaterthan or equal to 20% based on the [place]-adapted WHO algorithm Please note that all treatment decisions require clinical judgment andconsideration of individual patient factors, including patientpreferences, co-morbidities, previous drug use, risk factors not capturedin the FRAX model (e.g., frailty, falls, vitamin D deficiency, increasedbone turnover, interval significant decline in bone density) and possibleunder- or over-estimation of fracture risk by FRAX. Carmelina Kumari DO [facility] [place]ED[place] S Final Result * Hepatitis C Screening (07/05/2013) [employer] Hepatitis C Screening Abstracted Historical Provider HEALTH MAINTENANCE Final Result from Last 3 Months or Most Recently Relevant to Health Maintenance [place] [address] [place] [address] MEDICARE Member Subscriber Plan / Payer (Ef fective 2023-Present) Name:Laura Lewis Relation to Subscriber:Self Name:Shirin Lewisa Katherine Payer ID:[id number] Group ID:[id number] Type:Not on file Address: [place] [address] [address] [id number] Advance Directives Documents on File Type Date Recorded 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
[2024-10-14 07:51] VITALS: BP 150/64; PULSE 63; O2SAT 98; BMI 41.5
== END 2024-10-14 08:14 | disposition home or self-care (01) ==
PROVIDERS: PCP Internal Medicine; Visit Provider Student in an Organized Health Care Education/Training Program
DX: M31.6 Other giant cell arteritis (principal); Z51.81 Encounter for therapeutic drug level monitoring; Z79.620 Long term (current) use of immunosuppressive biologic
CPT/HCPCS: 99214; G2211

== ENCOUNTER 2024-10-14 07:43 | Outpatient (REF) | payer OTHER, SELFPAY ==
--- OUTSIDE RECORDS SUMMARY | 2024-10-14 08:27 | XMS_ITS | Data Portability ---
Author Organization [employer] Address [address] [place] [address] Care Team Providers Care Top Cutter Name Role Phone HIM CCA Referring Provider Assessment No assessment recorded. Plan of Treatment Reminders Order Date Submit Date Provider Last Modified By Organization Details Last Modified Time Details Appointments None recorded. Lab None recorded. Referral None recorded. Procedures None recorded. Surgeries None recorded. Imaging None recorded. Medication Orders benzonatate 100 mg capsule 2023 024 [email or web address] Not available 4 18:17:37 Patient TargetsNo targets recorded. Patient InstructionsNo instructions recorded. Reason for Referral None Reported. Medical Equipment None Reported. Allergies No known drug allergies Medications Name Sig Start Date Stop Date Status Note LastModified by Organization Details LastModified Time quetiapine 25 mg tablet TAKE 1/2-1 TABLET BY MOUTH AT BEDTIME DIRECTED TOME 1 CADA NOCHE active Not Available Not Available No t Available atorvastatin 40 mg tablet TAKE 1 TABLET BY MOUTH EVERY DAY active Not Available Not Available No t Available hydrocortiso ne 0.5 % topical cream APPLY TO AFFECTED AREA EVERY DAY active Not Available Not Available No t Available desonide 0.05 % topical cream APPLY EVERY DAY ON LESIONS active Not Available Not Available No t Available prednisone 10 mg tablet TAKE 4 TABS BY MOUTH DAILY X3 DAYS, THEN 3 TABS X3 DAYS, 2 TABS X3 DAYS, 1 TAB X3 DAYS active Not Available Not Available No t Available atorvastatin 20 mg tablet TAKE 1 TABLET BY MOUTH EVERY DAY active Not Available Not Available No t Available albuterol sulfate 2.5 mg/3 mL (0.083 %) solution for nebulization PLEASE SEE ATTACHED FOR DETAILED DIRECTIONS active Not Available Not Available N ot Available loperamide 2 mg capsule TAKE 1 CAPSULE BY MOUTH 4 TIMES DAILY NEEDED FOR DIARRHEA. active Not Available Not Available No t Available cefpodoxime 200 mg tablet TAKE 1 TABLET BY MOUTH TWICE A DAY. WITH MEALS/FOOD active Not Available Not Available N ot Available azithromycin 250 mg tablet TAKE 2 TABLETS BY MOUTH TODAY, THEN TAKE 1 TABLET DAILY FOR 4 DAYS active Not Available Not Available No t Available benzonatate 200 mg capsule TAKE 1 CAPSULE ORALLY 3 TIMES A DAY NEEDED FOR COUGH active Not Available Not Available No t Available betamethason e valerate 0.1 % topical cream APPLY LOCALLY TWICE A DAY NEEDED active Not Available Not Available No t Available benzonatate 100 mg capsule Take 1 capsule 3 times a day by oral route for 10 days. 2023 active Not Available Not Available Not Avai lable pantoprazole 40 mg tablet,delay ed release TAKE 1 TABLET BY MOUTH EVERY DAY active Not Available Not Available No t Available hydrochlorot hiazide 25 mg tablet TAKE 1 TABLET BY MOUTH EVERY DAY active Not Available Not Available No t Available albuterol sulfate HFA 90 mcg/actuatio n aerosol inhaler PLEASE SEE ATTACHED FOR DETAILED DIRECTIONS active Not Available Not Available N ot Available ondansetron 4 mg disintegrati ng tablet DISSOLVE 1 TABLET BY MOUTH EVERY 8 HOURS NEEDED FOR NAUSEA active Not Available Not Available No t Available lisinopril 2.5 mg tablet TAKE 1 TABLET BY MOUTH EVERY DAY active Not Available Not Available No t Available dicyclomine 10 mg capsule TAKE 1 CAPSULE BY MOUTH 4 TIMES DAILY (BEFORE MEALS AND NIGHTLY). active Not Available Not Available No t Available fluticasone propionate 110 mcg/actuatio n HFA aerosol inhaler INHALE 1 PUFF BY MOUTH TWICE DAILY active Not Available Not Available No t Available azithromycin 500 mg tablet TAKE 1 TABLET BY MOUTH TWICE A DAY FOR 5 DAYS active Not Available Not Available No t Available Linzess 72 mcg capsule TAKE 1 CAPSULE BY MOUTH EVERY MORNING active Not Available Not Available No t Available Wixela Inhub 250 mcg-50 mcg/dose powder for inhalation INHALE 1 PUFF INTO THE LUNGS 2 TIMES DAILY FOR 90 DAYS. active Not Available Not Available No t Available Vitals Date Recorded Body temperature Respiratory rate Oxygen saturation Oxygen saturation in Arterial blood by Pulse oximetry Body weight Body height Heart rate Systolic blood pressure Diastolic blood pressure Provider Name and Address Organization Details Last Updated DateTime 4 98 [degF] 14 /min 98 % 98 % 58876.4 g 152.4 cm 63 /min 158 mm[Hg] 73 mm[Hg] Not Available [employer] - production 18:11:00 Social History None recorded. Functional Status None recorded. Mental Status None recorded. Family History Nothing Reported. Medical History No medical history recorded. Gynecological HistoryNo gynecological history recorded. Obstetrics History GPAL:G 0 P 0 0 0 0 Past Encounters Encounter ID Performer Location Encounter Start Date Encounter Closed Date Diagnosis/Indication Diagnosis SNOMED-CT Code Diagnosis ICD10 Code Diagnosis Note [id number] Riccardo Kumar MD Main - [address] [phone] 08/17/2024 18:10:56 08/18/2024 14:39:45 Community acquired pneumonia [id number] J18.9 As noted, we were called to see this patient regarding concerns of recent dx PNA, still coughing and uncomforta ble. Evaluation in the field was performed by my livestock caretaker colleague, as noted above, I provided real-time direction and supervisio n for this visit. The evaluation revealed reasssurin g VS, residual consolidat ion in lung base, and frequent coughing with chest wall pain when coughing. Patient looking for sx relief. Reviewed notes and got definitive abx and pred. Impression :Resolving PNA with probable bronchioli tis sx persisting . Given she is tapering down pred and has had a good dose, I don't think need to extend this. Discussed anti-tussi ve, which she wants, and good hydration. Discussed coverage is not always given for cough meds, might be out of pocket pay. Plan:Benzo natate 100 mg TID PRN x 10 Primary care, considerch chauncey in call Dispositio n: We discussed the diagnostic uncertaint y of home visits and the risk associated with this. In this case, the patient and I felt this to be an acceptable and reasonable amount of risk given the benefit of avoiding an ED visit. We discussed the need to seek care urgently/e mergently in the setting of any new or worsening serious symptoms, particular ly worsening dyspnea, confusion. Health Concerns Section Related Observation LastModified by Organization Detai ls LastModified Time None Recorded Concern Status LastModified by Organization Details LastModified Time None Recorded Advance Directives Directive None Recorded Payers Encounter Date Sequence Insurance Name Policy Number Policy Rico Covered Member ID Rico Member ID Guarantor Name 08/17/2024 1 [facility] - DOS ON OR AFTER 2022 - DUAL ELIGIBLE - SKILLED NURSING OPTIONS AND ONE CARE (MEDICARE REPLACEMENT/ADV ANTAGE - HMO) Laura Cortes [id number] Laura Cortes Notes Date Note Type Note Provider Name and Address Organization Details Recorded Time 08/17/2024 text/html HPI: Unstable gait, Memory impariment, Chodrocostal junction syndrom, impingment syndrom of the left shoulder, giant cell arteritis, pulmonary fibrosis, diaphragmatic hernia ................... ................... ................... ................... ................... ................... ................... ........ [facility] Nurse Triage Notes (Hakeem Roblero - KEITH): Chief Complaints: Chest pain, Breathing problems, Cough PMH: Asthma, Anxiety Disorder, Chronic Back Pain, Autoimmune Diseases (e.g., Lupus), Depression, Fibromyalgia, Hyperlipidemia, Incontinence, Irritable Bowel Syndrome (IBS), Kidney Stones, Osteoarthritis, Post-Traumatic Stress Disorder (PTSD), Schizophrenia, Rheumatoid Arthritis, Other Comments: Reviewed HPI - Member was seen in the emergency room at [facility] on 08/13 and 08/14, was diagnosed with pneumonia and RSV. Member has not seen her primary care provider- was scheduled to see the PCP 07/19 but the appointment was cancelled and she does not have an appointment until October. Daughter will be outreaching the office. Daughter reports that she is concerned that Member doesn't look good, appears, not to be improving, very uncomfortable. Member is able to eat/drink. take her medications, no reports of constipation or diarrhea. ................... ................... ................... ................... ................... ................... ................... ........ 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 Patient complains of difficulty breathing times six days, was seen at ED both three and four days ago, was diagnosed with RSV and pneumonia. Patient prescribed azithromycin, ceftin and prednisone. Patient states she feels better than she did, but still has quite a bit of coughing that keeps her up at night. Patient reports she has not used albuterol nebulizer because it makes her jittery. Patient also takes wixela. Patient denies nausea, vomiting diarrhea, abdominal pain, urinary symptoms, headache, weakness, or any other pain or complaints. Patient reports torso pain on coughing at times. Patient reports normal intake and elimination.Patient pink, warm, dry, negative increased work of breathing, positive full sentences, secondary exam unremarkable. Good skin turgor. Lung sounds Ronchi on left clear on right. No coughing noted during visit. Abdomen soft nontender extremities without edema.[facility] will prescribe benzonatate to patient? s local pharmacy. Supportive care, hydration, and use of albuterol nebulizer discussed with patient and caregiver. Both demonstrate understanding of care and plan, including use of nebulizer during illness.Red flags, patient education discussed. Patient encouraged to call again for future visits. Patient and caregiver appears satisfied with visit. ................... ................... ................... ................... ................... ................... ................... ........ [facility] Consulted: Mark Kumar ................... ................... ................... ................... ................... ................... ................... ........ Disposition: Fulfilled Riccardo Kumar MD [address] [place] [address],[address] [facility], [place], [address], [employer] 08/18/2024 08:31:43 OBGyn Episode No OBEpisode recorded.
--- OUTSIDE RECORDS SUMMARY | 2024-10-14 08:27 | XMS_ITS | Clinical Summary ---
Author Organization [facility] [address] [place] [address] [place] [phone] Phone Care Team Providers Care Epic Radiant Analyst Name Role Phone Chandrika Cronin MD Primary [...] aortic arch penetrating ulcer. I conferred with [facility] cardiac surgery Dr. Farr and concluded that [...] Depression 07/05/2013 Overview (11/07/2023): F/u BHN at [place] Asthma 09/09/2012 Nephrolithiasis 06/12/2012 Encounters Date Type Department Care Team Description 08/23/2024 9:30 AM EST Office Visit Adult Medicine [address] [phone] Mary Gomez PA Pneumonia of left lower [...] COLONOSCOPY; COMMENT: Performed 4 years ago at [facility] with polyps removed BREAST BIOPSY Right PROCEDURE: [...] obesity with BMI of 4 0.0-44.9, adult ([facility]) 06/16/2018 DX:Morbid obesity with BMI o f 40.0-44.9, adult ([facility]) Asymptomatic varicose veins of both lower extremities [...] cancer Maternal Grandfather Pneumonia [facility] cancer Other Cousin Relation Name [...] 11:10 AM EST Appointment Radiology Department - [address] [phone] 10/28/2024 8:45 AM EST Office Visit Adult Medicine East - [address] [phone] Chandrika Cronin MD [address] [place] [address] 11/09/2024 9:15 AM EDT Appointment Bone Density - [address] [phone] 11/24/2024 2:00 PM EDT Office Visit Pulmonolgy - [place] [address] [place] [address] Jessika Stearns MD [address] [facility] [address] [place] [address] Health Maintenance Due Date Last Done Comments [...] Results * Falls Risk Assessment (03/16/2024) Pathologist [facility] Falls Risk Assessment Abstracted Historical Provider HEALTH MAINTENANCE Final Result * Depression Screening (03/16/2024) Pathologist [facility] Depression Screening Abstracted Historical Provider HEALTH MAINTENANCE Final Result * Annual BMP Blood Test (10/03/2023) Pathologist [facility] Annual BMP Blood Test Abstracted Historical Provider [...] classified as having normal bone density. [facility] Department of Internal Medicine recommends using [...] classified as having normal bone density. [facility] Department of Internal Medicine recommendsusing National [...] fracture risk by FRAX. Carmelina Kumari DO [facility] DXA PROCEDURE S Final Result * Hepatitis C Screening (07/05/2013) [facility] Hepatitis C Screening Abstracted Historical Provider HEALTH MAINTENANCE Final Result from Last 3 Months or Most Recently Relevant to Health Maintenance [place] [address] MEDICARE Member Subscriber Plan / Payer (Ef fective 2023-Present) Name:Laura Lewis Relation to Subscriber:Self Name:Shirin Lewisa Katherine Payer ID:[id number] Group ID:[id number] Type:Not on file Address: [place] [address] [address] [id number] Advance Directives Documents on File Type Date Recorded 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
[2024-10-14 08:39] LABS: MANUAL DIFF FLAG NO
[2024-10-14 08:56] LABS: Basophils Absolute Auto 0.1 X10*3/uL (0.0-0.2); Basophils Percent Auto 0.7 % (0-2); Eosinophils Absolute Auto 0.6 X10*3/uL (0.0-0.4); Eosinophils Percent Auto 8.4 % (0-4); Hematocrit 36.3 % (37.0-47.0); Hemoglobin 11.4 g/dl (12.0-16.0); Imm Gran Abs Auto 0.03 X10*3/uL (0.00-0.03); Imm Gran Pct Auto 0.4 % (0.0-0.4); Lymphocytes Absolute Auto 1.4 X10*3/uL (1.2-4.9); Mean Corpuscular HGB Conc 31.4 g/dl (31.0-35.0); Mean Corpuscular Hemoglobin 26.8 pg (27.0-33.0); Mean Corpuscular Volume 85.2 fL (80.0-98.0); Mean Platelet Volume 10.6 fL (9.4-12.3); Monocytes Absolute Auto 0.8 X10*3/uL (0.1-1.2); Monocytes Percent Auto 11.4 % (2-11); Neutrophils Absolute Auto 4.4 x10*3/uL (2.0-8.3); Neutrophils Percent Auto 60.1 % (45-73); Platelet Count 232 X10*3/uL (160-400); Red Blood Count 4.26 X10*6/uL (4.20-5.50); Red Cell Distribution Width 14.7 % (11.0-16.0); White Blood Count 7.4 X10*3/uL (4.8-10.8)
[2024-10-14 09:42] LABS: Erythrocyte Sedimentation Rate 34 MM/HR (0-20)
[2024-10-14 09:46] LABS: Alanine Aminotransferase 20 U/L (0-31); Albumin Level 4.2 g/dL (3.5-5.0); Alkaline Phosphatase 65 U/L (39-117); Anion Gap 12 (12-20); Aspartate Amino Transferase 21 U/L (5-31); Bilirubin Total 0.4 mg/dL (0.0-1.0); Blood Urea Nitrogen 17 mg/dL (9-16); C Reactive Protein 1.99 mg/dL (< or = 0.50); Calcium 9.5 mg/dL (8.4-10.2); Carbon Dioxide 24 mmol/L (22-29); Chloride 108 mmol/L (96-108); Estimated Glomerular Filt Rate > 60; Glucose Random 102 mg/dL (60-115); Potassium 4.2 mmol/L (3.3-5.1); Sodium 140 mmol/L (135-145); Total Protein 7.9 g/dL (6.5-8.0)
[2024-10-14 10:00] LABS: HBS Num1 0.79 mIU/mL (0-7.99); HBc Num1 0.14 S/CO (0.00-0.79); HBsAGNum1 0.27 S/CO (0.00-0.99); Hepatitis A Antibody IgM 0.41 Index (0-0.79); Hepatitis B Core Antibody Nonreactive (Nonreactive); Hepatitis B Surface Antigen Negative (Negative); ~HepC Num1 0.14 S/CO (0.00-0.79); ~Hepatitis A Antibody IgM Nonreactive (Nonreactive); ~Hepatitis B Surface Antibody NONREACTIVE (Nonreactive); ~Hepatitis C Antibody Nonreactive (Nonreactive)
[2024-10-17 17:59] LABS: TS Negative Control Passed; TS Panel A 0; TS Panel B 0; TS Positive Control Passed; TSpotTB Negative (Negative)
== END 2024-10-14 07:44 | disposition home or self-care (01) ==
LOC: HO.LAB 07:43
PROVIDERS: PCP Internal Medicine; Visit Provider Student in an Organized Health Care Education/Training Program
DX: M31.6 Other giant cell arteritis (principal); Z51.81 Encounter for therapeutic drug level monitoring; Z79.620 Long term (current) use of immunosuppressive biologic
CPT/HCPCS: 36415; 80053; 85025; 85652; 86140; 86481; 86704; 86706; 86709; 86803; 87340; 99212

== ENCOUNTER 2024-11-05 07:52 | Emergency (ER) | payer OTHER, SELFPAY ==
[2024-11-05 08:06] VITALS: BP 146/67; PULSE 71; RESP 16; TEMP 36.6; O2SAT 98; BMI 40.8
[2024-11-05 08:59] LABS: Influenza A PCR NEGATIVE (Negative); Influenza B PCR POSITIVE (Negative); Resp Syncy Virus RNA Qual PCR NEGATIVE (Negative); SARS COV2 PCR INHOUSE NEGATIVE (Negative)
--- NOTE | 2024-11-05 11:21 | ED_ITS ---
HPI - General Adult General Chief complaint: Headache Stated complaint: Headache, body aches Time Seen by Provider: 11/05/24 10:55 History of Present Illness ED Provider: Dr. Mcdaniel HPI narrative: 74 y/o F patient; PMH asthma, HTN, GCA (on Toclizumab), hx pulmonary emboli, hx penetrating atheromatous aortic arch ulcer, HLD, DMITRI; presents from home with report of 48 hours of chills, non-productive cough, congestion, and head pressure behind her bilateral eyes. She reports + sick contact while at [employer]. She states she has been using her albuterol NEB last night and this morning with good relief of symptoms. She denies: chest pain, nausea/vomiting, abdominal pain, syncope. She states she has not needed prednisone since 08/2024. Related Data Home Medications ?Medication ?Instructions ?Recorded ?Confirmed fluticasone propionate 110 1 puff PO BID 03/26/22 10/14/24 mcg/actuation HFA aerosol inhaler (Flovent HFA) hydrochlorothiazide 25 mg tablet 25 mg PO DAILY 03/26/22 10/14/24 lisinopril 2.5 mg tablet 2.5 mg PO DAILY 03/26/22 10/14/24 quetiapine 25 mg tablet 25 mg PO BEDTIME 03/26/22 10/14/24 betamethasone valerate 0.1 % appl topical Q OTHER DAY 05/14/22 10/14/24 topical cream atorvastatin 40 mg tablet 40 mg PO DAILY 04/17/23 10/14/24 pantoprazole 40 mg tablet,delayed 40 mg PO DAILY 07/30/23 10/14/24 release Previous Rx's ?Medication ?Instructions ?Recorded nebulizers (AeroEclipse II #1 ea 10/31/21 Nebulizer) albuterol sulfate 2.5 mg/3 mL 2.5 mg (3 mL) inhalation Q4-6H PRN 01/09/22 (0.083 %) solution for nebulization shortness of breath or wheezing #90 mL albuterol sulfate 90 mcg/actuation 2 puff inhalation Q4-6H PRN 01/09/22 aerosol inhaler (ProAir HFA) shortness of breath or wheezing #8.5 grams albuterol sulfate 90 mcg/actuation 2 puff inhalation Q4-6H PRN 12/26/22 aerosol inhaler shortness of breath or wheezing #6.7 grams albuterol sulfate 90 mcg/actuation 2 puff inhalation Q6H PRN 05/10/23 aerosol inhaler shortness of breath or wheezing #8.5 grams linaclotide 72 mcg capsule 72 mcg PO QAM #30 caps 05/21/23 (Linzess) ibuprofen 600 mg tablet 600 mg PO Q6H PRN fever or pain 12/11/23 #30 tabs benzonatate 200 mg capsule 200 mg PO TID PRN cough #20 caps 06/19/24 cefuroxime axetil 500 mg tablet 500 mg PO BID 7 days #14 tabs 06/19/24 Actemra ACTPen 162 mg/0.9 mL 162 mg (0.9 mL) subcut Q2W #1.8 mL 08/06/24 subcutaneous pen injector (tocilizumab) albuterol sulfate 90 mcg/actuation 2 puff inhalation Q4-6H PRN 08/13/24 aerosol inhaler shortness of breath or wheezing #8.5 grams azithromycin 250 mg tablet 250 mg PO DAILY 4 days #4 tabs 08/13/24 cefuroxime axetil 500 mg tablet 500 mg PO BID #9 tabs 08/13/24 lisinopril 40 mg tablet 40 mg PO DAILY #90 tabs 08/14/24 ondansetron HCl 4 mg tablet 4 mg PO Q8H PRN nausea and 08/14/24 vomiting #10 tabs albuterol sulfate 2.5 mg/0.5 mL 2.5 mg (0.5 mL) inhalation Q4-6H 11/05/24 solution for nebulization PRN bronchospasm 7 days #30 ea albuterol sulfate 90 mcg/actuation 2 puff inhalation Q4-6H PRN 11/05/24 aerosol inhaler shortness of breath or wheezing 7 days #8.5 grams oseltamivir 75 mg capsule (Tamiflu) 75 mg PO BID 5 days #10 caps 11/05/24 prednisone 20 mg tablet 60 mg (3 x 20 mg) PO DAILY 3 days 11/05/24 #9 tabs Allergies Allergy/AdvReac Type Severity Reaction Status Date / Time morphine [MORPHINE] Allergy Severe CHEST Verified 11/05/24 08:08 PAIN, TROUBLE BREATHING, bruises Penicillins Allergy Intermediate RASH Verified 11/05/24 08:08 codeine Allergy Unknown Unknown Verified 11/05/24 08:08 tramadol [TRAMADOL] AdvReac Unknown Headache Verified 11/05/24 08:08 Percocet AdvReac Intermediate vomiting Uncoded 11/05/24 08:08 Review of Systems Review of Systems: Yes all other systems are reviewed and are negative [facility] Past Medical History Attestation statement: The following information was validated with the patient. Source: old records reviewed Medical History Encounter for monitoring tocilizumab therapy Headache Anemia History of pulmonary embolism Nephrolithiasis High cholesterol Asthma Hypertension Surgical History H/O breast biopsy History of hysterectomy H/O colonoscopy Family History Family History Mother Varicose vein of leg Depression Hypertension Asthma Heart disease Father Cerebrovascular accident (CVA) Kidney stones Sister Varicose vein of leg Depression Brother Depression Varicose vein of leg Daughter Varicose vein of leg Lupus anticoagulant disorder Maternal Grandfather Colon cancer Social History Social History Household Members: Family Household Members Other:: sister Housing: House Alcohol intake: never Patient Tobacco Use Status: Never used Tobacco Advance Directives: No Advance Directives Information Provided: Yes Do you have a plan to hurt others: No Plan Physical Exam ED Vital Signs: Vital Signs - 24 hr 11/05/24 08:06 Temperature 98 F Pulse Rate 71 Respiratory Rate 16 Blood Pressure 146/67 H Pulse Oximetry 98 Oxygen Delivery Method Room Air BMI result Body Mass Index 40.8 Patient is afebrile and hemodynamically stable Const General: cooperative and no acute distress HENMT Head: Yes normal to inspection and Yes atraumatic Eyes General: appearance normal, both eyes and all related structures Pupils: Equal, round and reactive pupils present EOM: EOMs intact bilaterally Neck Neck: Yes normal visual inspection, Yes full ROM, Yes supple and No tender Chest Chest palpation & inspection: normal inspection of the chest and normal palpation of entire chest wall Resp Other: Mild non-productive cough appreciated Effort & Inspection: normal respiratory effort, able to speak in complete sentences, Actively coughing and no respiratory distress Auscultation: clear to auscultation bilaterally Cardio Rate: regular rate Rhythm: regular rhythm Peripheral pulses: Peripheral pulses 2+ throughout GI Inspection: Yes normal to inspection, No Abdominal wall edema and No distended Palpation (GI): Soft to palpation, not firm, nontender, no guarding and not rigid Auscultation: normal bowel sounds Neuro Cranial nerves: Yes Equal, round and reactive pupils present Course Course Course Narrative: Patient is afebrile and hemodynamically stable. She is 98% on RA and with exertion. She does not currently have any wheezes in her lungs, tachypnea, or increased WOB. She did test positive for influenza B today. Given she is immunocompromised with <48 hours symptoms, will place her on Tamiflu for 5 days. Will send refills for her home albuterol NEB machine, albuterol inhaler, and 3 days of prophylactic Prednisone PO. Patient understands if her work of breathing worsens or if she starts to improve and then worsen, she will need to return to the emergency department for a re- evaluation. Plan: Discharge to home with PCP follow up Return precautions given Medical Decision Making Lab Data Labs: Lab Results 11/05/24 Range/Units 08:11 Influenza Type A (PCR) NEGATIVE (Negative) Influenza Type B (PCR) POSITIVE A (Negative) RSV RNA Qual (PCR) NEGATIVE (Negative) SARS-CoV-2 RNA (RT-PCR) NEGATIVE (Negative) Discharge Plan Discharge Clinical Impression: Influenza Patient Disposition: Home, Self-Care Instructions: Influenza (DC) Additional Instructions: Le diagnosticaron influenza. Envi? recetas para el NEB de albuterol y el inhalador de albuterol a la farmacia, as? kevon para 3 d?as de esteroides prednisona. Hablamos de que necesita volver al departamento de emergencias por dificultad para respirar o si est? mejorando y de repente empeora para que le puedan hacer maggie radiograf?a de t?rax. Prescriptions: New albuterol sulfate 2.5 mg/0.5 mL solution for nebulization 2.5 mg inhalation Q4-6H PRN (Reason: bronchospasm) 7 Days Qty: 30 0RF albuterol sulfate 90 mcg/actuation HFA aerosol inhaler 2 puff inhalation Q4-6H PRN (Reason: shortness of breath or wheezing) 7 Days Qty: 8.5 0RF prednisone 20 mg tablet 60 mg PO DAILY 3 Days Qty: 9 0RF oseltamivir [Tamiflu] 75 mg capsule 75 mg PO BID 5 Days Qty: 10 0RF No Action Linzess 72 mcg capsule 72 mcg PO QAM Qty: 30 6RF Actemra ACTPen 162 mg/0.9 mL pen injector 162 mg subcut Q2W Qty: 1.8 2RF (DME) AeroEclipse II Nebulizer Misc See Rx Instructions .ROUTE .MEDSUPPLY Qty: 1 0RF Rx Instructions: As directed albuterol sulfate [ProAir HFA] 90 mcg/actuation HFA aerosol inhaler 2 puff inhalation Q4-6H PRN (Reason: shortness of breath or wheezing) Qty: 8.5 0RF albuterol sulfate 2.5 mg /3 mL (0.083 %) solution for nebulization 2.5 mg inhalation Q4-6H PRN (Reason: shortness of breath or wheezing) Qty: 90 0RF albuterol sulfate 90 mcg/actuation HFA aerosol inhaler 2 puff inhalation Q4-6H PRN (Reason: shortness of breath or wheezing) Qty: 6.7 0RF ibuprofen 600 mg tablet 600 mg PO Q6H PRN (Reason: fever or pain) Qty: 30 0RF benzonatate 200 mg capsule 200 mg PO TID PRN (Reason: cough) Qty: 20 0RF cefuroxime axetil 500 mg tablet 500 mg PO BID 7 Days Qty: 14 0RF cefuroxime axetil 500 mg tablet 500 mg PO BID Qty: 9 0RF azithromycin 250 mg tablet 250 mg PO DAILY 4 Days Qty: 4 0RF Rx Instructions: start on day 2 of therapy albuterol sulfate 90 mcg/actuation HFA aerosol inhaler 2 puff inhalation Q4-6H PRN (Reason: shortness of breath or wheezing) Qty: 8.5 0RF lisinopril 40 mg tablet 40 mg PO DAILY Qty: 90 0RF ondansetron HCl 4 mg tablet 4 mg PO Q8H PRN (Reason: nausea and vomiting) Qty: 10 0RF albuterol sulfate 90 mcg/actuation HFA aerosol inhaler 2 puff inhalation Q6H PRN (Reason: shortness of breath or wheezing) Qty: 8.5 0RF fluticasone propionate [Flovent HFA] 110 mcg/actuation HFA aerosol inhaler 1 puff PO BID lisinopril 2.5 mg tablet 2.5 mg PO DAILY quetiapine 25 mg tablet 25 mg PO BEDTIME hydrochlorothiazide 25 mg tablet 25 mg PO DAILY betamethasone valerate 0.1 % cream topical Q OTHER DAY pantoprazole 40 mg tablet,delayed release (DR/EC) 40 mg PO DAILY atorvastatin 40 mg tablet 40 mg PO DAILY Print Language: Vietnamese
[2024-11-05 11:28] VITALS: BP 146/67; PULSE 71; RESP 16; TEMP 36.6; O2SAT 98
--- OUTSIDE RECORDS SUMMARY | 2024-11-05 13:05 | XMS_ITS | Clinical Summary ---
Author Organization [facility] [address] [place] [address] [place] [phone] Phone Care Team Providers Care Senior Branch Manager Name Role Phone Chandrika Cronin MD [...] of Breath for up to 30 days. 05/15/20 22 Active atorvastatin (LIPITOR) 40 mg tablet Take 1 tablet (40 mg total) by mouth. 02/15/20 23 Active betamethasone valerate (VALISONE) 0.1 % cream Apply locally BID as needed 10/06/19 24 Active dicyclomine (BENTYL) 10 mg capsule Take 1 capsule (10 mg total) by mouth. 05/02/20 23 Active fluticasone HFA (FLOVENT HFA) 110 mcg/actuation inhaler Inhale 1 puff. 05/16/20 23 Active loperamide (IMODIUM) 2 mg capsule Take 1 capsule (2 mg total) by mouth. 05/02/20 23 Active pantoprazole (PROTONIX) 40 mg EC tablet Take 1 tablet (40 mg total) by mouth 1 (one) time each day. 05/02/20 23 Active QUEtiapine (SEROquel) 25 mg tablet Take 0.5 tablets (12.5 mg total) by mouth 1 (one) time each day. 11/05/19 20 Active atorvastatin (LIPITOR) 40 mg tablet TAKE 1 TABLET BY MOUTH EVERY DAY 06/07/20 24 Active fluticasone-salm eterol (ADVAIR DISKUS) 250-50 mcg/dose diskus inhaler Inhale 1 Puff into the lungs 2 times daily for 90 days. 05/25/20 24 Active tocilizumab (Actemra ACTPen) subcutaneous injection 03/03/20 24 Active ibuprofen (ADVIL,MOTRIN) 600 mg tablet TAKE 1 TABLET BY MOUTH EVERY 6 HOURS NEEDED FOR FEVER OR PAIN 12/11/19 24 Active lisinopril (PRINIVIL,ZESTRI L) 40 mg tablet Take 1 tablet (40 mg total) by mouth 1 (one) time each day. 08/14/20 24 Active hydroCHLOROthiaz seth (HYDRODIURIL) 25 mg tablet Take 1 tablet (25 mg total) by mouth 1 (one) time each day. 90 tablet 08/23/20 24 Active albuterol 2.5 mg /3 mL (0.083 %) nebulizer solution Take 3 mL (2.5 mg total) by nebulization every 6 (six) hours if needed for wheezing or shortness of breath. by nebulization every 6 hours as needed for Wheezing, Shortness of Breath or Cough. 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 I conferred with [facility] cardiac surgery Dr. Farr and concluded [...] Depression 07/05/2013 Overview (11/07/2023): F/u BHN at [place] Asthma 09/09/2012 Nephrolithiasis 06/12/2012 Encounters Date Type Department Care Team Description 08/23/2024 9:30 AM EST Office Visit Adult Medicine [address] [phone] Mary Gomez PA Pneumonia of left lower [...] COLONOSCOPY; COMMENT: Performed 4 years ago at [facility] with polyps removed BREAST BIOPSY Right [...] obesity with BMI of 4 0.0-44.9, adult ([facility]) 06/16/2018 DX:Morbid obesity with BMI o f 40.0-44.9, adult ([facility]) Asymptomatic varicose veins of both [...] cancer Maternal Grandfather Pneumonia Mother passed awayt [facility] covid Breast cancer Other Cousin Relation Name [...] Care Team (Late st Contact Info) Description 11/24/2024 2:00 PM EDT Office Visit Pulmonolgy [facility] [address] [phone] Jessika Stearns MD [address] [place] [id number] 12/20/2024 12:00 PM EDT Office Visit Adult Medicine [address] [phone] Chandrika Cronin MD [address] [place] [address] 05/19/2025 10:45 AM EDT Appointment Bone Density - [place] [address] [place] [phone] Health Maintenance Due Date Last Done Comments [...] patient's age to complete this topic Meningococcal B Vacine Aged Out No lo nger eligible based on patient's age to complete [...] * Falls Risk Assessment (03/16/2024) Pathologist [facility] Falls Risk Assessment Abstracted Historical Provider HEALTH MAINTENANCE Final Result * Depression Screening (03/16/2024) Pathologist [facility] Depression Screening Abstracted Historical Provider HEALTH MAINTENANCE Final Result * Annual BMP Blood Test (10/03/2023) Pathologist [facility] Annual BMP Blood Test Abstracted Historical Provider [...] IMG XR PROCEDURES Final Resul t * Hm Colonoscopy (04/29/2022) Colonoscopy No interpretation , Abstracted Anatomical Region Laterality Modality Other us Historical Provider HEALTH MAINTENANCE Final Result * DXA BONE [...] classified as having normal bone density. [facility] Department of Internal Medicine recommends using National [...] on the World Health Organization criteria, Laura E Debbie shouldbe classified as having normal bone density. The [facility] Department of Internal Medicine recommendsusing National Osteoporosis [...] fracture risk by FRAX. Carmelina Kumari DO [facility] DXA PROCEDURE S Final Result * Hepatitis C Screening (07/05/2013) [facility] Hepatitis C Screening Abstracted Historical Provider HEALTH MAINTENANCE Final Result from Last 3 Months or Most Recently Relevant to Health Maintenance [place] [address] [address] [place] [address] MEDICARE Member Subscriber Plan / Payer (Ef fective 2023-Present) Name:LewisMelida aguayoria Katherine Relation to Subscriber:Self Name:Debbie Laura Murphy Payer ID:[id number] Group ID:[id number] Type:Not on file Address: [place] [address] [address] [id number] Advance Directives Documents on File Type Date Recorded Patient Fractionation Plant Supervisor Expl anation Health Care Decision (hx) 12/19/2022 HE ALTH CARE PROXY Health Care Decision (hx) 12/19/2022 HE ALTH CARE PROXY Health Care Decision (hx) 12/19/2022 HE ALTH CARE PROXY Health Care Decision (hx) 12/19/2022 HE ALTH CARE PROXY Care Teams Senior Branch Manager Relationship Specialty Start Date End Date Chandrika Cronin MD [address] [place] [address] PCP - General Internal Medicine 08/20/24
--- OUTSIDE RECORDS SUMMARY | 2024-11-05 13:06 | XMS_ITS | Data Portability ---
Author Organization [employer] Address [address] [place] [address] Care Team Providers Care Garbage Depot Worker Name Role Phone HIM CCA Referring Provider [...] [degF] 14 /min 98 % 98 % 86710.4 g 152.4 cm 63 /min 158 mm[Hg] [...] SNOMED-CT Code Diagnosis ICD10 Code Diagnosis Note [id number] Riccardo Kumar MD Main - [address] [phone] 08/17/2024 18:10:56 08/18/2024 14:39:45 Community acquired pneumonia [id number] J18.9 As noted, we were called to see this patient regarding concerns of recent dx PNA, still coughing and uncomforta ble. Evaluation in the field was performed by my radio journalist colleague, as noted above, I provided real-time [...] Rico Member ID Guarantor Name 08/17/2024 1 [facility] - DOS ON OR AFTER 2022 - DUAL ELIGIBLE - GROUP HOME OPTIONS AND ONE CARE (MEDICARE REPLACEMENT/ADV ANTAGE - HMO) Laura Cortes [id number] Laura Cortes Notes Date Note Type Note [...] was seen in the emergency room at [facility] on 08/13 and 08/14, was diagnosed [...] ................... ................... ................... ................... ................... ................... ........ Sash Sticker Note From Marciano Santana: Patient alert and oriented all information through family Manufacturing Sr Engineer on scene. Patient complains of difficulty breathing [...] during visit. Abdomen soft nontender extremities without edema.[facility] will prescribe benzonatate to patient? s local pharmacy. Supportive care, hydration, and use of albuterol nebulizer discussed with patient and caregiver. Both demonstrate understanding of care and plan, including use of nebulizer during illness.Red flags, patient education discussed. Patient encouraged to call again for future visits. Patient and caregiver appears satisfied with visit. ................... ................... ................... ................... ................... ................... ................... ........ [facility] Consulted: Mark Kumar ................... ................... ................... ................... ................... ................... ................... ........ Disposition: Fulfilled Riccardo Kumar MD [address] [place] [address],[facility] [facility], [place], [phone], [employer] 08/18/2024 08:31:43 OBGyn Episode No OBEpisode recorded.
== END 2024-11-05 11:29 | disposition home or self-care (01) ==
PROVIDERS: Emergency Provider Emergency Medicine; PCP Internal Medicine
DX: J10.1 Influenza due to other identified influenza virus with other respiratory manifestations (principal); I10 Essential (primary) hypertension; J45.909 Unspecified asthma, uncomplicated; Z86.711 Personal history of pulmonary embolism
CPT/HCPCS: 0241U; 99282; 99283

== ENCOUNTER 2024-12-13 08:20 | Outpatient (AMB) | payer OTHER, SELFPAY ==
--- NOTE | 2024-12-13 08:22 | MHC.OFFVIS ---
Vital Signs 12/13/24 08:23 Height 5 ft Weight 208 lb BMI 40.6 BP 120/70 Blood Pressure Location Rt brachial Position Sitting Pulse 64 Pulse Source Pulse Oximeter Pulse Oximetry (%) 99 Oxygen Delivery Method Room Air Intake Visit Reasons: Follow Up 6 month Intake Note: Patient following up for headaches and dizziness Master Certified Rv Technician Required: No Master Certified Rv Technician Name: Daughter interpreting Accompanied by: Daughter Allergies morphine [MORPHINE] Allergy (Severe, Verified 12/13/24 08:22) CHEST PAIN, TROUBLE BREATHING, bruises Penicillins Allergy (Intermediate, Verified 12/13/24 08:22) RASH codeine Allergy (Unknown, Verified 12/13/24 08:22) Unknown tramadol [TRAMADOL] Adverse Reaction (Unknown, Verified 12/13/24 08:22) Headache Percocet Adverse Reaction (Intermediate, Uncoded 11/05/24 08:08) vomiting Medication List - Last Reconciled 12/13/24 by MORIAH Branch Actemra ACTPen (tocilizumab) 162 mg (0.9 mL) subcut Q2W NS albuterol sulfate 2.5 mg (3 mL) inhalation Q4-6H PRN albuterol sulfate 90 mcg/actuation (ProAir HFA) 2 puffs inhalation Q4-6H PRN albuterol sulfate 90 mcg/actuation 2 puffs inhalation Q4-6H PRN albuterol sulfate 90 mcg/actuation 2 puffs inhalation Q4-6H PRN albuterol sulfate 90 mcg/actuation 2 puffs inhalation Q4-6H PRN 7 days albuterol sulfate 90 mcg/actuation 2 puffs inhalation Q6H PRN albuterol sulfate 2.5 mg (0.5 mL) inhalation Q4-6H PRN 7 days atorvastatin 40 mg PO DAILY azithromycin 250 mg PO DAILY 4 days benzonatate 200 mg PO TID PRN betamethasone valerate 0.1% appl topical Q OTHER DAY cefuroxime axetil 500 mg PO BID 7 days cefuroxime axetil 500 mg PO BID fluticasone propionate 110 mcg/actuation (Flovent HFA) 1 puff PO BID hydrochlorothiazide 25 mg PO DAILY ibuprofen 600 mg PO Q6H PRN linaclotide (Linzess) 72 mcg PO QAM lisinopril 40 mg PO DAILY lisinopril 2.5 mg PO DAILY magnesium oxide 400 mg PO BEDTIME 30 days nebulizers (AeroEclipse II Nebulizer) As directed ondansetron HCl 4 mg PO Q8H PRN oseltamivir (Tamiflu) 75 mg PO BID 5 days pantoprazole 40 mg PO DAILY prednisone 60 mg (3 x 20 mg) PO DAILY 3 days quetiapine 25 mg PO BEDTIME riboflavin (vitamin B2) 400 mg PO DAILY 30 days HPI Comments Details: 73--yr-old female presents for f/u visit. Pt accompanied by her dtr, who assists w/ Latvian interpretation. Pt denies any significant interval medical changes, other than having the Flu in October- which she has recovered from. She is concerned about having mild-moderate constant head/temporal pressure a/w phonophobia, photophobia. She has infrequent more severe headaches lasting 1-2 hours- triggered by stress and worry- states relaxing helps them to slef resolve. Just occasionally using Ibuprofen. She denies vision changes. States having occasional dizziness/feeling off-balance. Using her cane helps. She states her generalized body pains have improved since starting Tocilizumab. She is followed closely by [facility] rheumatology for GCA. [facility] Medical History Encounter for monitoring tocilizumab therapy Headache Anemia History of pulmonary embolism Nephrolithiasis High cholesterol Asthma Hypertension Surgical History H/O breast biopsy History of hysterectomy H/O colonoscopy Family History Mother Varicose vein of leg Depression Hypertension Asthma Heart disease Father Cerebrovascular accident (CVA) Kidney stones Sister Varicose vein of leg Depression Brother Depression Varicose vein of leg Daughter Varicose vein of leg Lupus anticoagulant disorder Maternal Grandfather Colon cancer Social History Household Members: Family Household Members Other:: sister Housing: House Alcohol intake: never Patient Tobacco Use Status: Never used Tobacco Physical Exam Vital Signs: Last Vital Signs Pulse 64 12/13/24 08:23 BP 120/70 12/13/24 08:23 Pulse Ox 99 12/13/24 08:23 Oxygen Delivery Method Room Air 12/13/24 08:23 BMI result Body Mass Index 40.6 Const General: cooperative and no acute distress Orientation/consciousness: patient oriented x3 HEENT Head: Yes normocephalic Resp Effort & Inspection: normal respiratory effort and able to speak in complete sentences Neuro General: patient oriented x3, gait normal and CN's II-XI intact bilaterally Cognition (Neuro): normal cognition Motor exam (neuro): 5/5 motor strength present throughout Psych Appearance: grossly normal Mental Status: mental status grossly normal Speech and movement: Normal speech and movement present Affect: normal affect Attitude: cooperative Thought process: Normal thought process present Thought content: Normal thought content present Insight: Good insight present (Psych) Judgement: Good judgement present (Psych) Assessment & Plan Assessment & Plan (1) Headache: Code(s): R51.9 - Headache, unspecified Category: Medical (2) Dizziness: Code(s): R42 - Dizziness and giddiness Category: Medical (3) GCA (giant cell arteritis): Comment: dx 01/2024 (positive PET scan) Actemra 01/2024 effective Code(s): M31.6 - Other giant cell arteritis Category: Medical (4) Gait difficulty: Code(s): R26.9 - Unspecified abnormalities of gait and mobility Category: Medical (5) Migraine without aura: Code(s): G43.009 - Migraine without aura, not intractable, without status migrainosus Category: Medical Plan For worsneing headaches- Pt advsed to undergo brain MRI w/wo contrast to assess for secondary etiologies. Start Riboflavin 400mg qam. Start Magnesium 400mg daily at bedtime. May use Tylenol or Ibuprofen prn headache. Information shared on non-pharmalogical headache tx's- such as cooling caps, loop ear plus. F/u w/ rheumatology as scheduled. ?Will follow-up upon review of above and patient to follow-up in clinic in 6 months or sooner prn. Orders: Orders MR head/brain wo/w con Today M31.6 - Other giant cell arteritis, R42 - Dizziness and giddiness, R51.9 - Headache, unspecified Medications: New riboflavin (vitamin B2) 400 mg PO DAILY 30 days 30 tabs 6RF magnesium oxide may hold for loose stools 400 mg PO BEDTIME 30 days 30 tabs 6RF Discontinued albuterol sulfate Discontinued Reason: Duplicate 2.5 mg (3 mL) inhalation Q4-6H PRN 90 mL 0RF shortness of breath or wheezing albuterol sulfate 90 mcg/actuation (ProAir HFA) Discontinued Reason: Duplicate 2 puffs inhalation Q4-6H PRN 8.5 grams 0RF shortness of breath or wheezing albuterol sulfate 90 mcg/actuation Discontinued Reason: Duplicate 2 puffs inhalation Q4-6H PRN 6.7 grams 0RF shortness of breath or wheezing benzonatate Discontinued Reason: Patient Completed Course 200 mg PO TID PRN 20 caps 0RF cough albuterol sulfate 90 mcg/actuation Discontinued Reason: Duplicate 2 puffs inhalation Q4-6H PRN 8.5 grams 0RF shortness of breath or wheezing azithromycin start on day 2 of therapy Discontinued Reason: Patient Completed Course 250 mg PO DAILY 4 days 4 tabs 0RF cefuroxime axetil Discontinued Reason: Duplicate 500 mg PO BID 9 tabs 0RF ondansetron HCl Discontinued Reason: Patient Completed Course 4 mg PO Q8H PRN 10 tabs 0RF nausea and vomiting albuterol sulfate 90 mcg/actuation Discontinued Reason: Duplicate 2 puffs inhalation Q6H PRN 8.5 grams 0RF shortness of breath or wheezing prednisone Discontinued Reason: Duplicate 60 mg (3 x 20 mg) PO DAILY 3 days 9 tabs 0RF oseltamivir (Tamiflu) Discontinued Reason: Duplicate 75 mg PO BID 5 days 10 caps 0RF Coding Level of Care Code Est Pt Level 4 (61155) Diagnoses Headache R51.9 Dizziness R42 GCA (giant cell arteritis) M31.6 Gait difficulty R26.9 Migraine without aura G43.009
[2024-12-13 08:23] VITALS: BP 120/70; PULSE 64; O2SAT 99; BMI 40.6
--- OUTSIDE RECORDS SUMMARY | 2024-12-13 08:40 | XMS_ITS | Data Portability ---
Author Organization [employer] Address [address] [place] [address] Care Team Providers Care Travograph Operator Name Role Phone HIM CCA Referring Provider [...] [degF] 14 /min 98 % 98 % 40907.4 g 152.4 cm 63 /min 158 mm[Hg] [...] SNOMED-CT Code Diagnosis ICD10 Code Diagnosis Note [id number] Riccardo Kumar MD Main - [address] [phone] 08/17/2024 18:10:56 08/18/2024 14:39:45 Community acquired pneumonia [id number] J18.9 As noted, we were called to see this patient regarding concerns of recent dx PNA, still coughing and uncomforta ble. Evaluation in the field was performed by my auto transmission mechanic colleague, as noted above, I provided real-time [...] Rico Member ID Guarantor Name 08/17/2024 1 [facility] - DOS ON OR AFTER 2022 - DUAL ELIGIBLE - RETIREMENT OPTIONS AND ONE CARE (MEDICARE REPLACEMENT/ADV ANTAGE - HMO) Laura Cortes [id number] Laura Cortes Notes Date Note Type Note [...] was seen in the emergency room at [facility] on 08/13 and 08/14, was diagnosed [...] ................... ................... ................... ................... ................... ................... ........ Instructional Assistant Note From Marciano aSntana: Patient alert and oriented all information through family Stenciling Machine Tender on scene. Patient complains of difficulty breathing [...] during visit. Abdomen soft nontender extremities without edema.[facility] will prescribe benzonatate to patient? s local pharmacy. Supportive care, hydration, and use of albuterol nebulizer discussed with patient and caregiver. Both demonstrate understanding of care and plan, including use of nebulizer during illness.Red flags, patient education discussed. Patient encouraged to call again for future visits. Patient and caregiver appears satisfied with visit. ................... ................... ................... ................... ................... ................... ................... ........ [facility] Consulted: Mark Kumar ................... ................... ................... ................... ................... ................... ................... ........ Disposition: Fulfilled Riccardo Kumar MD [address] [place] [address],[address] [facility], [place], [address], [employer] 08/18/2024 08:31:43 OBGyn Episode No OBEpisode recorded.
--- OUTSIDE RECORDS SUMMARY | 2024-12-13 08:40 | XMS_ITS | Clinical Summary ---
Author Organization [facility] [address] [place] [address] [place] [phone] Phone Care Team Providers Care Telecommunications Sales Representative Name Role Phone Chandrika Cronin MD Primary [...] of Breath for up to 30 days. 022 Active atorvastatin (LIPITOR) 40 mg tablet Take 1 tablet (40 mg total) by mouth. 023 Active betamethasone valerate (VALISONE) 0.1 % cream Apply locally BID as needed 024 Active dicyclomine (BENTYL) 10 mg capsule Take 1 capsule (10 mg total) by mouth. 023 Active fluticasone HFA (FLOVENT HFA) 110 mcg/actuation inhaler Inhale 1 puff. 023 Active loperamide (IMODIUM) 2 mg capsule Take 1 capsule (2 mg total) by mouth. 023 Active pantoprazole (PROTONIX) 40 mg EC tablet Take 1 tablet (40 mg total) by mouth 1 (one) time each day. 023 Active QUEtiapine (SEROquel) 25 mg tablet Take 0.5 tablets (12.5 mg total) by mouth 1 (one) time each day. 020 Active atorvastatin (LIPITOR) 40 mg tablet TAKE 1 TABLET BY MOUTH EVERY DAY 024 Active fluticasone-oriana meterol (ADVAIR DISKUS) 250-50 mcg/dose diskus inhaler Inhale 1 Puff into the lungs 2 times daily for 90 days. 024 Active tocilizumab (Actemra ACTPen) subcutaneous injection Active ibuprofen (ADVIL,MOTRIN) 600 mg tablet TAKE 1 TABLET BY MOUTH EVERY 6 HOURS NEEDED FOR FEVER OR PAIN 024 Active lisinopril (PRINIVIL,ZESTR IL) 40 mg tablet Take 1 tablet (40 mg total) by mouth 1 (one) time each day. 90 tablet 025 Active hydroCHLOROthia zide (HYDRODIURIL) 25 mg tablet TAKE 1 TABLET BY MOUTH 1 TIME EACH DAY. 90 tablet 025 Active fluticasone-oriana meterol (Wixela Inhub) 250-50 mcg/dose diskus inhaler Inhale 1 puff by mouth 2 (two) times a day. Rinse mouth with water after use to reduce aftertaste and incidence of candidiasis. Do not swallow. 3 each 3 025 2025 Active albuterol HFA (PROAIR HFA ; PROVENTIL HFA ; VENTOLIN HFA) 90 mcg/actuation inhaler Inhale 2 puffs by mouth every 6 (six) hours if needed for wheezing or shortness of breath. 3 each 3 025 2025 Active albuterol 2.5 mg /3 mL (0.083 %) nebulizer solutionIndicat ions:Moderate persistent asthma, unspecified whether complicated Take 3 mL (2.5 mg total) by nebulization every 6 (six) hours if needed for wheezing or shortness of breath. by nebulization every 6 hours as needed for Wheezing, Shortness of Breath or Cough. 360 mL 11 025 Active atorvastatin (LIPITOR) 40 mg tablet TAKE 1 TABLET BY MOUTH EVERY DAY 90 tablet 1 025 Active hydroCHLOROthia zide (HYDRODIURIL) 25 mg tablet Take 1 tablet (25 mg total) by mouth 1 (one) time each day. 90 tablet 024 2024 Discontinued albuterol 2.5 mg /3 mL (0.083 %) nebulizer solution Take 3 mL (2.5 mg total) by nebulization every 6 (six) hours if needed for wheezing or shortness of breath. by nebulization every 6 hours as needed for Wheezing, Shortness of Breath or Cough. 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 I conferred with [facility] cardiac surgery Dr. Farr and concluded [...] midline thoracic back pain 04/18/2022 Bleeding disorder ([facility] V24) 04/17/2022 Prediabetes 04/17/2022 Overview (11/07/2023): Lab Results Component Value Date HGBA1C 6.3 12/16/2022 OA (osteoarthritis) of hip 07/09/2021 Osteoarthritis, shoulder 07/09/2021 History of 2019 novel coronavirus disease (COVID -19) 01/22/2021 Asymptomatic varicose veins of both lower extrem ities 06/16/2018 DMITRI (obstructive sleep apnea) 06/16/2018 Overview (06/08/2024): moderate overall AHI 15; severe in REM AHI 42 in 2015 Morbid obesity with BMI of 4 0.0-44.9, adult ([facility] V24, [facility] V28) 06/16/2018 Allergic rhinitis 04/23/2018 Essential hypertension 04/23/2018 Dyslipidemia 04/03/2018 Lichen simplex 06/06/2014 Anxiety 10/01/2013 Depression 07/05/2013 Overview (11/07/2023): F/u BHN at [facility] Asthma 09/09/2012 Nephrolithiasis 06/12/2012 Encounters Date Type Department Care Team Description 11/24/2024 2:00 PM EDT Office Visit Pulmonolgy - [address] [place] [address] Jessika Stearns MD Moderate persistent asthma, unspecified whether complicated (Primary Dx) from Last 3 Months Immunizations Name Administration [...] COLONOSCOPY; COMMENT: Performed 4 years ago at [facility] with polyps removed BREAST BIOPSY Right [...] obesity with BMI of 4 0.0-44.9, adult (CMS/HCC V24, CMS/HCC V28) 06/16/2018 DX:Morbid obesity wit h BMI of 40.0-44.9, adult ([facility]) Asymptomatic varicose veins of both [...] cancer Maternal Grandfather Pneumonia Mother passed awayt [facility] Breast cancer Other Cousin Relation Name Status [...] Sign Reading Time Taken Comments Blood Pressure 145/49 11/24/2024 1:48 PM EDT Pulse 87 11/24/2024 1:48 PM EDT Temperature 36.4 ??C (97.6 ??F) 11/24/2024 1:48 PM ED T Respiratory Rate 18 11/24/2024 1:48 PM EDT Oxygen Saturation 99% 11/24/2024 1:48 PM EDT Inhaled Oxygen Concentration - - Weight 93.9 kg (207 lb) 11/24/2024 1:48 PM EDT Height 152.4 cm (5') 11/24/2024 1:48 PM EDT Body Mass Index 40.43 11/24/2024 1:48 PM EDT Plan of Treatment Upcoming Encounters Date Type Department Care Team (Late st Contact Info) Description 05/19/2025 10:45 AM EDT Appointment Bone Density - [address] [phone] 06/08/2025 2:15 PM EDT Office Visit Pulmonolgy - [place] [address] [facility] [address] [place] [phone] Jessika Stearns MD [address] [facility] [address] [place], [place] [id number] Health Maintenance Due Date Last Done Comments Zoster Vaccines (1 of 2) 2000 RSV Immunization Adult Patients (1 - Risk 60-74 years 1-dose series) 2010 Social Influencers of Health Screening 08/10/2022 DTaP,Tdap,and Td Vaccines (2 - Td or Tdap) 07/05/2023 07/05/2013 Breast Cancer Screening 05/08/2024 05/08/20 22, 02/20/2021, 01/07/2019 Hypertension/CHF/CAD Annual BMP Blood Test 10/03/2024 10/03/2023 Depression Screening 03/16/2025 03/16/2024, 03/13/20 23 Falls Risk Assessment 03/16/2025 03/16/2024, 023 Medicare Annual Wellness Visit 03/16/2025 03/16/2024 Influenza Vaccine (Season Ended) 2025 08/19/2022, 06/16/2018, 06/16/2017, Additional history exists Colorectal Cancer Screening: Colonoscopy 04/29/2027 04/29/2022, 04/29/2022 [...] age to complete this topic Meningococcal B Vaccine Aged Out No l onger eligible based on patient's age to complete [...] Results * Falls Risk Assessment (03/16/2024) Pathologist [facility] [place] Risk Assessment Abstracted [facility] Provider HEALTH MAINTENANCE Final Result * Depression Screening (03/16/2024) Pathologist [facility] Depression Screening Abstracted [facility] Provider HEALTH MAINTENANCE Final Result * Annual BMP Blood Test (10/03/2023) Pathologist [facility] Annual BMP Blood Test Abstracted [facility] Provider HEALTH MAINTENANCE Final Result * (ABNORMAL) Lipid panel (10/03/2023) [facility] LDL/HDL Ratio 3 0 - 4 Triglycerides 92 0 - 150 mg/dL Cholesterol 206(A) 0 - 200 mg/dL HDL 69 >=40 mg/dL LDL Cholesterol 119(A) 0 - 100 mg/dL Blood Venous blood specimen / Unknown [facility] Provider LAB BLOOD ORDERABLES Vivi l Result [...] Anatomical Region Laterality Modality Other Historical Provider HEALTH MAINTENANCE Final Result * [...] classified as having normal bone density. The [facility] Department of Internal Medicine recommends using [...] classified as having normal bone density. The [facility] Department of Internal Medicine recommendsusing National [...] fracture risk by FRAX. Carmelina Kumari DO IMG DXA PROCEDURE S Final Result * Hepatitis C Screening (07/05/2013) [facility] Signature Hepatitis C Screening Abstracted Historical Provider MD HEALTH MAINTENANCE Final Result from Last 3 Months or Most Recently Relevant to Health Maintenance Insurance MEDICARE Member Subscriber Plan / Payer (Ef fective 2023-Present) Name:Laura Lewis Relation to Subscriber:Self Name:Laura Lewis Payer ID:[id number] Group ID:[id number] Type:Not on file Address: [place] [address] [address] [id number] Advance Directives Documents on File Type Date Recorded Patient Valve Assembler Expl anation Health Care Decision (hx) 12/19/2022 HE ALTH CARE PROXY Health Care Decision (hx) 12/19/2022 HE ALTH CARE PROXY Health Care Decision (hx) 12/19/2022 HE ALTH CARE PROXY Health Care Decision (hx) 12/19/2022 HE ALTH CARE PROXY Care Teams Telecommunications Sales Representative Relationship Specialty Start Date End Date Chandrika Cronin MD [address] [place] [id number] PCP - General Internal Medicine 08/20/24
== END 2024-12-13 09:20 | disposition home or self-care (01) ==
PROVIDERS: PCP Internal Medicine; Visit Provider Nurse Practitioner Family
DX: R51.9 Headache, unspecified (principal); R42 Dizziness and giddiness; M31.6 Other giant cell arteritis; R26.9 Unspecified abnormalities of gait and mobility; G43.009 Migraine without aura, not intractable, without status migrainosus
CPT/HCPCS: 99214

== ENCOUNTER → 2024-12-13 08:20 | Outpatient (BNVA) | payer OTHER, SELFPAY | PROVIDERS: PCP Internal Medicine; Visit Provider Nurse Practitioner Family | DX: G43.009 Migraine without aura, not intractable, without status migrainosus (principal); R42 Dizziness and giddiness; M31.6 Other giant cell arteritis; R26.9 Unspecified abnormalities of gait and mobility | CPT/HCPCS: 99212 ==

== ENCOUNTER 2025-01-01 13:48 | Outpatient (REF) | payer OTHER, SELFPAY ==
--- NOTE | ~2025-01-01 | MR_ITS ---
EXAMINATION: MR BRAIN WITHOUT THEN WITH IV CONTRAST HISTORY: R51.9 - Headache, unspecified TECHNIQUE: Sagittal T1, and axial T1, FLAIR, T2, gradient echo, and diffusion weighted MR images of the brain were obtained. Subsequently, axial, and coronal T1-weighted images were obtained after the administration of intravenous gadolinium. 10 mL Gadavist was administered. COMPARISON: Correlation is made with a head CT dated 1. FINDINGS: There are scattered periventricular and subcortical white matter hyperintensities on the FLAIR and T2-weighted images which are nonspecific. Gómez/white differentiation is otherwise normal. There is no mass effect or midline shift. The ventricular system is normal in size and configuration. No intra or extra-axial fluid collections are identified. There are no foci of restricted diffusion. There is no abnormal contrast enhancement. Normal vascular flow voids are noted in the basilar and carotid arteries. The visualized paranasal sinuses are clear. MR/MR head/brain wo/w con IMPRESSION: Nonspecific white matter hyperintensities. Differential diagnostic considerations include small vessel ischemic disease, migraine, Lyme disease, vasculitis, and demyelinating disease. Electronically signed by: Ed Lovell MD 01/03/2025 08:46 AM EDT
--- OUTSIDE RECORDS SUMMARY | 2025-01-01 13:52 | XMS_ITS | Data Portability ---
Author Organization [facility] Address [address] [place] [address] Care Team Providers Care Career Coordinator Name Role Phone HIM CCA Referring Provider [phone] Assessment No assessment recorded. Plan of Treatment [...] [degF] 14 /min 98 % 98 % 00696.4 g 152.4 cm 63 /min 158 mm[Hg] [...] SNOMED-CT Code Diagnosis ICD10 Code Diagnosis Note [id number] Riccardo Kumar MD Main - [address] [phone] 08/17/2024 18:10:56 08/18/2024 14:39:45 Community acquired pneumonia [id number] J18.9 As noted, we were called to see this patient regarding concerns of recent dx PNA, still coughing and uncomforta ble. Evaluation in the field was performed by my award machine operator colleague, as noted above, I provided real-time [...] Rico Member ID Guarantor Name 08/17/2024 1 [facility] - DOS ON OR AFTER 2022 - DUAL ELIGIBLE - SENIOR LIVING OPTIONS AND ONE CARE (MEDICARE REPLACEMENT/ADV ANTAGE - HMO) Laura Cortes [id number] Laura Cortes Notes Date Note Type Note [...] was seen in the emergency room at [facility] on 08/13 and 08/14, was diagnosed [...] ................... ................... ................... ................... ................... ................... ........ Fig Bar Machine Operator Note From Marciano Santana: Patient alert and oriented all information through family Group Reservations Coordinator on scene. Patient complains of difficulty breathing [...] during visit. Abdomen soft nontender extremities without edema.[facility] will prescribe benzonatate to patient? s local pharmacy. Supportive care, hydration, and use of albuterol nebulizer discussed with patient and caregiver. Both demonstrate understanding of care and plan, including use of nebulizer during illness.Red flags, patient education discussed. Patient encouraged to call again for future visits. Patient and caregiver appears satisfied with visit. ................... ................... ................... ................... ................... ................... ................... ........ [facility] Consulted: Mark Kumar ................... ................... ................... ................... ................... ................... ................... ........ Disposition: Fulfilled Riccardo Kumar MD [address] [place] [address],[address] [facility], [place], [phone], [facility] 08/18/2024 08:31:43 OBGyn Episode No OBEpisode recorded.
[2025-01-01] MEDS: gadobutroL 10 ML VIAL IVPUSH (14:54)
== END 2025-01-01 13:49 | disposition home or self-care (01) ==
LOC: HO.MRI 13:48
PROVIDERS: PCP Internal Medicine; Visit Provider Nurse Practitioner Family
DX: R51.9 Headache, unspecified (principal); M31.6 Other giant cell arteritis; R42 Dizziness and giddiness
CPT/HCPCS: 70553; A9585

== ENCOUNTER → 2025-01-01 14:02 | Outpatient (BNV) | payer OTHER, SELFPAY | PROVIDERS: PCP Internal Medicine; Visit Provider Radiology Diagnostic Radiology | DX: R90.82 White matter disease, unspecified (principal) | CPT/HCPCS: 70553 ==

== ENCOUNTER 2025-02-05 08:45 | Outpatient (REF) | payer OTHER, SELFPAY ==
[2025-02-05 09:09] LABS: MANUAL DIFF FLAG NO
[2025-02-05 09:36] LABS: Basophils Percent Auto 0.5 % (0-2); Eosinophils Absolute Auto 0.7 X10*3/uL (0.0-0.4); Eosinophils Percent Auto 13.1 % (0-4); Hematocrit 36.4 % (37.0-47.0); Hemoglobin 11.5 g/dl (12.0-16.0); Imm Gran Abs Auto 0.02 X10*3/uL (0.00-0.03); Imm Gran Pct Auto 0.4 % (0.0-0.4); Lymphocytes Absolute Auto 1.6 X10*3/uL (1.2-4.9); Lymphocytes Percent Auto 28.9 % (20-40); Mean Corpuscular HGB Conc 31.6 g/dl (31.0-35.0); Mean Corpuscular Hemoglobin 27.7 pg (27.0-33.0); Mean Corpuscular Volume 87.7 fL (80.0-98.0); Monocytes Absolute Auto 0.6 X10*3/uL (0.1-1.2); Monocytes Percent Auto 9.9 % (2-11); Neutrophils Absolute Auto 2.6 x10*3/uL (2.0-8.3); Neutrophils Percent Auto 47.2 % (45-73); Platelet Count 215 X10*3/uL (160-400); Red Blood Count 4.15 X10*6/uL (4.20-5.50); Red Cell Distribution Width 13.7 % (11.0-16.0); White Blood Count 5.6 X10*3/uL (4.8-10.8)
[2025-02-05 10:00] LABS: Alanine Aminotransferase 23 U/L (0-31); Albumin Level 4.3 g/dL (3.5-5.0); Alkaline Phosphatase 61 U/L (39-117); Anion Gap 11 (12-20); Aspartate Amino Transferase 24 U/L (5-31); Bilirubin Total 0.4 mg/dL (0.0-1.0); Blood Urea Nitrogen 24 mg/dL (9-16); C Reactive Protein 0.12 mg/dL (< or = 0.50); Calcium 9.4 mg/dL (8.4-10.2); Carbon Dioxide 27 mmol/L (22-29); Chloride 109 mmol/L (96-108); Cholesterol 233 mg/dL (<200); Estimated Glomerular Filt Rate 55; Glucose Random 95 mg/dL (60-115); HDL Cholesterol 61 mg/dL (>40); LDL Cholesterol Calculated 146 mg/dL (<100); Potassium 4.3 mmol/L (3.3-5.1); Sodium 143 mmol/L (135-145); Total Protein 7.3 g/dL (6.5-8.0); Triglycerides 132 mg/dL (<150)
[2025-02-05 10:25] LABS: Erythrocyte Sedimentation Rate 16 MM/HR (0-20)
== END 2025-02-05 08:46 | disposition home or self-care (01) ==
LOC: HO.LAB 08:45
PROVIDERS: PCP Internal Medicine; Visit Provider Student in an Organized Health Care Education/Training Program
DX: M31.6 Other giant cell arteritis (principal); Z79.620 Long term (current) use of immunosuppressive biologic; Z13.6 Encounter for screening for cardiovascular disorders
CPT/HCPCS: 36415; 80053; 80061; 85025; 85652; 86140

== ENCOUNTER 2025-02-14 10:30 | Outpatient (AMB) | payer OTHER, SELFPAY ==
--- NOTE | 2025-02-14 10:33 | A.OFFVIS_ITS ---
Vital Signs 02/14/25 10:40 Height 5 ft Weight 207 lb 0.225 oz BMI 40.4 BP 140/72 H Blood Pressure Location Lt brachial Position Sitting Respiration 16 Pulse 62 Pulse Source Pulse Oximeter Pulse Oximetry (%) 98 Oxygen Delivery Method Room Air Intake Visit Reasons: discuss labs Intake Note: Patient presents for GCA follow up and to discuss labs. Rod Mill Tender Required: Yes Rod Mill Tender Language: Capability Lead Services: Rod Mill Tender Present Rod Mill Tender Name: Сергей [id number] Information Interpreted: non-clinical & clinical Allergies morphine [MORPHINE] Allergy (Severe, Verified 02/14/25 10:39) CHEST PAIN, TROUBLE BREATHING, bruises Penicillins Allergy (Intermediate, Verified 02/14/25 10:39) RASH codeine Allergy (Unknown, Verified 02/14/25 10:39) Unknown tramadol [TRAMADOL] Adverse Reaction (Unknown, Verified 02/14/25 10:39) Headache Percocet Adverse Reaction (Intermediate, Uncoded 11/05/24 08:08) vomiting Medication List - Last Reconciled 02/14/25 by Paola Morgan MD Actemra ACTPen (tocilizumab) 162 mg (0.9 mL) subcut Q2W NS albuterol sulfate 90 mcg/actuation 2 puffs inhalation Q4-6H PRN 7 days albuterol sulfate 2.5 mg (0.5 mL) inhalation Q4-6H PRN 7 days atorvastatin 40 mg PO DAILY betamethasone valerate 0.1% appl topical Q OTHER DAY cefuroxime axetil 500 mg PO BID 7 days fluticasone propionate 110 mcg/actuation (Flovent HFA) 1 puff PO BID hydrochlorothiazide 25 mg PO DAILY ibuprofen 600 mg PO Q6H PRN linaclotide (Linzess) 72 mcg PO QAM lisinopril 40 mg PO DAILY magnesium oxide 400 mg PO BEDTIME 30 days nebulizers (AeroEclipse II Nebulizer) As directed pantoprazole 40 mg PO DAILY quetiapine 25 mg PO BEDTIME riboflavin (vitamin B2) 400 mg PO DAILY 30 days HPI Comments Details: Patient is a 74-year-old female with hyperlipidemia, hypertension, migraines, polyarticular osteoarthritis and GCA here today for follow up Interval History: Patient last seen 10/14/2024 with me. At that time she was following up for her polyarticular osteoarthritis and GCA. Doing well, No further headaches Having breast surgery 6/18/25 for removal of suspicious breast mass. Rheumatologic History: dx 01/2024 (positive PET scan) Actemra 01/2024 effective Initial history : This is a 73-year-old female who is referred by Neurology for evaluation of elevated inflammatory markers. Patient and her daughter are both poor historians. Back in November of 2022 patient presented to the ER with abdominal pain. 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 Inflammatory markers were significantly elevated. She was then referred to neurologist. Of note patient has a history of PE back in 2011 and was on anticoagulation for 6 years which was discontinued due to splenic hemorrhage. Patient's daughter also mentions he has history of hypercoagulable state, history of PE and taking warfarin regularly. Patient's brother has history of thick blood She also mentions that she has history of headaches, intermittent blurry vision, she could not specify the nature of the headaches and whether 1 or 2 eyes are involved. She denies any jaw or tongue claudication. Patient received steroid injections for her knees and shoulders by Dr. Cormier, most recent injection was 10/01/2023. She states that whenever she received those injections she feels much better overall. She states that she lost about 25 lb over the last year due to decreased appetite. She denies any fevers. She states that she has had a rash on her cheeks for about a year and she was told this was allergies and she uses a steroid cream. She can not tell whether the rash is photosensitive. Patient has history of 4 pregnancies, 3 children and 1 . She denies history suggestive of Raynaud's. She denies any swollen joints. Patient was referred for temporal artery biopsy by neurologist. 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 She was started on steroids and Actemra Current Rheumatology Medication(s): Actemra 162mg SC every 2 weeks [facility] Medical History Encounter for monitoring tocilizumab therapy Headache Anemia History of pulmonary embolism Nephrolithiasis High cholesterol Asthma Hypertension Surgical History H/O breast biopsy History of hysterectomy H/O colonoscopy Family History Mother Varicose vein of leg Depression Hypertension Asthma Heart disease Father Cerebrovascular accident (CVA) Kidney stones Sister Varicose vein of leg Depression Brother Depression Varicose vein of leg Daughter Varicose vein of leg Lupus anticoagulant disorder Maternal Grandfather Colon cancer Social History Household Members: Family Household Members Other:: sister Housing: House Alcohol intake: never Patient Tobacco Use Status: Never used Tobacco Review of Systems Const Details: Review of Systems Constitutional: Denies fever, chills, weight loss ENT: Denies vision changes, eye pain or eye redness, dental caries, dry mouth GI: Denies nausea, vomiting, diarrhea, abdominal pain, change in BM Pulm: Denies SOB, PALENCIA, hemoptysis, wheezing Cards: Denies chest pain, palpitations Skin: Denies Raynaud's, rash, nail changes, photosensitivity, SASH ASSEMBLER: Denies headaches, weakness, paresthesias, recurrent falls MSK: as per HPI All other systems reviewed and are unremarkable except noted above Physical Exam Vital Signs: Last Vital Signs Pulse 62 02/14/25 10:40 Resp 16 02/14/25 10:40 BP 140/72 H 02/14/25 10:40 Pulse Ox 98 02/14/25 10:40 Oxygen Delivery Method Room Air 02/14/25 10:40 BMI result Body Mass Index 40.4 Vital signs reviewed Physical Examination CONSTITUITIONAL Patient alert and cooperative. Well appearing and in no apparent painful distress HEENT Conjunctiva and sclera clear. ?Pupils equal round and reactive to light. ?No lymphadenopathy. normal TA pulses bilaterally? CHEST/RESPIRATORY SYSTEM Normal respiratory effort and able to speak in complete sentences. ?Clear to auscultation bilaterally. ?No crackles, rales, rhonchi, wheezes heard. CARDIAC SYSTEM Regular rate and rhythm. ?S1 and S2 heard no murmurs. ?Radial pulses intact bilaterally MSK Hands: ?Good macerator operator strength bilaterally. No deformities noted. ?No synovitis noted to the MCPs, PIPs or DIPs. ?No tenderness to palpation of these joints. Herbedens nodes Wrists: ?Full range of motion at the wrists without pain. ?No tenderness to palpation or synovitis noted to the wrists. Elbows: Full range of motion without pain. No tenderness, weakness, swelling, i ncreased warmth or erythema. Shoulders: Full range of motion without pain. No tenderness, weakness, swelling, increased warmth or erythema. Knees: ?Full range of motion. ?No tenderness, swelling, increased warmth or erythema.?No effusion. Crepitations felt Ankles: Full range of motion. ?No tenderness, swelling, increased warmth or erythema.? Feet: ?Negative squeeze test. ?No tenderness to palpation or swelling of the MTPs. Tender points:?No tenderness to palpation of the bilateral trapezius, supraspinatus, greater trochanters, anterior costochondral junctions, bilateral gluteal areas, bilateral suboccipital muscle insertions SKIN Skin intact without rashes. Results Reviewed Results Reviewed: Laboratory Tests 02/05/25 09:08 WBC 5.6 RBC 4.15 L Hgb 11.5 L Hct 36.4 L Plt Count 215 ESR 16 Sodium 143 Potassium 4.3 Chloride 109 H Carbon Dioxide 27 BUN 24 H Creatinine 0.98 Total Bilirubin 0.4 AST 24 ALT 23 Alkaline Phosphatase 61 C-Reactive Protein 0.12 Total Protein 7.3 Albumin 4.3 Triglycerides 132 Cholesterol 233 H Rheumatology Labs 11/13/23 14:50 Cycl Citrul Peptide IgG 36 H ALIZA Screen NEGATIVE Proteinase 3 (PR3) Ab <1.0 Myeloperoxidase Ab <1.0 SS-A/Ro Antibody <1.0 NEG SS-B/La Antibody <1.0 NEG Sm (Powers) Antibody <1.0 NEG SM/CAPTION WRITER IgG Antibody <1.0 NEG Double Strand DNA Ab <1 Anti-ds DNA (Crithidia) Negative Complement C3 182 Complement C4 33 Assessment & Plan Assessment & Plan (1) GCA (giant cell arteritis): Comment: dx 01/2024 (positive PET scan) Actemra 01/2024 effective Code(s): M31.6 - Other giant cell arteritis Category: Medical Plan: #GCA Patient is a 74-year-old female with GCA based on elevated inflammatory markers and 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 Doing well on Actemra with no headaches and normal inflammatory markers. Patient has been on Actemra for the past year. Ideally would like to get a repeat PET scan but since she is undergoing evaluation and surgery for a suspicious breast mass we will hold off for now. Plan - Actemra 162mg SC every 2 weeks - Re evaluate at next visit for repeat PET scan - RTC 4 months - Labs before visit: CBC, CMP, ESR, CRP, lipid panel (2) Screening for osteoporosis: Code(s): Z13.820 - Encounter for screening for osteoporosis Plan: #Screening for osteoporosis Patient with advanced age, menopause, history of steroid use, at risk for osteoporosis. Follows up in [place] for her bone density Has appointment in 04/2025, will ask for report (3) Encounter for monitoring tocilizumab therapy: Code(s): Z51.81 - Encounter for therapeutic drug level monitoring; Z79.620 - senior living (current) use of immunosuppressive biologic Category: Medical Plan: #Long-term Use of Tocilizumab Discussed the risks and benefits of tocilizumab with the management of this patient's rheumatic condition. ? Benefits include decreased pain, improved mortality, improved quality of life Risks include LFT abnormalities, elevated triglycerides, GI perforations Contraindicated in a patient with history of diverticulitis Monitoring: ?CBC, CMP, triglycerides Plan I spent 35 minutes reviewing the record and labs, taking a history, examining the patient, discussing the treatment plan, ordering diagnostic work up, using the officer lieutenant and documenting in the medical record Orders: Orders Complete Blood Count Auto Diff 4 Months M31.6 - Other giant cell arteritis Comprehensive Met. Panel 4 Months M31.6 - Other giant cell arteritis Erythrocyte Sedimentation Rate 4 Months M31.6 - Other giant cell arteritis Lipid Panel 4 Months M31.6 - Other giant cell arteritis C Reactive Protein 4 Months M31.6 - Other giant cell arteritis Coding Level of Care Code Est Pt Level 4 (59720) Complex EM visit Add On G2211 Diagnoses GCA (giant cell arteritis) M31.6 Screening for osteoporosis Z13.820 Encounter for monitoring tocilizumab therapy Z51.81; Z79.620
[2025-02-14 10:40] VITALS: BP 140/72; PULSE 62; RESP 16; O2SAT 98; BMI 40.4
== END 2025-02-14 11:09 | disposition home or self-care (01) ==
LOC: HO.RHE 10:31
PROVIDERS: PCP Internal Medicine; Visit Provider Student in an Organized Health Care Education/Training Program
DX: M31.6 Other giant cell arteritis (principal); Z13.820 Encounter for screening for osteoporosis; Z51.81 Encounter for therapeutic drug level monitoring; Z79.620 Long term (current) use of immunosuppressive biologic
CPT/HCPCS: 99214; G2211

== ENCOUNTER → 2025-02-14 10:30 | Outpatient (BNVA) | payer OTHER, SELFPAY | PROVIDERS: PCP Internal Medicine; Visit Provider Student in an Organized Health Care Education/Training Program | DX: Z71.2 Person consulting for explanation of examination or test findings (principal); M31.6 Other giant cell arteritis; Z13.820 Encounter for screening for osteoporosis; Z51.81 Encounter for therapeutic drug level monitoring; Z79.620 Long term (current) use of immunosuppressive biologic | CPT/HCPCS: 99212 ==

== ENCOUNTER 2025-02-25 10:51 | Outpatient (AMB) | payer OTHER, SELFPAY ==
--- NOTE | 2025-02-25 11:25 | A.OFFVIS_ITS ---
Vital Signs 02/25/25 11:27 Height 5 ft Weight 207 lb BMI 40.4 BP 110/60 Blood Pressure Location Rt brachial Position Sitting Pulse 56 Pulse Source Pulse Oximeter Temp 99 F Intake Visit Reasons: ER discharge follow up Reagent Tender Helper Required: No Reagent Tender Helper Name: Daughter Interpreting Accompanied by: Daughter Allergies morphine (MORPHINE) Allergy (Severe, Verified 02/25/25 11:27) CHEST PAIN, TROUBLE BREATHING, bruises Penicillins Allergy (Intermediate, Verified 02/25/25 11:27) RASH codeine Allergy (Unknown, Verified 02/25/25 11:27) Unknown tramadol (TRAMADOL) Adverse Reaction (Unknown, Verified 02/25/25 11:27) Headache Percocet Adverse Reaction (Intermediate, Uncoded 11/05/24 08:08) vomiting HPI Comments Details: 74-yr-old female presents for urgent [facility] ER evaluation for possible TIA. Pt accompanied by her dtr, Thais, who assists w/ history and Lao interpretation. Pt reports on 02/16/25, pt underwent right breast lumpectomy under general anesthesia. After the surgery, which was uncomplicated pt returned home. Later that day, dtr had stepped out of the room, when she came back, she found the pt unresponsive x's at least 2 minutes after finding her. As pt came to, she was confused, had slurred speech, numbness in both hands and lips, on tongue protrusion - had left tongue deviation. After the episode, pt told her dtr at the time of the event, she had felt a cold sensation or water running down from the top left side of the head- distinct from her previous headaches. Pt's dtr called [facility] and then brought pt to [facility] ER. In the ER, pt had asymmetric peripheral sensation left less than right but otherwise no focal neuro findings. Work-up- initial BP/HR 165/71, 71; EKG normal sinus rhythm, CT head w/o- unremarkable. Troponin negative, CTA head/neck- left carotid 60% stenosis w/ vessel tortuosity/buckling. Note, lipid panel from October 2024 shows mildly elevated total cholesterol and LDL- per PCP note, patient was advised to continue atorvastatin 40 mg daily, and optimize diet. Patient was discharged home with instructions to follow-up with PCP and Neurology. Patient reports since returning home, she has returned to her baseline. She denies any residual confusion, dysarthria, dysphagia, numbness, or weakness. Today, her BP is normotensive at 110/60 with heart rate 56. Patient last saw cardiology for a order arch ulceration in the winter. She believes she is due for follow-up chest imaging. 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 Patient is scheduled to establish care with Medical Oncology and Radiation Oncology at [facility]. ? Lab Results from [facility] Component Value Date ? CHOL 206 (A) 10/03/2023 ? TRIG 92 10/03/2023 ? HDL 69 10/03/2023 ? LDL 119 (A) 10/03/2023 Results from [facility] ER on 02/16/2025 Labs Reviewed BASIC METABOLIC PANEL - Abnormal Result Value ? Sodium 137 ? ? Potassium 4.6 ? ? Chloride 106 ? ? CO2 25 ? ? Anion Gap 6 ? ? Glucose 157 (*) ? ? BUN 28 (*) ? ? Creatinine 1.27 (*) ? ? eGFR 44 (*) ? ? BUN/Creatinine Ratio 22.0 ? ? Calcium 9.9 ? CBC WITH AUTO DIFFERENTIAL - Abnormal ? WBC 7.1 ? ? RBC 4.30 ? ? Hemoglobin 11.7 ? ? Hematocrit 39.1 ? ? MCV 91.1 ? ? MCH 27.3 ? ? MCHC 29.9 (*) ? ? RDW 13.7 ? ? Platelets 199 ? ? MPV 11.1 (*) ? ? NRBC 0.0 ? ? NRBC Absolute 0.00 ? MANUAL DIFFERENTIAL - INSTRUMENT DIFFERENTIAL - Abnormal ? Neutrophils % 95.0 ? ? Lymphocytes % 5.0 ? ? Monocytes % 0.0 ? ? Eosinophils % 0.0 ? ? Basophils % 0.0 ? ? Neutrophils Absolute Manual 6.75 ? ? Lymphocytes Absolute 0.36 (*) ? ? Monocytes Absolute Manual 0.00 (*) ? ? Eosinophils Absolute Manual 0.00 ? ? Basophils Absolute Manual 0.00 ? ? Rbc Morphology Present (*) ? ? Platelet Morphology - WAM See Note (*) ? ? Ovalocytes Present 5 - 10% (*) ? MAGNESIUM - Normal ? Magnesium 1.9 ? TROPONIN I HIGH SENSITIVITY - Normal ? High Sensitivity Troponin I 9 ? ? Narrative: ? High levels of biotin in samples may falsely decrease hsTroponin values. Use caution when interpreting hsTroponin results in patients taking biotin who exhibit renal impairment (eGFR <60) or in patients taking more than 20 mg/day of biotin. TROPONIN I HIGH SENSITIVITY - Normal ? High Sensitivity Troponin I 9 ? ? Narrative: ? High levels of biotin in samples may falsely decrease hsTroponin values. Use caution when interpreting hsTroponin results in patients taking biotin who exhibit renal impairment (eGFR <60) or in patients taking more than 20 mg/day of biotin. URINALYSIS WITH REFLEX MICROSCOPIC AND CULTURE - Normal ? Specific [place] Urine 1.017 ? ? pH, Urine 6.0 ? ? Leukocytes, Urine Negative ? ? Nitrite, Urine Negative ? ? Protein, Urine Negative ? ? Glucose, Urine Negative ? ? Ketones, Urine Negative ? ? Urobilinogen, Urine 0.2 ? ? Bilirubin, Urine Negative ? ? Blood, Urine Negative ? CBC AND DIFFERENTIAL ? Narrative: ? The following orders were created for panel order CBC and differential. Procedure Abnormality Status --------- ------ CBC auto differential[[id number]] Abnormal Final result Please view results for these tests on the individual orders. URINALYSIS WITH REFLEX MICROSCOPIC AND CULTURE ? Narrative: ? The following orders were created for panel order Urinalysis with reflex microscopic and culture. Procedure Abnormality Status --------- ------ Urinalysis with reflex ...[[id number]] Normal Final result Gómez urine culture tube[[id number]] Final result Please view results for these tests on the individual orders. POCT GLUCOSE, BLOOD ? Results from [facility] ER on 02/16/2025 Abnormal Labs Reviewed BASIC METABOLIC PANEL - Abnormal; Notable for the following components: Result Value ? Glucose 157 (*) ? ? BUN 28 (*) ? ? Creatinine 1.27 (*) ? ? eGFR 44 (*) ? ? All other components within normal limits CBC WITH AUTO DIFFERENTIAL - Abnormal; Notable for the following components: ? MCHC 29.9 (*) ? ? MPV 11.1 (*) ? ? All other components within normal limits MANUAL DIFFERENTIAL - INSTRUMENT DIFFERENTIAL - Abnormal; Notable for the following components: ? Lymphocytes Absolute 0.36 (*) ? ? Monocytes Absolute Manual 0.00 (*) ? ? Rbc Morphology Present (*) ? ? Platelet Morphology - WAM See Note (*) ? ? Ovalocytes Present 5 - 10% (*) ? ? All other components within normal limits ? Results from [facility] ER on 02/16/2025 CT Angio Head/Neck wo and/or w Contrast Final Result Addendum (preliminary) ADDENDUM: This report was discussed with Brisa GARCIA on Feb 16, 2025 22:06:00 EDT. ? This document has been electronically signed by: Alexandra Le on 02/16/2025 22:07:25 ? Final Impression: 1. No acute intracranial abnormality. No acute intracranial hemorrhage. ? ? CT angiography head and neck with contrast. 3-D postprocessing ? Comparison: None ? Findings: ? There is atherosclerotic irregularity of the aortic arch. The bilateral 0 common carotid arteries and cervical portions of the internal carotid arteries appear patent. There is 60% luminal stenosis by NASCET criteria focally at the left common carotid artery related to vessel tortuosity/buckling. The vertebral arteries appear patent bilaterally at the level of the neck. No carotid or vertebral dissection is seen. There is no evidence of vasculitis. ? The intracranial vertebrobasilar system appears patent. Cerebellar and posterior cerebral arteries are intact. Intracranial internal carotid arteries appear patent. Middle/anterior cerebral arteries also appear patent. No aneurysms or abrupt cutoffs visualized. ? Impression: 1. Patent bilateral carotid and vertebra l arterial systems at the level of the neck with 60% luminal stenosis focally at the left common carotid artery related to vessel tortuosity/buckling. 2. Patent anterior and posterior intracr anial arterial circulation. No large vessel occlusion. ? This document has been electronically signed by: Jewel Galeana MD on 02/16/2025 22:02:14 [facility] Medical History Encounter for monitoring tocilizumab therapy Headache Anemia History of pulmonary embolism Nephrolithiasis High cholesterol Asthma Hypertension Surgical History H/O breast biopsy History of hysterectomy H/O colonoscopy Family History Mother Varicose vein of leg Depression Hypertension Asthma Heart disease Father Cerebrovascular accident (CVA) Kidney stones Sister Varicose vein of leg Depression Brother Depression Varicose vein of leg Daughter Varicose vein of leg Lupus anticoagulant disorder Maternal Grandfather Colon cancer Social History Household Members: Family Household Members Other:: sister Housing: House Alcohol intake: never Patient Tobacco Use Status: Never used Tobacco Physical Exam Vital Signs: Last Vital Signs Temp 99 F 02/25/25 11:27 Pulse 56 02/25/25 11:27 BP 110/60 02/25/25 11:27 BMI result Body Mass Index 40.4 Const General: cooperative and no acute distress Orientation/consciousness: patient oriented x3 HEENT Head: Yes normocephalic Resp Effort & Inspection: normal respiratory effort and able to speak in complete sentences Neuro General: patient oriented x3 and gait normal Cranial nerves: Yes Individual cranial nerve findings present II: normal, III: normal, IV: normal, V: normal, : normal, VII: normal, VIII: normal, IX: normal, X: normal, XI: normal and XII: abnormal (Mild right lingual deviation on tongue protrusion) Cognition (Neuro): normal cognition Motor exam (neuro): 5/5 motor strength present throughout Psych Appearance: grossly normal Mental Status: mental status grossly normal Speech and movement: Normal speech and movement present Affect: normal affect Attitude: cooperative Thought process: Normal thought process present Thought content: Normal thought content present Insight: Good insight present (Psych) Judgement: Good judgement present (Psych) Assessment & Plan Assessment & Plan (1) Headache: Code(s): R51.9 - Headache, unspecified Category: Medical Qualifiers: Headache type: unspecified (2) Dizziness: Code(s): R42 - Dizziness and giddiness Category: Medical (3) GCA (giant cell arteritis): Comment: dx 01/2024 (positive PET scan) Actemra 01/2024 effective Code(s): M31.6 - Other giant cell arteritis Category: Medical (4) Gait difficulty: Code(s): R26.9 - Unspecified abnormalities of gait and mobility Category: Medical (5) Migraine without aura: Code(s): G43.009 - Migraine without aura, not intractable, without status migrainosus Category: Medical (6) Hypertension: Code(s): I10 - Essential (primary) hypertension Category: Medical (7) Tongue deviation: Comment: To the right Code(s): K14.8 - Other diseases of tongue Category: Medical (8) Ductal carcinoma in situ (DCIS) of right breast: Code(s): D05.11 - Intraductal carcinoma in situ of right breast Category: Medical (9) Altered mental status: Code(s): R41.82 - Altered mental status, unspecified Category: Medical Plan For episode of altered mental status and headache: Patient advised to undergo: * Brain MRI with and without contrast to assess for secondary underlying etiologies of deviated tongue, breast cancer, hypertension and giant cell arteritis. * echocardiogram per Cardiology * holter monitor 7 days per Cardiology * f/u chest CT per Cardiology Start aspirin 81 mg daily at bedtime Follow-up with cardiology and oncology as scheduled For headache: Continue Riboflavin 400mg qam. Start Magnesium 400mg daily at bedtime. Continue use Tylenol or Ibuprofen prn headache. Information previously shared on non-pharmalogical headache tx's- such as cooling caps, loop ear plus. F/u w/ rheumatology as scheduled. ?Will follow-up upon review of above and patient to follow-up in clinic in 3-6 months or sooner prn. Orders: Orders MR head/brain wo/w con 02/25/25 K14.8 - Other diseases of tongue, D05.11 - Intraductal carcinoma in situ of right breast, R41.82 - Altered mental status, unspecified, I10 - Essential (primary) hypertension, M31.6 - Other giant cell arteritis Medications: New aspirin 81 mg PO BEDTIME 30 tabs 3RF 30 days Coding Level of Care Code Est Pt Level 4 (92768) Diagnoses Headache R51.9 Headache type: unspecified Dizziness R42 GCA (giant cell arteritis) M31.6 Gait difficulty R26.9 Migraine without aura G43.009 Hypertension I10 Tongue deviation K14.8 Ductal carcinoma in situ (DCIS) of right breast D05.11 Altered mental status R41.82
[2025-02-25 11:27] VITALS: BP 110/60; PULSE 56; TEMP 37.2; BMI 40.4
--- OUTSIDE RECORDS SUMMARY | 2025-02-25 11:57 | XMS_ITS | Encounter Summary ---
[facility] Address [address] [place] [address] Care Team Providers Care Photography Teacher Name Role Phone Petey Oneill MD Primary Care Provider UnavailJulia Aleman MD Primary Care Provider Un available Carmelina Kennedy DO Primary Care Pro vider Unavailable Vernon Puga MD Primary Care Provider Chandrika Calvillo MD Primary Care Prov ider Jessika Stearns MD Unavailable Vazquez Jimenez MD Unavailable Encounter Details Date Type Department Care Team Description 04/15/2014 Pt. Non Urgent Medic al Question Adult Medicine [address] [address] Petey Oneill MD Social History Tobacco Use Types Packs/Day Years Used Date Smoking Tobacco: Never Smokeless Tobacco: Never Alcohol Use Standard Drinks/Week Comments No 0 (1 standard drink = 0.6 oz pur e alcohol) Sex Assigned at Date Recorded Not on file Job Start Date Occupation Industry Not on file Not on file Not on file documented as of this encounter Progress Notes * Amy Lazaro M.A. - 04/15/2014 10:16 AM EDTFrom: Laura Lewis To: Petey Oneill MD Sent: 04/15/2014 9:42 AM EDT Subject: Referral and Medication Good Morning, Laura was at the emergency room yesterday with a strong kidney pain. She was advised to see a Urologist. The pain lasted one week, but got stronger yesterday. She needs a prescription for pain medication. Very important: She has been having problems with the [place] prescription, I need to request authorization every month since it is prescribed with no refills. Regards, Thais Lewis- Authorized Daughter documented in this encounter Plan of Treatment Not on file documented as of this encounter Visit Diagnoses Not on filedocumented in this encounter Care Teams Photography Teacher Relationship Specialty Start Date End Date Name, MD Petey PCP - General Internal Medicine 04/17/12 03/08/18 Julia Quevedo MD PCP - General Internal Medicine 03/09/18 Carmelina Kennedy DO PCP - General Internal Medicine 04/21/19 02/06/21 Vernon Puga MD PCP - General Internal Medicine 02/07/21 03/08/22 Chandrika Stack MD [address] [place] [id number] PCP - General Internal Medicine 03/09/22 Jessika Stearns MD [address] [facility] [address] [place] [id number] Specialist Pulmonology 08/19/22 Vazquez Jimenez MD [address] [facility] [address] [place] [address] Specialist Cardiology 01/07/23 documented as of this encounter
== END 2025-02-25 12:21 | disposition home or self-care (01) ==
LOC: HO.HSMS 10:52
PROVIDERS: PCP Internal Medicine; Visit Provider Nurse Practitioner Family
DX: R51.9 Headache, unspecified (principal); R42 Dizziness and giddiness; M31.6 Other giant cell arteritis; R26.9 Unspecified abnormalities of gait and mobility; G43.009 Migraine without aura, not intractable, without status migrainosus; I10 Essential (primary) hypertension; K14.8 Other diseases of tongue; D05.11 Intraductal carcinoma in situ of right breast; R41.82 Altered mental status, unspecified
CPT/HCPCS: 99214

== ENCOUNTER → 2025-02-25 10:51 | Outpatient (BNVA) | payer OTHER, SELFPAY | PROVIDERS: PCP Internal Medicine; Visit Provider Nurse Practitioner Family | DX: Z09 Encounter for follow-up examination after completed treatment for conditions other than malignant neoplasm (principal); R42 Dizziness and giddiness; R41.82 Altered mental status, unspecified; D05.11 Intraductal carcinoma in situ of right breast; M31.6 Other giant cell arteritis; R26.9 Unspecified abnormalities of gait and mobility; G43.009 Migraine without aura, not intractable, without status migrainosus; I10 Essential (primary) hypertension; K14.8 Other diseases of tongue | CPT/HCPCS: 99212 ==

== ENCOUNTER 2025-03-27 09:47 | Emergency (ER) | payer OTHER, SELFPAY ==
[2025-03-27 09:54] VITALS: BP 133/52; PULSE 60; RESP 16; TEMP 35.6; O2SAT 97; BMI 39.8
--- NOTE | 2025-03-27 10:05 | ED.HA ---
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 Onset was at approximately 07:30 this morning. Does report that this feels typical of her headaches that she experiences secondary to her giant cell arteritis, it is additionally not uncommon for her to have dizziness associated with this. She follows with rheumatology as well as Neurology, had a recent MRI of the brain in December of 2024, she takes Actemra as prescribed. Patient and daughter do admit that when she has headaches like this she will typically take Tylenol or ibuprofen, unfortunately she did not take either today when her headache started. Denies any new symptoms. No recent fevers, chills, neck stiffness, aphasia, poor coordination, descriptors such as the worst headache ever or thunderclap headache. No URI symptoms, chest pain, shortness of breath, numbness or tingling of the extremities Related Data Home Medications ?Medication ?Instructions ?Recorded ?Confirmed fluticasone propionate 110 1 puff PO BID 03/26/22 02/14/25 mcg/actuation HFA aerosol inhaler (Flovent HFA) hydrochlorothiazide 25 mg tablet 25 mg PO DAILY 03/26/22 02/14/25 quetiapine 25 mg tablet 25 mg PO BEDTIME 03/26/22 02/14/25 betamethasone valerate 0.1 % appl topical Q OTHER DAY 05/14/22 02/14/25 topical cream atorvastatin 40 mg tablet 40 mg PO DAILY 04/17/23 02/14/25 pantoprazole 40 mg tablet,delayed 40 mg PO DAILY 07/30/23 02/14/25 release Previous Rx's ?Medication ?Instructions ?Recorded nebulizers (AeroEclipse II #1 ea 10/31/21 Nebulizer) linaclotide 72 mcg capsule 72 mcg PO QAM #30 caps 05/21/23 (Linzess) ibuprofen 600 mg tablet 600 mg PO Q6H PRN fever or pain 12/11/23 #30 tabs cefuroxime axetil 500 mg tablet 500 mg PO BID 7 days #14 tabs 06/19/24 Actemra ACTPen 162 mg/0.9 mL 162 mg (0.9 mL) subcut Q2W #1.8 mL 08/06/24 subcutaneous pen injector (tocilizumab) lisinopril 40 mg tablet 40 mg PO DAILY #90 tabs 08/14/24 albuterol sulfate 2.5 mg/0.5 mL 2.5 mg (0.5 mL) inhalation Q4-6H 11/05/24 solution for nebulization PRN bronchospasm 7 days #30 ea albuterol sulfate 90 mcg/actuation 2 puff inhalation Q4-6H PRN 11/05/24 aerosol inhaler shortness of breath or wheezing 7 days #8.5 grams magnesium oxide 400 mg (241.3 mg 400 mg PO BEDTIME 30 days #30 tabs 12/13/24 magnesium) tablet riboflavin (vitamin B2) 400 mg 400 mg PO DAILY 30 days #30 tabs 12/13/24 tablet aspirin 81 mg chewable tablet 81 mg PO BEDTIME 30 days #30 tabs 02/25/25 Allergies Allergy/AdvReac Type Severity Reaction Status Date / Time morphine (MORPHINE) Allergy Severe CHEST Verified 03/27/25 09:55 PAIN, TROUBLE BREATHING, bruises Penicillins Allergy Intermediate RASH Verified 03/27/25 09:55 codeine Allergy Unknown Unknown Verified 03/27/25 09:55 tramadol (TRAMADOL) AdvReac Unknown Headache Verified 03/27/25 09:55 Percocet AdvReac Intermediate vomiting Uncoded 03/27/25 09:55 Review of Systems Review of Systems: Yes all other systems are reviewed and are negative [facility] Past Medical History Attestation statement: The following information was validated with the patient. Source: old records reviewed Medical History Encounter for monitoring tocilizumab therapy Headache Anemia History of pulmonary embolism Nephrolithiasis High cholesterol Asthma Hypertension Surgical History H/O breast biopsy History of hysterectomy H/O colonoscopy Family History Family History Mother Varicose vein of leg Depression Hypertension Asthma Heart disease Father Cerebrovascular accident (CVA) Kidney stones Sister Varicose vein of leg Depression Brother Depression Varicose vein of leg Daughter Varicose vein of leg Lupus anticoagulant disorder Maternal Grandfather Colon cancer Social History Social History Household Members: Family Household Members Other:: sister Housing: House Alcohol intake: never Patient Tobacco Use Status: Never used Tobacco Smoked in Last 30 Days: No Use of substances other than those prescribed or required for medical reasons: No Advance Directives: No Advance Directives Information Provided: Yes Do you have a plan to hurt others: No Plan Physical Exam Vital Signs: Vital Signs: Last Vital Signs Temp 97.2 F 03/27/25 14:53 Pulse 55 03/27/25 14:53 Resp 16 03/27/25 14:53 BP 150/54 H 03/27/25 14:53 Pulse Ox 99 03/27/25 14:53 O2 Del Method Room Air 03/27/25 14:53 BMI result Body Mass Index 39.8 Appearance: Alert.?Oriented to person, place and time. No acute distress.?Normal affect. Head: Normocephalic, atraumatic Eyes: Pupils equal, round and reactive to light. EOMI. No nystagmus. No ptosis. No tenderness to palpation over the temporal region. ENT: External auditory canal normal tympanic membrane pearly tinajero and intact bilaterally. Oropharynx normal. Neck: Normal inspection.? Neck supple. No nuchal rigidity. CVS: Heart sounds normal. Normal heart rate and rhythm.? Pulses normal.?? Respiratory: No respiratory distress.? Lung sounds clear to auscultation bilaterally?? Abdomen: Soft and non-tender. Normoactive bowel sounds. ?? Skin: Skin warm and dry.? Normal skin color.? ?? Extremities: No lower extremity edema.? Neuro: No focal neurological deficit observed, CN II-XII intact, normal sensory observed, normal coordination observed. Level of consciousness: Appropriate for age. Motor strength: right upper extremity 5 /5, left upper extremity 5 /5,right lower extremity 5 /5, left lower extremity 5 /5.?Speech: Normal, [id number] test: Normal, [id number] test: Normal. Medications Administered Discontinued Medications Generic Name Dose Route Start Last Admin Trade Name James PRN Reason Stop Dose Admin Sodium Chloride 500 mls @ 999 mls/hr 03/27/25 10:30 03/27/25 12:10 Ns IV 03/27/25 11:00 Infused .Q31M ERIN Infusion Acetaminophen 1,000 mg in 100 mls @ 400 mls/hr 03/27/25 10:23 03/27/25 12:10 Ofirmev IV 03/27/25 10:37 Infused ONCE ONE Infusion Medical Decision Making Medical Decision Making [facility] Narrative: Patient is a 74 old female with past medical history of anemia, nephrolithiasis, asthma, hypertension, hypercholesterolemia, DMITRI history of pulmonary embolism, history of giant cell arteritis on Actemra bi-weekly presenting for evaluation of headache and dizziness as per HPI which are commonly associated with acute headaches experienced due to her GCA. She did not take any abortive therapy today such as acetaminophen or ibuprofen which she typically does take. She is without any focal neurological deficits at the time of my evaluation. Low suspicion for ICH, SDH, CVA. No new concerning findings from her baseline that would indicate obtaining emergent head CT imaging. No recent fevers, chills, associated neck pain or neck stiffness, no nuchal rigidity on examination, lower suspicion for meningitis, no confusion to suggest encephalopathy. Patient received 500 mL normal saline in the emergency department in addition to acetaminophen IV pending re-evaluation and ambulatory trial. Resolution of symptoms after receiving normal saline and acetaminophen ambulatory with steady gait. No dizziness. No neurological deficits. Stable for discharge home and outpatient follow-up with providers as scheduled. Reviewed worrisome signs and symptoms that would warrant re-evaluation emergency department. All questions answered. Daughter will transport patient home Differential Diagnosis Differential Diagnoses: The differential diagnosis associated with the presentation includes (SDH, SAH, ICH, C[employer]ELOP[employer]IATE mass, meningitis, encephalitis, CVA, GCA, migraine, headache) Admission/Observation Consideration of admission/observation: Escalation of care including admission/observation considered Lab Data [facility] Lab Attestation statement: I reviewed the patient's lab results. CBC is without leukocytosis, has a mild normocytic anemia does not meet transfusion criteria, mild thrombocytopenia with platelet count and 158,000. No significant electrolyte derangement. No ZUNILDA. LFTs unremarkable. 03/27/25 13:27 03/27/25 12:00 Labs: Lab Results 03/27/25 03/27/25 Range/Units 12:00 13:27 WBC 5.6 (4.8-10.8) X10*3/uL RBC 4.00 L (4.20-5.50) X10*6/uL Hgb 11.2 L (12.0-16.0) g/dl Hct 33.9 L (37.0-47.0) % MCV 84.8 (80.0-98.0) fL MCH 28.0 (27.0-33.0) pg MCHC 33.0 (31.0-35.0) g/dl RDW 13.2 (11.0-16.0) % Plt Count 158 L D (160-400) X10*3/uL MPV 11.0 (9.4-12.3) fL Immature Gran % (Auto) 1.8 H (0.0-0.4) % Neut % (Auto) 52.8 (45-73) % Lymph % (Auto) 24.6 (20-40) % [place] % (Auto) 11.8 H (2-11) % Eos % (Auto) 7.7 H (0-4) % Baso % (Auto) 1.3 (0-2) % Lymph # (Auto) 1.4 (1.2-4.9) X10*3/uL [place] # (Auto) 0.7 (0.1-1.2) X10*3/uL Eos # (Auto) 0.4 (0.0-0.4) X10*3/uL Baso # (Auto) 0.1 (0.0-0.2) X10*3/uL Abs Immat Gran (auto) 0.10 H (0.00-0.03) X10*3/uL Absolute Neuts (auto) 3.0 (2.0-8.3) x10*3/uL Absolute Nucleated RBC 0.000 (0.0-0.012) X10*3/uL Nucleated RBC % (auto) 0.0 (0.0-0.2) /100WBC Sodium 142 (135-145) mmol/L Potassium 4.1 (3.3-5.1) mmol/L Chloride 111 H (96-108) mmol/L Carbon Dioxide 20 L (22-29) mmol/L Anion Gap 15 (12-20) BUN 25 H (9-16) mg/dL Creatinine 1.14 (0.5-1.4) mg/dL Estim Creat Clear Calc 43.9 Estimated GFR 47 Random Glucose 94 (60-115) mg/dL Calcium 9.5 (8.4-10.2) mg/dL Total Bilirubin 0.4 (0.0-1.0) mg/dL AST 28 (5-31) U/L ALT 23 (0-31) U/L Alkaline Phosphatase 59 (39-117) U/L Total Protein 7.3 (6.5-8.0) g/dL Albumin 4.2 (3.5-5.0) g/dL Independent Historian Clinical information obtained from an independent historian. History obtained from or confirmed by: Other (Daughter) External Record Review External record reviewed: Outpatient record and Prior outpatient radiology 01/01/2025: MR/MR head/brain wo/w con IMPRESSION: Nonspecific white matter hyperintensities. Differential diagnostic considerations include small vessel ischemic disease, migraine, Lyme disease, vasculitis, and demyelinating disease. Tests considered The following testing was considered but not selected: See narrative above Chronic Conditions Patient?s care impacted by: Other (See narrative above) Discharge Plan Discharge Clinical Impression: GCA (giant cell arteritis) Patient Disposition: Home, Self-Care Additional Instructions: Please follow-up with your outpatient providers as scheduled. Continue taking all of your medications as prescribed. Return to emergency department any new or worsening symptoms or concerns. Prescriptions: No Action Linzess 72 mcg capsule 72 mcg PO QAM Qty: 30 6RF Actemra ACTPen 162 mg/0.9 mL pen injector 162 mg subcut Q2W Qty: 1.8 2RF (DME) AeroEclipse II Nebulizer Misc See Rx Instructions .ROUTE .MEDSUPPLY Qty: 1 0RF Rx Instructions: As directed ibuprofen 600 mg tablet 600 mg PO Q6H PRN (Reason: fever or pain) Qty: 30 0RF cefuroxime axetil 500 mg tablet 500 mg PO BID 7 Days Qty: 14 0RF lisinopril 40 mg tablet 40 mg PO DAILY Qty: 90 0RF albuterol sulfate 2.5 mg/0.5 mL solution for nebulization 2.5 mg inhalation Q4-6H PRN (Reason: bronchospasm) 7 Days Qty: 30 0RF albuterol sulfate 90 mcg/actuation HFA aerosol inhaler 2 puff inhalation Q4-6H PRN (Reason: shortness of breath or wheezing) 7 Days Qty: 8.5 0RF fluticasone propionate [Flovent HFA] 110 mcg/actuation HFA aerosol inhaler 1 puff PO BID quetiapine 25 mg tablet 25 mg PO BEDTIME hydrochlorothiazide 25 mg tablet 25 mg PO DAILY betamethasone valerate 0.1 % cream topical Q OTHER DAY pantoprazole 40 mg tablet,delayed release (DR/EC) 40 mg PO DAILY riboflavin (vitamin B2) 400 mg tablet 400 mg PO DAILY 30 Days Qty: 30 6RF magnesium oxide 400 mg (241.3 mg magnesium) tablet 400 mg PO BEDTIME 30 Days Qty: 30 6RF Rx Instructions: may hold for loose stools aspirin 81 mg tablet,chewable 81 mg PO BEDTIME 30 Days Qty: 30 3RF atorvastatin 40 mg tablet 40 mg PO DAILY Referrals: Chandrika Stack MD [Primary Care Provider, Internal Medicine] Interventions: ED Discharge Assessment Last Done: 03/27/25 14:53 Discharge Date/Time: 03/27/25 14:54 Print Language: Arabic
--- NOTE | 2025-03-27 11:44 | PC.NURSE ---
per tech x 3 attempts to draw labs unsuccessfully. Attempted to call phlebotomy , no answer at this time.
[2025-03-27 12:22] LABS: Alanine Aminotransferase 23 U/L (0-31); Albumin Level 4.2 g/dL (3.5-5.0); Alkaline Phosphatase 59 U/L (39-117); Anion Gap 15 (12-20); Aspartate Amino Transferase 28 U/L (5-31); Blood Urea Nitrogen 25 mg/dL (9-16); Calcium 9.5 mg/dL (8.4-10.2); Carbon Dioxide 20 mmol/L (22-29); Chloride 111 mmol/L (96-108); Creatinine Clr Calc Pharmacy 43.9; Estimated Glomerular Filt Rate 47; Potassium 4.1 mmol/L (3.3-5.1); Sodium 142 mmol/L (135-145); Total Protein 7.3 g/dL (6.5-8.0)
[2025-03-27 12:48] VITALS: BP 152/55; PULSE 52; RESP 13; O2SAT 99
[2025-03-27 13:36] LABS: Hematocrit 33.9 % (37.0-47.0); Hemoglobin 11.2 g/dl (12.0-16.0); Imm Gran Abs Auto 0.10 X10*3/uL (0.00-0.03); Imm Gran Pct Auto 1.8 % (0.0-0.4); Lymphocytes Absolute Auto 1.4 X10*3/uL (1.2-4.9); Mean Corpuscular HGB Conc 33.0 g/dl (31.0-35.0); Mean Corpuscular Hemoglobin 28.0 pg (27.0-33.0); Mean Corpuscular Volume 84.8 fL (80.0-98.0); NRBC Abs Auto 0.000 X10*3/uL (0.0-0.012); NRBC Pct Auto 0.0 /100WBC (0.0-0.2); Platelet Count 158 X10*3/uL (160-400); Red Blood Count 4.00 X10*6/uL (4.20-5.50); White Blood Count 5.6 X10*3/uL (4.8-10.8)
[2025-03-27 14:39] LABS: MANUAL DIFF FLAG NO
[2025-03-27 14:53] VITALS: BP 150/54; PULSE 55; RESP 16; TEMP 36.2; O2SAT 99
== END 2025-03-27 14:54 | disposition home or self-care (01) ==
PROVIDERS: Nurse Practitioner Family; Emergency Provider Emergency Medicine; PCP Internal Medicine
DX: M31.6 Other giant cell arteritis (principal); R51.9 Headache, unspecified; R42 Dizziness and giddiness; Z79.899 Other long term (current) drug therapy
CPT/HCPCS: 36415; 80053; 85025; 96365; 96366; 99284; 99285; J0131

== ENCOUNTER → 2025-04-02 16:49 | Outpatient (BNV) | payer OTHER, SELFPAY | PROVIDERS: PCP Internal Medicine; Visit Provider Radiology Diagnostic Radiology | DX: R90.82 White matter disease, unspecified (principal) | CPT/HCPCS: 70553 ==

== ENCOUNTER 2025-04-02 16:50 | Outpatient (REF) | payer OTHER, SELFPAY ==
--- NOTE | ~2025-04-02 | MR_ITS ---
EXAMINATION: MR BRAIN WITHOUT AND WITH CONTRAST CLINICAL INFORMATION: Prior transient episodes of unresponsiveness. Change in mental status. Dysarthria. Asymmetric decreased sensation of the tongue. COMPARISON: January 01, 2025. TECHNIQUE: Multiplanar, multisequence MRI of the brain was obtained before and after the intravenous administration of 10.0 mL gadolinium based without reported immediate complications.. FINDINGS: No restricted diffusion. No abnormal enhancement within the intra-axial or the extra-axial compartment of the cranium. No signal abnormality or enhancing lesion in the facial nerves nor the glossopharyngeal cranial nerves. Flow-void signal within the main cerebral vessels is normal. Bilateral multifocal patchy and punctate subcortical deep white matter deep periventricular white matter hyperintense T2 FLAIR signal involving centrum semiovale and sykes radiata both hemispheres. No acute intracranial hemorrhage, mass effect, midline shift, hydrocephalus or herniation. Asymmetric volume loss of the right lateral ventricle with respect to the contralateral side which could be congenital. Gómez-white matter differentiation is normal. Probable old lacunar infarcts with the cribriform pattern in the lenticular nuclei. Sellar/suprasellar region demonstrated no signal abnormality or enhancing lesion. Craniocervical junction demonstrates borderline position of the cerebellar tonsils. MR/MR head/brain wo/w con IMPRESSION: No abnormal enhancement. No acute stroke/nonhemorrhagic ischemia. 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 Electronically signed by: Farzad Stauffer MD 04/04/2025 09:25 AM EDT
--- OUTSIDE RECORDS SUMMARY | 2025-04-02 16:54 | XMS_ITS ---
Author Name [facility] Organization Unknown Care Team Organization Name Specialty Phone Email Start Date End Da te [facility] Dominique Gonzalez [facility] 05/08/20232023 [facility] Mary Gomez [facility] 07/09/2022 024
== END 2025-04-02 16:51 | disposition home or self-care (01) ==
LOC: HO.MRI 16:50
PROVIDERS: PCP Internal Medicine; Visit Provider Nurse Practitioner Family
DX: K14.8 Other diseases of tongue (principal); D05.11 Intraductal carcinoma in situ of right breast; R41.82 Altered mental status, unspecified; I10 Essential (primary) hypertension; M31.6 Other giant cell arteritis
CPT/HCPCS: 70553; A9585

== ENCOUNTER 2025-04-23 02:01 | Inpatient (IN) | payer OTHER, SELFPAY ==
[2025-04-23] VITALS (7 sets, daily range): BP systolic 123–188; BP diastolic 45–92; PULSE 60–72; RESP 16–18; TEMP 36.2–36.8; O2SAT 96–99; BMI 38.4; BMI 38.6
--- NOTE | 2025-04-23 | ECG_ITS ---
Test Reason : ABD PAIN Blood Pressure : */* mmHG Vent. Rate : 61 BPM Atrial Rate : 61 BPM P-R Int : 160 ms QRS Dur : 90 ms QT Int : 444 ms P-R-T Axes : 45 -7 16 degrees QTcB Int : 446 ms Normal sinus rhythm Minimal voltage criteria for LVH, may be normal variant ( Rod product ) Borderline ECG When compared with ECG of 13-Aug-2024 14:43, Questionable change in QRS axis Referred By: Generic ED Physician Electronically Signed By: CARITO VICENTE MD
--- NOTE | ~2025-04-23 | CT_ITS ---
CLINICAL HISTORY: abdo pain, BRBPR (renal func precludes contrast) CT abdomen and pelvis without contrast Comparison: 12/24/2021 Findings: The lung bases are clear. Unremarkable gallbladder and solid organs. There are bilateral renal parenchymal calculi. No bowel obstruction, pneumoperitoneum, or pneumatosis. There is abnormal appearance of the distal descending and sigmoid colon, incompletely evaluated. Pelvic contents unremarkable. Normal appendix. The bones are intact. IMPRESSION: Questionable findings in distal descending and sigmoid colon. Clinical follow-up possibly in consultation with gastroenterology, recommended.. This document has been electronically signed by: Benedict Tran MD on 04/23/2025 09:19:35
[2025-04-23 02:54] LABS: Hematocrit 37.1 % (37.0-47.0); Hemoglobin 11.6 g/dl (12.0-16.0); Mean Corpuscular HGB Conc 31.3 g/dl (31.0-35.0); Mean Corpuscular Hemoglobin 27.5 pg (27.0-33.0); Mean Corpuscular Volume 87.9 fL (80.0-98.0); NRBC Abs Auto 0.000 X10*3/uL (0.0-0.012); NRBC Pct Auto 0.0 /100WBC (0.0-0.2); Platelet Count 198 X10*3/uL (160-400); Red Blood Count 4.22 X10*6/uL (4.20-5.50); White Blood Count 8.3 X10*3/uL (4.8-10.8)
--- NOTE | 2025-04-23 03:04 | PC.NURSE ---
Patient brought to ED 28 from triage for sudden onset of abdominal pain, blood in stool with nausea, feeling bloated since 04/22/2025 01:00 pm. Patient oriented to ED room with assistance of management advisor, warm blanket provided to patient. Patient is able to make her needs known, call pablo placed within patient's reach.Patient's daughter at bedside.
[2025-04-23 03:14] LABS: Alanine Aminotransferase 28 U/L (0-31); Albumin Level 4.5 g/dL (3.5-5.0); Alkaline Phosphatase 63 U/L (39-117); Anion Gap 16 (12-20); Aspartate Amino Transferase 33 U/L (5-31); Blood Urea Nitrogen 22 mg/dL (9-16); Calcium 9.6 mg/dL (8.4-10.2); Carbon Dioxide 23 mmol/L (22-29); Chloride 107 mmol/L (96-108); Creatinine Clr Calc Pharmacy 34.8; Estimated Glomerular Filt Rate 36; Magnesium 2.3 mg/dL (1.6-2.6); Potassium 4.7 mmol/L (3.3-5.1); Sodium 141 mmol/L (135-145); Total Protein 7.4 g/dL (6.5-8.0)
[2025-04-23 03:48] LABS: Appearance Urine Clear; Glucose Urine UA Negative (Negative); PH 7.0 (5.0-9.0); Specific Gravity - Urine 1.010 (1.005-1.025); UMIC TRIGGER UACC YES
[2025-04-23 03:53] LABS: INTERNATIONAL NORM RATIO 0.9 (0.9-1.1); Prothrombin Time 10.5 SEC (10.9-12.4)
[2025-04-23 03:54] LABS: UACC Culture Trigger YES
--- NOTE | 2025-04-23 07:12 | ED.GENADULT ---
HPI - General Adult General Chief complaint: Abdominal Pain Stated complaint: abd pain, blood in stool Time Seen by Provider: 04/23/25 07:12 History of Present Illness ED Provider: Jessa GUO narrative: The patient is a 74-year-old woman with a history of giant cell arteritis on tocilizumab, asthma, high cholesterol, history of pulmonary embolism, hypertension, and nephrolithiasis. She says that yesterday she had some pain in her abdomen and a need to have a bowel movement. She passed a bowel movement that was associated with a fair amount of blood. This was yesterday afternoon. Later in the evening she had a similar episode and early this morning another similar episode. Ultimately she came to the emergency room early this morning. She says that her last bowel movement was at around 04:00 this morning when she still passed blood with her stool again. At the time that I am seeing her she is not having any pain. She has not had any fever, sweats, chills. No nausea or vomiting. Related Data Home Medications ?Medication ?Instructions ?Recorded ?Confirmed hydrochlorothiazide 25 mg tablet 25 mg PO DAILY 03/26/22 02/14/25 quetiapine 25 mg tablet 25 mg PO BEDTIME 03/26/22 02/14/25 betamethasone valerate 0.1 % appl topical Q OTHER DAY 05/14/22 02/14/25 topical cream atorvastatin 40 mg tablet 40 mg PO DAILY 04/17/23 02/14/25 fluticasone 250 mcg-salmeterol 50 1 ea inhalation BID 04/23/25 mcg/dose blistr powdr for inhalation (Magnolia Chavez) Previous Rx's ?Medication ?Instructions ?Recorded nebulizers (AeroEclipse II #1 ea 10/31/21 Nebulizer) ibuprofen 600 mg tablet 600 mg PO Q6H PRN fever or pain 12/11/23 #30 tabs Actemra ACTPen 162 mg/0.9 mL 162 mg (0.9 mL) subcut Q2W #1.8 mL 08/06/24 subcutaneous pen injector (tocilizumab) lisinopril 40 mg tablet 40 mg PO DAILY #90 tabs 08/14/24 albuterol sulfate 2.5 mg/0.5 mL 2.5 mg (0.5 mL) inhalation Q4-6H 11/05/24 solution for nebulization PRN bronchospasm 7 days #30 ea albuterol sulfate 90 mcg/actuation 2 puff inhalation Q4-6H PRN 11/05/24 aerosol inhaler shortness of breath or wheezing 7 days #8.5 grams magnesium oxide 400 mg (241.3 mg 400 mg PO BEDTIME 30 days #30 tabs 12/13/24 magnesium) tablet riboflavin (vitamin B2) 400 mg 400 mg PO DAILY 30 days #30 tabs 12/13/24 tablet aspirin 81 mg chewable tablet 81 mg PO BEDTIME 30 days #30 tabs 02/25/25 Allergies Allergy/AdvReac Type Severity Reaction Status Date / Time morphine (MORPHINE) Allergy Severe CHEST Verified 04/23/25 02:35 PAIN, TROUBLE BREATHING, bruises Penicillins Allergy Intermediate RASH Verified 04/23/25 02:35 codeine Allergy Unknown Unknown Verified 04/23/25 02:35 tramadol (TRAMADOL) AdvReac Unknown Headache Verified 04/23/25 02:35 Percocet AdvReac Intermediate vomiting Uncoded 04/23/25 02:35 PMFSH Past Medical History Medical History Encounter for monitoring tocilizumab therapy Headache Anemia History of pulmonary embolism Nephrolithiasis High cholesterol Asthma Hypertension Surgical History H/O breast biopsy History of hysterectomy H/O colonoscopy Family History Family History Mother Varicose vein of leg Depression Hypertension Asthma Heart disease Father Cerebrovascular accident (CVA) Kidney stones Sister Varicose vein of leg Depression Brother Depression Varicose vein of leg Daughter Varicose vein of leg Lupus anticoagulant disorder Maternal Grandfather Colon cancer Social History Social History Household Members: Family Household Members Other:: sister Housing: House Alcohol intake: never Patient Tobacco Use Status: Never used Tobacco Smoked in Last 30 Days: No Use of substances other than those prescribed or required for medical reasons: No Advance Directives: No Advance Directives Information Provided: Yes Physical Exam ED Vital Signs: Vital Signs - 24 hr 04/23/25 02:28 04/23/25 05:43 04/23/25 12:36 Temperature 98.2 F 98.0 F 98.3 F Pulse Rate 72 60 62 Respiratory Rate 18 16 16 Blood Pressure 172/71 H 123/45 L 141/47 H Pulse Oximetry 99 99 98 Oxygen Delivery Method Room Air Room Air Room Air BMI result Body Mass Index 38.4 Const Other: The patient is a somewhat chronically ill-appearing 74-year-old woman who was awake, alert, pleasant, cooperative. HENMT Other: The face is symmetrical. ?Mucous membranes moist. Eyes General: appearance normal, both eyes and all related structures Neck Neck: Yes normal visual inspection, Yes full ROM and Yes no JVD Resp Effort & Inspection: normal respiratory effort Auscultation: clear to auscultation bilaterally Cardio Rate: regular rate Rhythm: regular rhythm Heart sounds: S1 normal heart sound present and S2 normal heart sound present GI Other: Abdomen is soft and nontender Rectal exam reveals no obvious external hemorrhoids. Good rectal tone. There was a small amount of blood in the rectum. No stool in the rectum. Skin Other: The skin is dry and unremarkable General skin exam: no rashes or lesions noted Neuro Other: The patient is a somewhat deconditioned 74-year-old. She is awake and alert. Cranial nerves are grossly intact. She moves her extremities symmetrically and appropriately. Extrem Other: No peripheral edema Medications Administered Generic Name Dose Route Start Last Admin Trade Name Freq PRN Reason Stop Dose Admin Lactated Ringer's 1,000 mls @ 100 mls/hr 04/23/25 13:15 04/23/25 13:19 Lr IVCONT 100 mls/hr .Q10H ERIN Administration Discontinued Medications Generic Name Dose Route Start Last Admin Trade Name Freq PRN Reason Stop Dose Admin Lactated Ringer's 1,000 mls @ 999 mls/hr 04/23/25 07:30 04/23/25 09:31 Lr IV 04/23/25 08:30 Infused .Q1H1M ERIN Infusion Medical Decision Making Medical Decision Making [facility] Narrative: The patient is a 74-year-old female who presents with several episodes of bright red blood per rectum. She has a small amount of blood in her rectal vault at the time that I examined her. There was no stool in the rectum. A CT scan of the abdomen and pelvis was done without contrast because of the patient's renal function. There is question of possible thickening of the distal descending colon or or proximal sigmoid. The patient's renal function is moderately worse than it typically is. She was given IV fluids. I discussed the case with Dr. Swann of Gastroenterology. Since this does not clearly seemed to be a case of hemorrhoidal bleeding the patient will be admitted for further evaluation. Lab Data 04/23/25 13:09 04/23/25 02:47 Labs: Lab Results 04/23/25 04/23/25 Range/Units 02:47 03:41 WBC 8.3 (4.8-10.8) X10*3/uL RBC 4.22 (4.20-5.50) X10*6/uL Hgb 11.6 L (12.0-16.0) g/dl Hct 37.1 (37.0-47.0) % MCV 87.9 (80.0-98.0) fL MCH 27.5 (27.0-33.0) pg MCHC 31.3 (31.0-35.0) g/dl RDW 13.6 (11.0-16.0) % Plt Count 198 D (160-400) X10*3/uL MPV 10.6 (9.4-12.3) fL Immature Gran % (Auto) 0.2 (0.0-0.4) % Neut % (Auto) 68.9 (45-73) % Lymph % (Auto) 13.3 L (20-40) % [place] % (Auto) 10.2 (2-11) % Eos % (Auto) 6.7 H (0-4) % Baso % (Auto) 0.7 (0-2) % Lymph # (Auto) 1.1 L (1.2-4.9) X10*3/uL [place] # (Auto) 0.8 (0.1-1.2) X10*3/uL Eos # (Auto) 0.6 H (0.0-0.4) X10*3/uL Baso # (Auto) 0.1 (0.0-0.2) X10*3/uL Abs Immat Gran (auto) 0.02 (0.00-0.03) X10*3/uL Absolute Neuts (auto) 5.7 (2.0-8.3) x10*3/uL Absolute Nucleated RBC 0.000 (0.0-0.012) X10*3/uL Nucleated RBC % (auto) 0.0 (0.0-0.2) /100WBC PT 10.5 L (10.9-12.4) SEC INR 0.9 (0.9-1.1) Sodium 141 (135-145) mmol/L Potassium 4.7 (3.3-5.1) mmol/L Chloride 107 (96-108) mmol/L Carbon Dioxide 23 (22-29) mmol/L Anion Gap 16 (12-20) BUN 22 H (9-16) mg/dL Creatinine 1.41 H (0.5-1.4) mg/dL Estim Creat Clear Calc 34.8 Estimated GFR 36 Random Glucose 112 (60-115) mg/dL Calcium 9.6 (8.4-10.2) mg/dL Magnesium 2.3 (1.6-2.6) mg/dL Total Bilirubin 0.5 (0.0-1.0) mg/dL AST 33 H (5-31) U/L ALT 28 (0-31) U/L Alkaline Phosphatase 63 (39-117) U/L C-Reactive Protein 0.17 (< or = 0.50) mg/dL Total Protein 7.4 (6.5-8.0) g/dL Albumin 4.5 (3.5-5.0) g/dL Urine Color Yellow Urine Appearance Clear Urine pH 7.0 (5.0-9.0) Ur Specific [place] 1.010 (1.005-1.025) Urine Protein Negative (Neg-Trace) mg/dL Urine Glucose (UA) Negative (Negative) mg/dL Urine Ketones Negative (Negative) mg/dL Urine Blood Negative (Negative) Urine Nitrite Negative (Negative) Ur Leukocyte Esterase Small (1+) H (Negative) Urine RBC 0-2 (0-2) /HPF Urine WBC 0-5 (0-5) /HPF Ur Squamous Epith Cells 0-2 (0-2) /HPF Urine Bacteria None Seen (None Seen) Hyaline Casts 0-2 (0-2) /LPF Discharge Plan Discharge Clinical Impression: Rectal bleeding Patient Disposition: Admitted As Inpatient Interventions: Admission Worksheet (ED) Last Done: 04/23/25 12:17
[2025-04-23 07:22] LABS: MANUAL DIFF FLAG NO
[2025-04-23 07:24] LABS: Imm Gran Abs Auto 0.02 X10*3/uL (0.00-0.03); Imm Gran Pct Auto 0.2 % (0.0-0.4); Lymphocytes Absolute Auto 1.1 X10*3/uL (1.2-4.9)
[2025-04-23] MEDS: Lactated Ringers 1,000 ML 999 ML IV (07:40)
--- NOTE | 2025-04-23 09:33 | PC.NURSE ---
Pt attempted to use commode but was unable to have bowel movement, small amount of eleno blood noted in commode and on clothing. notified.
--- NOTE | 2025-04-23 12:20 | PM.IMHP ---
History of Present Illness Date of Service: 04/23/25 Attending physician on admission: Mirna Brown Chief Complaint: BRBPR This is a 74-year-old female with history of hypertension, hyperlipidemia who presents to the emergency department with rectal bleeding. History was obtained with the assistance of a oil well services supervisor. Patient is overall a poor historian regarding her medical history but is able to provide history regarding reason for presentation to the hospital. Patient states that yesterday around 13:00 she had her 1st episode of bright red blood mixed with the stool. Since then she has had multiple episodes of bright red blood per rectum without stool mixed in. She reports lower abdominal pain in the associated chills. She has not had diarrhea, nausea, vomiting. She has 1 remote history of gastrointestinal bleeding over 6 years ago which was due to anticoagulation with Coumadin. She has not been on any anticoagulation since that time. She denies the use of alcohol or any NSAIDs or blood thinners. In the emergency department H/H was 11.6/37.1, vital signs remained stable. She underwent CT scan of the abdomen which showed abnormal appearance in the distal descending and sigmoid colon. The emergency room provider discussed the case with the on-call conference specialist who recommended admitting the patient for planned colonoscopy on Friday. Review of Systems Review of Systems: Yes all other systems are reviewed and are negative Constitutional: Constitutional: Denies chills and Denies fever(s) Cardiovascular: Cardiovascular: Denies chest pain and Denies palpitations Gastrointestinal: Gastrointestinal: Reports abdominal pain, Denies diarrhea, Denies nausea and Denies vomiting Endocrine: Endocrine: Denies palpitations [facility] Medical History Encounter for monitoring tocilizumab therapy Headache Anemia History of pulmonary embolism Nephrolithiasis High cholesterol Asthma Hypertension Family History Mother Varicose vein of leg Depression Hypertension Asthma Heart disease Father Cerebrovascular accident (CVA) Kidney stones Sister Varicose vein of leg Depression Brother Depression Varicose vein of leg Daughter Varicose vein of leg Lupus anticoagulant disorder Maternal Grandfather Colon cancer Surgical History H/O breast biopsy History of hysterectomy H/O colonoscopy Social History Household Members: Family Household Members Other:: sister Housing: House Alcohol intake: never Patient Tobacco Use Status: Never used Tobacco Smoked in Last 30 Days: No Use of substances other than those prescribed or required for medical reasons: No Advance Directives: No Advance Directives Information Provided: Yes Meds Allergies Allergy/AdvReac Type Severity Reaction Status Date / Time morphine (MORPHINE) Allergy Severe CHEST Verified 04/23/25 02:35 PAIN, TROUBLE BREATHING, bruises Penicillins Allergy Intermediate RASH Verified 04/23/25 02:35 codeine Allergy Unknown Unknown Verified 04/23/25 02:35 tramadol (TRAMADOL) AdvReac Unknown Headache Verified 04/23/25 02:35 Percocet AdvReac Intermediate vomiting Uncoded 04/23/25 02:35 Home Medications ?Medication ?Instructions ?Recorded ?Confirmed ?Last Taken ?Type hydrochlorothiazide 25 mg tablet 25 mg PO DAILY 03/26/22 04/23/25 04/21/25 History quetiapine 25 mg tablet 12.5 mg PO BEDTIME 03/26/22 04/23/25 04/21/25 History cyanocobalamin (vitamin B-12) 1,000 mcg PO DAILY 04/23/25 04/23/25 04/21/25 History 1,000 mcg tablet tocilizumab 162 mg/0.9 mL 162 mg subcut WE 04/23/25 04/23/25 04/21/25 History subcutaneous pen injector (Actemra ACTPen) Physical Exam Vital Signs and Narrative: Vital Signs: Last Vital Signs Temp 98.0 F 04/23/25 05:43 Pulse 60 04/23/25 05:43 Resp 16 04/23/25 05:43 BP 123/45 L 04/23/25 05:43 Pulse Ox 99 04/23/25 05:43 O2 Del Method Room Air 04/23/25 05:43 BMI result Body Mass Index 38.4 Const: General: cooperative, comfortable, no acute distress, alert and awake Nutritional Appearance: average body habitus Orientation/consciousness: patient oriented x3 Resp: Effort & Inspection: normal respiratory effort, able to speak in complete sentences, no respiratory distress and no use of accessory muscles Auscultation: clear to auscultation bilaterally Cardio: Rate: regular rate GI: Other: Soft, nondistended, no guarding, no rebound. Reported tenderness bilateral lower abdominal quadrants Neuro: General: patient oriented x3, moves all extremities and CN's II-XI intact bilaterally Extrem: General: No pedal edema Results Labs 04/23/25 13:09 04/23/25 02:47 Labs: Laboratory Results - last 24 hr 04/23/25 04/23/25 02:47 03:41 MCV 87.9 MCH 27.5 MCHC 31.3 RDW 13.6 Plt Count 198 D MPV 10.6 Immature Gran % (Auto) 0.2 Neut % (Auto) 68.9 Lymph % (Auto) 13.3 L [place] % (Auto) 10.2 Eos % (Auto) 6.7 H Baso % (Auto) 0.7 Lymph # (Auto) 1.1 L [place] # (Auto) 0.8 Eos # (Auto) 0.6 H Baso # (Auto) 0.1 Abs Immat Gran (auto) 0.02 Absolute Neuts (auto) 5.7 Absolute Nucleated RBC 0.000 Nucleated RBC % (auto) 0.0 PT 10.5 L INR 0.9 Anion Gap 16 Estim Creat Clear Calc 34.8 Estimated GFR 36 Random Glucose 112 Calcium 9.6 Magnesium 2.3 Total Bilirubin 0.5 AST 33 H ALT 28 Alkaline Phosphatase 63 C-Reactive Protein 0.17 Total Protein 7.4 Albumin 4.5 Urine Color Yellow Urine Appearance Clear Urine pH 7.0 Ur Specific [place] 1.010 Urine Protein Negative Urine Glucose (UA) Negative Urine Ketones Negative Urine Blood Negative Urine Nitrite Negative Ur Leukocyte Esterase Small (1+) H Urine RBC 0-2 Urine WBC 0-5 Ur Squamous Epith Cells 0-2 Urine Bacteria None Seen Hyaline Casts 0-2 Assessment and Plan (1) Rectal bleeding: Status: Acute Plan This is a 74-year-old female with history of hypertension, hyperlipidemia, migraines, polyarticular arthritis, giant cell arteritis, remote history of PE no longer on anticoagulation, who presents to the emergency room with bright red blood per rectum Acute GI bleed probable lower GI source - CT scan with abnormal appearance of distal descending and sigmoid colon last colonoscopy 04/2022 - severe diverticulosis, grade 1 internal hemorrhoids, 12 mm polyp pathology tubulovillous adenoma, negative for high-grade dysplasia or carcinoma no need for blood transfusion at this time Clear liquid diet Plan for colonoscopy on Friday, will need to be NPO Friday at midnight official GI consult pending Follow serial H/H Avoid anticoagulation, antiplatelet agents ZUNILDA likely prerenal SCr 1.4, baseline 0.9-1.1 hold lisinopril, HCTZ IVF follow BMP GCA/polyarticular arthritis on tocilizumb injections 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
[2025-04-23 13:19] LABS: Hematocrit 35.6 % (37.0-47.0); Hemoglobin 11.4 g/dl (12.0-16.0)
[2025-04-23] MEDS: Lactated Ringers 1,000 ML 100 ML IVCONT ×2 (13:19→23:42)
--- NOTE | 2025-04-23 13:21 | PM.GICN ---
History of Present Illness Data of Consult Service Date: 04/23/25 Requesting physician: Monika Love Primary Care Provider: Chandrika Vargas MD HPI 74 year old French-speaking female with hypertension, hyperlipidemia seen [place] [facility] [place] 04[place] with rectal bleeding. Hx obtained with the help of an [facility] head up operator helper. Patient reports she had her 1st episode of bright red blood mixed with the stool yesterday around 1 pm. Since then she has had multiple (eight) episodes of bright red blood per rectum without stool mixed in - last episode was 2 hrs ago. Pt also complains of chills, lower abdominal pain and intermittent rectal pain. She denies diarrhea, nausea, vomiting. Patient complains of chronic constipation and takes coconut oil for relief She has 1 remote history of gastrointestinal bleeding over 6 years ago which was due to anticoagulation with Coumadin and has not been on any anticoagulation since that time. Patient has asthma and hypertension and denies other cardiac or pulmonary problems. 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 She denies smoking, alcohol abuse or taking any NSAIDs or blood thinners. Labs showed H/H was 11.6/37.1, vital signs remained stable. 04/23/[address] SCAN SHOWED: Unremarkable gallbladder and solid organs. There are bilateral renal parenchymal calculi. No bowel obstruction, pneumoperitoneum, or pneumatosis. There is abnormal appearance of the distal descending and sigmoid colon (? of an apple core lesion), incompletely evaluated. Pelvic contents unremarkable. Normal appendix. The bones are intact. 04/2022 [address] ROGEL: Ascending Colon: scattered diverticula, 12 mm sessile polyp (TVA on bx) removed with cold snare and x 1 clip applied for hemostasis Transverse Colon -normal Sigmoid Colon: severe diverticulosis Rectum: Retroflexion with small internal hemorrhoids, grade I Review of Systems Review of Systems: Yes all other systems are reviewed and are negative PMFSH Past Medical History Medical History Encounter for monitoring tocilizumab therapy Headache Anemia History of pulmonary embolism Nephrolithiasis High cholesterol Asthma Hypertension Family History Family History Mother Varicose vein of leg Depression Hypertension Asthma Heart disease Father Cerebrovascular accident (CVA) Kidney stones Sister Varicose vein of leg Depression Brother Depression Varicose vein of leg Daughter Varicose vein of leg Lupus anticoagulant disorder Maternal Grandfather Colon cancer Surgical History Surgical History H/O breast biopsy History of hysterectomy H/O colonoscopy Social History Social History Household Members: Children Household Members Other:: sister Housing: House Are you a primary career development specialist to a significant other at home: No Do you presently have visiting nurse or other home services: No Alcohol intake: never Patient Tobacco Use Status: Never used Tobacco Smoked in Last 30 Days: No Second Hand Smoke Exposure: No Use of substances other than those prescribed or required for medical reasons: No Currently Displaying Signs/Symptoms of Drug Intoxication Withdrawal: No Have you been hit, kicked, punched, or otherwise hurt by someone within the past year? If so, by whom?: No Do you feel safe in your current relationship?: No Current Relationship Is there a partner from a previous relationship who is making you feel unsafe now?: No Are you made to feel afraid or neglected: No Are you DNR?: No Advance Directives: No Advance Directives Information Provided: Yes Do you have a plan to hurt others: No Plan Recently lost weight without trying: No Eating poorly because of decreased appetite: No Nutrition Risks: No Nutritional Risk Patient : No Poor oral hygiene: No service: No Meds Allergies Allergy/AdvReac Type Severity Reaction Status Date / Time morphine (MORPHINE) Allergy Severe CHEST Verified 04/23/25 02:35 PAIN, TROUBLE BREATHING, bruises Penicillins Allergy Intermediate RASH Verified 04/23/25 02:35 codeine Allergy Unknown Unknown Verified 04/23/25 02:35 tramadol (TRAMADOL) AdvReac Unknown Headache Verified 04/23/25 02:35 Percocet AdvReac Intermediate vomiting Uncoded 04/23/25 02:35 Active Medications: Current Medications Acetaminophen (Acetaminophen 325 Mg Tablet) 650 mg PO Q6H PRN PRN Reason: Pain, Mild 1-3,fever,headache Calcium Carbonate (Calcium Carbonate 750 Mg Tab.Chew) 750 mg PO Q4H PRN PRN Reason: Heartburn Lactated Ringer's (Lr) 1,000 mls @ 100 mls/hr IVCONT .Q10H [facility] Last Admin: 04/23/25 13:19 Dose: 100 mls/hr Magnesium Hydroxide (Milk Of Magnesia 30 Ml Oral.Susp) 30 ml PO DAILY PRN PRN Reason: Constipation Melatonin (Melatonin 3 Mg Tablet) 6 mg PO BEDTIME PRN PRN Reason: Insomnia Sodium Chloride (0.9 % Sodium Chloride Flush 3 Ml Syringe) 3 ml IVFLUSH QSHIFT [facility] Home Medications ?Medication ?Instructions ?Recorded ?Confirmed ?Last Taken ?Type hydrochlorothiazide 25 mg tablet 25 mg PO DAILY 03/26/22 04/23/25 04/21/25 History quetiapine 25 mg tablet 12.5 mg PO BEDTIME 03/26/22 04/23/25 04/21/25 History cyanocobalamin (vitamin B-12) 1,000 mcg PO DAILY 04/23/25 04/23/25 04/21/25 History 1,000 mcg tablet tocilizumab 162 mg/0.9 mL 162 mg subcut WE 04/23/25 04/23/25 04/21/25 History subcutaneous pen injector (Actemra ACTPen) Physical Exam Vital Signs: Vital Signs: Last Vital Signs Temp 98.3 F 04/23/25 12:36 Pulse 62 04/23/25 12:36 Resp 16 04/23/25 12:36 BP 141/47 H 04/23/25 12:36 Pulse Ox 98 04/23/25 12:36 O2 Del Method Room Air 04/23/25 12:36 BMI result Body Mass Index 38.4 Const: General: healthy appearing and no acute distress Nutritional Appearance: obese Orientation/consciousness: patient oriented x3 Limitations: language barrier HEENT: Head: Yes normal to inspection Ears: hearing grossly normal bilaterally Eyes: Sclerae: sclerae normal Pupils: Equal, round and reactive pupils present Neck: Neck: Yes normal visual inspection Chest: Chest palpation & inspection: normal inspection of the chest Resp: Effort & Inspection: normal respiratory effort Auscultation: clear to auscultation bilaterally Cardio: Palpation: normal PMI Rate: regular rate Rhythm: regular rhythm Heart sounds: S1 normal heart sound present, S2 normal heart sound present and no murmurs GI: Palpation (GI): Soft to palpation, nontender and No hepatosplenomegaly present Auscultation: normal bowel sounds Rectal Exam - Female: deferred Skin: General skin exam: no rashes or lesions noted Neuro: General: patient oriented x3, gait normal and moves all extremities Cranial nerves: Yes Equal, round and reactive pupils present Psych: Appearance: grossly normal Mental Status: mental status grossly normal Results Labs 04/24/25 05:24 04/24/25 05:24 Labs: Short CBC 04/23/25 04/23/25 Range/Units 02:47 13:09 WBC 8.3 (4.8-10.8) X10*3/uL Hgb 11.6 L 11.4 L (12.0-16.0) g/dl Hct 37.1 35.6 L (37.0-47.0) % Plt Count 198 D (160-400) X10*3/uL BMP 04/23/25 02:47 Sodium 141 Potassium 4.7 Chloride 107 Carbon Dioxide 23 BUN 22 H Creatinine 1.41 H Calcium 9.6 Liver Function 04/23/25 Range/Units 02:47 Total Bilirubin 0.5 (0.0-1.0) mg/dL AST 33 H (5-31) U/L ALT 28 (0-31) U/L Alkaline Phosphatase 63 (39-117) U/L Albumin 4.5 (3.5-5.0) g/dL Urine 04/23/25 Range/Units 03:41 Urine Color Yellow Urine Appearance Clear Urine pH 7.0 (5.0-9.0) Ur Specific [place] 1.010 (1.005-1.025) Urine Protein Negative (Neg-Trace) mg/dL Urine Glucose (UA) Negative (Negative) mg/dL Assessment and Plan (1) Rectal bleeding: Status: Acute (2) Abnormal CT scan, colon: Status: Acute Plan 74 year old French-speaking female with hypertension, hyperlipidemia [place] [facility] [place] with rectal bleeding. Patient reports she had her 1st episode of bright red blood mixed with the stool yesterday around 1 pm. Since then she has had multiple (eight) episodes of bright red blood per rectum without stool mixed in - last episode was 2 hrs ago. Patient has asthma and hypertension and denies other cardiac or pulmonary problems. 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 She denies smoking, alcohol abuse or taking any NSAIDs or blood thinners. Labs showed H/H was 11.6/37.1, vital signs remained stable. Abd CT scan showed abnormal appearance of the distal descending and sigmoid colon (? of an apple core lesion), Source of lower GI bleeding is likely from diverticulosis, colonic AVM, large colon polyp or mass, Abnormality on CT scan possibly due to colon mass versus artifact related to peristalsis RECOMMENDATIONS: 1. Agree with a clear liquid diet and check CBC twice daily and transfuse prn 2. Golytely prep on 04/24/25 for colonoscopy on 04/25/2025 - order placed and pt added to the OR waiting list for Friday 3. CT angio if pt has recurrent bleeding Procedures Date of Service Date of Service: 04/25/25
--- NOTE | 2025-04-23 14:06 | PHA.MEDREC ---
Pharmacy Consult ? Medication Reconciliation Pharmacy has completed the medication reconciliation. [employer] services used. Spoke to patient at bedside. Noted she rarely uses albuterol inhaler, stated no longer taking bay aspirin, atorvastatin, or Wixela inhaler. Quetiapine she uses 1/2 tablet at bedtime and ibuprofen as needed
--- NOTE | 2025-04-23 18:19 | PC.NURSE ---
Pt admitted from ED for GI bleed. Admission completed with help of hospital project asst Brittney. No bleeding noted at this time
[2025-04-24 03:55] VITALS: BP 142/67; PULSE 61; RESP 16; TEMP 36.3; O2SAT 96
--- NOTE | 2025-04-24 06:22 | PC.NURSE ---
Seen pt on be alert and oriented, claimed mild abd pain, routine vitals showed BP as 170/75 HR 60, pt wass requeting for her Lisinopril, Dr. Pham was made aware, Norvasc tab was ordered, latest BP= 142/67.
[2025-04-24 06:25] LABS: MANUAL DIFF FLAG NO
[2025-04-24 06:57] LABS: Hematocrit 31.2 % (37.0-47.0); Hemoglobin 9.8 g/dl (12.0-16.0); Imm Gran Abs Auto 0.01 X10*3/uL (0.00-0.03); Imm Gran Pct Auto 0.2 % (0.0-0.4); Lymphocytes Absolute Auto 1.1 X10*3/uL (1.2-4.9); Mean Corpuscular HGB Conc 31.4 g/dl (31.0-35.0); Mean Corpuscular Hemoglobin 27.8 pg (27.0-33.0); Mean Corpuscular Volume 88.4 fL (80.0-98.0); NRBC Abs Auto 0.000 X10*3/uL (0.0-0.012); NRBC Pct Auto 0.0 /100WBC (0.0-0.2); Platelet Count 176 X10*3/uL (160-400); Red Blood Count 3.53 X10*6/uL (4.20-5.50); White Blood Count 5.1 X10*3/uL (4.8-10.8)
[2025-04-24 07:02] LABS: Anion Gap 14 (12-20); Blood Urea Nitrogen 15 mg/dL (9-16); Calcium 8.7 mg/dL (8.4-10.2); Carbon Dioxide 22 mmol/L (22-29); Chloride 108 mmol/L (96-108); Creatinine Clr Calc Pharmacy 49.6; Estimated Glomerular Filt Rate 55; Potassium 3.9 mmol/L (3.3-5.1); Sodium 140 mmol/L (135-145)
[2025-04-24 08:00] VITALS: BP 158/67; PULSE 73; RESP 18; TEMP 36.4; O2SAT 97
[2025-04-24] MEDS: Lactated Ringers 1,000 ML 100 ML IVCONT ×2 (08:02→17:53)
[2025-04-24 09:13] VITALS: BP 146/62; PULSE 72
--- NOTE | 2025-04-24 10:15 | MHC.CM.PN ---
CM MET WITH PT WITH THE ASSISTANCE OF A HOSE STRIPPER PT REPORTS SHE LIVES WITH HER DAUGHTER/HCP, YASH SHE HAS 2 HOURS / DAY OF DIRECTOR PEDIATRIC SERVICES AND NO DME HCP ON FILE PCP: PAIGE SALOMON IMM DELIVERED DCP: HOME RESUME DIRECTOR PEDIATRIC DAUGHTER TO TRANSPORT
[2025-04-24] MEDS: PEG 3350/Na Sulf,Bicarb,Cl/KCL 4,000 ML SOLN.RECON 4000 ML PO (13:13)
[2025-04-24 16:06] VITALS: BP 153/78; PULSE 77; RESP 18; TEMP 36.1; O2SAT 98
--- NOTE | 2025-04-24 17:08 | PC.NURSE ---
Pt tolerated colonoscopy prep. Stools clear yellow. Clear liquid diet maintained per orders. Minimal discomfort to abdomen improved after tylenol given
[2025-04-24 19:27] VITALS: BP 147/67; PULSE 75; RESP 16; TEMP 36.1; O2SAT 97
[2025-04-25] VITALS (10 sets, daily range): BP systolic 114–180; BP diastolic 36–83; PULSE 57–78; RESP 14–18; TEMP 36.1–36.7; O2SAT 96–100
[2025-04-25] MEDS: Lactated Ringers 1,000 ML 100 ML IVCONT (04:30)
--- NOTE | 2025-04-25 09:46 | P.CONAN_ITS ---
[facility] Active Problems Active Problems: All Active Problems Abnormal CT scan, colon (Acute) Rectal bleeding (Acute) Altered mental status (Acute) Ductal carcinoma in situ (DCIS) of right breast (Acute) Tongue deviation (Acute) Encounter for monitoring tocilizumab therapy (Acute) Abnormal liver diagnostic imaging (Acute) Positive anti-CCP test (Acute) GCA (giant cell arteritis) (Acute) History of pulmonary embolism (Acute) Headache (Acute) Atherosclerosis (Acute) HLD (hyperlipidemia) (Acute) Elevated erythrocyte sedimentation rate (Acute) Benign paroxysmal vertigo, unspecified ear (Acute) Gait difficulty (Acute) Migraine without aura (Acute) Paresthesias (Acute) Chronic idiopathic constipation (Acute) Tubulovillous adenoma (Acute) Tubular adenoma of colon (Acute) Preop examination (Acute) Osteoarthritis of shoulder (Acute) Varicose veins of both lower extremities (Acute) Depression with anxiety (Acute) Morbid obesity (Acute) DMITRI (obstructive sleep apnea) (Acute) Hypertension (Acute) Asthma (Acute) COVID-19 (Acute) Dizziness (Acute) Past Medical History Medical History Encounter for monitoring tocilizumab therapy Headache Anemia History of pulmonary embolism Nephrolithiasis High cholesterol Asthma Hypertension Family History Family History Mother Varicose vein of leg Depression Hypertension Asthma Heart disease Father Cerebrovascular accident (CVA) Kidney stones Sister Varicose vein of leg Depression Brother Depression Varicose vein of leg Daughter Varicose vein of leg Lupus anticoagulant disorder Maternal Grandfather Colon cancer Family history of problems with anesthesia: No Surgical History Surgical History H/O breast biopsy History of hysterectomy H/O colonoscopy History of Problems with Anesthesia: No Social History Social History Household Members: Children Household Members Other:: sister Housing: House Are you a primary career center advisor to a significant other at home: No Do you presently have visiting nurse or other home services: No Alcohol intake: never Patient Tobacco Use Status: Never used Tobacco Second Hand Smoke Exposure: No service: No Meds Allergies Allergy/AdvReac Type Severity Reaction Status Date / Time morphine (MORPHINE) Allergy Severe CHEST Verified 04/23/25 02:35 PAIN, TROUBLE BREATHING, bruises Penicillins Allergy Intermediate RASH Verified 04/23/25 02:35 codeine Allergy Unknown Unknown Verified 04/23/25 02:35 tramadol (TRAMADOL) AdvReac Unknown Headache Verified 04/23/25 02:35 Percocet AdvReac Intermediate vomiting Uncoded 04/23/25 02:35 Active Medications: Current Medications Acetaminophen (Acetaminophen 325 Mg Tablet) 650 mg PO Q6H PRN PRN Reason: Pain, Mild 1-3,fever,headache Last Admin: 04/24/25 11:15 Dose: 650 mg Albuterol Sulfate (Albuterol Sulfate 90 Mcg 8 Gm Inhaler) 2 puff INHALE Q4H PRN PRN Reason: shortness of breath or wheezing Amlodipine Besylate (Amlodipine Besylate 5 Mg Tablet) 5 mg PO DAILY [facility]; Protocol Last Admin: 04/25/25 08:13 Dose: 5 mg Calcium Carbonate (Calcium Carbonate 750 Mg Tab.Chew) 750 mg PO Q4H PRN PRN Reason: Heartburn Cyanocobalamin (Cyanocobalamin (Vitamin B-12) 1,000 Mcg Tablet) 1,000 mcg PO DAILY [facility] Last Admin: 04/25/25 08:13 Dose: 1,000 mcg Lactated Ringer's (Lr) 1,000 mls @ 100 mls/hr IVCONT .Q10H ERIN Last Admin: 04/25/25 04:30 Dose: 100 mls/hr Magnesium Hydroxide (Milk Of Magnesia 30 Ml Oral.Susp) 30 ml PO DAILY PRN PRN Reason: Constipation Magnesium Oxide (Magnesium Oxide 400 Mg Tablet) 400 mg PO BEDTIME [facility] Last Admin: 04/24/25 20:10 Dose: 400 mg Melatonin (Melatonin 3 Mg Tablet) 6 mg PO BEDTIME PRN PRN Reason: Insomnia Quetiapine Fumarate (Quetiapine Fumarate 25 Mg Tablet) 12.5 mg PO BEDTIME [facility] Last Admin: 04/24/25 20:10 Dose: 12.5 mg Sodium Chloride (0.9 % Sodium Chloride Flush 3 Ml Syringe) 3 ml IVFLUSH QSHIFT [facility] Last Admin: 04/25/25 08:13 Dose: Not Given Home Medications ?Medication ?Instructions ?Recorded ?Confirmed ?Last Taken ?Type hydrochlorothiazide 25 mg tablet 25 mg PO DAILY 04/23/25 04/21/25 History quetiapine 25 mg tablet 12.5 mg PO BEDTIME 03/26/22 04/23/25 04/21/25 History cyanocobalamin (vitamin B-12) 1,000 mcg PO DAILY 04/2304/23/25 04/21/25 History 1,000 mcg tablet tocilizumab 162 mg/0.9 mL 162 mg subcut WE 04/23/2504/21/25 History subcutaneous pen injector (Actemra ACTPen) Exam Height,Weight and Vital Signs: Height 5 ft Weight 89.6 kg Last Vital Signs Temp 96.9 F 04/25/25 08:02 Pulse 66 04/25/25 08:02 Resp 18 04/25/25 08:02 BP 165/72 H 04/25/25 08:02 Pulse Ox 96 04/25/25 08:02 O2 Del Method Room Air 04/25/25 08:02 Pertinent Lab Results Pertinent Lab Results: 'Laboratory Tests 04/23/25 04/23/25 04/23/25 02:47 03:41 13:09 WBC 8.3 RBC 4.22 Hgb 11.6 L 11.4 L Hct 37.1 35.6 L MCV 87.9 MCH 27.5 MCHC 31.3 RDW 13.6 Plt Count 198 D MPV 10.6 Immature Gran % (Auto) 0.2 Neut % (Auto) 68.9 Lymph % (Auto) 13.3 L [place] % (Auto) 10.2 Eos % (Auto) 6.7 H Baso % (Auto) 0.7 Lymph # (Auto) 1.1 L [place] # (Auto) 0.8 Eos # (Auto) 0.6 H Baso # (Auto) 0.1 Abs Immat Gran (auto) 0.02 Absolute Neuts (auto) 5.7 Absolute Nucleated RBC 0.000 Nucleated RBC % (auto) 0.0 PT 10.5 L INR 0.9 Sodium 141 Potassium 4.7 Chloride 107 Carbon Dioxide 23 Anion Gap 16 BUN 22 H Creatinine 1.41 H Estim Creat Clear Calc 34.8 Estimated GFR 36 Random Glucose 112 Calcium 9.6 Magnesium 2.3 Total Bilirubin 0.5 AST 33 H ALT 28 Alkaline Phosphatase 63 C-Reactive Protein 0.17 Total Protein 7.4 Albumin 4.5 Urine Color Yellow Urine Appearance Clear Urine pH 7.0 Ur Specific [place] 1.010 Urine Protein Negative Urine Glucose (UA) Negative Urine Ketones Negative Urine Blood Negative Urine Nitrite Negative Ur Leukocyte Esterase Small (1+) H Urine RBC 0-2 Urine WBC 0-5 Ur Squamous Epith Cells 0-2 Urine Bacteria None Seen Hyaline Casts 0-2 04/24/25 05:24 WBC 5.1 RBC 3.53 L Hgb 9.8 L Hct 31.2 L MCV 88.4 MCH 27.8 MCHC 31.4 RDW 13.6 Plt Count 176 MPV 11.5 Immature Gran % (Auto) 0.2 Neut % (Auto) 51.2 Lymph % (Auto) 21.1 [place] % (Auto) 14.8 H Eos % (Auto) 11.9 H Baso % (Auto) 0.8 Lymph # (Auto) 1.1 L [place] # (Auto) 0.8 Eos # (Auto) 0.6 H Baso # (Auto) 0.0 Abs Immat Gran (auto) 0.01 Absolute Neuts (auto) 2.6 Absolute Nucleated RBC 0.000 Nucleated RBC % (auto) 0.0 PT INR Sodium 140 Potassium 3.9 Chloride 108 Carbon Dioxide 22 Anion Gap 14 BUN 15 Creatinine 0.99 Estim Creat Clear Calc 49.6 Estimated GFR 55 Random Glucose 84 Calcium 8.7 D Magnesium Total Bilirubin AST ALT Alkaline Phosphatase C-Reactive Protein Total Protein Albumin Urine Color Urine Appearance Urine pH Ur Specific [place] Urine Protein Urine Glucose (UA) Urine Ketones Urine Blood Urine Nitrite Ur Leukocyte Esterase Urine RBC Urine WBC Ur Squamous Epith Cells Urine Bacteria Hyaline Casts Airway Mallampati Class: II TM Dist: >3cm Neck ROM: Full Assessment and Plan Assessment Anesthesia Assessment: Anesthesia Plan Discussed and Chart Reviewed Final Anesthetic Review Family History of Problems with Anesthesia: No History of Problems with Anesthesia: No NPO: Yes ASA Class: III and Emergency Final Preanesthetic Review: No Changes in Pt Med Stat, Meds/Allgs Chart Reviewed, Consent Obtained/Reviewed, Anes Risks/Benef Reviewed and DNR Form (If Appl.) Patient Risk: Intermediate Procedure Risk: Low Anesthetic Plan Anesthetic Plan: TIVA Disposition: Standard PACU
[2025-04-25] MEDS: Lactated Ringers 1,000 ML 80 ML IVCONT (10:05)
--- NOTE | 2025-04-25 10:06 | MHC.SHP ---
Pre-Procedural Eval Section A - 24 Hr Update-Section A only Date of Service: 04/25/25 The patient is an INPATIENT: Yes Changes since office visit: Yes New Medical Problems, Yes Changes in Medication and Yes Patient answered all questions; No Cold of Flu in the past 2 weeks The patient has been examined within 24 hours of the surgical procedure. The History & Physical has been completed within 30 days and I have reviewed it.: Yes Section B - Complete if H&P > 30 days Chief Complaint: GI bleed Allergies: Allergies Allergy/AdvReac Type Severity Reaction Status Date / Time morphine (MORPHINE) Allergy Severe CHEST Verified 04/23/25 02:35 PAIN, TROUBLE BREATHING, bruises Penicillins Allergy Intermediate RASH Verified 04/23/25 02:35 codeine Allergy Unknown Unknown Verified 04/23/25 02:35 tramadol (TRAMADOL) AdvReac Unknown Headache Verified 04/23/25 02:35 Percocet AdvReac Intermediate vomiting Uncoded 04/23/25 02:35 Plan Diagnosis/Plan: Unchanged I have reviewed the history and physical and performed a pertinent physical examination on my patient. No changes have occurred unless specified. Time Spent With Patient Time: Total time managing care of this patient today ____ minutes.
--- NOTE | 2025-04-25 11:11 | P.OPN-COLO_ITS ---
Colonoscopy Operative Note Operative Note Date of Service: 04/25/25 Narrative: COLONOSCOPY TILL CECUM WITH BIOPSIES AND SNARE POLYPECTOMY Pre-op diagnosis: Lower GI bleeding. Post-op diagnosis:? Resolving left sided colitis, Colon polyps, Diverticulosis, hemorrhoids Endoscopist:? Jairo Swann MD Anesthesia:?MAC Consent: Indications for the procedure and potential complications of bleeding, perforation, reaction to medications and missed diagnosis were discussed with the patient and informed consent was obtained. Instrument: Olympus PCF H 190 L variable stiffness pediatric colonoscope Monitoring: Vital signs and clinical assessment, intermittent blood pressure monitoring, continuous EKG monitoring, Pulse oximetry and Carbon Dioxide monitoring were done throughout the procedure. Please see anesthesia flowsheet. Colon withdrawl time was 25 minutes. Procedure: The patient was placed in the left lateral decubitis position and pre-procedure medications were administered. After a digital rectal examination of the ano-rectum, the video colonoscope was inserted into the rectum and advanced through the colon to the cecum. The colonoscope was slowly withdrawn in a retrograde panoramic fashion and the colon mucosa was carefully examined including a retroflexed view of the rectum. Findings and interventions are described below. Procedure Difficulty: without difficulty Findings: Terminal Ileum: Not evaluated Cecum: A 3-4 mm sessile polyp - removed with a cold snare. Ascending Colon: A 3-4 mm sessile polyp in the proximal ascending colon - removed with a cold biopsy. Moderate diverticulosis throughout the entire colon Transverse Colon: Moderate diverticulosis throughout the entire colon Descending Colon: Edema and patchy erythema with superficial ulceration in the left colon from 25 to 70 cms - biopsies were obtained. Moderate diverticulosis Sigmoid Colon: Edema and patchy erythema with superficial ulceration in the left colon from 25 to 70 cms - biopsies were obtained. Severe diverticulosis Rectum: Normal Ano-rectum: Small internal hemorrhoids Colon preparation: Good after copious irrigation. Hammond Bowel Preparation Scale Right colon; 2 Transverse colon: 2 Left colon; 2 (0 = Unprepared colon segment with mucosa not seen due to solid stool that cannot be cleared. 1 = Portion of mucosa of the colon segment seen, but other areas of the colon segment not well seen due to staining, residual stool and/or opaque liquid. 2 = Minor amount of residual staining, small fragments of stool and/or opaque liquid, but mucosa of colon segment seen well. 3 = Entire mucosa of colon segment seen well with no residual staining, small fragments of stool or opaque liquid) Impression and Post Procedure Diagnosis: Colonoscopy Findings: Two small polyps were removed Edema and patchy erythema with superficial ulceration in the left colon -likely resolving ischemic colitis. Moderate to severe diverticulosis seen in the entire colon Small hemorrhoids on retroflexed exam. No blood seen in the colon during colonoscopy. Plan: Ok to discharge home tomorrow. I will send a letter with biopsy results. Repeat Colonoscopy in 5 years if polyps are adenomatous and due to history of adenomatous colon polyps. Above findings were reviewed with the patient.
--- NOTE | 2025-04-25 12:09 | MHC.CM.PN ---
Per MD rounds patient not medically cleared for dc. CM will continue to follow.
[2025-04-25] MEDS: Milk of Magnesia 30 ML ORAL.SUSP PO (15:22)
--- NOTE | 2025-04-25 16:25 | PC.NURSE ---
Patient was complaining of burning and pain at IV site. Daughter states she is a very hard stick and Anesthesiologist had to replace her last IV during her colonospoy a few hours ago. This RN assessed IV and determined it unsafe to use and removed. Patient has LR ordered at 80ml/hr. This RN reached out to MD to determine if fluids are still needed since she is eating and a pending discharge for tomorrow. MD verified that it was ok to hold the fluids for now.
--- NOTE | 2025-04-25 16:34 | P.PNIM_ITS ---
Subjective Subjective Date of Service: 04/25/25 Interval History: Slept well overnight. No new complaints today. Scheduled for colonoscopy. Evidence of resolving left-sided colitis with colonic polyps, diverticulosis and hemorrhoids. Review of Systems Review of Systems: Yes all other systems are reviewed and are negative Physical Exam 2 Exam: Exam: General: A&O x3, oriented to time place person and situation, comfortable, no pain Cardiac: S1, S2 auscultated with no S3/4, no MRG. Well perfused. Respiratory: Normal breath sounds auscultated throughout all lung zones, without wheezing, rales. Normal rate. GI/ : No abdominal pain on palpation, no masses or distentions. MSK: Normal ambulation without pain at bony prominences or musculature Neurological: Normal neurological examination on overview, without obvious CN II-XII abnormalities. Vital Signs: Vital Signs: Last Vital Signs Temp 97.9 F 04/25/25 15:24 Pulse 67 04/25/25 15:24 Resp 14 04/25/25 15:24 BP 158/68 H 04/25/25 15:24 Pulse Ox 98 04/25/25 15:24 O2 Del Method Room Air 04/25/25 15:24 BMI result Body Mass Index 38.6 Objective Data Active Medications Acetaminophen (Acetaminophen 325 Mg Tablet) 650 mg PO Q6H PRN PRN Reason: Pain, Mild 1-3,fever,headache Last Admin: 04/24/25 11:15 Dose: 650 mg Documented By: STEPHEN Albuterol Sulfate (Albuterol Sulfate 90 Mcg 8 Gm Inhaler) 2 puff INHALE Q4H PRN PRN Reason: shortness of breath or wheezing Amlodipine Besylate (Amlodipine Besylate 5 Mg Tablet) 5 mg PO DAILY [facility]; Protocol Last Admin: 04/25/25 08:13 Dose: 5 mg Documented By: ISHA Calcium Carbonate (Calcium Carbonate 750 Mg Tab.Chew) 750 mg PO Q4H PRN PRN Reason: Heartburn Last Admin: 04/25/25 15:22 Dose: 750 mg Documented By: NANI Cyanocobalamin (Cyanocobalamin (Vitamin B-12) 1,000 Mcg Tablet) 1,000 mcg PO DAILY ERIN Last Admin: 04/25/25 08:13 Dose: 1,000 mcg Documented By: HO.VENLA Lactated Ringer's (Lr) 1,000 mls @ 80 mls/hr IVCONT .[id number] ERIN Last Infusion: 04/25/25 14:51 Dose: 0 mls/hr Documented By: NANI Magnesium Hydroxide (Milk Of Magnesia 30 Ml Oral.Susp) 30 ml PO DAILY PRN PRN Reason: Constipation Last Admin: 04/25/25 15:22 Dose: 30 ml Documented By: NANI Magnesium Oxide (Magnesium Oxide 400 Mg Tablet) 400 mg PO BEDTIME ERIN Last Admin: 04/24/25 20:10 Dose: 400 mg Documented By: CHIDI Melatonin (Melatonin 3 Mg Tablet) 6 mg PO BEDTIME PRN PRN Reason: Insomnia Naloxone HCl (Naloxone Hcl 0.4 Mg/Ml Vial) 0.04 mg IVPUSH Q5M PRN PRN Reason: Excessive sedation or RR < 8 Quetiapine Fumarate (Quetiapine Fumarate 25 Mg Tablet) 12.5 mg PO BEDTIME ERIN Last Admin: 04/24/25 20:10 Dose: 12.5 mg Documented By: CHIDI Sodium Chloride (0.9 % Sodium Chloride Flush 3 Ml Syringe) 3 ml IVFLUSH QSHIFT [facility] Last Admin: 04/25/25 15:23 Dose: Not Given Documented By: NANI Non-Admin Reason: No Access Labs 04/24/25 05:24 04/24/25 05:24 Assessment and Plan (1) Acute GI bleeding: Status: Acute (2) Acute colitis: Status: Acute Plan This is a 74-year-old female with history of hypertension, hyperlipidemia, migraines, polyarticular arthritis, giant cell arteritis, remote history of PE no longer on anticoagulation, who presents to the emergency room with bright red blood per rectum, admitted for acute GI bleed. Acute GI bleed - stable Colonoscopy performed 04/25, revealing 2 small polyps that were removed, edema and patchy erythema with superficial ulceration in the left colon, consistent with colitis. Moderate to severe diverticulosis seen in the entire colon Small hemorrhoids also observed. As per GI, the patient is cleared for discharge home tomorrow. 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 Quality Stroke Does the patient have a stroke diagnosis?: No VTE Prior VTE?: No VTE Risk Level:: Medical - moderate - high VTE Device Contraindication: N/A - Device Ordered VTE Drug Contraindication: Treatment Not Indicated
[2025-04-26 03:36] VITALS: BP 145/67; PULSE 62; RESP 14; TEMP 36.1; O2SAT 95
[2025-04-26 06:04] LABS: MANUAL DIFF FLAG NO
[2025-04-26 06:56] LABS: Hematocrit 33.7 % (37.0-47.0); Hemoglobin 10.5 g/dl (12.0-16.0); Imm Gran Abs Auto 0.01 X10*3/uL (0.00-0.03); Imm Gran Pct Auto 0.2 % (0.0-0.4); Lymphocytes Absolute Auto 1.0 X10*3/uL (1.2-4.9); Mean Corpuscular HGB Conc 31.2 g/dl (31.0-35.0); Mean Corpuscular Hemoglobin 27.3 pg (27.0-33.0); Mean Corpuscular Volume 87.8 fL (80.0-98.0); NRBC Abs Auto 0.000 X10*3/uL (0.0-0.012); NRBC Pct Auto 0.0 /100WBC (0.0-0.2); Platelet Count 173 X10*3/uL (160-400); Red Blood Count 3.84 X10*6/uL (4.20-5.50); White Blood Count 4.5 X10*3/uL (4.8-10.8)
[2025-04-26 07:44] VITALS: BP 158/72; PULSE 65; RESP 16; TEMP 36.6; O2SAT 96
[2025-04-26] MEDS: Milk of Magnesia 30 ML ORAL.SUSP PO (08:29)
--- NOTE | 2025-04-26 09:18 | HO.POSTANES ---
Post Anesthesia Evaluation Post Anesthesia Evaluation Date of Service: 04/26/25 Vital Signs: Vital Signs Temp Pulse Resp BP Pulse Ox O2 Del Method 04/26/25 07:44 97.8 F 65 16 158/72 H 96 Room Air 04/26/25 03:36 96.9 F 62 14 145/67 H 95 Room Air 04/25/25 23:52 63 160/66 H Anesthesia: Monitored Mental Status: Awake Pain Control: Satisfactory Nausea/Vomiting: None Hydration: Adequate Anesthesia-Related Issues: No Anes. Related Issues
--- NOTE | 2025-04-26 09:59 | PM.DS ---
DS: Providers Provider Date of Service: 04/26/25 Date of admission: 04/23/25 12:41 Date of discharge: 04/26/25 Primary care physician: Chandrika Vargas MD Consults: 04/23/25 12:18 Consult to Gastroenterology Routine Consulting Provider: Jairo Swann Reason for consultation: BRBPR; abnormal CT abdomen Has provider been notified: No DS: Diagnosis Discharge Diagnosis (1) Acute GI bleeding: Status: Acute (2) Acute colitis: Status: Acute DS: Summary Hospital Course Hospital Course: admission Chief Complaint: BRBPR This is a 74-year-old female with history of hypertension, hyperlipidemia who presents to the emergency department with rectal bleeding. History was obtained with the assistance of a death clearance coordinator. Patient is overall a poor historian regarding her medical history but is able to provide history regarding reason for presentation to the hospital. Patient states that yesterday around 13:00 she had her 1st episode of bright red blood mixed with the stool. Since then she has had multiple episodes of bright red blood per rectum without stool mixed in. She reports lower abdominal pain in the associated chills. She has not had diarrhea, nausea, vomiting. She has 1 remote history of gastrointestinal bleeding over 6 years ago which was due to anticoagulation with Coumadin. She has not been on any anticoagulation since that time. She denies the use of alcohol or any NSAIDs or blood thinners. In the emergency department H/H was 11.6/37.1, vital signs remained stable. She underwent CT scan of the abdomen which showed abnormal appearance in the distal descending and sigmoid colon. The emergency room provider discussed the case with the on-call rippler who recommended admitting the patient for planned colonoscopy on Friday. Hospital course: This is a 74-year-old female with history of hypertension, hyperlipidemia, migraines, polyarticular arthritis, giant cell arteritis, remote history of PE no longer on anticoagulation, who presents to the emergency room with bright red blood per rectum, admitted for acute GI bleed and concern for colitis but not believed to be infectious. She did not require transfusion. Initial hemoglobin was 11.6 and presently 2 days later 10.5. she had colonoscopy on 04/25, revealing 2 small polyps that were removed, edema and patchy erythema with superficial ulceration in the left colon, consistent with colitis. Moderate to severe diverticulosis seen in the entire colon Small hemorrhoids also observed. Diet advance and will follow up with GI on Biopsy result ZUNILDA likely prerenal , resolved with IVF. 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 Follow with [facility] Time Attestation Discharge Coordination Time (in mins): 40 Quality: Safe Use of Opioids Does Pt have an Active Cancer Diagnosis on the Problem List?: No Quality: Stroke Does the patient have a stroke diagnosis?: No Physical Exam Vital Signs: Vital Signs: Last Vital Signs Temp 97.8 F 04/26/25 07:44 Pulse 65 04/26/25 07:44 Resp 16 04/26/25 07:44 BP 158/72 H 04/26/25 07:44 Pulse Ox 96 04/26/25 07:44 O2 Del Method Room Air 04/26/25 07:44 BMI result Body Mass Index 38.6 DS: Data Data Completed and Pending Pending studies at discharge: Pending at discharge 04/25/25 10:51 Surgical [PTH] Routine Labs on day of discharge: Laboratory Results - last 24 hr 04/26/25 05:28 WBC 4.5 L RBC 3.84 L Hgb 10.5 L Hct 33.7 L MCV 87.8 MCH 27.3 MCHC 31.2 RDW 13.5 Plt Count 173 MPV 11.2 Immature Gran % (Auto) 0.2 Neut % (Auto) 50.7 Lymph % (Auto) 22.6 [place] % (Auto) 15.0 H Eos % (Auto) 10.8 H Baso % (Auto) 0.7 Lymph # (Auto) 1.0 L [place] # (Auto) 0.7 Eos # (Auto) 0.5 H Baso # (Auto) 0.0 Abs Immat Gran (auto) 0.01 Absolute Neuts (auto) 2.3 Absolute Nucleated RBC 0.000 Nucleated RBC % (auto) 0.0 Discharge Plan Discharge Anticipated Discharge Date/Time: 04/26/25 10:00 Patient Disposition: Home, Self-Care Discharge Diagnosis: Acute blood loss anemia, GI Bleeding, colitiss Referrals: Chandrika Stack MD [Primary Care Provider, Internal Medicine] - 1 Week Discharge Medications: New amlodipine 10 mg Tablet 10 mg PO DAILY Qty: 90 0RF Protocol: Hold for SBP< HOLD for SBP < : 90 Continued (DME) nebulizers [AeroEclipse II Nebulizer] Misc See Rx Instructions .ROUTE .MEDSUPPLY Qty: 1 0RF Rx Instructions: As directed albuterol sulfate 90 mcg/actuation HFA aerosol inhaler 2 puff inhalation Q4-6H PRN (Reason: shortness of breath or wheezing) 7 Days Qty: 8.5 0RF cyanocobalamin (vitamin B-12) 1,000 mcg Tablet 1,000 mcg PO DAILY Actemra ACTPen 162 mg/0.9 mL pen injector 162 mg subcut WE quetiapine 25 mg tablet 12.5 mg PO BEDTIME hydrochlorothiazide 25 mg tablet 25 mg PO DAILY magnesium oxide 400 mg (241.3 mg magnesium) tablet 400 mg PO BEDTIME 30 Days Qty: 30 6RF Rx Instructions: may hold for loose stools Discontinued ibuprofen 600 mg tablet 600 mg PO Q6H PRN (Reason: fever or pain) Qty: 30 0RF lisinopril 40 mg tablet 40 mg PO DAILY Qty: 90 0RF Discharge Orders: Discharge Order (Routine); Ordered 04/26/25 Ordered By: Vincent Morris Diet: Advance to usual diet Activity on Discharge: As tolerated Stand Alone Forms: Patient Portal Discharge page Print Language: Setswana Other Ambulatory Orders: Basic Metabolic Panel (Routine) Timeframe: 1 Week Facility: [facility] - Location: Laboratory Ordered By: Vincent Morris Care Plan Goals: recovery from gi bleeding and anemia Health Concerns: gi bleeding, acute blood loss anemia Plan of Treatment: follow up with your doctor in a week avoid aspirin or motrin stop taking Lisinopril for blood pressure until you see your doctor, continue taking hydrochlorothiazide take Norvasc 10 mg daily for blood pressure, new medication you will need lab work done in a week Assessment: see above
[2025-04-26 10:42] VITALS: BP 161/70; PULSE 74; RESP 18; TEMP 527.7; TEMP 982; O2SAT 97
--- NOTE | 2025-04-26 10:57 | MHC.CM.PN ---
Patient dc'd home w/ resumption of [employer] services via private transport.
== END 2025-04-26 10:45 | disposition home or self-care (01) | DRG 393 ==
LOC: HO.ED 12:17 → HO.EDOVER 12:42 → HO.S3 16:26
PROVIDERS: Hospitalist; Internal Medicine Gastroenterology; Admitting Provider Physician Assistant Medical; Emergency Provider Emergency Medicine; PCP Internal Medicine; Visit Provider Internal Medicine
PROC: 0DJD8ZZ Inspection of Lower Intestinal Tract, Via Natural or Artificial Opening Endoscopic (ICD-10-PCS; CPT 45378; principal; 2025-04-25 13:40)
DX: K55.9 Vascular disorder of intestine, unspecified (principal); K57.31 Diverticulosis of large intestine without perforation or abscess with bleeding; N17.9 Acute kidney failure, unspecified; D62 Acute posthemorrhagic anemia; K64.8 Other hemorrhoids; M31.6 Other giant cell arteritis; I10 Essential (primary) hypertension; E78.5 Hyperlipidemia, unspecified; D05.10 Intraductal carcinoma in situ of unspecified breast; K63.5 Polyp of colon; Z86.711 Personal history of pulmonary embolism; Z79.69 Long term (current) use of other immunomodulators and immunosuppressants; Z79.899 Other long term (current) drug therapy
CPT/HCPCS: 36415; 74176; 80048; 80053; 81001; 83735; 85014; 85018; 85025; 85027; 85610; 86140; 87086; 88305; 93005; 99285; J2003; J2704; J7120

== ENCOUNTER → 2025-04-23 02:41 | Outpatient (BNV) | payer OTHER, SELFPAY | PROVIDERS: Emergency Provider Emergency Medicine; PCP Internal Medicine; Visit Provider Internal Medicine Cardiovascular Disease | DX: R10.9 Unspecified abdominal pain (principal) | CPT/HCPCS: 93010 ==

== ENCOUNTER → 2025-04-23 07:41 | Outpatient (BNV) | payer OTHER, SELFPAY | PROVIDERS: Emergency Provider Emergency Medicine; PCP Internal Medicine; Visit Provider Specialist | DX: R10.9 Unspecified abdominal pain (principal) | CPT/HCPCS: 74176 ==

== ENCOUNTER → 2025-04-23 12:41 | Outpatient (BNV) | payer OTHER, SELFPAY | PROVIDERS: Admitting Provider Physician Assistant Medical; Emergency Provider Emergency Medicine; PCP Internal Medicine; Visit Provider Physician Assistant Medical | DX: K62.5 Hemorrhage of anus and rectum (principal) | CPT/HCPCS: 99223 ==

== ENCOUNTER → 2025-04-23 12:41 | Outpatient (BNV) | payer OTHER, SELFPAY | PROVIDERS: Admitting Provider Physician Assistant Medical; Emergency Provider Emergency Medicine; PCP Internal Medicine; Visit Provider Internal Medicine Gastroenterology | DX: K62.5 Hemorrhage of anus and rectum (principal); R93.3 Abnormal findings on diagnostic imaging of other parts of digestive tract; D12.0 Benign neoplasm of cecum; D12.2 Benign neoplasm of ascending colon; K57.90 Diverticulosis of intestine, part unspecified, without perforation or abscess without bleeding; K63.89 Other specified diseases of intestine | CPT/HCPCS: 45380; 45385; 99222 ==

== ENCOUNTER 2025-06-13 09:35 | Outpatient (REF) | payer OTHER, SELFPAY ==
--- OUTSIDE RECORDS SUMMARY | 2025-06-13 09:41 | XMS_ITS ---
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 Will order h. Pylori test, recommended to start Pantoprazole after collecting the sample. Referred to GI for possible endoscopy. She was recently admitted for GI bleeding. 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 I conferred with [facility] cardiac surgery Dr. 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 Today 132/68. Patient currently on Amlodipine 10mg, hydrochlorothiazide 25 mg. We will continue same medications. Patient is instructed on a low-salt diet and exercise regularly pending results from cmp, lipid panel. Dyslipidemia 04/03/2018 Assessment & Plan (05/18/2025 9:54 AM EDT): Currently on atorvastatin 40 mg a day to decrease her cardiovascular risk. I am instructing the patient on a Low-fat diet. Lichen simplex 06/06/2014 Anxiety 10/01/2013 Depression 07/05/2013 Overview (11/07/2023): F/u [facility] at [facility] 09/09/2012 Assessment & Plan (05/18/2025 9:54 AM EDT): Well controlled, ACT 20, continue Flovent, Albuterol. Nephrolithiasis 06/12/2012 Current Treatment and Therapy Plans No current plan information found. Past Treatment and Therapy Plans No past plan information found. Current Radiation Episodes * Radiation Therapy: BreastOverview* First Treatment Date Latest Treatment Date Treatment Site Technique Goal Episode Provider 04/04/2025 05/06/2025 Breast Curative Danae Dickson MD * Linked Problems Other type of carcinoma in s itu of right breast Treatment Courses* Course 1 04/04/2025 - 05/06/2025 Treatment Sites Treatment Period Fraction Dose Fractions Total Dose Right Breast Boost 05/03/2025 - 05/06/2025 250 / 250 cGy 1,000 / 1,000 cGy Right Breast 04/04/2025 - 04/29/2025 267 / 267 cGy 4,272 / 4,272 cGy Resolved Problems Problem Noted Date Diagnosed Date Resolved Date History of 2019 novel sykes virus disease (COVID-19) 01/22/2021 02/02/2025
--- OUTSIDE RECORDS SUMMARY | 2025-06-13 09:41 | XMS_ITS | Clinical Summary ---
Author Organization [address] Address [address] [place] [phone] Phone Care Team Providers Care Membership Counselor Name Role Phone Chandrika Cronin MD Primary [...] up to 30 days. 05/15/20 22 Active betamethasone valerate (VALISONE) 0.1 % cream 10/06/19 24 Active dicyclomine (BENTYL) 10 mg capsule Take 1 capsule (10 mg total) by mouth. 05/02/20 23 Active fluticasone HFA (FLOVENT HFA) 110 mcg/actuation inhaler Inhale 1 puff by mouth. 05/16/20 23 Active loperamide (IMODIUM) 2 mg capsule Take 1 capsule (2 mg total) by mouth. 05/02/20 23 Active QUEtiapine (SEROquel) 25 mg tablet Take 0.5 tablets (12.5 mg total) by mouth 1 (one) time each day. 11/05/19 20 Active fluticasone-salme terol (ADVAIR DISKUS) 250-50 mcg/dose diskus inhaler Inhale 1 Puff into the lungs 2 times daily for 90 days. 05/25/20 24 Active tocilizumab (Actemra ACTPen) subcutaneous injection 03/03/20 24 Active fluticasone-salme terol (Wixela Inhub) 250-50 mcg/dose diskus inhaler Inhale 1 puff by mouth 2 (two) times a day. Rinse mouth with water after use to reduce aftertaste and incidence of candidiasis. Do not swallow. 3 each 11/25/19 25 026 Active albuterol HFA (PROAIR HFA ; PROVENTIL HFA ; VENTOLIN HFA) 90 mcg/actuation inhaler Inhale 2 puffs by mouth every 6 (six) hours if needed for wheezing or shortness of breath. 3 each 11/25/19 25 026 Active albuterol 2.5 mg /3 mL (0.083 %) nebulizer solutionIndicatio ns:Moderate persistent asthma, unspecified whether complicated Take 3 mL (2.5 mg total) by nebulization every 6 (six) hours if needed for wheezing or shortness of breath. by nebulization every 6 hours as needed for Wheezing, Shortness of Breath or Cough. 360 mL 11 11/25/19 25 Active aspirin 81 mg chewable tablet Chew 1 tablet (81 mg total). at bedtime for 30 days 02/26/20 25 Active acetaminophen (TYLENOL) 500 mg tablet Take 1 tablet (500 mg total) by mouth every 6 (six) hours if needed for mild pain. Active docusate sodium (Colace) 100 mg capsule Take 1 capsule (100 mg total) by mouth at bedtime as needed for constipation. 30 each 05/12/20 25 Active amLODIPine (NORVASC) 10 mg tablet Take 1 tablet (10 mg total) by mouth 1 (one) time each day. 90 tablet 3 05/18/20 25 Active hydroCHLOROthiazi de (HYDRODIURIL) 25 mg tablet Take 1 tablet (25 mg total) by mouth 1 (one) time each day. 90 tablet 3 05/18/20 25 Active rosuvastatin (CRESTOR) 20 mg tablet Take 1 tablet (20 mg total) by mouth 1 (one) time each day. 90 each 1 05/19/20 25 026 Active pantoprazole (PROTONIX) 40 mg EC tablet Take 1 tablet (40 mg total) by mouth 1 (one) time each day. 05/02/20 23 025 Discontinu ed(Reorder ) ibuprofen (ADVIL,MOTRIN) 600 mg tablet TAKE 1 TABLET BY MOUTH EVERY 6 HOURS NEEDED FOR FEVER OR PAIN 12/11/19 24 Discontinu ed(Therapy completed) atorvastatin (LIPITOR) 40 mg tablet Take 1 tablet (40 mg total) by mouth 1 (one) time each day. 90 tablet 01/12/20 25 025 Discontinu ed(Alterna te therapy) amLODIPine (NORVASC) 10 mg tablet Take 1 tablet (10 mg total) by mouth 1 (one) time each day. 025 Discontinu ed(Reorder ) hydroCHLOROthiazi de (HYDRODIURIL) 25 mg tablet TAKE 1 TABLET BY MOUTH 1 TIME EACH DAY. 90 tablet 1 05/13/20 25 025 Discontinu ed(Reorder ) pantoprazole (PROTONIX) 40 mg EC tablet Take 1 tablet (40 mg total) by mouth 1 (one) time each day. 90 each 05/18/20 25 025 Discontinu ed(Reorder ) tetracycline (ACHROMYCIN,SUMYC IN) 500 mg capsule Take 1 capsule (500 mg total) by mouth 2 (two) times a day for 14 days. Take on empty stomach. 28 capsule 05/26/20 25 025 bismuth subsalicylate 525 mg tablet Take 1 tablet by mouth 4 (four) times a day for 14 days. 56 tablet 05/26/20 25 metroNIDAZOLE (FLAGYL) 500 mg tablet Take 1 tablet (500 mg total) by mouth 3 (three) times a day for 14 days. Do not use mouth wash or consume alcohol until 48 hours after last dose 42 each 05/26/20 25 025 pantoprazole (PROTONIX) 40 mg EC tablet Take 1 tablet (40 mg total) by mouth 2 (two) times a day for 14 days. 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 Hyperparathyroidism ([facility] V24) 03/11/2025 Abnormal breast biopsy 02/02/2025 Mass [...] of the abdomen 11/07/2023 Aortic arch atherosclerosis ([facility] V24) 2022 Overview (11/07/2023): Last Assessment & [...] midline thoracic back pain 04/18/2022 Bleeding disorder ([facility] V24) 04/17/2022 Prediabetes 04/17/2022 Overview (11/07/2023): Lab Results Component Value Date HGBA1C 6.3 12/16/2022 OA (osteoarthritis) of hip 07/09/2021 Osteoarthritis, shoulder 07/09/2021 Asymptomatic varicose veins of both lower extrem ities 06/16/2018 DMITRI (obstructive sleep apnea) 06/16/2018 Overview (06/08/2024): moderate overall AHI 15; severe in REM AHI 42 in 2015 Class 2 obesity 06/16/2018 Allergic rhinitis 04/23/2018 [...] Depression 07/05/2013 Overview (11/07/2023): F/[facility] 09/09/2012 Assessment & Plan (05/18/2025 9:54 AM EDT): Well controlled, ACT 20, continue Flovent, Albuterol. Nephrolithiasis 06/12/2012 Resolved Problems Problem Noted Date Diagnosed Date Resolved Date History of 2019 novel sykes virus disease (COVID-19) 01/22/2021 02/02/2025 Encounters Date Type Department Care Team Description 05/19/2025 9:50 AM EDT - 05/19/2025 11:59 PM EDT Hospital Encounter [facility] - [address] [phone] Encounter for screening for osteoporosis Discharge Disposition: Home or Self Care 05/18/2025 9:00 AM EDT Office Visit Adult Medicine [facility] - [address] [phone] Chandrika Cronin MD Encounter for annual general medical examination with abnormal findings in adult (Primary Dx); Essential hypertension; Dyslipidemia; Moderate persistent asthma, unspecified whether complicated; Epigastric pain; Need for prophylactic vaccination and inoculation against influenza; Advance care planning 05/12/2025 10:30 AM EDT Office Visit Adult Medicine [address] [phone] Chandrika Cronin MD Hospital discharge follow-up (Primary Dx); Gastrointestinal hemorrhage, unspecified gastrointestinal hemorrhage type; ZUNILDA (acute kidney injury) (CMS/[facility] V24); Essential hypertension 05/06/2025 8:35 AM EDT - 05/06/2025 11:59 PM EDT Hospital Encounter [facility] Radiation Oncology [address] [place] [phone] Danae Dickson MD 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) Discharge Disposition: Home or Self Care 05/06/2025 8:26 AM EDT - 05/06/2025 11:59 PM EDT Hospital Encounter [facility] Radiation Oncology [address] [place] [phone] Danae Dickson MD Discharge Disposition: Home or Self Care 05/05/2025 8:25 AM EDT - 05/05/2025 11:59 PM EDT Hospital Encounter [facility] Radiation Oncology [address] [place] [phone] Discharge Disposition: Home or Self Care 05/04/2025 8:21 AM EDT - 05/04/2025 11:59 PM EDT Hospital Encounter [facility] Radiation Oncology [address] [place] [phone] Discharge Disposition: Home or Self Care 05/03/2025 8:35 AM EDT - 05/03/2025 11:59 PM EDT Hospital Encounter [facility] Radiation Oncology [address] [place] [phone] Roland López MD Discharge Disposition: Home or Self Care 05/03/2025 8:21 AM EDT - 05/03/2025 11:59 PM EDT Hospital Encounter [facility] Radiation Oncology [address] [place] [phone] Discharge Disposition: Home or Self Care 04/29/2025 8:39 AM EDT - 04/29/2025 11:59 PM EDT Hospital Encounter [facility] Radiation Oncology [address] [place] [phone] Danae Dickson MD 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) Discharge Disposition: Home or Self Care 04/29/2025 8:29 AM EDT - 04/29/2025 11:59 PM EDT Hospital Encounter [facility] Radiation Oncology [address] [place] [phone] Discharge Disposition: Home or Self Care 04/28/2025 8:22 AM EDT - 04/28/2025 11:59 PM EDT Hospital Encounter [facility] Radiation Oncology [address] [place] [phone] Discharge Disposition: Home or Self Care 04/22/2025 8:40 AM EDT - 04/22/2025 11:59 PM EDT Hospital Encounter [facility] Radiation Oncology [address] [place] [phone] Danae Dickson MD 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) Discharge Disposition: Home or Self Care 04/22/2025 8:22 AM EDT - 04/22/2025 11:59 PM EDT Hospital Encounter [facility] Radiation Oncology [address] [place] [phone] Discharge Disposition: Home or Self Care 04/21/2025 9:29 AM EDT - 04/21/2025 11:59 PM EDT Hospital Encounter [facility] Radiation Oncology [address] [place] [phone] Discharge Disposition: Home or Self Care 04/20/2025 8:20 AM EDT - 04/20/2025 11:59 PM EDT Hospital Encounter [facility] Radiation Oncology [address] [place] [phone] Discharge Disposition: Home or Self Care 04/19/2025 8:24 AM EDT - 04/19/2025 11:59 PM EDT Hospital Encounter [facility] Radiation Oncology [address] [place] [phone] Discharge Disposition: Home or Self Care 04/18/2025 8:27 AM EDT - 04/18/2025 11:59 PM EDT Hospital Encounter [facility] Radiation Oncology [address] [place] [phone] Discharge Disposition: Home or Self Care 04/15/2025 8:35 AM EDT - 04/15/2025 11:59 PM EDT Hospital Encounter [facility] Radiation Oncology [address] [place] [phone] Ray Diaz MD 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) Discharge Disposition: Home or Self Care 04/15/2025 8:24 AM EDT - 04/15/2025 11:59 PM EDT Hospital Encounter [facility] Radiation Oncology [address] [place] [phone] Discharge Disposition: Home or Self Care 04/14/2025 8:25 AM EDT - 04/14/2025 11:59 PM EDT Hospital Encounter [facility] Radiation Oncology [address] [place] [phone] Discharge Disposition: Home or Self Care 04/13/2025 8:27 AM EDT - 04/13/2025 11:59 PM EDT Hospital Encounter [facility] Radiation Oncology [address] [place] [phone] Discharge Disposition: Home or Self Care 04/12/2025 8:29 AM EDT - 04/12/2025 11:59 PM EDT Hospital Encounter [facility] Radiation Oncology [address] [place] [phone] Discharge Disposition: Home or Self Care 04/11/2025 8:25 AM EDT - 04/11/2025 11:59 PM EDT Hospital Encounter [facility] Radiation Oncology [address] [place] [phone] Discharge Disposition: Home or Self Care 04/08/2025 8:35 AM EDT - 04/08/2025 11:59 PM EDT Hospital Encounter [facility] Radiation Oncology [address] [place] [phone] Danae Dickson MD 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) Discharge Disposition: Home or Self Care 04/08/2025 8:26 AM EDT - 04/08/2025 11:59 PM EDT Hospital Encounter [facility] Radiation Oncology [address] [place] [phone] Discharge Disposition: Home or Self Care 04/07/2025 8:25 AM EDT - 04/07/2025 11:59 PM EDT Hospital Encounter [facility] Radiation Oncology [address] [place] [phone] Discharge Disposition: Home or Self Care 04/06/2025 8:30 AM EDT - 04/06/2025 11:59 PM EDT Hospital Encounter [facility] Radiation Oncology [address] [place] [phone] Discharge Disposition: Home or Self Care 04/05/2025 8:19 AM EDT - 04/05/2025 11:59 PM EDT Hospital Encounter [facility] Radiation Oncology [address] [place] [phone] Discharge Disposition: Home or Self Care 04/04/2025 10:00 AM EDT - 04/04/2025 11:59 PM EDT Hospital Encounter [facility] Radiation Oncology [address] [place] [phone] Roland López MD Discharge Disposition: Home or Self Care 04/04/2025 9:39 AM EDT - 04/04/2025 11:59 PM EDT Hospital Encounter [facility] Radiation Oncology [address] [place] [phone] Discharge Disposition: Home or Self Care 03/25/2025 8:26 AM EDT - 03/25/2025 11:59 PM EDT Hospital Encounter [facility] Radiation Oncology [address] [place] [phone] Discharge Disposition: Home or Self Care 03/24/2025 9:51 AM EDT - 03/24/2025 11:59 PM EDT Hospital Encounter [facility] Radiation Oncology [address] [place] [phone] Danae Dickson MD 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 Discharge Disposition: Home or Self Care 03/24/2025 8:58 AM EDT - 03/24/2025 11:59 PM EDT Hospital Encounter [facility] Radiation Oncology [address] [place] [phone] 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) Discharge Disposition: Home or Self Care 03/16/2025 8:14 AM EDT - 03/16/2025 11:59 PM EDT Hospital Encounter [facility] Radiation Oncology [address] [place] [phone] Danae Dickson MD 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); Abnormal breast biopsy; Mass of upper inner quadrant of right breast Discharge Disposition: Home or Self Care 03/16/2025 8:14 AM EDT - 03/16/2025 11:59 PM EDT Hospital Encounter [facility] Radiation Oncology [address] [place] [phone] Discharge Disposition: Home or Self Care from Last 3 Months Immunizations Immunization Administration Dates Next Due Influenza trivalent, 0.5mL (Fluad) 65yo and olde r 05/18/2025 Influenza trivalent, 0.5mL ( Fluzone High-dose) 65yo and older 08/19/2022,06/16/2018 Influenza trivalent, with pr eservative (Fluzone; Afluria) 6mo and older 06/16/2017,05/28/2016 Pneumococcal conjugate 13 va lent (Prevnar 13, PCV13) 2mo and older 11/27/2018 Pneumococcal polysaccharide 23 valent (Pneumovax 23) 2yo and older 10/20/2020,05/24/2016 Tdap Tetanus diptheria acell ular pertussis (Boostrix; Adacel) 7yo and older 07/05/2013 Surgical History Surgery Date Site/Laterality Comments HYSTERECTOMY OTHER SURGICAL HISTORY Urological endoscopic procedure BREAST BIOPSY NEEDLE RT 09/01/2010 - 08/31/2011 Right Benign COLONOSCOPY [facility]. Polyps removed. 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 BREAST MASS EXCISION 02/16/2025 Right Right breast magnetic seed localized excision. Dr. Caroline Bhandari Medical History Medical History Date Comments Nephrolithiasis 06/12/2012 Asthma 09/09/2012 Anxiety 10/01/2013 Depression 07/05/2013 Dyslipidemia 04/03/2018 History of pulmonary embolism 04/22/2012 20 16 No precipitating event Lichen simplex 06/06/2014 Varicose vein 07/28/2012 Allergic rhinitis 04/23/2018 Hypertension 04/23/2018 DMITRI (obstructive sleep apnea) 06/16/2018 Morbid obesity with BMI of 4 0.0-44.9, adult ([facility] V24, [facility] V28) 06/16/2018 Asymptomatic varicose veins of both lower extremities 06/16/[address] of the abdomen OA (osteoarthritis) of hip 07/09/2021 Prediabetes 04/17/2022 Fecal incontinence Fecal urgency Dysphagia Irritable bowel syndrome PONV (postoperative nausea and vomiting) GERD (gastroesophageal reflux disease) Breast cancer ([facility] V24, [facility] V28) Aortic aneurysm ([facility] V24) Family History Medical History Relation Name Comments Colon cancer Maternal Grandfather Pneumonia Mother jus t befoore covid Breast cancer Paternal Cousin 1 Colon cancer Paternal Cousin 2 Liver cancer Paternal Cousin 3 Breast cancer Sister Relation Name Status Comments Brother Alive varicose veins, depression Daughter Alive varicose veins Father stroke Maternal Grandfather Mother varicose veins, depression Paternal Cousin 1 Paternal Cousin 2 Paternal Cousin 3 Sister Alive varicose veins, depression Social History Tobacco Use Types Packs/Day Years Used Date Smoking Tobacco: Never Smokeless Tobacco: Never Alcohol Use Standard Drinks/Week Comments No 0 (1 standard drink = 0.6 oz pur e alcohol) Housing Instability Answer Date Recorde d Are you worried that in the next 2 months you may not have stable housing? No 05/18/2025 Food Access & Nutrition Answer Date Rec orded Do you have access to a vari ety of food including fruits and vegetables? Yes 05/18/2025 Access to Healthcare Answer Date Record ed Within the last 3 months, marisol kwong many times did you visit the emergency department for your medical care? 0 01/11/2025 Health Literacy Answer Date Recorded How often do you need to hav e someone help you when you read instructions, pamphlets, or other written material from your doctor or pharmacy? Never 05/18/2025 Caregiver: How often do you need to have someone help you when you read instructions, pamphlets, or other written material from your doctor or pharmacy? Not on file 05/18/2025 Financial Risk Answer Date Recorded How hard is it for you to pa y for the very basics like food, housing, medical care, and air conditioning / heating? Not very hard 05/18/2025 Transportation Answer Date Recorded Has the lack of transportati on kept you from meetings, work, or from getting things needed for daily living? No Has the lack of transportati on kept you from medical appointments or from getting medications? No 05/18/2025 Social Isolation Answer Date Recorded How often do you feel lonely or isolated from th ose around you? Never 05/18/2025 Food Risk Answer Date Recorded Within the past 12 months we worried whether our food would run out before we got money to buy more. Never true 05/18/2025 Within the past 12 months th e food we bought just didn't last and we didn't have money to get more. Never true 05/18/2025 Dependent Care Answer Date Recorded Do you need help finding or paying for care for your loved ones. For example, school child care attendant or elderly care for an older adult? No 05/18/2025 Education Answer Date Recorded Do you think completing more education or training, like finishing a GED, going to college, or learning a trade, would be helpful for you? No 01/11/2025 Employment and Income Answer Date Recor ded During the last four weeks, have you been actively looking for work? No 05/18/2025 Living Situation Answer Date Recorded What is your living situation? Unrecognized valu e 05/18/2025 Interpersonal Safety Answer Date Record ed Physical Abuse Unrecognized value 02/16/2025 Verbal Abuse Unrecognized value 02/16/2025 Comments No Sex and Gender Information Value Date Recorded Sex Assigned at Not on file Legal Sex Female 8:16 PM EST Gender Identity Not on file Sexual Orientation Not on file Obstetrics History Para Term AB IAB SAB Ectopic Multiple Livin g Live Births 3 3 3 3 Date Outcome GA Total Labor Labor/2nd/3rd Weight Sex Type Anes PTL Myla A1 A5 Name Clin Term Term Term Last Filed Vital Signs Vital Sign Reading Time Taken Comments Blood Pressure 132/68 05/18/2025 9:16 AM EDT Pulse 89 05/18/2025 9:16 AM EDT Temperature 36.2 C (97.1 F) 05/18/2025 9:16 AM EDT Respiratory Rate 16 05/18/2025 9:16 AM EDT Oxygen Saturation 93% 05/18/2025 9:16 AM EDT Inhaled Oxygen Concentration - - Weight 89.3 kg (196 lb 12.8 oz) 05/18/2025 9:16 AM EDT Height 152.4 cm (5') 05/18/2025 9:16 AM EDT Body Mass Index 38.43 05/18/2025 9:16 AM EDT Plan of Treatment Upcoming Encounters Date Type Department Care Team (Late st Contact Info) Description 06/14/2025 2:30 PM EDT Appointment [facility] Radiation Oncology [address] [place] [phone] Paula Fernandez NP [address] [place] [address] 06/28/2025 1:00 PM EDT Office Visit [address] [phone] Caroline Bhandari MD [address] [place] [phone] 09/07/2025 3:00 PM EST Office Visit [facility] Hematology Oncology [address] [place] [phone] Los Morris MD [address] [place] [phone] 09/19/2025 12:30 PM EST Office Visit [address] [phone] Chandrika Cronin MD [address] [place], [place] 10/19/2025 1:20 PM EST Office Visit Gastroenterology - [place] [facility] [address] [facility] [address] [place] [phone] Shena Nance, BULL [address] [facility] [address] [place] [address] 01/11/2026 1:30 PM EDT Appointment Radiology Department - [address] [phone] Health Maintenance Due Date Last Done Comments Zoster Vaccines (1 of 2) 1969 RSV Immunization Adult Patients (1 - Risk 60-74 years 1-dose series) 2010 DTaP,Tdap,and Td Vaccines (2 - Td or Tdap) 07/05/2023 07/05/2013 Falls Risk Assessment 05/18/2026 05/18/2025 , 05/12/2025, 03/16/2024, Additional history exists Hypertension/CHF/CAD Annual BMP Blood Test 05/18/2026 05/18/2025, 05/12/2025, 02/16/2025, Additional history exists Medicare Annual Wellness Visit 05/18/2026 05/18/2025 Social Influencers of Health Screening 05/18/2026 05/18/2025 Breast Cancer Screening 01/19/2027 01/20/20 25, 01/05/2025, 05/08/2022, Additional history exists Colorectal Cancer Screening: Colonoscopy 04/29/2027 04/29/2022, 04/29/2022 Cholesterol Screening (Lipid Panel) 05/18/2030 05/18/2025, 10/03/2023, 01/15/2021 Osteoporosis Screening (Bone Density Screening) 05/19/2035 05/19/2025, 01/07/2019 Hepatitis C Screening Completed 07/05/2013, 013 Pneumococcal Vaccine: 50+ Years Completed 10/20/2020, 11/27/2018, 05/24/2016 COVID-19 Vaccine Discontinued 05/25/2021, 04/23/2021 Depression Screening Completed 05/18/2025, 03/16/20 Influenza Vaccine Completed 05/18/2025, , 06/16/2018, Additional history exists HIB Vaccines Aged Out No longer eligi [...] on patient's age to complete this topic Medical Devices Implanted Type Area Banquet Cook Device Identifier Shelf Expiration Date Model / Serial / Lot Marker 18ga [address] - [id number] - [id number] Implanted:Qty: 1 on 02/09/2025 by Edu Spann MD at [facility] Imaging Implants Right: Breast [employer] [id number] 07/01/2026 [id number] Procedures Procedure Name Priority Date/Time Associated Diagnosis Comments BD BONE DENSITY DXA AXIAL SKELETON Routine 05/19/2025 11:02 AM EDT Encounter for screening for osteoporosis HELICOBACTER PYLORI ANTIGEN, STOOL Routine 05/19/2025 9:46 AM EDT Epigastric pain LIPID PANEL WITH REFLEX TO DIRECT LDL Routine 05/18/2025 7:56 AM EDT Essential hypertension Dyslipidemia COMPREHENSIVE METABOLIC PANEL Routine 05/18/2025 7:56 AM EDT Essential hypertension Dyslipidemia CBC WITH AUTO DIFFERENTIAL Routine 05/12/2025 10:58 AM EDT Gastrointestinal hemorrhage, unspecified gastrointestinal hemorrhage type ZUNILDA (acute kidney injury) (CMS/HCC V24) CBC AND DIFFERENTIAL Routine 05/12/2025 10:58 AM EDT Gastrointestinal hemorrhage, unspecified gastrointestinal hemorrhage type ZUNILDA (acute kidney injury) (CMS/HCC V24) COMPREHENSIVE METABOLIC PANEL Routine 05/12/2025 10:58 AM EDT Gastrointestinal hemorrhage, unspecified gastrointestinal hemorrhage type ZUNILDA (acute kidney injury) (CMS/HCC V24) RAD ONC MSQ TREATMENT SUMMARY Routine 05/06/2025 8:43 AM EDT RAD ONC MSQ TREATMENT SUMMARY Routine 05/05/2025 8:32 AM EDT RAD ONC MSQ TREATMENT SUMMARY Routine 05/04/2025 8:31 AM EDT RAD ONC MSQ TREATMENT SUMMARY Routine 05/03/2025 8:36 AM EDT RAD ONC MSQ TREATMENT SUMMARY Routine 04/29/2025 8:39 AM EDT RAD ONC MSQ TREATMENT SUMMARY Routine 04/28/2025 8:35 AM EDT RAD ONC MSQ TREATMENT SUMMARY Routine 04/22/2025 9:17 AM EDT RAD ONC MSQ TREATMENT SUMMARY Routine 04/20/2025 8:43 AM EDT RAD ONC MSQ TREATMENT SUMMARY Routine 04/19/2025 8:38 AM EDT RAD ONC MSQ TREATMENT SUMMARY Routine 04/18/2025 8:44 AM EDT RAD ONC MSQ TREATMENT SUMMARY Routine 04/15/2025 8:34 AM EDT RAD ONC MSQ TREATMENT SUMMARY Routine 04/14/2025 8:32 AM EDT RAD ONC MSQ TREATMENT SUMMARY Routine 04/13/2025 8:41 AM EDT RAD ONC MSQ TREATMENT SUMMARY Routine 04/12/2025 8:39 AM EDT RAD ONC MSQ TREATMENT SUMMARY Routine 04/11/2025 8:43 AM EDT RAD ONC MSQ TREATMENT SUMMARY Routine 04/08/2025 8:35 AM EDT RAD ONC MSQ TREATMENT SUMMARY Routine 04/07/2025 8:35 AM EDT RAD ONC MSQ TREATMENT SUMMARY Routine 04/06/2025 8:39 AM EDT RAD ONC MSQ TREATMENT SUMMARY Routine 04/05/2025 8:31 AM EDT RAD ONC MSQ TREATMENT SUMMARY Routine 04/04/2025 10:02 AM EDT MG MAMMO DIGITAL DIAGNOSTIC W TWAN RIGHT Routine 01/19/2025 2:31 PM EDT Abnormal mammogram HM DEPRESSION SCREENING Routine 03/16/2024 HM FALLS RISK ASSESSMENT Routine 03/16/2024 HM COLONOSCOPY Routine 04/29/2022 HM HEPATITIS C SCREENING Routine 07/05/2013 from Last 3 Months or Most Recently Relevant to Health Maintenance Results * BD Bone Density DXA Axial Skeleton (05/19/2025 11:02 AM EDT) Anatomical Region Laterality Modality Wrist, Hip, L-spine Bone Densito metry 05/22/2025 3:53 AM EDT Impressions 05/22/2025 3:57 AM EDT Impression: Osteopenia by WHO criteria. This patient has a 14% risk of major osteoporotic fracture and a 2.3% risk of hip fracture over the next 10 years. (World Health Organization Fracture Risk Assessment) [facility] Department of Internal Medicine recommends using National Osteoporosis Foundation (NOF) guidelines in treatment decisions related to osteoporosis. NOF guidelines suggest considering treatment for postmenopausal women and men aged 50 or older presenting with the following: History of hip or vertebral fracture. T-score = -2.5 (DXA) at the femoral neck, total hip, or spine, after appropriate evaluation to exclude secondary causes. Low bone mass (T-score between -1.0 and -2.5 at the femoral neck or spine) AND a 10-year probability of a hip fracture = 3% OR a 10-year probability of a major osteoporosis-related fracture = 20% based on the [place]-adapted WHO algorithm Please note that all treatment decisions require clinical judgment and consideration of individual patient factors, including patient preferences, co-morbidities, previous drug use, risk factors not captured in the FRAX model (e.g., frailty, falls, vitamin D deficiency, increased bone turnover, interval significant decline in bone density) and possible under- or over-estimation of fracture risk by FRAX. Optional alternative screening schedule based on asiya Almazan., [facility] September 19, 2011 for patients with osteopenia (based on hip BMD T-score) is as follows: * advanced osteopenia (T scores -2.00 to -2.49), BMD testing every year * moderate osteopenia (T scores -1.50 to -1.99), BMD testing every 5 years mild osteopenia or normal BMD (T scores -1.50 and higher), BMD testing every 15 years -------- FINAL REPORT -------- Dictated By: Joyce Rinaldi Dictated Date: 05/22/2025 03:53 ET Assigned Physician: Joyce Rinaldi Reviewed and Electronically Signed By: Joyce Rinaldi Signed Date: 05/22/2025 03:57 ET Workstation ID: [id number] Transcribed By: Self Edit Transcribed Date: 05/22/2025 03:53 ET Narrative 05/22/2025 3:57 AM EDT BONE DENSITY (DEXA) Lumbar Spine T-score is -1.3. (SD relative to 20-29 y/o adult) Z-score is 1. (SD relative to age matched peers) This is considered osteopenia by WHO criteria. Left Hip T-score is -1.1. Z-score is 1. This is considered osteopenia by WHO criteria. Left wrist T-score is -1.8. Z-score is 0.7. This is considered osteopenia by WHO criteria. Comparison exam(s): Statistically decreased bone mineral density in the hip and lumbar spine.. Confidence level is +/-95%. Procedure Note Joyce Rinaldi MD - 05/22/2025 BONE DENSITY (DEXA) Lumbar Spine T-score is -1.3. (SD relative to 20-29 y/o adult) Z-score is 1. (SD relative to age matched peers) This is considered osteopenia by WHO criteria. Left Hip T-score is -1.1. Z-score is 1. This is considered osteopenia by WHO criteria. Left wrist T-score is -1.8. Z-score is 0.7. This is considered osteopenia by WHO criteria. Comparison exam(s): Statistically decreased bone mineral density in thehip and lumbar spine.. Confidence level is +/-95%. IMPRESSION: Impression: Osteopenia by WHO criteria. This patient has a 14% risk of major osteoporotic fracture and a 2.3% riskof hip fracture over the next 10 years. (World Health OrganizationFracture Risk Assessment) [facility] Department of Internal Medicine recommendsusing National Osteoporosis Foundation (NOF) guidelines in treatmentdecisions related to osteoporosis. NOF guidelines suggest consideringtreatment for postmenopausal women and men aged 50 or older presentingwith the following: History of hip or vertebral fracture. T-score = -2.5 (DXA) at the femoral neck, total hip, or spine, afterappropriate evaluation to exclude secondary causes. Low bone mass (T-score between -1.0 and -2.5 at the femoral neck or spine)AND a 10-year probability of a hip fracture = 3% OR a 10-year probabilityof a major osteoporosis-related fracture = 20% based on the [place]-adapted WHOalgorithm Please note that all treatment decisions require clinical judgment andconsideration of individual patient factors, including patientpreferences, co-morbidities, previous drug use, risk factors not capturedin the FRAX model (e.g., frailty, falls, vitamin D deficiency, increasedbone turnover, interval significant decline in bone density) and possibleunder- or over-estimation of fracture risk by FRAX. Optional alternative screening schedule based on asiya Almazan., NEJMJanuary 2011 for patients with osteopenia (based on hip BMD T-score)is as follows: * advanced osteopenia (T scores -2.00 to -2.49), BMD testing every year * moderate osteopenia (T scores -1.50 to -1.99), BMD testing every 5years mild osteopenia or normal BMD (T scores -1.50 and higher), BMD testingevery 15 years -------- FINAL REPORT -------- Dictated By: Joyce Rinaldi Dictated Date: 05/22/2025 03:53 ET Assigned Physician: Joyce Rinaldi Reviewed and Electronically Signed By: Joyce Rinaldi Signed Date: 05/22/2025 03:57 ET Workstation ID: [id number] Transcribed By: Self Edit Transcribed Date: 05/22/2025 03:53 ET Chandrika Cronin MD IM DXA PROCEDURES Final Result * (ABNORMAL) Helicobacter pylori antigen, stool (05/19/2025 9:46 AM EDT) Helicobacter Pylori Ag DETECTED( A) Not detected 05/24/2025 2:[address] [facility] Comment: This test was performed at [facility] using a chemiluminescent immunoassay intended for the qualitative determination of helicobacter pylori (H. pylori) antigen in human stool. The test is an aid in the diagnosis of patients suspected of H. pylori infection and to measure post therapy response from patients. Assay results should be used in conjunction with other clinical and laboratory data to assist the clinician in making individual patient management decisions. A negative test result does not preclude the possibility of the presence of H. pylori antigen in the specimen, which may occur if the level of antigen is below the detection limit of the test. Antimicrobials, proton pump inhibitors, and bismuth preparations are known to suppress H. pylori and, if ingested, may give a false negative result. In these cases a new fecal sample should be collected and tested 14 days after treatment has stopped. Positive results from patients that have used antibiotics, PPIs, or bismuth compounds in the 14 days prior to fecal sample collection are still considered accurate. This assay has not been evaluated in a pediatric population. This test has been approved as an in vitro diagnostic by the [place] Food and Drug Administration. Test performed at [facility], [address], [place] [address] Paula Trinh MD, PhD - Insurance Solicitor Stool Rectum structure / Unknown Non-blood Collection / Unknown 05/19/2025 9:46 AM EDT 05/19/2025 9:46 AM EDT Chandrika Cronin MD LAB BODY FLUIDS AN D STOOLS ORDERABLES Final Result [facility] [address] [place] [address] * (ABNORMAL) Lipid panel with reflex to direct LDL (05/18/2025 7:56 AM EDT) Cholesterol 247(H) 0 - 200 mg/dL LAB CHEMISTRY METHOD 05/18/2025 10:50 AM EDT [facility] Triglycerides 140 0 - 150 mg/dL LAB CHEMISTRY METHOD 05/18/2025 10:50 AM EDT [facility] HDL 73 >=40 mg/dL LAB CHEMISTRY METHOD 05/18/2025 10:50 AM EDT [facility] LDL Calculated 146(H) 0 - 100 mg/dL LAB CHEMISTRY METHOD 05/18/2025 10:50 AM EDT [facility] Comment:Estimated LDL Calcul ated using equation: Total cholesterol - HDL cholesterol - (Triglycerides/5) VLDL Cholesterol Nithin 28 mg/dL LAB CHEMISTRY METHOD 05/18/2025 10:50 AM EDT [facility] Non HDL Chol. (LDL+VLDL) 174(H) <145 mg/dL LAB CHEMISTRY METHOD 05/18/2025 10:50 AM T [facility] Chol/HDL Ratio 3.4 0.0 - 4.4 LAB CHEMISTRY METHOD 05/18/2025 10:[address] [facility] Blood Venous blood specimen / Unknown Venipuncture / Unknown 05/18/2025 7:56 AM EDT 05/18/2025 7:56 AM EDT us Dominique GARCIA LAB BLOOD ORDERABLES Final Resu lt [facility] [address] [place] [address], [place] [phone] * (ABNORMAL) Comprehensive metabolic panel (05/18/2025 7:56 AM EDT) Only the most recent of2 resultswithin the time period is included. Sodium 139 133 - 145 mmol/L LAB CHEMISTRY METHOD 05/18/2025 10:[address] [facility] Potassium 3.9 3.5 - 5.5 mmol/L LAB CHEMISTRY METHOD 05/18/2025 10:[address] [facility] Chloride 103 96 - 110 mmol/L LAB CHEMISTRY METHOD 05/18/2025 10:[address] [facility] CO2 28 21 - 32 mmol/L LAB CHEMISTRY METHOD 05/18/2025 10:[address] [facility] Anion Gap 8 3 - 11 LAB CHEMISTRY METHOD 05/18/2025 10:[address] [facility] Glucose 104(H) 70 - 100 mg/dL LAB CHEMISTRY METHOD 05/18/2025 10:[address] [facility] BUN 25 5 - 25 mg/dL LAB CHEMISTRY METHOD 05/18/2025 10:[address] [facility] Creatinine 1.15(H) 0.50 - 1.10 mg/dL LAB CHEMISTRY METHOD 05/18/2025 10:[address] [facility] eGFR 50(L) >=60 mL/min/1. 73m2 LAB CHEMISTRY METHOD 05/18/2025 10:[address] [facility] Comment:Calculation based on the Chronic Kidney Disease Epidemiology Collaboration (CKD-EPI) equation refit without adjustment for race. BUN/Creatinine Ratio 21.7 LAB CHEMISTRY METHOD 05/18/2025 10:[address] [facility] Calcium 10.1 8.5 - 10.5 mg/dL LAB CHEMISTRY METHOD 05/18/2025 10:[address] [facility] AST (SGOT) 23 10 - 42 unit/L LAB CHEMISTRY METHOD 05/18/2025 10:[address] [facility] ALT (SGPT) 37 10 - 60 unit/L LAB CHEMISTRY METHOD 05/18/2025 10:[address] [facility] Alkaline Phosphatase 79 42 - 121 unit/L LAB CHEMISTRY METHOD 05/18/2025 10:[address] [facility] Total Protein 7.8 6.0 - 8.0 g/dL LAB CHEMISTRY METHOD 05/18/2025 10:[address] [facility] Albumin 4.2 3.2 - 5.0 g/dL LAB CHEMISTRY METHOD 05/18/2025 10:[address] [facility] Total Bilirubin 0.5 0.0 - 1.4 mg/dL LAB CHEMISTRY METHOD 05/18/2025 10:[address] [facility] Blood Venous blood specimen / Unknown Venipuncture / Unknown 05/18/2025 7:56 AM EDT 05/18/2025 7:56 AM EDT us Dominique GARCIA LAB BLOOD ORDERABLES Final Resu lt [facility] [address] [place] [address], * (ABNORMAL) CBC auto differential (05/12/2025 10:58 AM EDT) [facility] WBC 7.8 4.8 - 10.8 K/mcL LAB HEMETOLOGY METHOD 05/12/2025 12:15 PM EDT [facility] RBC 4.30 3.80 - 4.80 M/mcL LAB HEMETOLOGY METHOD 05/12/2025 12:15 PM EDT [facility] Hemoglobin 11.8 11.5 - 16.0 g/dL LAB HEMETOLOGY METHOD 05/12/2025 12:15 PM EDT [facility] Hematocrit 37.5 35.0 - 47.0 % LAB HEMETOLOGY METHOD 05/12/2025 12:15 PM EDT [facility] MCV 86.8 79.0 - 98.0 FL LAB HEMETOLOGY METHOD 05/12/2025 12:15 PM EDT [facility] MCH 27.3 27.0 - 32.0 pcg LAB HEMETOLOGY METHOD 05/12/2025 12:15 PM EDT [facility] MCHC 31.5(L) 32.0 - 37.0 g/dL LAB HEMETOLOGY METHOD 05/12/2025 12:15 PM EDT [facility] RDW 13.0 11.0 - 15.0 % LAB HEMETOLOGY METHOD 05/12/2025 12:15 PM EDT [facility] Platelets 268 130 - 400 K/mcL LAB HEMETOLOGY METHOD 05/12/2025 12:15 PM EDT [facility] MPV 10.8 7.0 - 11.0 FL LAB HEMETOLOGY METHOD 05/12/2025 12:15 PM EDT [facility] NRBC 0.0 <1.0 % LAB [facility]ETOLOGY [facility] NRBC Absolute 0.00 <0.10 K/mcL LAB HEMETOLOGY METHOD 05/12[facility]2025 [facility] Neutrophils Relative 71.1 % LAB HEMETOLOGY METHOD 05/12/2025 12:[address] [facility] Lymphocytes Relative 9.5 % LAB HEMETOLOGY METHOD 05/12/2025 12:[address] [facility] Monocytes Relative 13.4 % LAB HEMETOLOGY METHOD 05/12/2025 12:[address] [facility] Eosinophils Relative 5.1 % LAB HEMETOLOGY METHOD 05/12/2025 12:[address] [facility] Basophils Relative 0.5 % LAB HEMETOLOGY METHOD 05/12/2025 12:[address] [facility] Immature Granulocytes Relative 0.4 % LAB HEMETOLOGY METHOD 05/12/2025 12:[address] [facility] Neutrophils Absolute 5.54 1.50 - 7.00 K/mcL LAB HEMETOLOGY METHOD 05/12/2025 12:[address] [facility] Lymphocytes Absolute 0.74(L) 1.00 - 5.00 K/mcL LAB HEMETOLOGY METHOD 05/12/2025 12:[address] [facility] Monocytes Absolute 1.04(H) 0.20 - 1.00 K/mcL LAB HEMETOLOGY METHOD 05/12/2025 12:[address] [facility] Eosinophils Absolute 0.40 0.00 - 0.50 K/mcL LAB HEMETOLOGY METHOD 05/12/2025 12:[address] [facility] Basophils Absolute 0.04 0.00 - 0.20 K/mcL LAB HEMETOLOGY METHOD 05/12/2025 12:[address] [facility] Immature Granulocytes Absolute 0.03 0.00 - 0.03 K/[facility] LAB HEMETOLOGY METHOD 05/12/2025 12:15 PM EDT [facility] Blood Venous blood specimen / Unknown Venipuncture / Unknown 05/12/2025 10:58 AM EDT 05/12/2025 10:58 AM EDT Chandrika Cronin MD LAB BLOOD ORDERABL ES Final Result [facility] [address] [place] [address], * Rad Onc Msq Treatment Summary (05/06/2025 8:43 AM EDT) Treatment Site Right Breast Boost MOSAIQ RADIATION ONCOLOGY Course Number 1 MOSAIQ RADIATION ONCOLOGY Prescribed Fractional Dose 250 cGray MOSAIQ RADIATION ONCOLOGY Prescribed Total Dose 1,000 cGray MOSAIQ RADIATION ONCOLOGY Actual Fractions Delivered 4 MOSAIQ RADIATION ONCOLOGY Actual Session Delivered Dose 250 cGray MOSAIQ RADIATION ONCOLOGY Actual Total Dose 1,000 cGray MOSAIQ RADIATION ONCOLOGY Prescribed Technique Electron boost MOSAIQ RADIATION ONCOLOGY Elapsed Days 3 MOSAIQ RADIATION ONCOLOGY Start Date 05/03/2025 MOSAIQ RADIATION ONCOLOGY Last Date 05/06/2025 MOSAIQ RADIATION ONCOLOGY Prescribed Number of Fractions 4 MOSAIQ RADIATION ONCOLOGY 05/06/2025 8:43 AM EDT Physician Radiation Oncology RADIATION ONCOLO GY ORDERABLES Final Result MOSAIQ RADIATION ONCOLOGY * Rad Onc Msq Treatment Summary (05/05/2025 8:32 AM EDT) Treatment Site Right Breast Boost MOSAIQ RADIATION ONCOLOGY Course Number 1 MOSAIQ RADIATION ONCOLOGY Prescribed Fractional Dose 250 cGray MOSAIQ RADIATION ONCOLOGY Prescribed Total Dose 1,000 cGray MOSAIQ RADIATION ONCOLOGY Actual Fractions Delivered 3 MOSAIQ RADIATION ONCOLOGY Actual Session Delivered Dose 250 cGray MOSAIQ RADIATION ONCOLOGY Actual Total Dose 750 cGray MOSAIQ RADIATION ONCOLOGY Prescribed Technique Electron boost MOSAIQ RADIATION ONCOLOGY Elapsed Days 2 MOSAIQ RADIATION ONCOLOGY Start Date 05/03/2025 MOSAIQ RADIATION ONCOLOGY Last Date 05/05/2025 MOSAIQ RADIATION ONCOLOGY Prescribed Number of Fractions 4 MOSAIQ RADIATION ONCOLOGY 05/05/2025 8:32 AM EDT Physician Radiation Oncology RADIATION ONCKEYONA GY ORDERABLES Final Result MOSAIQ RADIATION ONCOLOGY * Rad Onc Msq Treatment Summary (05/04/2025 8:31 AM EDT) Treatment Site Right Breast Boost MOSAIQ RADIATION ONCOLOGY Course Number 1 MOSAIQ RADIATION ONCOLOGY Prescribed Fractional Dose 250 cGray MOSAIQ RADIATION ONCOLOGY Prescribed Total Dose 1,000 cGray MOSAIQ RADIATION ONCOLOGY Actual Fractions Delivered 2 MOSAIQ RADIATION ONCOLOGY Actual Session Delivered Dose 250 cGray MOSAIQ RADIATION ONCOLOGY Actual Total Dose 500 cGray MOSAIQ RADIATION ONCOLOGY Prescribed Technique Electron boost MOSAIQ RADIATION ONCOLOGY Elapsed Days 1 MOSAIQ RADIATION ONCOLOGY Start Date 05/03/2025 MOSAIQ RADIATION ONCOLOGY Last Date 05/04/2025 MOSAIQ RADIATION ONCOLOGY Prescribed Number of Fractions 4 MOSAIQ RADIATION ONCOLOGY 05/04/2025 8:31 AM EDT Physician Radiation Oncology RADIATION ONCKEYONA GY ORDERABLES Final Result MOSAIQ RADIATION ONCOLOGY * Rad Onc Msq Treatment Summary (05/03/2025 8:36 AM EDT) Treatment Site Right Breast Boost MOSAIQ RADIATION ONCOLOGY Course Number 1 MOSAIQ RADIATION ONCOLOGY Prescribed Fractional Dose 250 cGray MOSAIQ RADIATION ONCOLOGY Prescribed Total Dose 1,000 cGray MOSAIQ RADIATION ONCOLOGY Actual Fractions Delivered 1 MOSAIQ RADIATION ONCOLOGY Actual Session Delivered Dose 250 cGray MOSAIQ RADIATION ONCOLOGY Actual Total Dose 250 cGray MOSAIQ RADIATION ONCOLOGY Prescribed Technique Electron boost MOSAIQ RADIATION ONCOLOGY Elapsed Days 0 MOSAIQ RADIATION ONCOLOGY Start Date 05/03/2025 MOSAIQ RADIATION ONCOLOGY Last Date 05/03/2025 MOSAIQ RADIATION ONCOLOGY Prescribed Number of Fractions 4 MOSAIQ RADIATION ONCOLOGY 05/03/2025 8:36 AM EDT Physician Radiation Oncology RADIATION ONCOLO GY ORDERABLES Final Result MOSAIQ RADIATION ONCOLOGY * Rad Onc Msq Treatment Summary (04/29/2025 8:39 AM EDT) Treatment Site Right Breast MO SAIQ RADIATION ONCOLOGY Course Number 1 MOSAIQ RADIATION ONCOLOGY Prescribed Fractional Dose 267 cGray MOSAIQ RADIATION ONCOLOGY Prescribed Total Dose 4,272 cGray MOSAIQ RADIATION ONCOLOGY Actual Fractions Delivered 16 MOSAIQ RADIATION ONCOLOGY Actual Session Delivered Dose 267 cGray MOSAIQ RADIATION ONCOLOGY Actual Total Dose 4,272 cGray MOSAIQ RADIATION ONCOLOGY Prescribed Technique Tangents MOSAIQ RADIATION ONCOLOGY Elapsed Days 25 MOSAIQ RADIATION ONCOLOGY Start Date 04/04/2025 MOSAIQ RADIATION ONCOLOGY Last Date 04/29/2025 MOSAIQ RADIATION ONCOLOGY Prescribed Number of Fractions 16 MOSAIQ RADIATION ONCOLOGY 04/29/2025 8:39 AM EDT Physician Radiation Oncology RADIATION ONCOLO GY ORDERABLES Final Result MOSAIQ RADIATION ONCOLOGY * Rad Onc Msq Treatment Summary (04/28/2025 8:35 AM EDT) Treatment Site Right Breast MO SAIQ RADIATION ONCOLOGY Course Number 1 MOSAIQ RADIATION ONCOLOGY Prescribed Fractional Dose 267 cGray MOSAIQ RADIATION ONCOLOGY Prescribed Total Dose 4,272 cGray MOSAIQ RADIATION ONCOLOGY Actual Fractions Delivered 15 MOSAIQ RADIATION ONCOLOGY Actual Session Delivered Dose 267 cGray MOSAIQ RADIATION ONCOLOGY Actual Total Dose 4,005 cGray MOSAIQ RADIATION ONCOLOGY Prescribed Technique Tangents MOSAIQ RADIATION ONCOLOGY Elapsed Days 24 MOSAIQ RADIATION ONCOLOGY Start Date 04/04/2025 MOSAIQ RADIATION ONCOLOGY Last Date 04/28/2025 MOSAIQ RADIATION ONCOLOGY Prescribed Number of Fractions 16 MOSAIQ RADIATION ONCOLOGY 04/28/2025 8:35 AM EDT Physician Radiation Oncology RADIATION ONCOLO GY ORDERABLES Final Result MOSAIQ RADIATION ONCOLOGY * Rad Onc Msq Treatment Summary (04/22/2025 9:17 AM EDT) Treatment Site Right Breast MO SAIQ RADIATION ONCOLOGY Course Number 1 MOSAIQ RADIATION ONCOLOGY Prescribed Fractional Dose 267 cGray MOSAIQ RADIATION ONCOLOGY Prescribed Total Dose 4,272 cGray MOSAIQ RADIATION ONCOLOGY Actual Fractions Delivered 14 MOSAIQ RADIATION ONCOLOGY Actual Session Delivered Dose 267 cGray MOSAIQ RADIATION ONCOLOGY Actual Total Dose 3,738 cGray MOSAIQ RADIATION ONCOLOGY Prescribed Technique Tangents MOSAIQ RADIATION ONCOLOGY Elapsed Days 18 MOSAIQ RADIATION ONCOLOGY Start Date 04/04/2025 MOSAIQ RADIATION ONCOLOGY Last Date 04/22/2025 MOSAIQ RADIATION ONCOLOGY Prescribed Number of Fractions 16 MOSAIQ RADIATION ONCOLOGY 04/22/2025 9:17 AM EDT Physician Radiation Oncology RADIATION ONCKEYONA GY ORDERABLES Final Result MOSAIQ RADIATION ONCOLOGY * Rad Onc Msq Treatment Summary (04/20/2025 8:43 AM EDT) Treatment Site Right Breast MO SAIQ RADIATION ONCOLOGY Course Number 1 MOSAIQ RADIATION ONCOLOGY Prescribed Fractional Dose 267 cGray MOSAIQ RADIATION ONCOLOGY Prescribed Total Dose 4,272 cGray MOSAIQ RADIATION ONCOLOGY Actual Fractions Delivered 13 MOSAIQ RADIATION ONCOLOGY Actual Session Delivered Dose 267 cGray MOSAIQ RADIATION ONCOLOGY Actual Total Dose 3,471 cGray MOSAIQ RADIATION ONCOLOGY Prescribed Technique Tangents MOSAIQ RADIATION ONCOLOGY Elapsed Days 16 MOSAIQ RADIATION ONCOLOGY Start Date 04/04/2025 MOSAIQ RADIATION ONCOLOGY Last Date 04/20/2025 MOSAIQ RADIATION ONCOLOGY Prescribed Number of Fractions 16 MOSAIQ RADIATION ONCOLOGY 04/20/2025 8:43 AM EDT Physician Radiation Oncology RADIATION ONCKEYONA GY ORDERABLES Final Result MOSAIQ RADIATION ONCOLOGY * Rad Onc Msq Treatment Summary (04/19/2025 8:38 AM EDT) Treatment Site Right Breast MO SAIQ RADIATION ONCOLOGY Course Number 1 MOSAIQ RADIATION ONCOLOGY Prescribed Fractional Dose 267 cGray MOSAIQ RADIATION ONCOLOGY Prescribed Total Dose 4,272 cGray MOSAIQ RADIATION ONCOLOGY Actual Fractions Delivered 12 MOSAIQ RADIATION ONCOLOGY Actual Session Delivered Dose 267 cGray MOSAIQ RADIATION ONCOLOGY Actual Total Dose 3,204 cGray MOSAIQ RADIATION ONCOLOGY Prescribed Technique Tangents MOSAIQ RADIATION ONCOLOGY Elapsed Days 15 MOSAIQ RADIATION ONCOLOGY Start Date 04/04/2025 MOSAIQ RADIATION ONCOLOGY Last Date 04/19/2025 MOSAIQ RADIATION ONCOLOGY Prescribed Number of Fractions 16 MOSAIQ RADIATION ONCOLOGY 04/19/2025 8:38 AM EDT Physician Radiation Oncology RADIATION ONCKEYONA GY ORDERABLES Final Result MOSAIQ RADIATION ONCOLOGY * Rad Onc Msq Treatment Summary (04/18/2025 8:44 AM EDT) Treatment Site Right Breast MO SAIQ RADIATION ONCOLOGY Course Number 1 MOSAIQ RADIATION ONCOLOGY Prescribed Fractional Dose 267 cGray MOSAIQ RADIATION ONCOLOGY Prescribed Total Dose 4,272 cGray MOSAIQ RADIATION ONCOLOGY Actual Fractions Delivered 11 MOSAIQ RADIATION ONCOLOGY Actual Session Delivered Dose 267 cGray MOSAIQ RADIATION ONCOLOGY Actual Total Dose 2,937 cGray MOSAIQ RADIATION ONCOLOGY Prescribed Technique Tangents MOSAIQ RADIATION ONCOLOGY Elapsed Days 14 MOSAIQ RADIATION ONCOLOGY Start Date 04/04/2025 MOSAIQ RADIATION ONCOLOGY Last Date 04/18/2025 MOSAIQ RADIATION ONCOLOGY Prescribed Number of Fractions 16 MOSAIQ RADIATION ONCOLOGY 04/18/2025 8:44 AM EDT Physician Radiation Oncology RADIATION ONCKEYONA GY ORDERABLES Final Result MOSAIQ RADIATION ONCOLOGY * Rad Onc Msq Treatment Summary (04/15/2025 8:34 AM EDT) Treatment Site Right Breast MO SAIQ RADIATION ONCOLOGY Course Number 1 MOSAIQ RADIATION ONCOLOGY Prescribed Fractional Dose 267 cGray MOSAIQ RADIATION ONCOLOGY Prescribed Total Dose 4,272 cGray MOSAIQ RADIATION ONCOLOGY Actual Fractions Delivered 10 MOSAIQ RADIATION ONCOLOGY Actual Session Delivered Dose 267 cGray MOSAIQ RADIATION ONCOLOGY Actual Total Dose 2,670 cGray MOSAIQ RADIATION ONCOLOGY Prescribed Technique Tangents MOSAIQ RADIATION ONCOLOGY Elapsed Days 11 MOSAIQ RADIATION ONCOLOGY Start Date 04/04/2025 MOSAIQ RADIATION ONCOLOGY Last Date 04/15/2025 MOSAIQ RADIATION ONCOLOGY Prescribed Number of Fractions 16 MOSAIQ RADIATION ONCOLOGY 04/15/2025 8:34 AM EDT Physician Radiation Oncology RADIATION ONCOLO GY ORDERABLES Final Result MOSAIQ RADIATION ONCOLOGY * Rad Onc Msq Treatment Summary (04/14/2025 8:32 AM EDT) Treatment Site Right Breast MO SAIQ RADIATION ONCOLOGY Course Number 1 MOSAIQ RADIATION ONCOLOGY Prescribed Fractional Dose 267 cGray MOSAIQ RADIATION ONCOLOGY Prescribed Total Dose 4,272 cGray MOSAIQ RADIATION ONCOLOGY Actual Fractions Delivered 9 MOSAIQ RADIATION ONCOLOGY Actual Session Delivered Dose 267 cGray MOSAIQ RADIATION ONCOLOGY Actual Total Dose 2,403 cGray MOSAIQ RADIATION ONCOLOGY Prescribed Technique Tangents MOSAIQ RADIATION ONCOLOGY Elapsed Days 10 MOSAIQ RADIATION ONCOLOGY Start Date 04/04/2025 MOSAIQ RADIATION ONCOLOGY Last Date 04/14/2025 MOSAIQ RADIATION ONCOLOGY Prescribed Number of Fractions 16 MOSAIQ RADIATION ONCOLOGY 04/14/2025 8:32 AM EDT Physician Radiation Oncology RADIATION ONCOLO GY ORDERABLES Final Result MOSAIQ RADIATION ONCOLOGY * Rad Onc Msq Treatment Summary (04/13/2025 8:41 AM EDT) Treatment Site Right Breast MO SAIQ RADIATION ONCOLOGY Course Number 1 MOSAIQ RADIATION ONCOLOGY Prescribed Fractional Dose 267 cGray MOSAIQ RADIATION ONCOLOGY Prescribed Total Dose 4,272 cGray MOSAIQ RADIATION ONCOLOGY Actual Fractions Delivered 8 MOSAIQ RADIATION ONCOLOGY Actual Session Delivered Dose 267 cGray MOSAIQ RADIATION ONCOLOGY Actual Total Dose 2,136 cGray MOSAIQ RADIATION ONCOLOGY Prescribed Technique Tangents MOSAIQ RADIATION ONCOLOGY Elapsed Days 9 MOSAIQ RADIATION ONCOLOGY Start Date 04/04/2025 MOSAIQ RADIATION ONCOLOGY Last Date 04/13/2025 MOSAIQ RADIATION ONCOLOGY Prescribed Number of Fractions 16 MOSAIQ RADIATION ONCOLOGY 04/13/2025 8:41 AM EDT Physician Radiation Oncology RADIATION ONCOLO GY ORDERABLES Final Result MOSAIQ RADIATION ONCOLOGY * Rad Onc Msq Treatment Summary (04/12/2025 8:39 AM EDT) Treatment Site Right Breast MO SAIQ RADIATION ONCOLOGY Course Number 1 MOSAIQ RADIATION ONCOLOGY Prescribed Fractional Dose 267 cGray MOSAIQ RADIATION ONCOLOGY Prescribed Total Dose 4,272 cGray MOSAIQ RADIATION ONCOLOGY Actual Fractions Delivered 7 MOSAIQ RADIATION ONCOLOGY Actual Session Delivered Dose 267 cGray MOSAIQ RADIATION ONCOLOGY Actual Total Dose 1,869 cGray MOSAIQ RADIATION ONCOLOGY Prescribed Technique Tangents MOSAIQ RADIATION ONCOLOGY Elapsed Days 8 MOSAIQ RADIATION ONCOLOGY Start Date 04/04/2025 MOSAIQ RADIATION ONCOLOGY Last Date 04/12/2025 MOSAIQ RADIATION ONCOLOGY Prescribed Number of Fractions 16 MOSAIQ RADIATION ONCOLOGY 04/12/2025 8:39 AM EDT Physician Radiation Oncology RADIATION ONCKEYONA GY ORDERABLES Final Result MOSAIQ RADIATION ONCOLOGY * Rad Onc Msq Treatment Summary (04/11/2025 8:43 AM EDT) Treatment Site Right Breast MO SAIQ RADIATION ONCOLOGY Course Number 1 MOSAIQ RADIATION ONCOLOGY Prescribed Fractional Dose 267 cGray MOSAIQ RADIATION ONCOLOGY Prescribed Total Dose 4,272 cGray MOSAIQ RADIATION ONCOLOGY Actual Fractions Delivered 6 MOSAIQ RADIATION ONCOLOGY Actual Session Delivered Dose 267 cGray MOSAIQ RADIATION ONCOLOGY Actual Total Dose 1,602 cGray MOSAIQ RADIATION ONCOLOGY Prescribed Technique Tangents MOSAIQ RADIATION ONCOLOGY Elapsed Days 7 MOSAIQ RADIATION ONCOLOGY Start Date 04/04/2025 MOSAIQ RADIATION ONCOLOGY Last Date 04/11/2025 MOSAIQ RADIATION ONCOLOGY Prescribed Number of Fractions 16 MOSAIQ RADIATION ONCOLOGY 04/11/2025 8:43 AM EDT Physician Radiation Oncology RADIATION ONCKEYONA GY ORDERABLES Final Result MOSAIQ RADIATION ONCOLOGY * Rad Onc Msq Treatment Summary (04/08/2025 8:35 AM EDT) Treatment Site Right Breast MO SAIQ RADIATION ONCOLOGY Course Number 1 MOSAIQ RADIATION ONCOLOGY Prescribed Fractional Dose 267 cGray MOSAIQ RADIATION ONCOLOGY Prescribed Total Dose 4,272 cGray MOSAIQ RADIATION ONCOLOGY Actual Fractions Delivered 5 MOSAIQ RADIATION ONCOLOGY Actual Session Delivered Dose 267 cGray MOSAIQ RADIATION ONCOLOGY Actual Total Dose 1,335 cGray MOSAIQ RADIATION ONCOLOGY Prescribed Technique Tangents MOSAIQ RADIATION ONCOLOGY Elapsed Days 4 MOSAIQ RADIATION ONCOLOGY Start Date 04/04/2025 MOSAIQ RADIATION ONCOLOGY Last Date 04/08/2025 MOSAIQ RADIATION ONCOLOGY Prescribed Number of Fractions 16 MOSAIQ RADIATION ONCOLOGY 04/08/2025 8:35 AM EDT Physician Radiation Oncology RADIATION ONCKEYONA GY ORDERABLES Final Result MOSAIQ RADIATION ONCOLOGY * Rad Onc Msq Treatment Summary (04/07/2025 8:35 AM EDT) Treatment Site Right Breast MO SAIQ RADIATION ONCOLOGY Course Number 1 MOSAIQ RADIATION ONCOLOGY Prescribed Fractional Dose 267 cGray MOSAIQ RADIATION ONCOLOGY Prescribed Total Dose 4,272 cGray MOSAIQ RADIATION ONCOLOGY Actual Fractions Delivered 4 MOSAIQ RADIATION ONCOLOGY Actual Session Delivered Dose 267 cGray MOSAIQ RADIATION ONCOLOGY Actual Total Dose 1,068 cGray MOSAIQ RADIATION ONCOLOGY Prescribed Technique Tangents MOSAIQ RADIATION ONCOLOGY Elapsed Days 3 MOSAIQ RADIATION ONCOLOGY Start Date 04/04/2025 MOSAIQ RADIATION ONCOLOGY Last Date 04/07/2025 MOSAIQ RADIATION ONCOLOGY Prescribed Number of Fractions 16 MOSAIQ RADIATION ONCOLOGY 04/07/2025 8:35 AM EDT Physician Radiation Oncology RADIATION ONCKEYONA GY ORDERABLES Final Result MOSAIQ RADIATION ONCOLOGY * Rad Onc Msq Treatment Summary (04/06/2025 8:39 AM EDT) Treatment Site Right Breast MO SAIQ RADIATION ONCOLOGY Course Number 1 MOSAIQ RADIATION ONCOLOGY Prescribed Fractional Dose 267 cGray MOSAIQ RADIATION ONCOLOGY Prescribed Total Dose 4,272 cGray MOSAIQ RADIATION ONCOLOGY Actual Fractions Delivered 3 MOSAIQ RADIATION ONCOLOGY Actual Session Delivered Dose 267 cGray MOSAIQ RADIATION ONCOLOGY Actual Total Dose 801 cGray MOSAIQ RADIATION ONCOLOGY Prescribed Technique Tangents MOSAIQ RADIATION ONCOLOGY Elapsed Days 2 MOSAIQ RADIATION ONCOLOGY Start Date 04/04/2025 MOSAIQ RADIATION ONCOLOGY Last Date 04/06/2025 MOSAIQ RADIATION ONCOLOGY Prescribed Number of Fractions 16 MOSAIQ RADIATION ONCOLOGY 04/06/2025 8:39 AM EDT Physician Radiation Oncology RADIATION ONCOLO GY ORDERABLES Final Result MOSAIQ RADIATION ONCOLOGY * Rad Onc Msq Treatment Summary (04/05/2025 8:31 AM EDT) Treatment Site Right Breast MO SAIQ RADIATION ONCOLOGY Course Number 1 MOSAIQ RADIATION ONCOLOGY Prescribed Fractional Dose 267 cGray MOSAIQ RADIATION ONCOLOGY Prescribed Total Dose 4,272 cGray MOSAIQ RADIATION ONCOLOGY Actual Fractions Delivered 2 MOSAIQ RADIATION ONCOLOGY Actual Session Delivered Dose 267 cGray MOSAIQ RADIATION ONCOLOGY Actual Total Dose 534 cGray MOSAIQ RADIATION ONCOLOGY Prescribed Technique Tangents MOSAIQ RADIATION ONCOLOGY Elapsed Days 1 MOSAIQ RADIATION ONCOLOGY Start Date 04/04/2025 MOSAIQ RADIATION ONCOLOGY Last Date 04/05/2025 MOSAIQ RADIATION ONCOLOGY Prescribed Number of Fractions 16 MOSAIQ RADIATION ONCOLOGY 04/05/2025 8:31 AM EDT Physician Radiation Oncology RADIATION ONCKEYONA GY ORDERABLES Final Result MOSAIQ RADIATION ONCOLOGY * Rad Onc Msq Treatment Summary (04/04/2025 10:02 AM EDT) Treatment Site Right Breast MO SAIQ RADIATION ONCOLOGY Course Number 1 MOSAIQ RADIATION ONCOLOGY Prescribed Fractional Dose 267 cGray MOSAIQ RADIATION ONCOLOGY Prescribed Total Dose 4,272 cGray MOSAIQ RADIATION ONCOLOGY Actual Fractions Delivered 1 MOSAIQ RADIATION ONCOLOGY Actual Session Delivered Dose 267 cGray MOSAIQ RADIATION ONCOLOGY Actual Total Dose 267 cGray MOSAIQ RADIATION ONCOLOGY Prescribed Technique Tangents MOSAIQ RADIATION ONCOLOGY Elapsed Days 0 MOSAIQ RADIATION ONCOLOGY Start Date 04/04/2025 MOSAIQ RADIATION ONCOLOGY Last Date 04/04/2025 MOSAIQ RADIATION ONCOLOGY Prescribed Number of Fractions 16 MOSAIQ RADIATION ONCOLOGY 04/04/2025 10:0 2 AM EDT us Physician Radiation Oncology RADIATION ONCOLO GY ORDERABLES Final Result MOSAIQ RADIATION ONCOLOGY * (ABNORMAL) MG Mammo Digital Diagnostic w Twan Right (01/19/2025 2:31 PM EDT) Anatomical Region Laterality Modality Breast Right Mammography 01/19/2025 3:04 PM EDT Impressions 01/19/2025 4:05 PM EDT RIGHT BREAST: Complex cyst at 3 o'clock position 2 cm from the nipple containing an eccentric solid appearing vascular hypoechoic component at 3 o'clock position 2 cm from the nipple. It is associated with pre-existing ribbon shape tissue marker from previous cyst aspiration. Suspicious findings. An ultrasound-guided needle core biopsy is recommended. Findings and recommendations were discussed with the patient and patient's daughter with the help of the Bhutanese speaker technologist in the room (police matron via video was not available at that moment). BREAST DENSITY: B - There are scattered areas of fibroglandular density. BI-RADS CATEGORY: 4 - SUSPICIOUS RECOMMENDATION: Mammography: Core biopsy of right breast recommended. Ultrasound: Core biopsy of left breast recommended. Mammo Location: [facility], [address] [place] [address], [id number], . -------- FINAL REPORT -------- Dictated By: Evonne Batres Dictated Date: 01/19/2025 15:04 ET Assigned Physician: Evonne Batres Reviewed and Electronically Signed By: Evonne Batres Signed Date: 01/19/2025 16:05 ET Workstation ID: [id number] Transcribed By: Self Edit Transcribed Date: 01/19/2025 15:14 ET Narrative 01/19/2025 4:05 PM EDT HISTORY: Callback from screening for right breast mass associated with biopsy clip. Additional history: Patient status post cyst aspiration of cystic lesion located at 3 o'clock position at 1 cm from the nipple on September 30, 2012, followed by placement of a rib or shape clip. Cytology results were: negative for malignant cells. Benign apocrine metaplastic cells present. STUDIES: 1. Unilateral right diagnostic mammography with tomosynthesis and CAD 2. Targeted ultrasound of the right breast TECHNIQUE: Unilateral right digital diagnostic mammography is obtained and read in conjunction with computer-aided detection. Tomosynthesis as well as 2-D C view imaging were obtained. Spot compression Tomosynthesis images were also obtained. COMPARISON: Comparison made to multiple prior, most recent January 05, 2025, and most remote December 29, 2009. RIGHT BREAST: There is an approximately 0.8 cm round mass in the inner breast at approximately 3 o'clock position at about 2 cm from the nipple (ML90 degrees 46/74, spot CC 20/53). Targeted ultrasound was performed at the location of the mammographic finding. The survey shows a 0.7 x 0.6 x 0.6 cm cystic lesion with an eccentric solid- appearing hypoechoic internal component measuring approximately 0.5 cm, which is associated with internal vascularity on the color Doppler evaluation at 3 o'clock position 2 cm from the nipple. Procedure Note Evonne Batres MD - 01/19/2025 HISTORY: Callback from screening for right breast mass associated withbiopsy clip. Additional history: Patient status post cyst aspiration ofcystic lesion located at 3 o'clock position at 1 cm from the nipple on September 30, 2012, followed by placement of a rib or shape clip. Cytologyresults were: negative for malignant cells. Benign apocrine metaplasticcells present. STUDIES: 1. Unilateral right diagnostic mammography with tomosynthesis and CAD 2. Targeted ultrasound of the right breast TECHNIQUE: Unilateral right digital diagnostic mammography is obtained andread in conjunction with computer-aided detection. Tomosynthesis as wellas 2-D C view imaging were obtained. Spot compression Tomosynthesis imageswere also obtained. COMPARISON: Comparison made to multiple prior, most recent January 05, 2025,and most remote December 29, 2009. RIGHT BREAST: There is an approximately 0.8 cm round mass in the innerbreast at approximately 3 o'clock position at about 2 cm from the nipple(ML90 degrees 46/74, spot CC 20/53). Targeted ultrasound was performed at the location of the mammographicfinding. The survey shows a 0.7 x 0.6 x 0.6 cm cystic lesion with aneccentric solid-appearing hypoechoic internal component measuringapproximately 0.5 cm, which is associated with internal vascularity on thecolor Doppler evaluation at 3 o'clock position 2 cm from the nipple. IMPRESSION: RIGHT BREAST: Complex cyst at 3 o'clock position 2 cm from the nipplecontaining an eccentric solid appearing vascular hypoechoic component at 3o'clock position 2 cm from the nipple. It is associated with pre-existingribbon shape tissue marker from previous cyst aspiration. Suspiciousfindings. An ultrasound-guided needle core biopsy is recommended. Findings and recommendations were discussed with the patient and patient'sdaughter with the help of the Bhutanese speaker technologist in the room(police matron via video was not available at that moment). BREAST DENSITY: B - There are scattered areas of fibroglandular density. BI-RADS CATEGORY: 4 - SUSPICIOUS RECOMMENDATION: Mammography: Core biopsy of right breast recommended. Ultrasound: Core biopsy of left breast recommended. Mammo Location: [facility], [address] [place] [address], [id number], . -------- FINAL REPORT -------- Dictated By: Evonne Batres Dictated Date: 01/19/2025 15:04 ET Assigned Physician: Evonne Batres Reviewed and Electronically Signed By: Evonne Batres Signed Date: 01/19/2025 16:05 ET Workstation ID: [id number] Transcribed By: Self Edit Transcribed Date: 01/19/2025 15:14 ET Chandrika Cronin MD IMG BI PROCEDURES Final Result * Falls Risk Assessment (03/16/2024) Falls Risk Assessment Abstracted Historical Provider HEALTH MAINTENANCE Final Result * Depression Screening (03/16/2024) Depression Screening Abstracted us Historical Provider HEALTH MAINTENANCE Final Result * Colonoscopy (04/29/2022) Colonoscopy No interpretation , Abstracted Anatomical Region Laterality Modality Other us Historical Provider HEALTH MAINTENANCE Final Result * Hepatitis C Screening (07/05/2013) Hepatitis C Screening Abstracted us Historical Provider HEALTH MAINTENANCE Final Result from Last 3 Months or Most Recently Relevant to Health Maintenance Insurance MEDICARE Member Subscriber Plan / Payer (Ef fective 2023-Present) Name:Laura Mullen Relation to Subscriber:Self Name:Laura Sarabia Payer ID:[id number] Group ID:[id number] Type:Not on file Address: [place] [address] [address] [id number] Advance Directives Documents on File Type Date Recorded Patient Target Aircraft Controller Expl anation Health Care Decision (hx) 12/19/2022 HE ALTH CARE PROXY Health Care Decision (hx) 12/19/2022 HE ALTH CARE PROXY Health Care Decision (hx) 12/19/2022 HE ALTH CARE PROXY Health Care Decision (hx) 12/19/2022 HE ALTH CARE PROXY * Full Code - Default (Latest Code Status on File) Date Activated Date Inactivated Comments 02/16/2025 10:28 AM 02/16/2025 4:38 PM This is ord er is used when code status has not been discussed with the patient, or code status is otherwise unknown/unconfirmed To update the patient's code status, place a code status order. Do not modify or discontinue any currently active code status orders. Care Teams Membership Counselor Relationship Specialty Start Date End Date Chandrika Cronin MD [address] [place] [phone] PCP - General Internal Medicine 08/20/24
[2025-06-13 09:45] LABS: MANUAL DIFF FLAG NO
[2025-06-13 10:22] LABS: Hematocrit 40.0 % (37.0-47.0); Hemoglobin 11.8 g/dl (12.0-16.0); Imm Gran Abs Auto 0.04 X10*3/uL (0.00-0.03); Imm Gran Pct Auto 0.7 % (0.0-0.4); Lymphocytes Absolute Auto 1.4 X10*3/uL (1.2-4.9); Mean Corpuscular HGB Conc 29.5 g/dl (31.0-35.0); Mean Corpuscular Hemoglobin 26.9 pg (27.0-33.0); Mean Corpuscular Volume 91.3 fL (80.0-98.0); NRBC Abs Auto 0.000 X10*3/uL (0.0-0.012); NRBC Pct Auto 0.0 /100WBC (0.0-0.2); Platelet Count 197 X10*3/uL (160-400); Red Blood Count 4.38 X10*6/uL (4.20-5.50); White Blood Count 5.8 X10*3/uL (4.8-10.8)
[2025-06-13 11:06] LABS: Alanine Aminotransferase 28 U/L (0-31); Albumin Level 4.4 g/dL (3.5-5.0); Alkaline Phosphatase 67 U/L (39-117); Anion Gap 14 (12-20); Aspartate Amino Transferase 32 U/L (5-31); Blood Urea Nitrogen 23 mg/dL (9-16); Calcium 9.7 mg/dL (8.4-10.2); Carbon Dioxide 25 mmol/L (22-29); Chloride 108 mmol/L (96-108); Cholesterol 174 mg/dL (<200); Estimated Glomerular Filt Rate 51; HDL Cholesterol 70 mg/dL (>40); Potassium 3.8 mmol/L (3.3-5.1); Sodium 143 mmol/L (135-145); Total Protein 7.5 g/dL (6.5-8.0); Triglycerides 112 mg/dL (<150)
== END 2025-06-13 09:36 | disposition home or self-care (01) ==
LOC: HO.LAB 09:35
PROVIDERS: PCP Internal Medicine; Visit Provider Student in an Organized Health Care Education/Training Program
DX: Z13.6 Encounter for screening for cardiovascular disorders (principal); M31.6 Other giant cell arteritis
CPT/HCPCS: 36415; 80053; 80061; 85025; 85652; 86140

== ENCOUNTER 2025-06-15 12:59 | Outpatient (AMB) | payer OTHER, SELFPAY ==
[2025-06-15 13:05] VITALS: BP 110/80; PULSE 65; O2SAT 99; BMI 39.0
--- NOTE | 2025-06-15 13:05 | A.OFFVIS_ITS ---
Vital Signs 06/15/25 13:05 Height 5 ft Weight 199 lb 11.821 oz BMI 39.0 BP 110/80 Blood Pressure Location Lt brachial Position Sitting Pulse 65 Pulse Source Pulse Oximeter Pulse Oximetry (%) 99 Oxygen Delivery Method Room Air Intake Visit Reasons: f/u GCA Intake Note: Patient presents for GCA follow up and lab review. Psychiatry Physician Name: valorie Information Interpreted: non-clinical & clinical Accompanied by: Daughter Allergies morphine (MORPHINE) Allergy (Severe, Verified 06/15/25 13:05) CHEST PAIN, TROUBLE BREATHING, bruises Penicillins Allergy (Intermediate, Verified 06/15/25 13:05) RASH codeine Allergy (Unknown, Verified 06/15/25 13:05) Unknown tramadol (TRAMADOL) Adverse Reaction (Unknown, Verified 06/15/25 13:05) Headache Percocet Adverse Reaction (Intermediate, Uncoded 04/23/25 02:35) vomiting Medication List - Last Reconciled 06/15/25 by Paola Morgan MD albuterol sulfate 90 mcg/actuation 2 puffs inhalation Q4-6H PRN 7 days amlodipine 10 mg See Protocol PO DAILY cyanocobalamin (vitamin B-12) 1,000 mcg PO DAILY hydrochlorothiazide 25 mg PO DAILY magnesium oxide 400 mg PO BEDTIME 30 days nebulizers (AeroEclipse II Nebulizer) As directed quetiapine 12.5 mg PO BEDTIME tocilizumab (Actemra ACTPen) 162 mg subcut WE HPI Comments Details: Patient is a 74-year-old female with hyperlipidemia, hypertension, migraines, polyarticular osteoarthritis and GCA here today for follow up Interval History: Patient last seen 02/14/25 with me. - On Actemra 162mg every 2 weeks - Doing well, No further headaches - Having breast surgery 02/16/25 for removal of suspicious breast mass. Today - On Actemra 162mg every 2 weeks - Continues to do well - No new complaints Rheumatologic History: dx 01/2024 (positive PET scan) Actemra 01/2024 effective Initial history : This is a 73-year-old female who is referred by Neurology for evaluation of elevated inflammatory markers. Patient and her daughter are both poor historians. Back in November of 2022 patient presented to the ER with abdominal pain. 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 Inflammatory markers were significantly elevated. She was then referred to neurologist. Of note patient has a history of PE back in 2011 and was on anticoagulation for 6 years which was discontinued due to splenic hemorrhage. Patient's daughter also mentions he has history of hypercoagulable state, history of PE and taking warfarin regularly. Patient's brother has history of thick blood She also mentions that she has history of headaches, intermittent blurry vision, she could not specify the nature of the headaches and whether 1 or 2 eyes are involved. She denies any jaw or tongue claudication. Patient received steroid injections for her knees and shoulders by Dr. Cormier, most recent injection was 10/01/2023. She states that whenever she received those injections she feels much better overall. She states that she lost about 25 lb over the last year due to decreased appetite. She denies any fevers. She states that she has had a rash on her cheeks for about a year and she was told this was allergies and she uses a steroid cream. She can not tell whether the rash is photosensitive. Patient has history of 4 pregnancies, 3 children and 1 . She denies history suggestive of Raynaud's. She denies any swollen joints. Patient was referred for temporal artery biopsy by neurologist. 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 She was started on steroids and Actemra Current Rheumatology Medication(s): Actemra 162mg SC every 2 weeks [facility] Medical History Encounter for monitoring tocilizumab therapy Headache Anemia History of pulmonary embolism Nephrolithiasis High cholesterol Asthma Hypertension Surgical History (Updated 06/15/25 @ 13:11 by Anamika Pham CMA) S/P lumpectomy, right breast H/O breast biopsy History of hysterectomy H/O colonoscopy Family History Mother Varicose vein of leg Depression Hypertension Asthma Heart disease Father Cerebrovascular accident (CVA) Kidney stones Sister Varicose vein of leg Depression Brother Depression Varicose vein of leg Daughter Varicose vein of leg Lupus anticoagulant disorder Maternal Grandfather Colon cancer Social History Household Members: Children Household Members Other:: sister Housing: House Are you a primary healthcare analyst to a significant other at home: No Do you presently have visiting nurse or other home services: No Alcohol intake: never Patient Tobacco Use Status: Never used Tobacco Second Hand Smoke Exposure: No service: No Review of Systems Const Details: Review of Systems Constitutional: Denies fever, chills, weight loss ENT: Denies vision changes, eye pain or eye redness, dental caries, dry mouth GI: Denies nausea, vomiting, diarrhea, abdominal pain, change in BM Pulm: Denies SOB, PALENCIA, hemoptysis, wheezing Cards: Denies chest pain, palpitations Skin: Denies Raynaud's, rash, nail changes, photosensitivity, STAY CUTTER: Denies headaches, weakness, paresthesias, recurrent falls MSK: as per HPI All other systems reviewed and are unremarkable except noted above Physical Exam Exam Exam: Vital signs reviewed Physical Examination CONSTITUITIONAL Patient alert and cooperative. Well appearing and in no apparent painful distress MSK Hands * Right Hand: Able to make a fist. No swelling or tenderness to palpation of the MCPs, PIPs or DIPs. * Left Hand: Able to make a fist. No swelling or tenderness to palpation of the MCPs, PIPs or DIPs. * Herbedens nodes noted bilaterally Wrists * Right Wrist: Full ROM to flexion and extension. No swelling or TTP * Left Wrist: Full ROM to flexion and extension. No swelling or TTP Elbows * Right Elbow: Full ROM. No swelling or TTP. No TTP of the medial epicondyle. No TTP of the lateral epicondyle * Left Elbow: Full ROM. No swelling or TTP. No TTP of the medial epicondyle. No TTP of the lateral epicondyle Shoulders * Right shoulder: Full ROM. No swelling noted. No TTP of the AC joint. No TTP of the subacromial bursa. No TTP of the posterior shoulder * Left shoulder: Full ROM. No swelling noted. No TTP of the AC joint. No TTP of the subacromial bursa. No TTP of the posterior shoulder Knees * Right knee: Full ROM. No swelling noted. No TTP of the knee joint line. No TTP of pes anserine bursa * Left knee: Full ROM. No swelling noted. No TTP of the knee joint line. No TTP of pes anserine bursa. * Crepitations felt bilaterally Ankles * Right ankle: Good ankle dorsiflexion and plantar flexion. No swelling. No TTP of the ankle joint * Left ankle: Good ankle dorsiflexion and plantar flexion. No swelling. No TTP of the ankle joint Feet * Right foot: Negative squeeze test * Left foot: Negative squeeze test Tender points? * No tenderness to palpation of the bilateral trapezius, supraspinatus, anterior costochondral junctions, bilateral suboccipital muscle insertions SKIN No rashes Vital Signs: Last Vital Signs Pulse 65 06/15/25 13:05 BP 110/80 06/15/25 13:05 Pulse Ox 99 06/15/25 13:05 Oxygen Delivery Method Room Air 06/15/25 13:05 BMI result Body Mass Index 39.0 Results Reviewed Results Reviewed: Laboratory Tests 06/13/25 09:44 WBC 5.8 RBC 4.38 Hgb 11.8 L Hct 40.0 Plt Count 197 ESR 12 Sodium 143 Potassium 3.8 Chloride 108 Carbon Dioxide 25 BUN 23 H Creatinine 1.05 AST 32 H ALT 28 C-Reactive Protein < 0.10 Laboratory Tests 06/13/25 09:44 Triglycerides 112 Cholesterol 174 LDL Cholesterol, Calc 82 HDL Cholesterol 70 Laboratory Tests 10/14/24 08:37 Hepatitis A IgM Ab Nonreactive Hep Bs Antigen Negative Hep Bs Antibody NONREACTIVE Hep B Core Total Ab Nonreactive Hepatitis C Ab (EIA) Nonreactive TB Test (T-Spot) Com Negative DEXA 05/2025 ([facility]) Lumbar spine T score -1.3 Left Hip T score -1.1 Left wrist T score -1.8 FRAX 14/2.3 Assessment & Plan Assessment & Plan (1) GCA (giant cell arteritis): Comment: dx 01/2024 (positive PET scan) Actemra 01/2024 effective Code(s): M31.6 - Other giant cell arteritis Category: Medical Plan: #GCA Patient is a 74-year-old female with GCA based on elevated inflammatory markers and 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 Doing well on Actemra with no headaches and normal inflammatory markers. Patient has been on Actemra for the past year. Will continue for 2 years, 01/2026 then repeat PET scan to ensure that vasculitis is stable then plan to taper Plan - Actemra 162mg SC every 2 weeks - Re evaluate at next visit for repeat PET scan - RTC 6 months - Labs before visit: CBC, CMP, ESR, CRP, lipid panel, T spot and Hepatitis panel (2) Screening for osteoporosis: Code(s): Z13.820 - Encounter for screening for osteoporosis Plan: #Screening for osteoporosis Patient with advanced age, menopause, history of steroid use, at risk for osteoporosis. Follows up in [place] for her bone density Has appointment in 04/2025, will ask for report (3) Encounter for monitoring tocilizumab therapy: Code(s): Z51.81 - Encounter for therapeutic drug level monitoring; Z79.620 - intermediate (current) use of immunosuppressive biologic Category: Medical Plan: #Long-term Use of Tocilizumab Discussed the risks and benefits of tocilizumab with the management of this patient's rheumatic condition. ? Benefits include decreased pain, improved mortality, improved quality of life Risks include LFT abnormalities, elevated triglycerides, GI perforations Contraindicated in a patient with history of diverticulitis Monitoring: ?CBC, CMP, triglycerides Plan I spent 35 minutes reviewing the record and labs, taking a history, examining the patient, discussing the treatment plan, ordering diagnostic work up, using the tooth cutter and documenting in the medical record Medications: Changed From tocilizumab (Actemra ACTPen) 162 mg subcut WE M31.6 - Other giant cell arteritis To tocilizumab (Actemra ACTPen) 162 mg (0.9 mL) subcut Q2W 1.8 mL 5RF M31.6 - Other giant cell arteritis Coding Level of Care Code Est Pt Level 4 (22601) Complex EM visit Add On G2211 Diagnoses GCA (giant cell arteritis) M31.6 Screening for osteoporosis Z13.820 Encounter for monitoring tocilizumab therapy Z51.81; Z79.740
--- OUTSIDE RECORDS SUMMARY | 2025-06-15 16:35 | XMS_ITS | Clinical Summary ---
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 I conferred with [facility] cardiac surgery Dr. Farr and concluded [...] midline thoracic back pain 04/18/2022 Bleeding disorder ([facility] V24) 04/17/2022 Prediabetes 04/17/2022 Overview [...] Depression 07/05/2013 Overview (11/07/2023): F/u BHN at [facility] 09/09/2012 Assessment & Plan (05/18/2025 9:54 AM EDT): Well controlled, ACT 20, continue Flovent, Albuterol. Nephrolithiasis 06/12/2012 Resolved Problems Problem Noted Date Diagnosed Date Resolved Date History of 2019 novel sykes virus disease (COVID-19) 01/22/2021 02/02/2025 Encounters Date Type Department Care Team Description 05/19/2025 9:50 AM EDT - 05/19/2025 11:59 PM EDT Hospital Encounter Bone Density - [address] [phone] Encounter for screening for osteoporosis Discharge Disposition: Home or Self Care 05/18/2025 9:00 AM EDT Office Visit Adult Medicine [facility] - [address] [phone] Chandrika Cronin MD Encounter for annual general medical examination with abnormal findings in adult (Primary Dx); Essential hypertension; Dyslipidemia; Moderate persistent asthma, unspecified whether complicated; Epigastric pain; Need for prophylactic vaccination and inoculation against influenza; Advance care planning 05/12/2025 10:30 AM EDT Office Visit Adult Medicine [address] [phone] Chandrika Cronin MD Hospital discharge follow-up (Primary Dx); Gastrointestinal hemorrhage, unspecified gastrointestinal hemorrhage type; ZUNILDA (acute kidney injury) ([facility] V24); Essential hypertension 05/06/2025 8:35 AM EDT - 05/06/2025 11:59 PM EDT Hospital Encounter [facility] Radiation Oncology [address] [place] [phone] Dnaae Dickson MD 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) Discharge Disposition: Home or Self Care 05/06/2025 8:26 AM EDT - 05/06/2025 11:59 PM EDT Hospital Encounter [facility] Radiation Oncology [address] [place] [phone] Danae Dickson MD Discharge Disposition: Home or Self Care 05/05/2025 8:25 AM EDT - 05/05/2025 11:59 PM EDT Hospital Encounter [facility] Radiation Oncology [address] [place] [phone] Discharge Disposition: Home or Self Care 05/04/2025 8:21 AM EDT - 05/04/2025 11:59 PM EDT Hospital Encounter [facility] Radiation Oncology [address] [place] [phone] Discharge Disposition: Home or Self Care 05/03/2025 8:35 AM EDT - 05/03/2025 11:59 PM EDT Hospital Encounter [facility] Radiation Oncology [address] [place] [phone] Roland López MD Discharge Disposition: Home or Self Care 05/03/2025 8:21 AM EDT - 05/03/2025 11:59 PM EDT Hospital Encounter [facility] Radiation Oncology [address] [place] [phone] Discharge Disposition: Home or Self Care 04/29/2025 8:39 AM EDT - 04/29/2025 11:59 PM EDT Hospital Encounter [facility] Radiation Oncology [address] [place] [phone] Danae Dickson MD 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) Discharge Disposition: Home or Self Care 04/29/2025 8:29 AM EDT - 04/29/2025 11:59 PM EDT Hospital Encounter [facility] Radiation Oncology [address] [place] [phone] Discharge Disposition: Home or Self Care 04/28/2025 8:22 AM EDT - 04/28/2025 11:59 PM EDT Hospital Encounter [facility] Radiation Oncology [address] [place] [phone] Discharge Disposition: Home or Self Care 04/22/2025 8:40 AM EDT - 04/22/2025 11:59 PM EDT Hospital Encounter [facility] Radiation Oncology [address] [place] [phone] Danae Dickson MD 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) Discharge Disposition: Home or Self Care 04/22/2025 8:22 AM EDT - 04/22/2025 11:59 PM EDT Hospital Encounter [facility] Radiation Oncology [address] [place] [phone] Discharge Disposition: Home or Self Care 04/21/2025 9:29 AM EDT - 04/21/2025 11:59 PM EDT Hospital Encounter [facility] Radiation Oncology [address] [place] [phone] Discharge Disposition: Home or Self Care 04/20/2025 8:20 AM EDT - 04/20/2025 11:59 PM EDT Hospital Encounter [facility] Radiation Oncology [address] [place] [phone] Discharge Disposition: Home or Self Care 04/19/2025 8:24 AM EDT - 04/19/2025 11:59 PM EDT Hospital Encounter [facility] Radiation Oncology [address] [place] [phone] Discharge Disposition: Home or Self Care 04/18/2025 8:27 AM EDT - 04/18/2025 11:59 PM EDT Hospital Encounter [facility] Radiation Oncology [address] [place] [phone] Discharge Disposition: Home or Self Care 04/15/2025 8:35 AM EDT - 04/15/2025 11:59 PM EDT Hospital Encounter [facility] Radiation Oncology [address] [place] [phone] Ray Diaz MD 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) Discharge Disposition: Home or Self Care 04/15/2025 8:24 AM EDT - 04/15/2025 11:59 PM EDT Hospital Encounter [facility] Radiation Oncology [address] [place] [phone] Discharge Disposition: Home or Self Care 04/14/2025 8:25 AM EDT - 04/14/2025 11:59 PM EDT Hospital Encounter [facility] Radiation Oncology [address] [place] [phone] Discharge Disposition: Home or Self Care 04/13/2025 8:27 AM EDT - 04/13/2025 11:59 PM EDT Hospital Encounter [facility] Radiation Oncology [address] [place] [phone] Discharge Disposition: Home or Self Care 04/12/2025 8:29 AM EDT - 04/12/2025 11:59 PM EDT Hospital Encounter [facility] Radiation Oncology [address] [place] [phone] Discharge Disposition: Home or Self Care 04/11/2025 8:25 AM EDT - 04/11/2025 11:59 PM EDT Hospital Encounter [facility] Radiation Oncology [address] [place] [phone] Discharge Disposition: Home or Self Care 04/08/2025 8:35 AM EDT - 04/08/2025 11:59 PM EDT Hospital Encounter [facility] Radiation Oncology [address] [place] [phone] Danae Dickson MD 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) Discharge Disposition: Home or Self Care 04/08/2025 8:26 AM EDT - 04/08/2025 11:59 PM EDT Hospital Encounter [facility] Radiation Oncology [address] [place] [phone] Discharge Disposition: Home or Self Care 04/07/2025 8:25 AM EDT - 04/07/2025 11:59 PM EDT Hospital Encounter [facility] Radiation Oncology [address] [place] [phone] Discharge Disposition: Home or Self Care 04/06/2025 8:30 AM EDT - 04/06/2025 11:59 PM EDT Hospital Encounter [facility] Radiation Oncology [address] [place] [phone] Discharge Disposition: Home or Self Care 04/05/2025 8:19 AM EDT - 04/05/2025 11:59 PM EDT Hospital Encounter [facility] Radiation Oncology [address] [place] [phone] Discharge Disposition: Home or Self Care 04/04/2025 10:00 AM EDT - 04/04/2025 11:59 PM EDT Hospital Encounter [facility] Radiation Oncology [address] [place] [phone] Roland López MD Discharge Disposition: Home or Self Care 04/04/2025 9:39 AM EDT - 04/04/2025 11:59 PM EDT Hospital Encounter [facility] Radiation Oncology [address] [place] [phone] Discharge Disposition: Home or Self Care 03/25/2025 8:26 AM EDT - 03/25/2025 11:59 PM EDT Hospital Encounter [facility] Radiation Oncology [address] [place] [phone] Discharge Disposition: Home or Self Care 03/24/2025 9:51 AM EDT - 03/24/2025 11:59 PM EDT Hospital Encounter [facility] Radiation Oncology [address] [place] [phone] Danae Dickson MD 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 Discharge Disposition: Home or Self Care 03/24/2025 8:58 AM EDT - 03/24/2025 11:59 PM EDT Hospital Encounter [facility] Radiation Oncology [address] [place] [phone] 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) Discharge Disposition: Home or Self Care 03/16/2025 8:14 AM EDT - 03/16/2025 11:59 PM EDT Hospital Encounter [facility] Radiation Oncology [address] [place] [phone] Danae Dickson MD 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 Polyps removed. BREAST BIOPSY NEEDLE RT 01/26/2025 [...] obesity with BMI of 4 0.0-44.9, adult ([facility] V24, [facility] V28) 06/16/2018 Asymptomatic varicose veins of both lower extremities 06/16/[address] of the abdomen OA (osteoarthritis) of hip 07/09/2021 Prediabetes 04/17/2022 Fecal incontinence Fecal urgency Dysphagia Irritable bowel syndrome PONV (postoperative nausea and vomiting) GERD (gastroesophageal reflux disease) Breast cancer ([facility] V24, [facility] V28) Aortic aneurysm ([facility] V24) Family History Medical History Relation Name [...] care for your loved ones. For example, child care attendant school or elderly care for an older adult? [...] Care Team (Late st Contact Info) Description 07/01/2025 2:00 PM EDT Office Visit Breast Care [facility] [address] [place] [phone] [facility] [address] [place] [phone] 09/07/2025 3:00 PM EST Office Visit [facility] Hematology Oncology [address] [place] [phone] Los Morris MD [address] [place] [phone] 09/19/2025 12:30 PM EST Office Visit Adult Medicine [address] [phone] Chandrika Cronin MD [address] [place] [phone] 10/19/2025 1:20 PM EST Office Visit Gastroenterology [facility] [address] [facility] [address] [place] [phone] Shena Nance, BULL 175 [facility] [address] [place] [address] 01/11/2026 1:30 PM EDT Appointment Radiology Department - [address] [phone] Health Maintenance Due Date Last Done Comments Zoster Vaccines (1 of 2) 1969 RSV Immunization Adult Patients (1 - Risk 50-74 years 1-dose series) 2000 DTaP,Tdap,and Td Vaccines (2 - Td or [...] 05/25/2021, 04/23/2021 Depression Screening Completed 05/18/2025, 03/16/20 24 Influenza Vaccine Completed 05/18/2025, , 06/16/2018, Additional [...] this topic Medical Devices Implanted Type Area Authorization Manager Device Identifier Shelf Expiration Date Model / Serial / Lot Marker 18ga Magseed 7cm - [id number] - [id number] Implanted:Qty: 1 on 02/09/2025 by Edu Spann MD at [facility] Imaging Implants Right: Breast [employer] [id number] 07/01/2026 [id number] Procedures Procedure Name Priority Date/Time Associated Diagnosis [...] Routine 01/19/2025 2:31 PM EDT Abnormal mammogram DEPRESSION SCREENING Routine 03/16/2024 HM FALLS RISK ASSESSMENT Routine 03/16/2024 HM COLONOSCOPY Routine 04/29/2022 HEPATITIS C SCREENING Routine 07/05/2013 from Last [...] (World Health Organization Fracture Risk Assessment) The [facility] Department of Internal Medicine recommends using [...] Signed Date: 05/22/2025 03:57 ET Workstation ID: [id number] Transcribed By: Self Edit Transcribed Date: 05/22/2025 [...] years. (World Health OrganizationFracture Risk Assessment) The [facility] Department of Internal Medicine recommendsusing National [...] FRAX. Optional alternative screening schedule based on kevin Almazan al., NEJMJanuary 2011 for patients with osteopenia (based [...] Signed Date: 05/22/2025 03:57 ET Workstation ID: [id number] Transcribed By: Self Edit Transcribed Date: 05/22/2025 03:53 ET Chandrika Cronin MD IM DXA PROCEDURES Final Result * (ABNORMAL) Helicobacter pylori antigen, stool (05/19/2025 9:46 AM EDT) Helicobacter Pylori Ag DETECTED( A) Not detected 05/24/2025 2:41 PM EDT [facility] Comment: This test was performed at [facility] using a chemiluminescent immunoassay intended for [...] Food and Drug Administration. Test performed at [facility], [address] , [place] [address] Paula Trinh MD, PhD - Accounts Receivable Supervisor Stool Rectum structure / Unknown Non-blood Collection / Unknown 05/19/2025 9:46 AM EDT 05/19/2025 9:46 AM EDT us Chandrika Cronin MD LAB BODY FLUIDS AN D STOOLS ORDERABLES Final Result [facility] [address] [place] [address] * (ABNORMAL) Lipid panel with reflex to direct LDL (05/18/2025 7:56 AM EDT) Cholesterol 247(H) 0 - 200 mg/dL LAB CHEMISTRY METHOD 05/18/2025 10:50 AM [facility] Triglycerides 140 0 - 150 mg/dL LAB CHEMISTRY METHOD 05/18/2025 10:50 AM [facility] HDL 73 >=40 mg/dL LAB CHEMISTRY METHOD 05/18/2025 10:50 AM [facility] LDL Calculated 146(H) 0 - 100 mg/dL LAB CHEMISTRY METHOD 05/18/2025 10:50 AM [facility] Comment:Estimated LDL Calcul ated using equation: Total cholesterol - HDL cholesterol - (Triglycerides/5) VLDL Cholesterol Nithin 28 mg/dL LAB CHEMISTRY METHOD 05/18/2025 10:50 AM [facility] Non HDL Chol. (LDL+VLDL) 174(H) <145 mg/dL LAB CHEMISTRY METHOD 05/18/2025 10:50 AM [facility] Chol/HDL Ratio 3.4 0.0 - 4.4 LAB CHEMISTRY METHOD 05/18/2025 10:50 AM [facility] Blood Venous blood specimen / Unknown Venipuncture / Unknown 05/18/2025 7:56 AM EDT 05/18/2025 7:56 AM EDT us Dominique GARCIA LAB BLOOD ORDERABLES Final Resu lt [facility] [address] [place] [address], [place] [phone] * (ABNORMAL) Comprehensive metabolic panel (05/18/2025 7:56 AM EDT) Only the most recent of2 resultswithin the time period is included. Sodium 139 133 - 145 mmol/L LAB CHEMISTRY METHOD 05/18/2025 10:50 AM [facility] Potassium 3.9 3.5 - 5.5 mmol/L LAB CHEMISTRY METHOD 05/18/2025 10:50 AM [facility] Chloride 103 96 - 110 mmol/L LAB CHEMISTRY METHOD 05/18/2025 10:50 AM [facility] CO2 28 21 - 32 mmol/L LAB CHEMISTRY METHOD 05/18/2025 10:50 AM [facility] Anion Gap 8 3 - 11 LAB CHEMISTRY METHOD 05/18/2025 10:50 AM [facility] Glucose 104(H) 70 - 100 mg/dL LAB CHEMISTRY METHOD 05/18/2025 10:50 AM [facility] BUN 25 5 - 25 mg/dL LAB CHEMISTRY METHOD 05/18/2025 10:50 AM [facility] Creatinine 1.15(H) 0.50 - 1.10 mg/dL LAB CHEMISTRY METHOD 05/18/2025 10:50 AM [facility] eGFR 50(L) >=60 mL/min/1. 73m2 LAB CHEMISTRY METHOD 05/18/2025 10:50 AM [facility] Comment:Calculation based on the Chronic Kidney Disease Epidemiology Collaboration (CKD-EPI) equation refit without adjustment for race. BUN/Creatinine Ratio 21.7 LAB CHEMISTRY METHOD 05/18/2025 10:50 AM [facility] Calcium 10.1 8.5 - 10.5 mg/dL LAB CHEMISTRY METHOD 05/18/2025 10:50 AM [facility] AST (SGOT) 23 10 - 42 unit/L LAB CHEMISTRY METHOD 05/18/2025 10:50 AM [facility] ALT (SGPT) 37 10 - 60 unit/L LAB CHEMISTRY METHOD 05/18/2025 10:50 AM [facility] Alkaline Phosphatase 79 42 - 121 unit/L LAB CHEMISTRY METHOD 05/18/2025 10:50 AM [facility] Total Protein 7.8 6.0 - 8.0 g/dL LAB CHEMISTRY METHOD 05/18/2025 10:50 AM [facility] Albumin 4.2 3.2 - 5.0 g/dL LAB CHEMISTRY METHOD 05/18/2025 10:50 AM [facility] Total Bilirubin 0.5 0.0 - 1.4 mg/dL LAB CHEMISTRY METHOD 05/18/2025 10:50 AM [facility] Blood Venous blood specimen / Unknown Venipuncture / Unknown 05/18/2025 7:56 AM EDT 05/18/2025 7:56 AM EDT us Dominique GARCIA LAB BLOOD ORDERABLES Final Resu lt [facility] [address] [place] [address], * (ABNORMAL) CBC auto differential (05/12/2025 10:58 AM EDT) WBC 7.8 4.8 - 10.8 K/mcL LAB HEMETOLOGY METHOD 05/12/2025 12:15 PM EDT [facility] RBC 4.30 3.80 - 4.80 M/mcL LAB HEMETOLOGY METHOD 05/12[facility]2025 [facility] Hemoglobin 11.8 11.5 - 16.0 g/dL LAB HEMETOLOGY METHOD 05/12/2025 12[facility] Hematocrit 37.5 35.0 - 47.0 % LAB HEMETOLOGY METHOD 05/12/2025 12:[facility] MCV 86.8 79.0 - 98.0 FL LAB HEMETOLOGY METHOD 05/12/2025 12:15 PM [facility] MCH 27.3 27.0 - 32.0 pcg LAB HEMETOLOGY METHOD 05/12/2025 12:15 PM [facility] MCHC 31.5(L) 32.0 - 37.0 g/dL LAB HEMETOLOGY METHOD 05/12/2025 12:15 PM [facility] RDW 13.0 11.0 - 15.0 % LAB HEMETOLOGY METHOD 05/12/2025 12:[facility] Platelets 268 130 - 400 K/mcL LAB HEMETOLOGY METHOD 05/12/2025 12:[facility] MPV 10.8 7.0 - 11.0 FL LAB HEMETOLOGY METHOD 05/12/2025 12:15 PM [facility] NRBC 0.0 <1.0 % LAB HEMETOLOGY METHOD 05/12/2025 12:[facility] NRBC Absolute 0.00 <0.10 K/mcL LAB HEMETOLOGY METHOD 05/12/2025 12:[facility] Neutrophils Relative 71.1 % LAB HEMETOLOGY METHOD 05/12/2025 12:15 PM EDT [facility] Lymphocytes Relative 9.5 % LAB HEMETOLOGY METHOD 05/12/2025 12:15 PM EDT [facility] Monocytes Relative 13.4 % LAB HEMETOLOGY METHOD 05/12/2025 12:15 PM [facility] Eosinophils Relative 5.1 % LAB HEMETOLOGY METHOD 05/12/2025 12:[facility] Basophils Relative 0.5 % LAB HEMETOLOGY METHOD 05/12/2025 12:15 PM [facility] Immature Granulocytes Relative 0.4 % LAB HEMETOLOGY METHOD 05/12/2025 12:15 PM [facility] Neutrophils Absolute 5.54 1.50 - 7.00 K/mcL LAB HEMETOLOGY METHOD 05/12/2025 12:15 PM [facility] Lymphocytes Absolute 0.74(L) 1.00 - 5.00 K/mcL LAB HEMETOLOGY METHOD 05/12/2025 12[facility] Monocytes Absolute 1.04(H) 0.20 - 1.00 K/mcL LAB HEMETOLOGY METHOD 05/12/2025 12:15 PM [facility] Eosinophils Absolute 0.40 0.00 - 0.50 K/mcL LAB HEMETOLOGY METHOD 05/12/2025 12:15 PM [facility] Basophils Absolute 0.04 0.00 - 0.20 K/mcL LAB HEMETOLOGY METHOD 05/12/2025 12:15 PM [facility] Immature Granulocytes Absolute 0.03 0.00 - 0.03 K/mcL LAB HEMETOLOGY METHOD 05/12/2025 12:15 PM [facility] Blood Venous blood specimen / Unknown Venipuncture / Unknown 05/12/2025 10:58 AM EDT 05/12/2025 10:58 AM EDT Chandrika Cronin MD LAB BLOOD ORDERABL ES Final Result [facility] [address] [place] [address], [place] [phone] * Rad Onc Msq Treatment Summary (05/06/2025 [...] 8:31 AM EDT Physician Radiation Oncology RADIATION ZA GY ORDERABLES Final Result [facility] RADIATION ONCOLOGY [...] [facility] RADIATION ONCOLOGY 05/03/2025 8:36 AM EDT us Physician Radiation Oncology RADIATION ONCKEYONA GY ORDERABLES [...] 9:17 AM EDT Physician Radiation Oncology RADIATION ONCOLO [...] Oncology RADIATION ONCOLO GY ORDERABLES Final Result Performing Organization Address City/[facility]/ZIP Co de Phone Number [facility] RADIATION ONCOLOGY * Rad Onc Msq [...] 8:38 AM EDT Physician Radiation Oncology RADIATION ONCOLO [...] 8:44 AM EDT Physician Radiation Oncology RADIATION ONCOLO [...] Oncology RADIATION ONCOLO GY ORDERABLES Final Result Performing Organization Address City/[facility] Co de Phone Number [facility] RADIATION ONCOLOGY * Rad Onc Msq [...] 8:41 AM EDT Physician Radiation Oncology RADIATION ONCKEYONA [...] Oncology RADIATION ONCKEYONA GY ORDERABLES Final Result Performing Organization Address City/State/[facility] Co de Phone Number [facility] RADIATION ONCOLOGY * Rad Onc Msq [...] [facility] RADIATION ONCOLOGY 04/06/2025 8:39 AM EDT us Physician Radiation Oncology RADIATION ONCKEYONA GY ORDERABLES [...] [facility] RADIATION ONCOLOGY 04/05/2025 8:31 AM EDT us Physician Radiation Oncology RADIATION ONCKEYONA GY ORDERABLES [...] RADIATION ONCOLOGY 04/04/2025 10:0 2 AM EDT Physician Radiation Oncology RADIATION ONCKEYONA [...] patient's daughter with the help of the Icelandic speaker technologist in the room (lehr tender via video was not available at that moment). BREAST DENSITY: B - There are scattered areas of fibroglandular density. BI-RADS CATEGORY: 4 - SUSPICIOUS RECOMMENDATION: Mammography: Core biopsy of right breast recommended. Ultrasound: Core biopsy of left breast recommended. Mammo Location: [facility], [address] [place] [address], [id number], . -------- FINAL REPORT -------- Dictated By: Evonne Batres Dictated Date: 01/19/2025 15:04 ET Assigned Physician: Evonne Batres Reviewed and Electronically Signed By: Evonne Batres Signed Date: 01/19/2025 16:05 ET Workstation ID: [id number] Transcribed By: Self Edit Transcribed Date: 01/19/2025 [...] and patient'sdaughter with the help of the Icelandic speaker technologist in the room(lehr tender via video was not available at that moment). BREAST DENSITY: B - There are scattered areas of fibroglandular density. BI-RADS CATEGORY: 4 - SUSPICIOUS RECOMMENDATION: Mammography: Core biopsy of right breast recommended. Ultrasound: Core biopsy of left breast recommended. Mammo Location: [facility], [address] [place] [address], [phone], . -------- FINAL REPORT -------- Dictated By: Evonne Batres Dictated Date: 01/19/2025 15:04 ET Assigned Physician: Evonne Batres Reviewed and Electronically Signed By: Evonne Batres Signed Date: 01/19/2025 16:05 ET Workstation ID: [id number] Transcribed By: Self Edit Transcribed Date: 01/19/2025 15:14 ET Chandrika Cronin MD IMG BI PROCEDURES Final Result * Falls Risk Assessment (03/16/2024) [facility] Falls Risk Assessment Abstracted Result [facility] Provider HEALTH MAINTENANCE Final Result * Depression Screening (03/16/2024) [facility] Depression Screening Abstracted Result [facility] Provider HEALTH MAINTENANCE Final Result * Colonoscopy (04/29/2022) [facility] Colonoscopy No interpretation , Abstracted Anatomical Region Laterality Modality Other Result [facility] HEALTH MAINTENANCE Final Result * Hepatitis C Screening (07/05/2013) [facility] Hepatitis C Screening Abstracted us Historical Provider HEALTH MAINTENANCE Final Result from Last 3 Months or Most Recently Relevant to Health Maintenance Insurance [address] [place] [address] MEDICARE Member Subscriber Plan / Payer (Ef fective 2023-Present) Name:Debbie Cortes Laura Relation to Subscriber:Self Name:Laura Sarabia Payer ID:[id number] Group ID:[id number] Type:Not on file Address: [address] [phone] Advance Directives Documents on File Type Date Recorded Patient Forensic Chemist Expl anation Health Care Decision (hx) 12/19/2022 [...] currently active code status orders. Care Teams Event Sales Assistant Relationship Specialty Start Date End Date Chandrika Cronin MD [address] [place] [address] PCP - General Internal Medicine 08/20/24
--- OUTSIDE RECORDS SUMMARY | 2025-06-15 16:35 | XMS_ITS ---
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 I conferred with [facility] cardiac surgery Dr. Farr and concluded [...] Depression 07/05/2013 Overview (11/07/2023): F/u BHN at [place] Asthma 09/09/2012 Assessment & Plan (05/18/2025 9:54 [...]
--- OUTSIDE RECORDS SUMMARY | 2025-06-15 16:35 | XMS_ITS | Data Portability ---
Author Organization [facility], [facility] Address [address] [place] [phone] Care Team Providers Care Supply Chain Director Name Role Phone HIM CCA Referring Provider [...] Body weight Body height Heart rate Systolic And Diastolic Provider Name and Address Organization Details Last Updated DateTime 4 98 [degF] 14 /min 98 % 98 % 54325.4 g 152.4 cm 63 /min 158/73 mm[Hg] Not Available [facility] - production 18:11:00 Social History None recorded. Functional Status None recorded. Mental Status None recorded. Family History Nothing Reported. Medical History No medical history recorded. Gynecological HistoryNo gynecological history recorded. Obstetrics History GPAL:G 0 P 0 0 0 0 Past Encounters Encounter ID Performer Location Encounter Start Date Encounter Closed Date Diagnosis/Indication Diagnosis SNOMED-CT Code Diagnosis ICD10 Code Diagnosis IMO Codes Diagnosis Note [id number] Riccardo Kumar MD Main - [facility] [address] [place] [phone] 08/17/2024 18:10:56 08/18/2024 14:39:45 Community acquired pneumonia [id number] J18.9 As noted, we were called to see this patient regarding concerns of recent dx PNA, still coughing and uncomforta ble. Evaluation in the field was performed by my floorhand colleague, as noted above, I provided real-time [...] Recorded Advance Directives Directive None Recorded Payers Insurance Date Sequence Insurance Name Policy Number Policy Rico Covered Member ID Rico Member ID Guarantor Name 08/17/2024 1 [facility] - DOS ON OR AFTER 2022 - DUAL ELIGIBLE - ALF OPTIONS AND ONE CARE (MEDICARE REPLACEMENT/ADV ANTAGE - HMO) Laura Cortes [id number] Laura Cortes Notes Date Note Type Note Provider Name and Address Organization Details Recorded Time 08/17/2024 text/html HPI: Unstable gait, Memory impariment, Chodrocostal junction syndrom, impingment syndrom of the left shoulder, giant cell arteritis, pulmonary fibrosis, diaphragmatic hernia ................... ................... ................... ................... ................... ................... ................... ........ [facility] Nurse Triage Notes (Hakeem Roblero - RN): Chief Complaints: Chest pain, Breathing problems, Cough PMH: Asthma, Anxiety Disorder, Chronic Back Pain, Autoimmune Diseases (e.g., Lupus), Depression, Fibromyalgia, Hyperlipidemia, Incontinence, Irritable Bowel Syndrome (IBS), Kidney Stones, Osteoarthritis, Post-Traumatic Stress Disorder (PTSD), Schizophrenia, Rheumatoid Arthritis, Other Comments: Reviewed HPI - Member was seen in the emergency room at [facility] on 08/13 and 08/14, was diagnosed with [...] ................... ................... ................... ................... ................... ................... ........ Senior Interaction Designer Note From Marciano Santana: Patient alert and oriented all information through family Proof Technician Helper on scene. Patient complains of difficulty breathing [...] during visit. Abdomen soft nontender extremities without edema.[facility] will prescribe benzonatate to patient s local pharmacy. Supportive care, hydration, and use of albuterol nebulizer discussed with patient and caregiver. Both demonstrate understanding of care and plan, including use of nebulizer during illness.Red flags, patient education discussed. Patient encouraged to call again for future visits. Patient and caregiver appears satisfied with visit. ................... ................... ................... ................... ................... ................... ................... ........ [facility] Consulted: Mark Kumar ................... ................... ................... ................... ................... ................... ................... ........ Disposition: Fulfilled Riccardo Kumar MD [address] [place] [address],[address] [facility], [place], [phone], [employer] 08/18/2024 08:31:43 OBGyn Episode No OBEpisode recorded.
== END 2025-06-15 13:37 | disposition home or self-care (01) ==
LOC: HO.RHES 13:00
PROVIDERS: PCP Internal Medicine; Visit Provider Student in an Organized Health Care Education/Training Program
DX: M31.6 Other giant cell arteritis (principal); Z13.820 Encounter for screening for osteoporosis; Z51.81 Encounter for therapeutic drug level monitoring; Z79.620 Long term (current) use of immunosuppressive biologic
CPT/HCPCS: 99214; G2211

== ENCOUNTER → 2025-06-15 12:59 | Outpatient (BNVA) | payer OTHER, SELFPAY | PROVIDERS: PCP Internal Medicine; Visit Provider Student in an Organized Health Care Education/Training Program | DX: M31.6 Other giant cell arteritis (principal); Z13.820 Encounter for screening for osteoporosis; Z51.81 Encounter for therapeutic drug level monitoring; Z79.620 Long term (current) use of immunosuppressive biologic | CPT/HCPCS: 99212 ==

== ENCOUNTER 2025-06-22 12:59 | Outpatient (AMB) | payer OTHER, SELFPAY ==
--- NOTE | 2025-06-22 13:01 | MHC.OFFVIS ---
Vital Signs 06/22/25 13:02 Height 5 ft Weight 200 lb 4 oz BMI 39.1 BP 128/64 Blood Pressure Location Rt brachial Position Sitting Pulse 64 Pulse Source Pulse Oximeter Pulse Oximetry (%) 97 Oxygen Delivery Method Room Air Intake Visit Reasons: 6 mo follow up Intake Note: Follow up care Radio Time Buyer Required: Yes Radio Time Buyer Services: Radio Time Buyer Offered & Declined Radio Time Buyer Name: Daughter Thais santana Accompanied by: Daughter Allergies morphine (MORPHINE) Allergy (Severe, Verified 06/22/25 13:05) CHEST PAIN, TROUBLE BREATHING, bruises Penicillins Allergy (Intermediate, Verified 06/22/25 13:05) RASH codeine Allergy (Unknown, Verified 06/22/25 13:05) Unknown tramadol (TRAMADOL) Adverse Reaction (Unknown, Verified 06/22/25 13:05) Headache Percocet Adverse Reaction (Intermediate, Uncoded 04/23/25 02:35) vomiting Medication List - Last Reconciled 06/22/25 by MORIAH Branch albuterol sulfate 90 mcg/actuation 2 puffs inhalation Q4-6H PRN 7 days amlodipine 10 mg See Protocol PO DAILY aspirin 1 tab PO BEDTIME cyanocobalamin (vitamin B-12) 1,000 mcg PO DAILY docusate sodium 100 mg PO BEDTIME PRN fluticasone propion-salmeterol 250-50 mcg/dose (Wixela Inhub) 1 ea inhalation BID hydrochlorothiazide 25 mg PO DAILY magnesium oxide 400 mg PO BEDTIME 30 days nebulizers (AeroEclipse II Nebulizer) As directed pantoprazole 40 mg PO DAILY quetiapine 12.5 mg PO BEDTIME rosuvastatin 20 mg PO DAILY tocilizumab (Actemra ACTPen) 162 mg (0.9 mL) subcut Q2W HPI Comments Details: 74-yr-old female presents for follow-up for cognitive changes and headache, in setting of suspected TIA, HTN, HLD, a order arch penetrating ulcer, giant cell arteritis, mood disorder, right breast DCIS, asthma. Pt accompanied by her dtr, Thais, who assists w/ history and Djiboutian interpretation. The patient is a 74-year-old female presenting with. She reports an interval hospital admission for lower GI bleed, which was attributed to internal hemorrhoids. She states she was told to stop taking baby aspirin. She continues to be followed closely by Rheumatology for giant cell arteritis. She is current with her [facility] cardiology and cardiac surgeon follow-up for a known stable aortic arch penetrating ulcer. According to the Cardiology note, stability was confirmed on the most recent chest CT scan in March 2025. BP is normotensive. She states she is status post right breast radiation, and that she has been advised to continue serial monitoring. Cognitive impairment: Patient reports that her memory is good overall. However, her daughter notes that somebody always drives her to places now, as in the past, she has become confused as to where she was. She lives with her daughter. Her daughter notes that the patient will have trouble initiating a step when she approaches a floor covering that is brighter or shinier. The patient states that psych, it is like her feet will not listen to her. She denies any interval falls. She endorses occasionally smelling or hearing things that are not there. She is prone to drooling and swallowing difficulties. She may feel an internal tremor, but does not see any external tremor. Reports indicate an improvement in well-being through socialization and participation in activities such as yazdanism events. She has a history of being treated for schizophrenia, back when she was in [place]. Since being in the [facility] she has had an inpatient psychiatric admission. They do not know what specific types of psychiatric medications the patient has received in the past, but she has taken several different ones over the years. She is currently on quetiapine at a low dose. History of TIA: She has not yet had the follow-up brain MRI She states the headache she had mentioned at the last visit has resolved. 02/16/2025 (at [facility]), CT angiography head and neck with contrast 1. Patent bilateral carotid and vertebral arterial systems at the level of the neck with 60% luminal stenosis focally at the left common carotid artery related to vessel tortuosity/buckling. 2. Patent anterior and posterior intracranial arterial circulation. No large vessel occlusion. 02/05/2025, HPI: 74-yr-old female presents for urgent [facility] ER evaluation for possible TIA. Pt accompanied by her dtr, Thais, who assists w/ history and [place]iboutian interpretation. Pt reports on 02/16/25, pt underwent right breast lumpectomy under general anesthesia. After the surgery, which was uncomplicated pt returned home. Later that day, dtr had stepped out of the room, when she came back, she found the pt unresponsive x's at least 2 minutes after finding her. As pt came to, she was confused, had slurred speech, numbness in both hands and lips, on tongue protrusion - had left tongue deviation. After the episode, pt told her dtr at the time of the event, she had felt a cold sensation or water running down from the top left side of the head- distinct from her previous headaches. Pt's dtr called [facility] and then brought pt to [facility] ER. In the ER, pt had asymmetric peripheral sensation left less than right but otherwise no focal neuro findings. Work-up- initial BP/HR 165/71, 71; EKG normal sinus rhythm, CT head w/o- unremarkable. Troponin negative, CTA head/neck- left carotid 60% stenosis w/ vessel tortuosity/buckling. Note, lipid panel from October 2024 shows mildly elevated total cholesterol and LDL- per PCP note, patient was advised to continue atorvastatin 40 mg daily, and optimize diet. Patient was discharged home with instructions to follow-up with PCP and Neurology. Patient reports since returning home, she has returned to her baseline. She denies any residual confusion, dysarthria, dysphagia, numbness, or weakness. Today, her BP is normotensive at 110/60 with heart rate 56. Patient last saw cardiology for a order arch ulceration in the winter. She believes she is due for follow-up chest imaging. 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 Patient is scheduled to establish care with Medical Oncology and Radiation Oncology at [facility]. ? Lab Results from [facility] Component Value Date ? CHOL 206 (A) 10/03/2023 ? TRIG 92 10/03/2023 ? HDL 69 10/03/2023 ? LDL 119 (A) 10/03/2023 Results from [facility] ER on 02/16/2025 Labs Reviewed BASIC METABOLIC PANEL - Abnormal Result Value ? Sodium 137 ? ? Potassium 4.6 ? ? Chloride 106 ? ? CO2 25 ? ? Anion Gap 6 ? ? Glucose 157 (*) ? ? BUN 28 (*) ? ? Creatinine 1.27 (*) ? ? eGFR 44 (*) ? ? BUN/Creatinine Ratio 22.0 ? ? Calcium 9.9 ? CBC WITH AUTO DIFFERENTIAL - Abnormal ? WBC 7.1 ? ? RBC 4.30 ? ? Hemoglobin 11.7 ? ? Hematocrit 39.1 ? ? MCV 91.1 ? ? MCH 27.3 ? ? MCHC 29.9 (*) ? ? RDW 13.7 ? ? Platelets 199 ? ? MPV 11.1 (*) ? ? NRBC 0.0 ? ? NRBC Absolute 0.00 ? MANUAL DIFFERENTIAL - INSTRUMENT DIFFERENTIAL - Abnormal ? Neutrophils % 95.0 ? ? Lymphocytes % 5.0 ? ? Monocytes % 0.0 ? ? Eosinophils % 0.0 ? ? Basophils % 0.0 ? ? Neutrophils Absolute Manual 6.75 ? ? Lymphocytes Absolute 0.36 (*) ? ? Monocytes Absolute Manual 0.00 (*) ? ? Eosinophils Absolute Manual 0.00 ? ? Basophils Absolute Manual 0.00 ? ? Rbc Morphology Present (*) ? ? Platelet Morphology - WAM See Note (*) ? ? Ovalocytes Present 5 - 10% (*) ? MAGNESIUM - Normal ? Magnesium 1.9 ? TROPONIN I HIGH SENSITIVITY - Normal ? High Sensitivity Troponin I 9 ? ? Narrative: ? High levels of biotin in samples may falsely decrease hsTroponin values. Use caution when interpreting hsTroponin results in patients taking biotin who exhibit renal impairment (eGFR <60) or in patients taking more than 20 mg/day of biotin. TROPONIN I HIGH SENSITIVITY - Normal ? High Sensitivity Troponin I 9 ? ? Narrative: ? High levels of biotin in samples may falsely decrease hsTroponin values. Use caution when interpreting hsTroponin results in patients taking biotin who exhibit renal impairment (eGFR <60) or in patients taking more than 20 mg/day of biotin. URINALYSIS WITH REFLEX MICROSCOPIC AND CULTURE - Normal ? Specific [place] Urine 1.017 ? ? pH, Urine 6.0 ? ? Leukocytes, Urine Negative ? ? Nitrite, Urine Negative ? ? Protein, Urine Negative ? ? Glucose, Urine Negative ? ? Ketones, Urine Negative ? ? Urobilinogen, Urine 0.2 ? ? Bilirubin, Urine Negative ? ? Blood, Urine Negative ? CBC AND DIFFERENTIAL ? Narrative: ? The following orders were created for panel order CBC and differential. Procedure Abnormality Status --------- ------ CBC auto differential[[id number]] Abnormal Final result Please view results for these tests on the individual orders. URINALYSIS WITH REFLEX MICROSCOPIC AND CULTURE ? Narrative: ? The following orders were created for panel order Urinalysis with reflex microscopic and culture. Procedure Abnormality Status --------- ------ Urinalysis with reflex ...[[id number]] Normal Final result Gómez urine culture tube[[id number]] Final result Please view results for these tests on the individual orders. POCT GLUCOSE, BLOOD ? Results from [facility] ER on 02/16/2025 Abnormal Labs Reviewed BASIC METABOLIC PANEL - Abnormal; Notable for the following components: Result Value ? Glucose 157 (*) ? ? BUN 28 (*) ? ? Creatinine 1.27 (*) ? ? eGFR 44 (*) ? ? All other components within normal limits CBC WITH AUTO DIFFERENTIAL - Abnormal; Notable for the following components: ? MCHC 29.9 (*) ? ? MPV 11.1 (*) ? ? All other components within normal limits MANUAL DIFFERENTIAL - INSTRUMENT DIFFERENTIAL - Abnormal; Notable for the following components: ? Lymphocytes Absolute 0.36 (*) ? ? Monocytes Absolute Manual 0.00 (*) ? ? Rbc Morphology Present (*) ? ? Platelet Morphology - WAM See Note (*) ? ? Ovalocytes Present 5 - 10% (*) ? ? All other components within normal limits ? Results from [facility] ER on 02/16/2025 CT Angio Head/Neck wo and/or w Contrast Final Result Addendum (preliminary) ADDENDUM: This report was discussed with Brisa GARCIA on Feb 16, 2025 22:06:00 EDT. ? This document has been electronically signed by: Alexandra Le on 02/16/2025 22:07:25 ? Final Impression: 1. No acute intracranial abnormality. No acute intracranial hemorrhage. ? ? CT angiography head and neck with contrast. 3-D postprocessing ? Comparison: None ? Findings: ? There is atherosclerotic irregularity of the aortic arch. The bilateral common carotid arteries and cervical portions of the internal carotid arteries appear patent. There is 60% luminal stenosis by NASCET criteria focally at the left common carotid artery related to vessel tortuosity/buckling. The vertebral arteries appear patent bilaterally at the level of the neck. No carotid or vertebral dissection is seen. There is no evidence of vasculitis. ? The intracranial vertebrobasilar system appears patent. Cerebellar and posterior cerebral arteries are intact. Intracranial internal carotid arteries appear patent. Middle/anterior cerebral arteries also appear patent. No aneurysms or abrupt cutoffs visualized. ? Impression: 1. Patent bilateral carotid and vertebral arterial systems at the level of the neck with 60% luminal stenosis focally at the left common carotid artery related to vessel tortuosity/buckling. 2. Patent anterior and posterior intracranial arterial circulation. No large vessel occlusion. ? This document has been electronically signed by: Jewel Galeana MD on 02/16/2025 22:02:14 [facility] Medical History (Updated 06/22/25 @ 22:41 by MORIAH Branch) Encounter for monitoring tocilizumab therapy Headache Anemia History of pulmonary embolism Nephrolithiasis High cholesterol Asthma Hypertension Surgical History S/P lumpectomy, right breast H/O breast biopsy History of hysterectomy H/O colonoscopy Family History Mother Varicose vein of leg Depression Hypertension Asthma Heart disease Father Cerebrovascular accident (CVA) Kidney stones Sister Varicose vein of leg Depression Brother Depression Varicose vein of leg Daughter Varicose vein of leg Lupus anticoagulant disorder Maternal Grandfather Colon cancer Social History Household Members: Children Household Members Other:: sister Housing: House Are you a primary patient care associate to a significant other at home: No Do you presently have visiting nurse or other home services: No Alcohol intake: never Patient Tobacco Use Status: Never used Tobacco Second Hand Smoke Exposure: No service: No Physical Exam Vital Signs: Last Vital Signs Pulse 64 06/22/25 13:02 BP 128/64 06/22/25 13:02 Pulse Ox 97 06/22/25 13:02 Oxygen Delivery Method Room Air 06/22/25 13:02 BMI result Body Mass Index 39.1 Const General: cooperative and no acute distress HEENT Head: Yes normocephalic Resp Effort & Inspection: normal respiratory effort and able to speak in complete sentences Neuro Other: Alert and oriented x3 with mild short-term memory lapses, inability to recall what floor of the building we are on. Facial expression: Intact Voice: Soft Fine finger movements: Intact BUE MINA: Slightly decreased on left Dyskinesia: None appreciated Tone: No appreciable tone or rigidity Foot taps: Slight decreased fluidity Stand slowly, daughter provides contact guard Motor exam (neuro): 5/5 motor strength present throughout Psych Appearance: grossly normal Mental Status: mental status grossly normal Speech and movement: Normal speech and movement present Affect: normal affect Attitude: cooperative Thought process: Normal thought process present Thought content: Normal thought content present Insight: Good insight present (Psych) Judgement: Good judgement present (Psych) Assessment & Plan Assessment & Plan (1) Cognitive changes: Code(s): R41.89 - Other symptoms and signs involving cognitive functions and awareness Category: Medical (2) Gait difficulty: Code(s): R26.9 - Unspecified abnormalities of gait and mobility Category: Medical (3) GCA (giant cell arteritis): Comment: dx 01/2024 (positive PET scan) Actemra 01/2024 effective Code(s): M31.6 - Other giant cell arteritis Category: Medical (4) Migraine without aura: Code(s): G43.009 - Migraine without aura, not intractable, without status migrainosus Category: Medical Qualifiers: Status migrainosus presence: without status migrainosus Intractability: not intractable Qualified Code(s): G43.009 - Migraine without aura, not intractable, without status migrainosus Plan Discussion notes I discussed the complexity of the patient's cognitive changes, recognizing the potential role of her past stroke and the associated cerebral changes noted on MRI. We talked about how her cognitive status might be influenced by previous treatments, such as those for schizophrenia, which can affect movement and perception. Given the absence of acute findings on MRI, continued management and observation were emphasized for cognitive symptoms. We reviewed guidelines to maintain cognitive function, including engaging in social activities, physical exercise, and mental stimulation. Gorge initiate a referral for home PT. She has stoppedaspirin, considering previous bleeding episodes linked to hemorrhoids, while recommending close monitoring of her blood pressure and cholesterol to mitigate vascular risks. Regarding her breast cancer, we acknowledged the completion of radiation therapy and mentioned the importance of continued surveillance. Encouraged to follow up with cardiology, cardiac surgery, and rheumatology as scheduled. The patient was encouraged to reach out if symptoms related to any of her conditions worsen. Patient was informed and verbally consented to the use of an ambient scribe for clinic note documentation during this visit. For history of likely TIA: Reviewed Brain MRI with and without contrast: No acute findings. Evidence of white matter disease likely related to small vessel occlusive. Continue to optimize cardiovascular risk factors, continue antihypertensive and statin therapy per Cardiology. Serial chest CTA per [facility] cardiac surgery Hold aspirin 81 mg daily at bedtime order due to recent hospitalization for renally lower GI bleed Follow-up with [facility] cardiology, [facility] cardiac surgery, [facility] rheumatology and [place] oncology as scheduled For gait and cognitive difficulties: Engage in regular physical exercise and attend social gatherings for cognitive stimulation. Practice brain exercises like puzzles or word searches. Discussed simple strategies to break freezing episode when walking, such as stepping in place or tapping her leg with her hand. We will initiate an order for Home PT. Patient meets homebound requirements based on requires assistance of family members to leave home safely due to cognitive difficulties, and gait difficulties. We will monitor internal tremor. We will monitor chronic olfactory and auditory hallucinations, which may be secondary to history of psychiatric disorder versus emerging movement disorder. For headache: Continue Riboflavin 400mg qam. Continue Magnesium 400mg daily at bedtime. Continue use Tylenol or Ibuprofen prn headache. Information previously shared on non-pharmalogical headache tx's- such as cooling caps, loop ear plus. Report any new or worsening symptoms of cognitive impairment or other conditions. ?Will follow-up upon review of above and patient to follow-up in clinic in 6 months or sooner prn. Orders: Referrals [facility]/Hospice Referral D05.11 - Intraductal carcinoma in situ of right breast, M31.6 - Other giant cell arteritis, R26.9 - Unspecified abnormalities of gait and mobility, R41.89 - Other symptoms and signs involving cognitive functions and awareness Coding Level of Care Code Est Pt Level 4 (39084) Complex EM visit Add On G2211 Diagnoses Cognitive changes R41.89 Gait difficulty R26.9 GCA (giant cell arteritis) M31.6 Migraine without aura and without status migrainosus, not intractable G43.009 Status migrainosus presence: without status migrainosus Intractability: not intractable
[2025-06-22 13:02] VITALS: BP 128/64; PULSE 64; O2SAT 97; BMI 39.1
--- OUTSIDE RECORDS SUMMARY | 2025-06-22 18:12 | XMS_ITS ---
Author Organization [facility] [address] [place] [address] [place] [phone] Phone Care Team Providers Care Assistant Men'S Soccer Coach Name Role Phone Chandrika Cronin MD Primary [...] the abdomen 11/07/2023 Aortic arch atherosclerosis ([facility]/HCC V24) 2022 Overview (11/07/2023): Last Assessment & Plan: Incidental, asymptomatic finding of aortic arch penetrating ulcer. I conferred with [facility] cardiac surgery Dr. Farr and concluded [...] Depression 07/05/2013 Overview (11/07/2023): F/u BHN at [facility] 09/09/2012 Assessment & Plan (05/18/2025 9:54 [...]
--- OUTSIDE RECORDS SUMMARY | 2025-06-22 18:12 | XMS_ITS | Clinical Summary ---
Author Organization [address] Address [address] [place] [phone] Phone Care Team Providers Care Strategic Marketing Manager Name Role Phone Chandrika Cronin MD [...] time each day. 90 tablet 3 05/18/20 Active rosuvastatin (CRESTOR) 20 mg tablet Take [...] for 14 days. 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 I conferred with [facility] cardiac surgery Dr. Farr and concluded [...] midline thoracic back pain 04/18/2022 Bleeding disorder ([facility] V24) 04/17/2022 Prediabetes 04/17/2022 Overview (11/07/2023): [...] Depression 07/05/2013 Overview (11/07/2023): F/u BHN at [facility] 09/09/2012 Assessment & Plan (05/18/2025 9:54 AM EDT): Well controlled, ACT 20, continue Flovent, Albuterol. Nephrolithiasis 06/12/2012 Resolved Problems Problem Noted Date Diagnosed Date Resolved Date History of 2019 novel sykes virus disease (COVID-19) 01/22/2021 02/02/2025 Encounters Date Type Department Care Team Description 05/19/2025 9:50 AM EDT - 05/19/2025 11:59 PM EDT Hospital Encounter Bone Density [address] [phone] Encounter for screening for osteoporosis Discharge Disposition: Home or Self Care 05/18/2025 9:00 AM EDT Office Visit Adult Medicine [address] [phone] Chandrika Cronin MD Encounter for annual general medical examination with abnormal findings in adult (Primary Dx); Essential hypertension; Dyslipidemia; Moderate persistent asthma, unspecified whether complicated; Epigastric pain; Need for prophylactic vaccination and inoculation against influenza; Advance care planning 05/12/2025 10:30 AM EDT Office Visit Adult [address] [phone] Chandrika Cronin MD Hospital discharge follow-up (Primary Dx); Gastrointestinal hemorrhage, unspecified gastrointestinal hemorrhage type; ZUNILDA (acute kidney injury) (CMS/HCC V24); Essential hypertension 05/06/2025 8:35 AM EDT - 05/06/2025 11:59 PM EDT Hospital Encounter [facility] Radiation Oncology [address] [place] [phone] Danae Dickson MD 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) Discharge Disposition: Home or Self Care 05/06/2025 8:26 AM EDT - 05/06/2025 11:59 PM EDT Hospital Encounter [facility] Radiation Oncology [address] [place] [phone] Danae Dickson MD Discharge Disposition: Home or Self Care 05/05/2025 8:25 AM EDT - 05/05/2025 11:59 PM EDT Hospital Encounter [facility] Radiation Oncology [address] [place] [phone] Discharge Disposition: Home or Self Care 05/04/2025 8:21 AM EDT - 05/04/2025 11:59 PM EDT Hospital Encounter [facility] Radiation Oncology [address] [place] [phone] Discharge Disposition: Home or Self Care 05/03/2025 8:35 AM EDT - 05/03/2025 11:59 PM EDT Hospital Encounter [facility] Radiation Oncology [address] [place] [phone] Roland López MD Discharge Disposition: Home or Self Care 05/03/2025 8:21 AM EDT - 05/03/2025 11:59 PM EDT Hospital Encounter [facility] Radiation Oncology [address] [place] [phone] Discharge Disposition: Home or Self Care 04/29/2025 8:39 AM EDT - 04/29/2025 11:59 PM EDT Hospital Encounter [facility] Radiation Oncology [address] [place] [phone] Danae Dickson MD 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) Discharge Disposition: Home or Self Care 04/29/2025 8:29 AM EDT - 04/29/2025 11:59 PM EDT Hospital Encounter [facility] Radiation Oncology [address] [place] [phone] Discharge Disposition: Home or Self Care 04/28/2025 8:22 AM EDT - 04/28/2025 11:59 PM EDT Hospital Encounter [facility] Radiation Oncology [address] [place] [phone] Discharge Disposition: Home or Self Care 04/22/2025 8:40 AM EDT - 04/22/2025 11:59 PM EDT Hospital Encounter [facility] Radiation Oncology [address] [place] [phone] Danae Dickson MD 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) Discharge Disposition: Home or Self Care 04/22/2025 8:22 AM EDT - 04/22/2025 11:59 PM EDT Hospital Encounter [facility] Radiation Oncology [address] [place] [phone] Discharge Disposition: Home or Self Care 04/21/2025 9:29 AM EDT - 04/21/2025 11:59 PM EDT Hospital Encounter [facility] Radiation Oncology [address] [place] [phone] Discharge Disposition: Home or Self Care 04/20/2025 8:20 AM EDT - 04/20/2025 11:59 PM EDT Hospital Encounter [facility] Radiation Oncology [address] [place] [phone] Discharge Disposition: Home or Self Care 04/19/2025 8:24 AM EDT - 04/19/2025 11:59 PM EDT Hospital Encounter [facility] Radiation Oncology [address] [place] [phone] Discharge Disposition: Home or Self Care 04/18/2025 8:27 AM EDT - 04/18/2025 11:59 PM EDT Hospital Encounter [facility] Radiation Oncology [address] [place] [phone] Discharge Disposition: Home or Self Care 04/15/2025 8:35 AM EDT - 04/15/2025 11:59 PM EDT Hospital Encounter [facility] Radiation Oncology [address] [place] [phone] Ray Diaz MD 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) Discharge Disposition: Home or Self Care 04/15/2025 8:24 AM EDT - 04/15/2025 11:59 PM EDT Hospital Encounter [facility] Radiation Oncology [address] [place] [phone] Discharge Disposition: Home or Self Care 04/14/2025 8:25 AM EDT - 04/14/2025 11:59 PM EDT Hospital Encounter [facility] Radiation Oncology [address] [place] [phone] Discharge Disposition: Home or Self Care 04/13/2025 8:27 AM EDT - 04/13/2025 11:59 PM EDT Hospital Encounter [facility] Radiation Oncology [address] [place] [phone] Discharge Disposition: Home or Self Care 04/12/2025 8:29 AM EDT - 04/12/2025 11:59 PM EDT Hospital Encounter [facility] Radiation Oncology [address] [place] [phone] Discharge Disposition: Home or Self Care 04/11/2025 8:25 AM EDT - 04/11/2025 11:59 PM EDT Hospital Encounter [facility] Radiation Oncology [address] [place] [phone] Discharge Disposition: Home or Self Care 04/08/2025 8:35 AM EDT - 04/08/2025 11:59 PM EDT Hospital Encounter [facility] Radiation Oncology [address] [place] [phone] Danae Dickson MD 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) Discharge Disposition: Home or Self Care 04/08/2025 8:26 AM EDT - 04/08/2025 11:59 PM EDT Hospital Encounter [facility] Radiation Oncology [address] [place] [phone] Discharge Disposition: Home or Self Care 04/07/2025 8:25 AM EDT - 04/07/2025 11:59 PM EDT Hospital Encounter [facility] Radiation Oncology [address] [place] [phone] Discharge Disposition: Home or Self Care 04/06/2025 8:30 AM EDT - 04/06/2025 11:59 PM EDT Hospital Encounter [facility] Radiation Oncology [address] [place] [phone] Discharge Disposition: Home or Self Care 04/05/2025 8:19 AM EDT - 04/05/2025 11:59 PM EDT Hospital Encounter [facility] Radiation Oncology [address] [place] [phone] Discharge Disposition: Home or Self Care 04/04/2025 10:00 AM EDT - 04/04/2025 11:59 PM EDT Hospital Encounter [facility] Radiation Oncology [address] [place] [phone] Roland López MD Discharge Disposition: Home or Self Care 04/04/2025 9:39 AM EDT - 04/04/2025 11:59 PM EDT Hospital Encounter [facility] Radiation Oncology [address] [place] [phone] Discharge Disposition: Home or Self Care 03/25/2025 8:26 AM EDT - 03/25/2025 11:59 PM EDT Hospital Encounter [facility] Radiation Oncology [address] [place] [phone] Discharge Disposition: Home or Self Care 03/24/2025 9:51 AM EDT - 03/24/2025 11:59 PM EDT Hospital Encounter [facility] Radiation Oncology [address] [place] [phone] Danae Dickson MD 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 Polyps removed. BREAST BIOPSY NEEDLE RT 01/26/2025 [...] obesity with BMI of 4 0.0-44.9, adult ([facility] V24, [facility] V28) 06/16/2018 Asymptomatic varicose veins of both lower extremities 06/16/[address] of the abdomen OA (osteoarthritis) of hip 07/09/2021 Prediabetes 04/17/2022 Fecal incontinence Fecal urgency Dysphagia Irritable bowel syndrome PONV (postoperative nausea and vomiting) GERD (gastroesophageal reflux disease) Breast cancer ([facility] V24, [facility] V28) Aortic aneurysm ([facility] V24) Family History Medical History Relation [...] Record ed Within the last 3 months, ho w many times did you visit the emergency [...] for your loved ones. For example, child welfare specialist or elderly care for an older adult? [...] 2:00 PM EDT Office Visit Breast Care [address] [phone] Adam Estes PA [address] [place] [phone] 09/07/2025 3:00 PM EST Office Visit [facility] Hematology Oncology [address] [place] [phone] Los Morris MD [address] [place] [phone] 09/19/2025 12:30 PM EST Office Visit Adult Medicine East - [address] [phone] Chandrika Cronin MD [address] [place], [place] 10/19/2025 1:20 PM EST Office Visit Gastroenterology - [address] [place] [phone] Shena Nance, GASOLINE TRUCK CRANE OPERATOR [address] [facility] [address] [place] [address] 01/11/2026 1:30 PM EDT Appointment Radiology Department - [address] [phone] Health Maintenance Due Date Last Done Comments [...] this topic Medical Devices Implanted Type Area Proposal Consultant Device Identifier Shelf Expiration Date Model / Serial / Lot Marker [address] - [id number] - [id number] Implanted:Qty: 1 on 02/09/2025 by Edu Spann MD at [facility] Imaging Implants Right: Breast DEVICOR [employer] [id number] 07/01/2026 [id number] / [id number] Procedures Procedure Name Priority Date/Time Associated Diagnosis [...] (World Health Organization Fracture Risk Assessment) [facility] Department of Internal Medicine recommends [...] alternative screening schedule based on asiya Almazan., [facility] September 19, 2011 for patients [...] Signed Date: 05/22/2025 03:57 ET Workstation ID: [id number] Transcribed By: Self Edit Transcribed Date: 05/22/2025 [...] years. (World Health OrganizationFracture Risk Assessment) [facility] Department of Internal Medicine recommendsusing [...] Signed Date: 05/22/2025 03:57 ET Workstation ID: [id number] Transcribed By: Self Edit Transcribed Date: 05/22/2025 03:53 ET Chandrika Cronin MD [facility] DXA PROCEDURES Final Result * (ABNORMAL) Helicobacter pylori antigen, stool (05/19/2025 9:46 AM EDT) Helicobacter Pylori Ag DETECTED( A) Not detected 05/24/2025 2:41 PM EDT [facility] Comment: This test was performed at [facility] using a chemiluminescent immunoassay intended [...] Food and Drug Administration. Test performed at [facility], [address] , [place] [address] Paula Trinh MD, PhD - Photonics Engineering Technician Stool Rectum structure / Unknown Non-blood Collection / Unknown 05/19/2025 9:46 AM EDT 05/19/2025 9:46 AM EDT Chandrika Cronin MD LAB BODY FLUIDS AN D STOOLS ORDERABLES Final Result [facility] [address] [place] [address] * (ABNORMAL) Lipid panel with reflex to direct LDL (05/18/2025 7:56 AM EDT) Cholesterol 247(H) 0 - 200 mg/dL LAB CHEMISTRY METHOD 05/18/2025 10:50 AM EDT [facility] Triglycerides 140 0 - 150 mg/dL LAB CHEMISTRY METHOD 05/18/2025 10:50 AM EDT [facility] HDL 73 >=40 mg/dL LAB CHEMISTRY METHOD 05/18/2025 10:50 AM EDT [facility] LDL Calculated 146(H) 0 - 100 mg/dL LAB CHEMISTRY METHOD 05/18/2025 10:50 AM EDT [facility] Comment:Estimated LDL Calcul ated using equation: Total cholesterol - HDL cholesterol - (Triglycerides/5) VLDL Cholesterol Nithin 28 mg/dL LAB CHEMISTRY METHOD 05/18/2025 10:50 AM EDT [facility] Non HDL Chol. (LDL+VLDL) 174(H) <145 mg/dL LAB CHEMISTRY METHOD 05/18/2025 10:50 AM EDT [facility] Chol/HDL Ratio 3.4 0.0 - 4.4 LAB CHEMISTRY METHOD 05/18/2025 10:50 AM EDT [facility] Blood Venous blood specimen / Unknown Venipuncture / Unknown 05/18/2025 7:56 AM EDT 05/18/2025 7:56 AM EDT us Dominique GARCIA LAB BLOOD ORDERABLES Final Resu lt [facility] [address] [place] [address], [place] [phone] * (ABNORMAL) Comprehensive metabolic panel (05/18/2025 7:56 AM EDT) Only the most recent of2 resultswithin the time period is included. Sodium 139 133 - 145 mmol/L LAB CHEMISTRY METHOD 05/18/2025 10:50 AM [facility] Potassium 3.9 3.5 - 5.5 mmol/L LAB CHEMISTRY METHOD 05/18/2025 10:50 AM [facility] Chloride 103 96 - 110 mmol/L LAB CHEMISTRY METHOD 05/18/2025 10:50 AM [facility] CO2 28 21 - 32 mmol/L LAB CHEMISTRY METHOD 05/18/2025 10:50 AM [facility] Anion Gap 8 3 - 11 LAB CHEMISTRY METHOD 05/18/2025 10:50 AM [facility] Glucose 104(H) 70 - 100 mg/dL LAB CHEMISTRY METHOD 05/18/2025 10:50 AM [facility] BUN 25 5 - 25 mg/dL LAB CHEMISTRY METHOD 05/18/2025 10:50 AM [facility] Creatinine 1.15(H) 0.50 - 1.10 mg/dL LAB CHEMISTRY METHOD 05/18/2025 10:50 AM [facility] eGFR 50(L) >=60 mL/min/1. 73m2 LAB CHEMISTRY METHOD 05/18/2025 10:50 AM [facility] Comment:Calculation based on the Chronic Kidney Disease Epidemiology Collaboration (CKD-EPI) equation refit without adjustment for race. BUN/Creatinine Ratio 21.7 LAB CHEMISTRY METHOD 05/18/2025 10:50 AM [facility] Calcium 10.1 8.5 - 10.5 mg/dL LAB CHEMISTRY METHOD 05/18/2025 10:50 AM [facility] AST (SGOT) 23 10 - 42 unit/L LAB CHEMISTRY METHOD 05/18/2025 10:50 AM [facility] ALT (SGPT) 37 10 - 60 unit/L LAB CHEMISTRY METHOD 05/18/2025 10:50 AM [facility] Alkaline Phosphatase 79 42 - 121 unit/L LAB CHEMISTRY METHOD 05/18/2025 10:50 AM [facility] Total Protein 7.8 6.0 - 8.0 g/dL LAB CHEMISTRY METHOD 05/18/2025 10:50 AM [facility] Albumin 4.2 3.2 - 5.0 g/dL LAB CHEMISTRY METHOD 05/18/2025 10:50 AM [facility] Total Bilirubin 0.5 0.0 - 1.4 mg/dL LAB CHEMISTRY METHOD 05/18/2025 10:50 AM [facility] Blood Venous blood specimen / Unknown Venipuncture / Unknown 05/18/2025 7:56 AM EDT 05/18/2025 7:56 AM EDT us Dominique GARCIA LAB BLOOD ORDERABLES Final Resu lt [facility] [address] [place] [address], * (ABNORMAL) CBC auto differential (05/12/2025 10:58 AM EDT) WBC 7.8 4.8 - 10.8 K/mcL LAB HEMETOLOGY METHOD 05/12/2025 12:15 PM EDT [facility] RBC 4.30 3.80 - 4.80 M/mcL LAB HEMETOLOGY METHOD 05/12/2025 12:15 PM EDT [facility] Hemoglobin 11.8 11.5 - 16.0 g/dL LAB HEMETOLOGY METHOD 05/12/2025 12:15 PM EDT [facility] Hematocrit 37.5 35.0 - 47.0 % LAB HEMETOLOGY METHOD 05/12/2025 12:15 PM EDT [facility] MCV 86.8 79.0 - 98.0 FL LAB HEMETOLOGY METHOD 05/12/2025 12:15 PM EDT [facility] MCH 27.3 27.0 - 32.0 pcg LAB HEMETOLOGY METHOD 05/12/2025 12:15 PM EDT [facility] MCHC 31.5(L) 32.0 - 37.0 g/dL LAB HEMETOLOGY METHOD 05/12/2025 12:15 PM EDT [facility] RDW 13.0 11.0 - 15.0 % LAB HEMETOLOGY METHOD 05/12/2025 12:15 PM EDT [facility] Platelets 268 130 - 400 K/mcL LAB HEMETOLOGY METHOD 05/12/2025 12:15 PM EDT [facility] MPV 10.8 7.0 - 11.0 FL LAB [facility]ETOLOGY [facility] NRBC 0.0 <1.0 % LAB HEMETOLOGY METHOD 05/12/2025 12:15 PM [facility] NRBC Absolute 0.00 <0.10 K/mcL LAB HEMETOLOGY METHOD 05/12/2025 12:15 PM [facility] Neutrophils Relative 71.1 % LAB HEMETOLOGY METHOD 05/12/2025 12:15 PM [facility] Lymphocytes Relative 9.5 % LAB HEMETOLOGY METHOD 05/12/2025 12:15 PM [facility] Monocytes Relative 13.4 % LAB HEMETOLOGY METHOD 05/12/2025 12:15 PM [facility] Eosinophils Relative 5.1 % LAB HEMETOLOGY METHOD 05/12/2025 12:15 PM [facility] Basophils Relative 0.5 % LAB HEMETOLOGY METHOD 05/12/2025 12:15 PM [facility] Immature Granulocytes Relative 0.4 % LAB HEMETOLOGY METHOD 05/12/2025 12:15 PM [facility] Neutrophils Absolute 5.54 1.50 - 7.00 K/mcL LAB HEMETOLOGY METHOD 05/12/2025 12:15 PM [facility] Lymphocytes Absolute 0.74(L) 1.00 - 5.00 K/mcL LAB HEMETOLOGY METHOD 05/12/2025 12:15 PM [facility] Monocytes Absolute 1.04(H) 0.20 - 1.00 K/mcL LAB HEMETOLOGY METHOD 05/12/2025 12:15 PM [facility] Eosinophils Absolute 0.40 0.00 - 0.50 K/mcL LAB HEMETOLOGY METHOD 05/12/2025 12:15 PM [facility] Basophils Absolute 0.04 0.00 - 0.20 K/[facility] LAB HEMETOLOGY METHOD 05/12/2025 12:15 PM EDT [facility] Immature Granulocytes Absolute 0.03 0.00 - 0.03 /[facility] LAB HEMETOLOGY METHOD 05/12/2025 12:15 PM EDT [facility] Blood Venous blood specimen / Unknown Venipuncture / Unknown 05/12/2025 10:58 AM EDT 05/12/2025 10:58 AM EDT Chandrika Cronin MD LAB BLOOD ORDERABL ES Final Result [facility] [address] [place] [address], [place] [phone] * Rad Onc Msq Treatment Summary (05/06/2025 [...] GY ORDERABLES Final Result Performing Organization Address City/[facility]/ZIP Co de Phone Number [facility] RADIATION ONCOLOGY [...] 8:34 AM EDT Physician Radiation Oncology RADIATION ONCKEYONA [...] GY ORDERABLES Final Result Performing Organization Address City/[facility]/ZIP Co de Phone Number [facility] RADIATION ONCOLOGY [...] [facility] RADIATION ONCOLOGY 04/13/2025 8:41 AM EDT us Physician Radiation Oncology RADIATION [...] GY ORDERABLES Final Result Performing Organization Address City/[facility]/ZIP Co de Phone Number [facility] RADIATION ONCOLOGY [...] 2 AM EDT Physician Radiation Oncology RADIATION ONCOLO GY ORDERABLES Final Result [facility] RADIATION ONCOLOGY * (ABNORMAL) MG Mammo Digital [...] patient's daughter with the help of the Marshallese speaker technologist in the room (paraprofessional interpreter via video was not available at that moment). BREAST DENSITY: B - There are scattered areas of fibroglandular density. BI-RADS CATEGORY: 4 - SUSPICIOUS RECOMMENDATION: Mammography: Core biopsy of right breast recommended. Ultrasound: Core biopsy of left breast recommended. Mammo Location: [facility], [address] [place] [address], [id number], . -------- FINAL REPORT -------- Dictated By: Evonne Batres Dictated Date: 01/19/2025 15:04 ET Assigned Physician: Evonne Batres Reviewed and Electronically Signed By: Evonne Batres Signed Date: 01/19/2025 16:05 ET Workstation ID: [id number] Transcribed By: Self Edit Transcribed Date: 01/19/2025 [...] and patient'sdaughter with the help of the Marshallese speaker technologist in the room(paraprofessional interpreter via video was not available at that moment). BREAST DENSITY: B - There are scattered areas of fibroglandular density. BI-RADS CATEGORY: 4 - SUSPICIOUS RECOMMENDATION: Mammography: Core biopsy of right breast recommended. Ultrasound: Core biopsy of left breast recommended. Mammo Location: [facility], [address] [place] [address], [phone], . -------- FINAL REPORT -------- Dictated By: Evonne Batres Dictated Date: 01/19/2025 15:04 ET Assigned Physician: Evonne Batres Reviewed and Electronically Signed By: Evonne Batres Signed Date: 01/19/2025 16:05 ET Workstation ID: [id number] Transcribed By: Self Edit Transcribed Date: 01/19/2025 15:14 ET Chandrika Cronin MD IMG BI PROCEDURES Final Result * Falls Risk Assessment (03/16/2024) Falls Risk Assessment Abstracted Historical Provider HEALTH MAINTENANCE Final Result * Depression Screening (03/16/2024) Pathologist [facility] Depression Screening Abstracted Historical Provider HEALTH MAINTENANCE Final Result * Colonoscopy (04/29/2022) Pathologist [facility] Colonoscopy No interpretation , Abstracted Anatomical Region Laterality Modality Other Historical Provider HEALTH MAINTENANCE Final Result * Hepatitis C Screening (07/05/2013) Pathologist [facility] Hepatitis C Screening Abstracted Historical Provider HEALTH MAINTENANCE Final Result from Last 3 Months or Most Recently Relevant to Health Maintenance Insurance MEDICARE Member Subscriber Plan / Payer (Ef fective 2023-Present) Name:Laura Mullen Relation to Subscriber:Self Name:Laura Sraabia Payer ID:[id number] Group ID:[id number] Type:Not on file Address: [place] [address] [address] [id number] Advance Directives Documents on File Type Date Recorded Patient Head Of Human Resources Expl anation Health Care Decision (hx) 12/19/2022 [...] currently active code status orders. Care Teams Strategic Marketing Manager Relationship Specialty Start Date End Date Chandrika Cronin MD [address] [place] [phone] PCP - General Internal Medicine 08/20/24
== END 2025-06-22 13:46 | disposition home or self-care (01) ==
PROVIDERS: PCP Internal Medicine; Visit Provider Nurse Practitioner Family
DX: R41.89 Other symptoms and signs involving cognitive functions and awareness (principal); R26.9 Unspecified abnormalities of gait and mobility; M31.6 Other giant cell arteritis; G43.009 Migraine without aura, not intractable, without status migrainosus
CPT/HCPCS: 99214; G2211

== ENCOUNTER → 2025-06-22 12:59 | Outpatient (BNVA) | payer OTHER, SELFPAY | PROVIDERS: PCP Internal Medicine; Visit Provider Nurse Practitioner Family | DX: R41.89 Other symptoms and signs involving cognitive functions and awareness (principal); R26.9 Unspecified abnormalities of gait and mobility; M31.6 Other giant cell arteritis; G43.009 Migraine without aura, not intractable, without status migrainosus; Z86.73 Personal history of transient ischemic attack (TIA), and cerebral infarction without residual deficits | CPT/HCPCS: 99212 ==